=== PATIENT | female | born 1985 | race Caucasian/White ===

== ENCOUNTER 2017-11-29 11:47 | Emergency (ER) | payer OTHER ==
[2017-11-29 12:47] LABS: Absolute Lymphocytes (CBC) 1.7 K/uL (0.7-4.9); Absolute Monocytes 0.5 K/uL (0.1-1.3); Absolute Neutrophil 5.4 K/uL (1.8-8.0); Basophils % 0.4 % (0-1.3); Eosinophils % 3.4 % (0-4.4); Hematocrit 39.1 % (36.0-45.0); Lymphocytes % 21.5 % (15.3-44.8); MCH 29.3 pg (27.0-35.0); MCV 89.7 fL (80-100); MPV 8.4 fL (7.6-11.3); Monocytes % 6.2 % (3.3-12.3); RBC Red Blood Cell Count 4.36 M/uL (3.86-4.86)
[2017-11-29 12:56] LABS: Bicarbonate 27 mEq/L (21-31); Glucose Level 96 mg/dL (65-120); Potassium 3.6 mEq/L (3.6-5.0); Sodium Level 136 mEq/L (135-145)
[2017-11-29 12:57] LABS: BUN Blood Urea Nitrogen 9 mg/dL (6-20)
[2017-11-29 13:10] LABS: HCG, Quantitative < 5.0 mIU/mL (<5)
[2017-11-29] MEDS ORDERED: PROMETHAZINE 25 MG/ML VIAL ONE (13:42)
[2017-11-29] MEDS ORDERED: ACETAMINOPHEN 325 MG TABLET ONE (13:42)
[2017-11-29] MEDS ORDERED: MORPHINE 4 MG/ML SYR ONE ×2 (14:53→17:40)
[2017-11-29 15:00] LABS: Urine Blood 3+ (NEG); Urine Glucose NEGATIVE (NEG); Urine Protein 2+ (NEG); Urine Specific Gravity 1.015 (1.005-1.030); Urine pH 6.5 (5.0-7.0)
--- NOTE | 2017-11-29 16:37 | RAD REPORT ---
EXAM DESCRIPTION: CT - Abdomen Pelvis W Contrast - 11/29/2017 4:12 pm CLINICAL HISTORY: Abdominal pain. Vaginal bleeding COMPARISON: January 2017 TECHNIQUE: Computed axial tomography of the abdomen and pelvis was obtained. 100 cc Isovue-300 is ad ministered intravenously. Oral contrast was given. All CT scans are performed using dose optimization technique as appropriate and may include automated exposure control or mA/KV adjustment according to patient size. FINDINGS: The left lobe of the liver is prominent without change from the prior exam Spleen, pancreas, adrenals and kidneys appear unremarkable. The appendix is normal caliber. There is no evidence of diverticulitis A 25 millimeter left ovarian cyst is present. A 20 millimeter right ovarian cyst is seen. Significant free fluid is not noted A large amount of air is present within the vagina. IMPRESSION: Large amount of air within the vagina could be related to infection or fistula A 25 millimeter left ovarian cyst is present. A 20 millimeter right ovarian cyst is seen. Significant free fluid is not noted
--- NOTE | 2017-11-29 17:28 | EDPHYS ---
Physician Documentation [facility] Name: Jaymie Cleveland Age: 32 yrs Sex: Female : 1985 Arrival Date: 11/29/2017 Time: 11:50 Bed 20 Private MD: Leighton Villalpando ED Physician Lupillo Fatima HPI: 11/29 12:43 This 32 yrs old Female presents to ER via Ambulatory with complaints of pm1 Vaginal Bleeding, + Preg <12wks. 12:43 The patient presents to the emergency department with abdominal pain, of the suprapubic pm1 area, that started today, described as crampy, vaginal bleeding, with clots. Previous pregnancies: in previous pregnancies patient has had 1 and 2 miscarriages. Associated signs and symptoms: Pertinent positives: vaginal bleeding, Pertinent negatives: chest pain, fever, nausea, shortness of breath, vaginal discharge, vomiting. The patient has not recently seen a physician. patient took daily home tests from 11/16 to 11/23 and they were positive. 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 - Social history:: Smoking status: Patient uses tobacco products, smokes one-half pack cigarettes per day. ROS: 13:00 Constitutional: Negative for fever, chills, and weight loss, Eyes: Negative for injury, pm1 pain, redness, and discharge, ENT: Negative for injury, pain, and discharge, Neck: Negative for injury, pain, and swelling, Cardiovascular: Negative for chest pain, palpitations, and edema, Respiratory: Negative for shortness of breath, cough, wheezing, and pleuritic chest pain, Abdomen/GI: Negative for abdominal pain, nausea, vomiting, diarrhea, and constipation, Back: Negative for injury and pain. 13:00 MS/Extremity: Negative for injury and deformity, Skin: Negative for injury, rash, and discoloration, Neuro: Negative for headache, weakness, numbness, tingling, and seizure. 13:00 : Positive for vaginal bleeding, Negative for flank pain, burning with urination, difficulty urinating, vaginal discharge, vaginal itching. Exam: 13:00 Constitutional: This is a well developed, well nourished patient who is awake, alert, pm1 and in no acute distress. Head/Face: Normocephalic, atraumatic. Eyes: Pupils equal round and reactive to light, extra-ocular motions intact. Lids and lashes normal. Conjunctiva and sclera are non-icteric and not injected. Cornea within normal limits. Periorbital areas with no swelling, redness, or edema. ENT: Nares patent. No nasal discharge, no septal abnormalities noted. Tympanic membranes are normal and external auditory canals are clear. Oropharynx with no redness, swelling, or masses, exudates, or evidence of obstruction, uvula midline. Mucous membranes moist. Neck: Trachea midline, no thyromegaly or masses palpated, and no cervical lymphadenopathy. Supple, full range of motion without nuchal rigidity, or vertebral point tenderness. No Meningismus. Chest/axilla: Normal chest wall appearance and motion. Nontender with no deformity. No lesions are appreciated. Cardiovascular: Regular rate and rhythm with a normal S1 and S2. No gallops, murmurs, or rubs. Normal PMI, no JVD. No pulse deficits. Respiratory: Lungs have equal breath sounds bilaterally, clear to auscultation and percussion. No rales, rhonchi or wheezes noted. No increased work of breathing, no retractions or nasal flaring. Abdomen/GI: Soft, non-tender, with normal bowel sounds. No distension or tympany. No guarding or rebound. No evidence of tenderness throughout. Back: No spinal tenderness. No costovertebral tenderness. Full range of motion. Skin: Warm, dry with normal turgor. Normal color with no rashes, no lesions, and no evidence of cellulitis. MS/ Extremity: Pulses equal, no cyanosis. Neurovascular intact. Full, normal range of motion. 13:00 Neuro: Orientation: is normal, Mentation: is normal, Motor: is normal, moves all fours, Sensation: is normal, no obvious gross deficits, Gait: is steady, at a normal pace, without difficulty. 17:25 : Pelvic Exam: External exam: is normal, Speculum exam: scant bleeding, bimanual exam pm1 reveals normal findings, no cervical motion tenderness, no uterine tenderness, no adnexa tenderness or masses bilaterally, Olamide. Sexual behavior: the patient is sexually active, and reports a single partner, method of control is none. Vital Signs: 11:57 BP 112 / 68; Pulse 106; Resp 20; Temp 98.3; Pulse Ox 98% on R/A; Weight 97.52 kg; aj Height 5 ft. 2 in. (157.48 cm); 12:49 BP 108 / 71; Pulse 97; Resp 16; Pulse Ox 98% on R/A; Pain 0/10; em 13:50 BP 131 / 88; Pulse 86; Resp 16; Pulse Ox 99% on R/A; em 15:04 BP 98 / 76; Pulse 87; Resp 16; Pulse Ox 96% on R/A; mh5 16:00 BP 117 / 79; Pulse 82; Resp 18; Pulse Ox 99% on R/A; Pain 5/10; em 17:00 BP 114 / 76; Pulse 86; Resp 18; Pulse Ox 99% on R/A; Pain 4/10; em 11:57 Body Mass Index 39.32 (97.52 kg, 157.48 cm) aj MDM: 12:07 Patient medically screened. pm1 13:00 Data reviewed: vital signs. Data interpreted: Pulse oximetry: on room air is 99 %. pm1 Interpretation: normal. 17:25 Counseling: I had a detailed discussion with the patient and/or guardian regarding: the pm1 historical points, exam findings, and any diagnostic results supporting the discharge/admit diagnosis, lab results, radiology results, the need for outpatient follow up, to return to the emergency department if symptoms worsen or persist or if there are any questions or concerns that arise at home. 17:25 Differential diagnosis: STD, ectopic , Menses, abnormal uterine bleeding. pm1 11/29 12:11 Order name: Quantitative Hcg; Complete Time: 14:04 pm11/29 12:11 Order name: Abo/rh Typing; Complete Time: 14:04 pm11/29 12:11 Order name: Basic Metabolic Panel; Complete Time: 14:04 pm11/29 12:11 Order name: CBC with Diff; Complete Time: 12:49 pm1 11/29 12:26 Order name: Urine Dipstick--Ancillary (enter results); Complete Time: 15:01 bd 11/29 12:26 Order name: Urine --Ancillary (enter results); Complete Time: 15:01 bd 11/29 12:11 Order name: Urine Test (obtain specimen); Complete Time: 12:18 pm1 11/29 12:11 Order name: IV Saline Lock; Complete Time: 12:48 pm1 11/29 14:10 Order name: CT Abd/Pelvis - W/Contrast; Complete Time: 16:43 pm1 11/29 12:11 Order name: Labs collected and sent; Complete Time: 12:48 pm1 11/29 12:11 Order name: NPO; Complete Time: 12:18 pm1 11/29 12:11 Order name: Urine Dipstick-Ancillary (obtain specimen); Complete Time: 12:39 pm1 11/29 16:44 Order name: Pelvic Exam Setup; Complete Time: 17:32 pm1 Administered Medications: 13:02 Drug: morphine 4 mg Route: IVP; Site: left forearm; iw 16:33 Follow up: Response: No adverse reaction; Pain is decreased em 14:02 Drug: Phenergan 12.5 mg Route: IVP; Site: right forearm; iw 14:49 Follow up: Response: No adverse reaction em 14:03 Drug: Tylenol 650 mg Route: PO; em 14:49 Follow up: Response: No adverse reaction em 17:44 Not Given (Physician Discretion): morphine 2 mg IVP once pm1 17:44 Drug: TORadol 30 mg Route: IVP; Site: left antecubital; hj 17:55 Follow up: Response: No adverse reaction em Point of Care Testing: Urine : 12:50 hCG Reading: Negative; em Disposition: 18:39 Co-signature as Attending Physician, Lupillo Fatima MD. rn Disposition: 11/29/17 17:27 Discharged to Home. Impression: Abnormal uterine and vaginal bleeding, unspecified. - Condition is Stable. - Discharge Instructions: Abnormal Uterine Bleeding. - Prescriptions for Tylenol- Codeine #3 300-30 mg Oral Tablet - take 2 tablets by ORAL route every 6 hours As needed; 20 tablet. - Medication Reconciliation Form, Thank You Letter, Prescription Opioid Use form. - Follow up: Emergency Department; When: As needed; Reason: Worsening of condition. Follow up: Private Physician; When: 2 - 3 days; Reason: Recheck today's complaints, Continuance of care, Re-evaluation by your physician. - Problem is new. - Symptoms have improved. Signatures: Dispatcher [employer] EDRizwana Joyce RN MABEL Davalos, Tyler, REPORTS ANALYST REPORTS ANALYST Ariana Solorzano RN RN iw Nieto, Roman, MD MD rn Joaquin, Henry, RN RN hj Marinas, Patrick, PICKLE MAKER PICKLE MAKER pm1 Corrections: (The following items were deleted from the chart) 18:01 17:27 11/29/2017 17:27 Discharged to Home. Impression: Abnormal uterine and vaginal em bleeding, unspecified. Condition is Stable. Forms are Medication Reconciliation Form, Thank You Letter, Antibiotic Education, Prescription Opioid Use. Follow up: Emergency Department; When: As needed; Reason: Worsening of condition. Follow up: Private Physician; When: 2 - 3 days; Reason: Recheck today's complaints, Continuance of care, Re-evaluation by your physician. Problem is new. Symptoms have improved. pm1
--- NOTE | 2017-11-29 17:28 | ER ---
Nurse's Notes [facility] Name: Jaymie Cleveland Age: 32 yrs Sex: Female : 1985 Arrival Date: 11/29/2017 Time: 11:50 Bed 20 Private MD: Leighton Villalpando Diagnosis: Abnormal uterine and vaginal bleeding, unspecified Presentation: 11/29 11:56 Presenting complaint: Patient states: Vaginal bleeding with small clots that started aj yesterday. Patient reports positive home test. Transition of care: patient was not received from another setting of care. Onset of symptoms was November 29, 2017. Care prior to arrival: None. 11:56 Method Of Arrival: Ambulatory aj 11:56 Acuity: HOSEA 3 aj 12:49 Initial Sepsis Screen: Does the patient meet any 2 criteria? No. Patient's initial em sepsis screen is negative. Does the patient have a suspected source of infection? No. Patient's initial sepsis screen is negative. Triage Assessment: 11:57 General: Appears in no apparent distress. comfortable, Behavior is calm, cooperative, aj appropriate for age. Pain: Complains of pain in pelvis. Neuro: Level of Consciousness is awake, alert, obeys commands, Oriented to person, place, time, situation. Respiratory: Airway is patent Respiratory effort is even, unlabored, Respiratory pattern is regular, symmetrical. : Reports vaginal bleeding that is moderate flow. Derm: Skin is intact, Skin is dry, Skin is red, Patient is sunburnt with peeling skin. 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 - Social history:: Smoking status: Patient uses tobacco products, smokes one-half pack cigarettes per day. Screenin:51 Abuse screen: Denies threats or abuse. Nutritional screening: No deficits noted. em Tuberculosis screening: No symptoms or risk factors identified. Fall Risk None identified. Assessment: 12:22 Reassessment:. General: Appears in no apparent distress. uncomfortable, Behavior is em calm. Pain: Complains of pain in suprapubic area. Neuro: Level of Consciousness is awake, alert, Oriented to person, place, time. Cardiovascular: Capillary refill < 3 seconds Patient's skin is warm and dry. Respiratory: Airway is patent Respiratory effort is even, unlabored, Respiratory pattern is regular, symmetrical. GI: Abdomen is round Bowel sounds present X 4 quads. Abd is soft and non tender X 4 quads. Reports nausea, vomiting. : Urine is blood tinged. EENT: No signs and/or symptoms were reported regarding the EENT system. Derm: Skin is intact, Skin is pink, warm \T\ dry. Musculoskeletal: Range of motion: intact in all extremities. 13:00 Reassessment: Patient appears in no apparent distress at this time. I agree with the iw above assessment by Tyler Davalos LVN. 13:45 Reassessment: Patient appears in no apparent distress at this time. Patient and/or em family updated on plan of care and expected duration. Pain level reassessed. c/o pain and nausea, Mich BUDGET OFFICER notified. 14:38 Reassessment: Patient appears in no apparent distress at this time. Patient and/or em family updated on plan of care and expected duration. Pain level reassessed. 15:40 Reassessment: Patient appears in no apparent distress at this time. Patient and/or em family updated on plan of care and expected duration. Pain level reassessed. Patient is alert, oriented x 3, equal unlabored respirations, skin warm/dry/pink. 16:00 Reassessment: Patient appears in no apparent distress at this time. Patient and/or em family updated on plan of care and expected duration. Pain level reassessed. Patient is alert, oriented x 3, equal unlabored respirations, skin warm/dry/pink. Patient states feeling better. 16:45 Reassessment: Patient appears in no apparent distress at this time. Patient and/or em family updated on plan of care and expected duration. Pain level reassessed. Patient is alert, oriented x 3, equal unlabored respirations, skin warm/dry/pink. 17:40 Reassessment: Patient appears in no apparent distress at this time. Patient and/or em family updated on plan of care and expected duration. Pain level reassessed. Patient is alert, oriented x 3, equal unlabored respirations, skin warm/dry/pink. Patient states feeling better. Patient states symptoms have improved. Vital Signs: 11:57 BP 112 / 68; Pulse 106; Resp 20; Temp 98.3; Pulse Ox 98% on R/A; Weight 97.52 kg; aj Height 5 ft. 2 in. (157.48 cm); 12:49 BP 108 / 71; Pulse 97; Resp 16; Pulse Ox 98% on R/A; Pain 0/10; em 13:50 BP 131 / 88; Pulse 86; Resp 16; Pulse Ox 99% on R/A; em 15:04 BP 98 / 76; Pulse 87; Resp 16; Pulse Ox 96% on R/A; mh5 16:00 BP 117 / 79; Pulse 82; Resp 18; Pulse Ox 99% on R/A; Pain 5/10; em 17:00 BP 114 / 76; Pulse 86; Resp 18; Pulse Ox 99% on R/A; Pain 4/10; em 11:57 Body Mass Index 39.32 (97.52 kg, 157.48 cm) ED Course: 11:50 Patient arrived in ED. mr 11:50 None, None is Private Physician. mr 11:50 Leighton Villalpando MD is Private Physician. mr 11:57 Triage completed. aj 11:57 Arm band placed on left wrist. Patient placed in an exam room. aj 12:02 Tyler Davalos LVN is Primary Nurse. em 12:03 Mich Tavares NP is PHCP. pm1 12:03 Lupillo Fatima MD is Attending Physician. pm1 12:39 Urine --Ancillary (enter results) Sent. 5 12:39 Urine Dipstick--Ancillary (enter results) Sent. 5 12:39 Quantitative Hcg Sent. 5 12:39 Abo/rh Typing Sent. 5 12:39 Basic Metabolic Panel Sent. 5 12:39 CBC with Diff Sent. 5 12:39 Initial lab(s) drawn, by wi, sent to lab. Inserted saline lock: 22 gauge in right mh5 antecubital area, using aseptic technique. Blood collected. 12:41 Patient has correct armband on for positive identification. Placed in gown. Bed in low 5 position. Call light in reach. Side rails up X 1. Adult w/ patient. Warm blanket given. Pillow given. Pulse ox on. NIBP on. 12:50 No provider procedures requiring assistance completed. em 14:00 Inserted saline lock: 22 gauge in right forearm, using aseptic technique. em 16:[address] kw1 16:11 CT completed. Patient tolerated procedure well. Patient moved back from CT. kw1 16:13 CT Abd/Pelvis - W/Contrast In Process Unspecified. EDMS 18:00 IV discontinued, intact, bleeding controlled, No redness/swelling at site. Pressure em dressing applied. Administered Medications: 13:02 Drug: morphine 4 mg Route: IVP; Site: left forearm; iw 16:33 Follow up: Response: No adverse reaction; Pain is decreased em 14:02 Drug: Phenergan 12.5 mg Route: IVP; Site: right forearm; iw 14:49 Follow up: Response: No adverse reaction em 14:03 Drug: Tylenol 650 mg Route: PO; em 14:49 Follow up: Response: No adverse reaction em 17:44 Not Given (Physician Discretion): morphine 2 mg IVP once pm1 17:44 Drug: TORadol 30 mg Route: IVP; Site: left antecubital; hj 17:55 Follow up: Response: No adverse reaction em Point of Care Testing: Urine : 12:50 hCG Reading: Negative; em Outcome: 17:27 Discharge ordered by MD. pm1 17:57 Discharged to home ambulatory. em 17:57 Condition: good 17:57 Discharge instructions given to patient, family, Instructed on discharge instructions, follow up and referral plans. Demonstrated understanding of instructions, follow-up care, medications, Prescriptions given X 1. 18:01 Patient left the ED. em Signatures: Dispatcher [employer] Rizwana Leal RN RN aj Rivera, Maria mr Munoz, Edgar, ART HANDLER ART HANDLER em Ariana Anderson RN RN iw Joaquin, Henry, RN RN hj Marinas, Patrick, NP BUDGET OFFICER pm1 Alicia Can [facility] Brenda Rizvi [facility]
[2017-11-29] MEDS ORDERED: KETOROLAC 30 MG/ML INJ ONE (17:47)
[2017-11-29 18:05] VITALS: TEMP 98.3
[2017-11-29 18:10] VITALS: O2SAT 99
[2017-11-29 18:11] VITALS: BP 114/76
== END 2017-11-29 18:01 | disposition home or self-care (01) ==
LOC: ER 11:47
DX: N93.9 Abnormal uterine and vaginal bleeding, unspecified (principal); F41.9 Anxiety disorder, unspecified; F32.9 Major depressive disorder, single episode, unspecified; F17.210 Nicotine dependence, cigarettes, uncomplicated
CPT/HCPCS: 36415; 74177; 80048; 81003; 81025; 84702; 85025; 86900; 86901; 99284; J2550; Q9967

== ENCOUNTER 2018-07-11 05:22 | Emergency (ER) | payer OTHER ==
[2018-07-11 06:42] LABS: Absolute Lymphocytes (CBC) 2.2 K/uL (0.7-4.9); Absolute Monocytes 0.6 K/uL (0.1-1.3); Absolute Neutrophil 4.1 K/uL (1.8-8.0); Basophils % 0.7 % (0-1.3); Eosinophils % 3.6 % (0-4.4); Hematocrit 37.8 % (36.0-45.0); Lymphocytes % 30.7 % (15.3-44.8); Monocytes % 7.9 % (3.3-12.3); RBC Red Blood Cell Count 4.16 M/uL (3.86-4.86)
[2018-07-11 06:48] LABS: Protime INR 0.99
[2018-07-11 06:50] LABS: Urine Blood NEGATIVE (NEG); Urine Glucose NEGATIVE (NEG); Urine Protein NEGATIVE (NEG); Urine Specific Gravity >1.030 (1.005-1.030); Urine pH 5.5 (5.0-7.0)
[2018-07-11 06:51] LABS: Barbiturates NEGATIVE (NEGATIVE); Benzodiazepines POSITIVE (NEGATIVE); Cocaine NEGATIVE (NEGATIVE); METHAMPHETAM POSITIVE (NEGATIVE); Methadone NEGATIVE (NEGATIVE); Opiates NEGATIVE (NEGATIVE); Phencyclidine NEGATIVE (NEGATIVE); THC Cannibis NEGATIVE (NEGATIVE)
[2018-07-11] MEDS ORDERED: NA CHLORIDE 0.9% 1,000 ML ONE (06:56)
[2018-07-11 07:03] LABS: ALT/SGPT 30 U/L (12-78); AST/SGOT 16 U/L (15-37); Albumin 3.3 g/dL (3.4-5.0); Alkaline Phosphatase 51 U/L (45-117); BUN Blood Urea Nitrogen 6 mg/dL (7-18); Bicarbonate 26 mmol/L (21-32); Bilirubin Direct < 0.1 mg/dL (0-0.2); Bilirubin Total 0.1 mg/dL (0.2-1.0); Glucose Level 94 mg/dL (74-106); Lipase 384 U/L (73-393); Magnesium 2.2 mg/dL (1.8-2.4); NT PRO-BNP 95 pg/mL (<125); Potassium 3.6 mmol/L (3.5-5.1); Protein, Total 6.6 g/dL (6.4-8.2); Sodium Level 142 mmol/L (136-145); Troponin (Emerg Dept Use Only) < 0.02 ng/mL (0.0-0.045)
[2018-07-11] MEDS ORDERED: KETOROLAC 30 MG/ML INJ ONE (08:16)
--- NOTE | 2018-07-11 08:49 | ER ---
Nurse's Notes [facility] Name: Jaymie Cleveland Age: 33 yrs Sex: Female : 1985 Arrival Date: 07/11/2018 Time: 05:34 Bed 13 Private MD: Diagnosis: Lower abdominal pain, unspecified;Paresthesia of skin;Volume depletion Presentation: 07/11 05:55 Presenting complaint: Patient states: hand and foot swelling started 2 days ago rr5 associated with numbness and tingling sensation. right sided chest pain and left flank pain, pain score 7/10 started 4 days ago. Transition of care: patient was not received from another setting of care. Onset of symptoms was July 08, 2018. Risk Assessment: Do you want to hurt yourself or someone else? Patient reports no desire to harm self or others. Initial Sepsis Screen: Does the patient meet any 2 criteria? No. Patient's initial sepsis screen is negative. Does the patient have a suspected source of infection? No. Patient's initial sepsis screen is negative. Care prior to arrival: None. 05:55 Method Of Arrival: Ambulatory rr5 05:55 Acuity: HOSEA 3 rr5 TARIFF CLERK: 05:58 LMP 07/01/2018 rr5 Historical: - Allergies: 06:01 NKDA; rr5 - Home Meds: 06:01 alprazolam 2 mg Oral tab 1 tab 2 times a day [Active]; adderal [Active]; rr5 - PMHx: 06:01 Anxiety; Depression; Seizures; ocd; C DIFF; rr5 - PSHx: 06:01 elbow surgery; knee surgery; rr5 - Immunization history:: Adult Immunizations up to date, Flu vaccine is up to date. - Social history:: Smoking status: Patient uses tobacco products, smokes one-half pack cigarettes per day, Patient/guardian denies using alcohol, street drugs. - Ebola Screening: : Patient negative for fever greater than or equal to 101.5 degrees Fahrenheit, and additional compatible Ebola Virus Disease symptoms Patient denies exposure to infectious person Patient denies travel to an Ebola-affected area in the 21 days before illness onset. Screenin:00 Abuse screen: Denies threats or abuse. Denies injuries from another. Nutritional rr5 screening: No deficits noted. Tuberculosis screening: No symptoms or risk factors identified. Fall Risk IV access (20 points). Total Hollins Fall Scale indicates No Risk (0-24 pts). Assessment: 06:00 General: Appears in no apparent distress. uncomfortable, Behavior is calm, cooperative. rr5 06:00 Pain: Complains of pain in right upper chest and left flank area Pain does not radiate. rr5 Pain currently is 7 out of 10 on a pain scale. Quality of pain is described as sharp, Pain began gradually, Is intermittent. Neuro: Level of Consciousness is awake, alert, obeys commands, Oriented to person, place, time, situation. Cardiovascular: Capillary refill < 3 seconds Patient's skin is warm and dry. Respiratory: Airway is patent Respiratory effort is even, unlabored, Respiratory pattern is regular, symmetrical. GI: Bowel sounds present X 4 quads. Abd is soft and non tender X 4 quads. : No signs and/or symptoms were reported regarding the genitourinary system. EENT: No signs and/or symptoms were reported regarding the EENT system. Derm: Skin is intact, Skin temperature is warm. Musculoskeletal: No signs and/or symptoms reported regarding the musculoskeletal system. 06:43 Reassessment: Patient appears in no apparent distress at this time. Patient and/or rr5 family updated on plan of care and expected duration. Pain level reassessed. awaiting for report. Patient states symptoms have improved. 07:42 Reassessment: Patient appears in no apparent distress at this time. Patient and/or ph family updated on plan of care and expected duration. Pain level reassessed. Patient is alert, oriented x 3, equal unlabored respirations, skin warm/dry/pink. Pt resting quietly, states, " Do you think I can get some IV benadryl for swelling?" VSS at this time, ERP notified, see MAR for current orders. Vital Signs: 05:58 BP 120 / 60; Pulse 98; Resp 17; Temp 98.3; Pulse Ox 98% ; Weight 95.25 kg; Height 5 ft. rr5 2 in. (157.48 cm); Pain 7/10; 06:30 BP 105 / 62; Pulse 95; Resp 16; Pulse Ox 99% on R/A; rr5 07:43 BP 111 / 79; Pulse 88; Resp 16; Pulse Ox 100% on R/A; ph 05:58 Body Mass Index 38.41 (95.25 kg, 157.48 cm) rr5 ED Course: 05:34 Patient arrived in ED. ag3 05:55 Marco Munoz, RN is Primary Nurse. rr5 05:58 Triage completed. rr5 05:59 Elizabeth Doty FNP-C [facility]. snw 05:59 Storm Martin MD is Attending Physician. snw 06:02 Arm band placed on. rr5 06:05 Patient has correct armband on for positive identification. Placed in gown. Bed in low rr5 position. Call light in reach. Side rails up X 1. potline monitor on. Pulse ox on. NIBP on. 06:07 X-ray completed. Portable x-ray completed in exam room. Patient tolerated procedure kw well. 06:11 XRAY Chest (1 view) In Process Unspecified. EDMS 06:30 Inserted saline lock: 20 gauge in right forearm, using aseptic technique. Blood rr5 collected. 07:43 No provider procedures requiring assistance completed. ph Administered Medications: 06:30 Drug: NS 0.9% 1000 ml Route: IV; Rate: 125 ml/hr; Site: right hand; rr5 07:20 Drug: NS 0.9% 1000 ml Route: IV; Rate: 1 bolus; Site: right hand; ph 08:22 Follow up: Response: No adverse reaction; IV Status: Completed infusion ph 08:21 Drug: TORadol 30 mg Route: IVP; Site: right hand; ph Outcome: 08:49 Discharge ordered by . snw 09:16 Patient left the ED. em Signatures: Dispatcher [employer] EDRI Elizabeth Doty FNP-C FNP-Csnw Tyler Davalos, CHRONIC DISEASE EPIDEMIOLOGIST CHRONIC DISEASE EPIDEMIOLOGIST em Cher Cintron Patricia RN RN Cindy Bill ag3 Marco Munoz, RN RN rr5
--- NOTE | 2018-07-11 08:50 | EDPHYS ---
Physician Documentation [facility] Name: Jaymie Cleveland Age: 33 yrs Sex: Female : 1985 Arrival Date: 07/11/2018 Time: 05:34 Bed 13 Private MD: ED Physician Storm Martin HPI: 07/11 06:15 This 33 yrs old Female presents to ER via Ambulatory with complaints of snw Abdominal Pain, Feet Swelling. 06:15 The patient presents with abdominal pain that is diffuse. Onset: The symptoms/episode snw began/occurred 4 day(s) ago. The symptoms do not radiate. Associated signs and symptoms: Pertinent positives: numbness to hands and feet. The symptoms are described as achy. Severity of pain: At its worst the pain was moderate a 7 / 10. It is unknown whether or not the patient has had similar symptoms in the past. It is unknown whether or not the patient has recently seen a physician, sees Dr. Villalpando. 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 - Social history:: Smoking status: Patient uses tobacco products, smokes one-half pack cigarettes per day, Patient/guardian denies using alcohol, street drugs. - Ebola Screening: : Patient negative for fever greater than or equal to 101.5 degrees Fahrenheit, and additional compatible Ebola Virus Disease symptoms Patient denies exposure to infectious person Patient denies travel to an Ebola-affected area in the 21 days before illness onset. ROS: 06:14 Eyes: Negative for injury, pain, redness, and discharge, ENT: Negative for injury, snw pain, and discharge, Neck: Negative for injury, pain, and swelling, Respiratory: Negative for shortness of breath, cough, wheezing, and pleuritic chest pain. 06:14 Back: Negative for injury and pain, : Negative for injury, bleeding, discharge, and swelling. 06:14 Skin: Negative for injury, rash, and discoloration, Neuro: Negative for headache, weakness, numbness, tingling, and seizure, Psych: Negative for depression, anxiety, suicide ideation, homicidal ideation, and hallucinations. 06:14 Constitutional: Positive for body aches. 06:14 Cardiovascular: Positive for chest pain, of the anterior aspect of right upper chest. 06:14 Abdomen/GI: Positive for abdominal pain. 06:14 MS/extremity: Positive for paresthesias, of the hands and feet. Exam: 06:12 Head/Face: Normocephalic, atraumatic. Eyes: Pupils equal round and reactive to light, snw extra-ocular motions intact. Lids and lashes normal. Conjunctiva and sclera are non-icteric and not injected. Cornea within normal limits. Periorbital areas with no swelling, redness, or edema. ENT: Nares patent. No nasal discharge, no septal abnormalities noted. Tympanic membranes are normal and external auditory canals are clear. Oropharynx with no redness, swelling, or masses, exudates, or evidence of obstruction, uvula midline. Mucous membranes moist. 06:12 Chest/axilla: Normal chest wall appearance and motion. Nontender with no deformity. No lesions are appreciated. Cardiovascular: Regular rate and rhythm with a normal S1 and S2. No gallops, murmurs, or rubs. Normal PMI, no JVD. No pulse deficits. Respiratory: Lungs have equal breath sounds bilaterally, clear to auscultation and percussion. No rales, rhonchi or wheezes noted. No increased work of breathing, no retractions or nasal flaring. 06:12 Back: No spinal tenderness. No costovertebral tenderness. Full range of motion. Skin: Warm, dry with normal turgor. Normal color with no rashes, no lesions, and no evidence of cellulitis. MS/ Extremity: Pulses equal, no cyanosis. Neurovascular intact. Full, normal range of motion. Neuro: Awake and alert, GCS 15, oriented to person, place, time, and situation. Cranial nerves II-XII grossly intact. Motor strength 5/5 in all extremities. Sensory grossly intact. Cerebellar exam normal. Normal gait. Psych: Awake, alert, with orientation to person, place and time. Behavior, mood, and affect are within normal limits. 06:12 Constitutional: The patient appears awake, anxious, obese. 06:12 Neck: External neck: rash, of the left lateral aspect of neck. 06:12 Abdomen/GI: Inspection: obese Bowel sounds: normal, Palpation: abdomen is soft and non-tender, in all quadrants. Vital Signs: 05:58 BP 120 / 60; Pulse 98; Resp 17; Temp 98.3; Pulse Ox 98% ; Weight 95.25 kg; Height 5 ft. rr5 2 in. (157.48 cm); Pain 7/10; 06:30 BP 105 / 62; Pulse 95; Resp 16; Pulse Ox 99% on R/A; rr5 07:43 BP 111 / 79; Pulse 88; Resp 16; Pulse Ox 100% on R/A; ph 05:58 Body Mass Index 38.41 (95.25 kg, 157.48 cm) rr5 MDM: 05:56 Patient medically screened. korin 08:50 Data reviewed: vital signs, nurses notes. Data interpreted: Pulse oximetry: on room air snw is 100 %. Interpretation: normal. Counseling: I had a detailed discussion with the patient and/or guardian regarding: the historical points, exam findings, and any diagnostic results supporting the discharge/admit diagnosis, lab results, radiology results, the need for outpatient follow up, to return to the emergency department if symptoms worsen or persist or if there are any questions or concerns that arise at home. Response to treatment: the patient's symptoms have mildly improved after treatment. Special discussion: Based on the patient's Hx, exam, and Dx evaluation, there is no indication for emergent surgery or inpatient Tx. It is understood by the patient/guardian that if the Sx's persist or worsen they need to return immediately for re-evaluation. Based on the history and exam findings, there is no indication for further emergent testing or inpatient evaluation. I discussed with the patient/guardian the need to see the neurologist for further evaluation of the symptoms. I discussed with the patient/guardian the need to see the primary care provider for further evaluation of the symptoms. 07/11 05:39 Order name: Basic Metabolic Panel; Complete Time: 07:17 ms 07/11 05:39 Order name: CBC with Diff; Complete Time: 06:57 ms 07/11 05:39 Order name: LFT's; Complete Time: 07:17 ms 07/11 05:39 Order name: Magnesium; Complete Time: 07:17 ms 07/11 05:39 Order name: NT PRO-BNP; Complete Time: 07:17 ms 07/11 05:39 Order name: PT-INR; Complete Time: 06:55 ms 07/11 05:39 Order name: Troponin (emerg Dept Use Only); Complete Time: 07:17 ms 07/11 05:39 Order name: XRAY Chest (1 view); Complete Time: 09:52 ms 07/11 05:40 Order name: Lipase; Complete Time: 07:17 ms 07/11 05:45 Order name: Urine Culture korin 07/11 06:19 Order name: UDS; Complete Time: 06:55 snw 07/11 06:42 Order name: Urine Dipstick--Ancillary (enter results); Complete Time: 06:55 ar5 07/11 07:28 Order name: Urine Microscopic Only; Complete Time: 08:54 snw 07/11 05:40 Order name: EKG; Complete Time: 05:41 ms 07/11 05:40 Order name: Cardiac monitoring; Complete Time: 06:39 ms 07/11 05:40 Order name: EKG - Nurse/Tech; Complete Time: 06:39 ms 07/11 05:40 Order name: IV Saline Lock; Complete Time: 06:39 ms 07/11 05:40 Order name: Labs collected and sent; Complete Time: 06:39 ms 07/11 05:40 Order name: O2 Per Protocol; Complete Time: 06:40 ms 07/11 05:40 Order name: O2 Sat Monitoring; Complete Time: 06:40 ms 07/11 05:45 Order name: Urine Dipstick-Ancillary (obtain specimen); Complete Time: 07:14 korin 07/11 05:45 Order name: Urine Test (obtain specimen); Complete Time: 07:14 korin Administered Medications: 06:30 Drug: NS 0.9% 1000 ml Route: IV; Rate: 125 ml/hr; Site: right hand; rr5 07:20 Drug: NS 0.9% 1000 ml Route: IV; Rate: 1 bolus; Site: right hand; ph 08:22 Follow up: Response: No adverse reaction; IV Status: Completed infusion ph 08:21 Drug: TORadol 30 mg Route: IVP; Site: right hand; ph Disposition: 07/11/18 08:49 Discharged to Home. Impression: Lower abdominal pain, unspecified, Paresthesia of skin, Volume depletion. - Condition is Stable. - Discharge Instructions: Abdominal Pain, Adult, Dehydration, Adult, Paresthesia, Rehydration, Adult. - Prescriptions for Bentyl 20 mg Oral Tablet - take 1 tablet by ORAL route every 6 hours As needed; 20 tablet. Diclofenac Sodium 75 mg Oral Tablet Sustained Release - take 1 tablet by ORAL route 2 times per day; 30 tablet. - Work release form, Medication Reconciliation Form, Thank You Letter, Antibiotic Education, Prescription Opioid Use, Family Work Release form. - Follow up: Private Physician; When: 1 - 2 days; Reason: Recheck today's complaints, Continuance of care, Re-evaluation by your physician. Follow up: Emergency Department; When: As needed; Reason: Worsening of condition. Addendum: 07/16/2018 11:33 Co-signature as Attending Physician, Storm Martin MD I agree with the assessment and c raphael plan of care. Signatures: Dispatcher [employer] Storm Patterson MD MD cha Therrien, Shelly, DIRECTOR OF NURSES REGISTRY-C DIRECTOR OF NURSES REGISTRY-Csnw Tyler Davalos, COLLECTION CLERK COLLECTION CLERK Esqueda, Alicia ms Laxmi Walker, RN RN Marco Munoz RN RN rr5 Corrections: (The following items were deleted from the chart) 07/11 09:16 08:49 07/11/2018 08:49 Discharged to Home. Impression: Lower abdominal pain, em unspecified; Paresthesia of skin; Volume depletion. Condition is Stable. Forms are Medication Reconciliation Form, Thank You Letter, Antibiotic Education, Prescription Opioid Use. Follow up: Private Physician; When: 1 - 2 days; Reason: Recheck today's complaints, Continuance of care, Re-evaluation by your physician. Follow up: Emergency Department; When: As needed; Reason: Worsening of condition. snw
[2018-07-11 08:52] LABS: Urine Amorphous Sediment 1+ /HPF (NONE SEEN); Urine Bacteria <20 /HPF (<20); Urine Culture Reflex Order NOT NEEDED; Urine Mucus 3+ /HPF (NONE SEEN); Urine RBC <5 /HPF (NONE SEEN)
--- NOTE | 2018-07-11 08:59 | EKG ---
Test Date: 2018-07-11 Test Time: 06:09:18 Embroiderer Hand: RR MEASUREMENT RESULTS: Intervals: Rate: 83 ID: [id number] QRSD: 84 QT: 378 QTc: 444 [place]: P: 55 ID: [id number] QRS: 60 T: 18 INTERPRETIVE STATEMENTS: Normal sinus rhythm Normal ECG Compared to ECG 09/15/2017 21:13:42 ST (T wave) deviation no longer present Electronically Signed On 07-11-18 08:57:47 CHAIN PULLER by Ryan Quiroga
--- NOTE | 2018-07-11 09:14 | RAD REPORT ---
EXAM DESCRIPTION: Maximino Single View07/11/2018 6:10 am CLINICAL HISTORY: Chest pain COMPARISON: 2017 FINDINGS: A few areas of scarring are present within the lung bases. The lungs appear clear of acute infiltrate. The heart is normal size IMPRESSION: No acute abnormalities displayed
[2018-07-11 09:36] VITALS: TEMP 98.3
[2018-07-11 09:38] VITALS: BP 111/79; O2SAT 100
== END 2018-07-11 09:16 | disposition home or self-care (01) ==
LOC: ER 05:22
DX: E86.9 Volume depletion, unspecified (principal); R10.30 Lower abdominal pain, unspecified; R20.2 Paresthesia of skin; F41.9 Anxiety disorder, unspecified; F32.9 Major depressive disorder, single episode, unspecified; F17.210 Nicotine dependence, cigarettes, uncomplicated; Z79.899 Other long term (current) drug therapy
CPT/HCPCS: 36415; 71045; 80048; 80076; 80307; 81003; 81015; 83690; 83735; 83880; 84484; 85025; 85610; 87086; 87088; 93005; 96361; 96374; 99284; J7030

== ENCOUNTER 2018-07-31 19:42 | Emergency (ER) | payer OTHER ==
[2018-07-31 20:26] LABS: Absolute Monocytes 0.6 K/uL (0.1-1.3); Absolute Neutrophil 6.7 K/uL (1.8-8.0); Basophils % 0.5 % (0-1.3); Eosinophils % 1.7 % (0-4.4); Hematocrit 41.6 % (36.0-45.0); MPV 9.2 fL (7.6-11.3); Monocytes % 5.9 % (3.3-12.3); RBC Red Blood Cell Count 4.67 M/uL (3.86-4.86)
[2018-07-31 20:36] LABS: Urine Blood TRACE (NEG); Urine Glucose NEGATIVE (NEG); Urine Protein NEGATIVE (NEG); Urine Specific Gravity 1.015 (1.005-1.030)
[2018-07-31 20:43] LABS: Barbiturates NEGATIVE (NEGATIVE); Benzodiazepines POSITIVE (NEGATIVE); Cocaine NEGATIVE (NEGATIVE); METHAMPHETAM NEGATIVE (NEGATIVE); Methadone NEGATIVE (NEGATIVE); Opiates NEGATIVE (NEGATIVE); Phencyclidine NEGATIVE (NEGATIVE); THC Cannibis NEGATIVE (NEGATIVE)
[2018-07-31 20:47] LABS: ALT/SGPT 28 U/L (12-78); AST/SGOT 14 U/L (15-37); Alkaline Phosphatase 62 U/L (45-117); BUN Blood Urea Nitrogen 11 mg/dL (7-18); Bicarbonate 26 mmol/L (21-32); Bilirubin Direct < 0.1 mg/dL (0-0.2); Bilirubin Total 0.3 mg/dL (0.2-1.0); Glucose Level 87 mg/dL (74-106); Potassium 4.1 mmol/L (3.5-5.1); Protein, Total 7.9 g/dL (6.4-8.2); Sodium Level 140 mmol/L (136-145)
--- NOTE | 2018-07-31 21:07 | ER ---
Nurse's Notes [facility] Name: Jaymie Cleveland Age: 33 yrs Sex: Female : 1985 Arrival Date: 07/31/2018 Time: 19:43 Bed 6 Private MD: Maxx Perez E Diagnosis: Intentional self-harm by unspecified sharp object;Acute stress reaction Presentation: 07/31 20:06 Presenting complaint: Patient states: "I think I took it too far this time"; Patient lp1 states "I haven't done anything like this in like 4 years, but it happens when I run out of my medicine"; States diagnosis of depression, told her he did not care about her; Patient states using the other end of knife and cutting off tip of a syringe to cut skin; Abrasions noted to right wrist, and right thigh, Abrasions with words of "Not Enough" on right thigh; States pain to abdomen, "I have an ulcer that hurts sometimes". Transition of care: patient was not received from another setting of care. Onset of symptoms was July 31, 2018. Risk Assessment: Do you want to hurt yourself or someone else? Patient reports desire/thoughts of hurting themselves or someone else. Provider notified. Other: Patient agrees if sent home, she will attempt to harm herself again. Initial Sepsis Screen: Does the patient meet any 2 criteria? No. Patient's initial sepsis screen is negative. Does the patient have a suspected source of infection? No. Patient's initial sepsis screen is negative. Care prior to arrival: None. 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 - Social history:: Smoking status: Patient uses tobacco products, smokes one-half pack cigarettes per day. - Ebola Screening: : No symptoms or risks identified at this time. Screenin:14 Abuse screen: Denies threats or abuse. Denies injuries from another. Nutritional lp1 screening: No deficits noted. Tuberculosis screening: No symptoms or risk factors identified. Fall Risk None identified. Assessment: 20:10 General: Appears in no apparent distress. Behavior is calm, cooperative. Pain: ed1 Complains of pain in abdomen Pain does not radiate. Pain currently is 9 out of 10 on a pain scale. Quality of pain is described as burning, Pain began 2-3 days ago. Is continuous. Neuro: Level of Consciousness is awake, alert, obeys commands, Oriented to person, place, time, situation. Cardiovascular: Denies chest pain, Heart tones S1 S2 present. Respiratory: Airway is patent Respiratory effort is even, unlabored, Respiratory pattern is regular, symmetrical, Breath sounds are clear bilaterally. GI: Abdomen is non-distended, Bowel sounds present X 4 quads. Reports upper abdominal pain. : No signs and/or symptoms were reported regarding the genitourinary system. EENT: No signs and/or symptoms were reported regarding the EENT system. Derm: Skin is healthy with good turgor, Skin is dry, Skin is normal, Skin temperature is warm Wound noted right arm and right leg Wound is self inflicted abrasions Other: no bleeding noted. Musculoskeletal: Circulation, motion, and sensation intact. Range of motion: intact in all extremities. 20:48 Reassessment: Notified by Alicia Esqueda school examiner, that visitor in room with pt attempted ed1 to give the patient two blue pills. Pills were taken from patient and Mich Tavares NP, Kimberly Carmichael Charge nurse both notified. Visitors asked to leave patients room at this time. 20:49 Reassessment: Attempted to contact Bertrand Nassarmiguel per patients request. No answer on ed1 number called. 21:12 Reassessment: Pt notified that per provider and charge nurse that she would need a ed1 responsible adult if she was to be medicated prior to discharge. Pt states "Can I just leave then?" I advised patient that she was able to leave and I needed to remove her IV. Pt then pulled the IV out of her arm and dripped blood on the floor while I was acquiring proper materials to dress IV site. Pt refused to sign discharge papers and stated "Yall didn't do anything for me.". Psych: 20:13 Interventions: Removed personal items and placed in bag. Patient placed in hospital lp1 gown. Searched person for dangerous items. Urine collected and sent for urine drug test. Belonging list filled out. 20:56 Subjective: Patient's mood is sad, angry, Delusions are denied, Hallucinations are ed1 denied Having thoughts of suicide. Plan for suicide is cutting self Pt states "I wouldn't really go through with it because my parents are still alive. If they were not I would kill myself.". Objective: Patient is cooperative, Speech is normal, Affect is appropriate, Patient has mutilated themselves by cutting leg and arm. Suicide Risk Assessment: Sad Person Scale: Sex of patient: Female: Score 0 points. Age of patient: Score 0 point if patient falls outside of specified age parameters. Depression: Score 1 point if signs of depression are present. Previous Attempt: Score 1 point if patient has previously attempted suicide. Substance Abuse: Score 0 point if patient does not abuse alcohol or drugs. Rational Thinking: Score 1 point if patient is lacking rational thinking. Social Support: Score 0 if social support is present/available. Organized Plan: Score 1 point if patient had a plan in place. Relationship: Score 0 point if patient has a spouse or domestic partner. Chronic Sickness: Score 0 point if patient does not have a chronic illness, debilitating, or severe disorder. TOTAL POINTS: If total points are 3-4, proposed clinical action is close follow-up/consider hospitalization. Safety Checks: Personal items have been removed. Door is open. Visitors are present. Pt denies substance abuse. Commitment: N/A. Vital Signs: 20:11 BP 116 / 79; Pulse 117; Resp 18; Temp 98.8(O); Pulse Ox 98% on R/A; Weight 99.79 kg; lp1 Height 5 ft. 3 in. (160.02 cm); Pain 9/10; 21:12 ed1 20:11 Body Mass Index 38.97 (99.79 kg, 160.02 cm) lp1 21:12 Pt refused vital signs at discharge ed1 ED Course: 19:43 Patient arrived in ED. al2 19:44 Maxx Perez MD is Private Physician. al2 19:46 [place] Avitia RN is Primary Nurse. ed1 20:02 Mich Tavares NP is PHCP. pm1 20:02 Storm Martin MD is Attending Physician. pm1 20:09 Triage completed. lp1 20:11 Arm band placed on right wrist. lp1 20:13 Inserted saline lock: 20 gauge in right antecubital area, using aseptic technique. ms Blood collected. 20:15 Safety checks: Items removed: yes. Door open/sign placed on door: yes. Family/friend ms present: yes. Other: Pt family member at bedside if 13 years old. Pt is on the way to pick him up. Sitter present: Yes. 20:15 Patient has correct armband on for positive identification. ed1 20:30 Safety checks: Items removed: yes. Door open/sign placed on door: yes. Family/friend ms present: no. Sitter present: Yes. 20:32 Notified primary nurse of Notified [place] MONROE pt requested for her to Notify she ms is in the E.R. 20:45 Safety checks: Items removed: yes. Door open/sign placed on door: yes. Family/friend ms present: yes. Sitter present: Yes. 21:16 No provider procedures requiring assistance completed. IV discontinued, intact, ed1 bleeding controlled, No redness/swelling at site. Pressure dressing applied, Pt removed IV. Administered Medications: 21:18 Not Given (Patient Refused): Ativan 1 mg IVP once ed1 21:18 Not Given (Patient Refused): Benadryl 12.5 mg IVP once ed1 Outcome: 21:06 Discharge ordered by MD. pm1 21:16 Discharged to home ambulatory, with family. ed1 21:16 Condition: good 21:16 Discharge instructions given to patient, Instructed on discharge instructions, follow up and referral plans. Demonstrated understanding of pt refused discharge paperwork 21:19 Patient left the ED. ed1 Signatures: Alicia Esqueda ms, Erika, RN RN ed1 Rosalind Rasmussen RN RN lp1 Mich Tavares NP SPARMAKER pm1 Alexa Mata Corrections: (The following items were deleted from the chart) 20:13 20:06 Presenting complaint: Patient states: "I think I took it too far this time"; lp1 Patient states "I haven't done anything like this in like 4 years, but it happens when I run out of my medicine"; Patient states using the other end of knife and cutting off tip of a syringe to cut skin; Abrasions noted to right wrist, and right thigh, Abrasions with words of "Not Enough" on right thigh; States pain to abdomen, "I have an ulcer that hurts sometimes" lp1 20:49 20:48 Reassessment: Notified by Alicia Mchugh school examiner, that visitor in room with pt ed1 attempted to give the patient two blue pills. Pills were taken from patient and Mich Tavares NP, Kimberly Carmichael, Charge nurse both notified. Visitors asked to leave patients room at this time. ed1
--- NOTE | 2018-07-31 21:08 | EDPHYS ---
Physician Documentation [facility] Name: Jaymie Cleveland Age: 33 yrs Sex: Female : 1985 Arrival Date: 07/31/2018 Time: 19:43 Bed 6 Private MD: Maxx Perez E ED Physician Storm Martin HPI: 07/31 20:15 This 33 yrs old Female presents to ER via Ambulatory with complaints of pm1 Suicidal Ideation. 20:15 The patient presents to the emergency department with Cutting. Onset: The pm1 symptoms/episode began/occurred today. Past psychiatric history: Prior diagnosis: bipolar disorder, Anxiety, Psychiatric medications include: Xanax, Last episode of cutting 4 years ago. Did not require inpatient therapy at that time. Associated signs and symptoms: Pertinent positives; abdominal pain, suicide ideation, LUQ pain that is chronic due to ulcers. Has had EGD but refused colonoscopy, Pertinent negatives: chest pain, fever, hallucinations, headache, homicidal ideation, nausea, palpitations, shortness of breath, vomiting. The patient has experienced similar episodes in the past, a few times. The patient has not recently seen a physician. Patient with a history of anxiety and bipolar disorder. Patient ran out of her Xanax and has her refill pending on Sunday because it was out of stock at her pharmacy. Patient has not cut herself in 4 years. Since she ran out of her xanax for the past two days she is cutting to relieve herself. She cut the tip off a needle to use as a tool for abrasions and she cut herself on the right forearm and right thigh. She does not want to kill herself . 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 - Social history:: Smoking status: Patient uses tobacco products, smokes one-half pack cigarettes per day. - Ebola Screening: : No symptoms or risks identified at this time. ROS: 20:15 Constitutional: Negative for fever, chills, and weight loss, Eyes: Negative for injury, pm1 pain, redness, and discharge, ENT: Negative for injury, pain, and discharge, Neck: Negative for injury, pain, and swelling, Cardiovascular: Negative for chest pain, palpitations, and edema, Respiratory: Negative for shortness of breath, cough, wheezing, and pleuritic chest pain, Abdomen/GI: Negative for abdominal pain, nausea, vomiting, diarrhea, and constipation, Back: Negative for injury and pain, : Negative for injury, bleeding, discharge, and swelling, MS/Extremity: Negative for injury and deformity. 20:15 Neuro: Negative for headache, weakness, numbness, tingling, and seizure. 20:15 Skin: Positive for abrasion(s), of the dorsal aspect of right forearm and right thigh, Negative for laceration(s). 20:15 Psych: Positive for anxiety, Negative for depression, drug dependence, alcohol dependence, auditory hallucinations, visual hallucinations, homicidal ideation, suicide gesture, suicidal ideation. Exam: 20:15 Constitutional: This is a well developed, well nourished patient who is awake, alert, pm1 and in no acute distress. Head/Face: Normocephalic, atraumatic. Eyes: Pupils equal round and reactive to light, extra-ocular motions intact. Lids and lashes normal. Conjunctiva and sclera are non-icteric and not injected. Cornea within normal limits. Periorbital areas with no swelling, redness, or edema. ENT: Nares patent. No nasal discharge, no septal abnormalities noted. Tympanic membranes are normal and external auditory canals are clear. Oropharynx with no redness, swelling, or masses, exudates, or evidence of obstruction, uvula midline. Mucous membranes moist. Neck: Trachea midline, no thyromegaly or masses palpated, and no cervical lymphadenopathy. Supple, full range of motion without nuchal rigidity, or vertebral point tenderness. No Meningismus. Chest/axilla: Normal chest wall appearance and motion. Nontender with no deformity. No lesions are appreciated. Cardiovascular: Regular rate and rhythm with a normal S1 and S2. No gallops, murmurs, or rubs. Normal PMI, no JVD. No pulse deficits. Respiratory: Lungs have equal breath sounds bilaterally, clear to auscultation and percussion. No rales, rhonchi or wheezes noted. No increased work of breathing, no retractions or nasal flaring. Abdomen/GI: Soft, non-tender, with normal bowel sounds. No distension or tympany. No guarding or rebound. No evidence of tenderness throughout. Back: No spinal tenderness. No costovertebral tenderness. Full range of motion. 20:15 MS/ Extremity: Pulses equal, no cyanosis. Neurovascular intact. Full, normal range of motion. 20:15 Skin: injury, abrasion(s), small abrasion noted, of the right quadriceps and dorsal aspect of right forearm. 20:15 Neuro: Orientation: is normal, Mentation: is normal, Motor: moves all fours, Gait: is steady, at a normal pace, without difficulty. 20:15 Psych: Behavior/mood is anxious, Affect is animated, Oriented to person, place, time, Patient has no thoughts/intents to harm self or others. Judgement / Insight is normal. Delusions/hallucinations are not present. Vital Signs: 20:11 BP 116 / 79; Pulse 117; Resp 18; Temp 98.8(O); Pulse Ox 98% on R/A; Weight 99.79 kg; lp1 Height 5 ft. 3 in. (160.02 cm); Pain 9/10; 21:12 ed1 20:11 Body Mass Index 38.97 (99.79 kg, 160.02 cm) lp1 21:12 Pt refused vital signs at discharge ed1 MDM: 20:04 Patient medically screened. pm1 21:02 Data reviewed: vital signs. Data interpreted: Pulse oximetry: on room air is 98 %. pm1 Interpretation: normal. 21:03 Counseling: I had a detailed discussion with the patient and/or guardian regarding: the pm1 historical points, exam findings, and any diagnostic results supporting the discharge/admit diagnosis, lab results, the need for outpatient follow up, a family practitioner, a psychiatrist, to return to the emergency department if symptoms worsen or persist or if there are any questions or concerns that arise at home. 21:03 ED course: Patient with history of cutting and presents today with superficial pm1 abrasions to right forearm and right thigh. Patient denies suicidal and homicidal ideation or plan. She just wants her Xanax medication refilled and it is expected to be refilled by Sunday at the pharmacy. 07/31 20:05 Order name: Acetaminophen; Complete Time: 20:54 pm1 07/31 20:05 Order name: Basic Metabolic Panel; Complete Time: 20:54 pm1 07/31 20:05 Order name: CBC with Diff; Complete Time: 20:54 pm1 07/31 20:05 Order name: ETOH Level; Complete Time: 20:54 pm1 07/31 20:05 Order name: Hepatic Function; Complete Time: 20:54 pm1 07/31 20:05 Order name: PT-INR; Complete Time: 20:54 pm1 07/31 20:05 Order name: Ptt, Activated; Complete Time: 20:54 pm1 07/31 20:05 Order name: Salicylate; Complete Time: 20:54 pm1 07/31 20:05 Order name: Urine Drug Screen; Complete Time: 20:54 pm1 07/31 20:27 Order name: Urine Dipstick--Ancillary (enter results); Complete Time: 20:54 ag4 07/31 20:27 Order name: Urine --Ancillary (enter results); Complete Time: 20:54 ag4 07/31 20:05 Order name: Urine Test (obtain specimen); Complete Time: 20:22 pm1 07/31 20:05 Order name: IV Saline Lock; Complete Time: 20:23 pm1 07/31 20:05 Order name: Labs collected and sent; Complete Time: 20:23 pm1 07/31 20:05 Order name: Urine Dipstick-Ancillary (obtain specimen); Complete Time: 20:23 pm1 Administered Medications: 21:18 Not Given (Patient Refused): Ativan 1 mg IVP once ed1 21:18 Not Given (Patient Refused): Benadryl 12.5 mg IVP once ed1 Disposition: 08/01 06:30 Co-signature as Attending Physician, Storm Martin MD I agree with the assessment and korin plan of care. Disposition: 07/31/18 21:06 Discharged to Home. Impression: Intentional self-harm by unspecified sharp object, Acute stress reaction. - Condition is Stable. - Discharge Instructions: Stress and Stress Management. - Medication Reconciliation Form, Thank You Letter form. - Follow up: Emergency Department; When: As needed; Reason: Worsening of condition. Follow up: Private Physician; When: 2 - 3 days; Reason: Recheck today's complaints, Continuance of care, Re-evaluation by your physician. Signatures: Dispatcher [employer] EDMS Storm Martin MD MD cha Riggs, Erika RN RN ed1 Rosalind Rasmussen RN RN lp1 Mich Tavares, GRAPHIC DESIGN MANAGER GRAPHIC DESIGN MANAGER pm1 Corrections: (The following items were deleted from the chart) 07/31 21:03 20:05 EKG - Nurse/Tech ordered. pm1 ed1 21:07 21:06 07/31/2018 21:06 Discharged to Home. Impression: Intentional self-harm by pm1 unspecified sharp object; Acute stress reaction. Condition is Stable. Forms are Medication Reconciliation Form, Thank You Letter, Antibiotic Education, Prescription Opioid Use. pm1 21:19 21:07 07/31/2018 21:06 Discharged to Home. Impression: Intentional self-harm by ed1 unspecified sharp object; Acute stress reaction. Condition is Stable. Forms are Medication Reconciliation Form, Thank You Letter, Antibiotic Education, Prescription Opioid Use. Follow up: Emergency Department; When: As needed; Reason: Worsening of condition. Follow up: Private Physician; When: 2 - 3 days; Reason: Recheck today's complaints, Continuance of care, Re-evaluation by your physician. pm1
[2018-07-31 21:25] VITALS: BP 116/79; TEMP 98.8; O2SAT 98
== END 2018-07-31 21:19 | disposition home or self-care (01) ==
LOC: ER 19:42
DX: F43.0 Acute stress reaction (principal); S50.811A Abrasion of right forearm, initial encounter; S70.311A Abrasion, right thigh, initial encounter; X78.9XXA Intentional self-harm by unspecified sharp object, initial encounter; F41.9 Anxiety disorder, unspecified; F31.89 Other bipolar disorder; F17.210 Nicotine dependence, cigarettes, uncomplicated; Z79.899 Other long term (current) drug therapy
CPT/HCPCS: 36415; 80048; 80076; 80307; 80320; 80329; 81003; 81025; 85025; 85610; 85730; 99284

== ENCOUNTER 2018-09-01 06:24 | Emergency (ER) | payer OTHER ==
[2018-09-01] MEDS ORDERED: DICYCLOMINE HCL 10 MG CAP ONE (06:51)
[2018-09-01] MEDS ORDERED: FAMOTIDINE 20 MG/2 ML VIAL IV ONE (06:52)
[2018-09-01] MEDS ORDERED: ONDANSETRON 4 MG/2 ML VIAL ONE (06:52)
[2018-09-01 07:15] LABS: Absolute Lymphocytes (CBC) 2.2 K/uL (0.7-4.9); Absolute Monocytes 0.7 K/uL (0.1-1.3); Absolute Neutrophil 6.8 K/uL (1.8-8.0); Basophils % 0.8 % (0-1.3); Eosinophils % 2.8 % (0-4.4); Hematocrit 39.5 % (36.0-45.0); Lymphocytes % 21.6 % (15.3-44.8); MPV 8.6 fL (7.6-11.3); Monocytes % 7.3 % (3.3-12.3); RBC Red Blood Cell Count 4.44 M/uL (3.86-4.86)
[2018-09-01] MEDS ORDERED: KETOROLAC 30 MG/ML INJ ONE (07:26)
[2018-09-01 07:30] LABS: ALT/SGPT 25 U/L (12-78); AST/SGOT 9 U/L (15-37); Albumin 3.3 g/dL (3.4-5.0); Alkaline Phosphatase 66 U/L (45-117); BUN Blood Urea Nitrogen 9 mg/dL (7-18); Bicarbonate 27 mmol/L (21-32); Bilirubin Direct < 0.1 mg/dL (0-0.2); Bilirubin Total 0.2 mg/dL (0.2-1.0); Glucose Level 119 mg/dL (74-106); Lipase 158 U/L (73-393); Potassium 3.6 mmol/L (3.5-5.1); Protein, Total 6.9 g/dL (6.4-8.2); Sodium Level 142 mmol/L (136-145)
--- NOTE | 2018-09-01 08:00 | ER ---
Nurse's Notes [facility] Name: Jaymie Cleveland Age: 33 yrs Sex: Female : 1985 Arrival Date: 09/01/2018 Time: 06:26 Bed 16 Private MD: Maxx Perez E Diagnosis: Nausea and vomiting;Diarrhea, unspecified Presentation: 09/01 06:35 Presenting complaint: Patient states: N/V/D since yesterday morning. Transition of aa1 care: patient was not received from another setting of care. Onset of symptoms was August 31, 2018. Risk Assessment: Do you want to hurt yourself or someone else? Patient reports no desire to harm self or others. Initial Sepsis Screen: Does the patient meet any 2 criteria? HR > 90 bpm. Does the patient have a suspected source of infection? No. Patient's initial sepsis screen is negative. Care prior to arrival: None. 06:35 Method Of Arrival: Ambulatory aa1 06:35 Acuity: [place] 3 aa1 Triage Assessment: 06:36 General: Appears in no apparent distress. comfortable, Behavior is calm, cooperative, aa1 appropriate for age. 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 - Social history:: Smoking status: Patient uses tobacco products, smokes one-half pack cigarettes per day. - Ebola Screening: : No symptoms or risks identified at this time. Screenin:40 Abuse screen: Denies threats or abuse. Denies injuries from another. Nutritional rr5 screening: No deficits noted. Tuberculosis screening: No symptoms or risk factors identified. Fall Risk IV access (20 points). Total Hollins Fall Scale indicates No Risk (0-24 pts). Assessment: 06:42 General: Appears in no apparent distress. uncomfortable, Behavior is calm, cooperative, rr5 appropriate for age. Pain: Complains of pain in left low back and right low back Pain currently is 6 out of 10 on a pain scale. Quality of pain is described as aching, Pain began gradually, Is intermittent. Neuro: Level of Consciousness is awake, alert, obeys commands, Oriented to person, place, time, situation, Appropriate for age. Cardiovascular: Capillary refill < 3 seconds Patient's skin is warm and dry. Respiratory: Airway is patent Respiratory effort is even, unlabored, Respiratory pattern is regular, symmetrical. GI: Abdomen is obese, Reports diarrhea, nausea, vomiting. : No signs and/or symptoms were reported regarding the genitourinary system. EENT: No signs and/or symptoms were reported regarding the EENT system. Derm: Skin is intact, Skin temperature is warm. Musculoskeletal: Capillary refill < 3 seconds, Range of motion: intact in all extremities, Reports pain in left low back and right low back. 07:15 Reassessment: Pt requesting pain medication for low back pain, ERP notified, see [place] [id number] for orders. 08:00 Reassessment: Pt laying in bed with eyes closed, respirations even and unlabored, no [facility] signs of distress noted at this time. 08:10 Reassessment: Pt reports increased nausea, ERP notified, see [facility] for orders. jl7 08:20 Reassessment: Pt reports continues low back pain, EPR notified, see [facility] for orders. jl7 09:08 Reassessment: Pt reports decreased nausea at this time. jl7 Vital Signs: 06:36 BP 106 / 77; Pulse 116; Resp 18; Temp 98.4; Pulse Ox 97% on R/A; Weight 90.72 kg; aa1 Height 5 ft. 2 in. (157.48 cm); Pain 5/10; 08:00 BP 104 / 75; Pulse 91; Resp 16 S; Pulse Ox 97% on R/A; jl7 09:03 BP 105 / 86; Pulse 89; Resp 16 S; Pulse Ox 100% on R/A; jl7 06:36 Body Mass Index 36.58 (90.72 kg, 157.48 cm) aa1 ED Course: 06:26 Patient arrived in ED. ds1 06:27 Teja Davila MD is Private Physician. ds1 06:27 Maxx Perez MD is Private Physician. ds1 06:29 Storm Mckeon PA is [facility]. cp 06:29 Bora Majano MD is Attending Physician. cp 06:32 Marco Munoz, MABEL is Primary Nurse. rr5 06:35 Triage completed. aa1 06:36 Arm band placed on right wrist. aa1 06:40 Pulse ox on. NIBP on. rr5 06:40 Patient has correct armband on for positive identification. Bed in low position. Call rr5 light in reach. 06:55 Inserted saline lock: 22 gauge in right antecubital area, using aseptic technique. rr5 ,using aseptic technique. [facility] rehab technician inserted Blood collected. 07:33 Influenza Screen (a \T\ B) Sent. rr5 09:22 No provider procedures requiring assistance completed. IV discontinued, intact, jl7 bleeding controlled, No redness/swelling at site. Pressure dressing applied. Administered Medications: 07:05 Drug: Pepcid 20 mg Route: IVP; Site: right antecubital; rr5 08:00 Follow up: Response: No adverse reaction jl7 07:08 Drug: Zofran 4 mg Route: IVP; Site: right antecubital; rr5 08:00 Follow up: Response: No adverse reaction; Nausea unchanged jl7 07:10 Drug: Bentyl 20 mg Route: PO; rr5 08:00 Follow up: Response: No adverse reaction jl7 07:20 Drug: TORadol 30 mg Route: IVP; Site: right antecubital; jl7 08:20 Follow up: Response: No adverse reaction; Pain is unchanged, physician notified jl7 08:16 Drug: NS 0.9% 500 ml Route: IV; Rate: bolus; Site: right antecubital; jl7 09:21 Follow up: Response: No adverse reaction; IV Status: Completed infusion; IV Intake: jl7 500ml 08:16 Drug: Phenergan 25 mg Route: IVP; Site: right antecubital; jl7 09:00 Follow up: Response: No adverse reaction; Nausea is decreased jl7 09:08 Follow up: Response: No adverse reaction; Nausea is decreased jl7 08:59 Drug: Tylenol 1000 mg Route: PO; jl7 09:21 Follow up: Response: No adverse reaction jl7 Intake: 09:21 IV: 500ml; Total: 500ml. jl7 Outcome: 07:59 Discharge ordered by . cp 09:22 Discharged to home ambulatory, with family. jl7 09:22 Condition: stable 09:22 Discharge instructions given to patient, Instructed on discharge instructions, follow up and referral plans. medication usage, Demonstrated understanding of instructions, follow-up care, medications, Prescriptions given X 3. 09:22 Patient left the ED. jl7 Signatures: Leona Gunderson, RN RN aa1 Amanda Rahman ds1 Storm Mckeon PA PA cp Leal, Jahala, RN RN jl7 Marco Munoz RN RN rr5 Corrections: (The following items were deleted from the chart) 07:18 06:42 Pain: Complains of pain in abdomen Pain currently is 6 out of 10 on a pain scale. rr5 Quality of pain is described as aching, Pain began gradually, Is intermittent, rr5 07:18 06:42 GI: Abdomen is obese, Reports lower abdominal pain, upper abdominal pain, rr5 diarrhea, nausea, vomiting, rr5 07:18 06:42 Musculoskeletal: Capillary refill < 3 seconds, Range of motion: intact in all rr5 extremities, rr5
--- NOTE | 2018-09-01 08:00 | EDPHYS ---
Physician Documentation [facility] Name: Jaymie Cleveland Age: 33 yrs Sex: Female : 1985 Arrival Date: 09/01/2018 Time: 06:26 Bed 16 Private MD: Maxx Perez E ED Physician Bora Majano HPI: 09/01 06:40 This 33 yrs old Female presents to ER via Ambulatory with complaints of cp Nausea/Vomiting/Diarrhea. 06:40 The patient presents to the emergency department with nausea, that is moderate, cp vomiting, that is intermittent, diarrhea, that is intermittent. Onset: The symptoms/episode began/occurred yesterday. Possible causes: unknown. Associated signs and symptoms: Pertinent negatives: abdominal pain, constipation, fever, GI bleeding. Severity of symptoms: in the emergency department the symptoms are unchanged despite home interventions. 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 - Social history:: Smoking status: Patient uses tobacco products, smokes one-half pack cigarettes per day. - Ebola Screening: : No symptoms or risks identified at this time. ROS: 06:48 Constitutional: Negative for body aches, chills, fever. cp 06:48 Eyes: Negative for injury, pain, redness, and discharge. cp 06:48 Cardiovascular: Negative for chest pain, palpitations. 06:48 Respiratory: Negative for cough, shortness of breath, wheezing. 06:48 Abdomen/GI: Positive for nausea, vomiting, and diarrhea, Negative for constipation, hematemesis, black/tarry stool, rectal bleeding. 06:48 : Negative for urinary symptoms. 06:48 Skin: Negative for cellulitis, rash. 06:48 Neuro: Negative for altered mental status, headache, weakness. 06:48 All other systems are negative. Exam: 06:55 Constitutional: The patient appears in no acute distress, alert, awake, non-toxic, well cp developed, well nourished. 06:55 Head/Face: Normocephalic, atraumatic. cp 06:55 Eyes: Periorbital structures: appear normal, Conjunctiva: normal, no exudate, no cp injection, Lids and lashes: appear normal, bilaterally. 06:55 ENT: External ear(s): are unremarkable, Ear canal(s): are normal, clear, TM's: are cp normal, no evidence of bulging, no erythema, Nose: is normal, Mouth: is normal, Posterior pharynx: is normal, airway is patent, no erythema, no exudate, Voice: is normal. 06:55 Neck: ROM/movement: is normal, is supple, without pain, no range of motions limitations, no meningismus, no nuchal rigidity. 06:55 Chest/axilla: Inspection: normal, Palpation: is normal, no crepitus, no tenderness. 06:55 Cardiovascular: Rate: tachycardic, Rhythm: regular. 06:55 Respiratory: the patient does not display signs of respiratory distress, Respirations: normal, no use of accessory muscles, no retractions, no splinting, no tachypnea, labored breathing, is not present, Breath sounds: are clear throughout, no decreased breath sounds, no stridor, no wheezing. 06:55 Abdomen/GI: Inspection: abdomen appears normal, Bowel sounds: active, all quadrants, Palpation: abdomen is soft and non-tender, in all quadrants, rebound tenderness, is not appreciated, voluntary guarding, is not appreciated, involuntary guarding, is not appreciated. 06:55 Skin: cellulitis, is not appreciated, no rash present. 06:55 Neuro: Orientation: to person, place \T\ time. Mentation: is normal, Cerebellar function: is grossly normal, Motor: moves all fours, strength is normal, Sensation: is normal. Vital Signs: 06:36 BP 106 / 77; Pulse 116; Resp 18; Temp 98.4; Pulse Ox 97% on R/A; Weight 90.72 kg; aa1 Height 5 ft. 2 in. (157.48 cm); Pain 5/10; 08:00 BP 104 / 75; Pulse 91; Resp 16 S; Pulse Ox 97% on R/A; jl7 09:03 BP 105 / 86; Pulse 89; Resp 16 S; Pulse Ox 100% on R/A; jl7 06:36 Body Mass Index 36.58 (90.72 kg, 157.48 cm) aa1 MDM: 06:30 Patient medically screened. cp 07:00 Differential diagnosis: gastritis, pancreatitis, diverticulitis, viral gastroenteritis, cp gastroenteritis. 07:58 Data reviewed: vital signs, nurses notes, lab test result(s). cp 07:58 Counseling: I had a detailed discussion with the patient and/or guardian regarding: the cp historical points, exam findings, and any diagnostic results supporting the discharge/admit diagnosis, lab results, to return to the emergency department if symptoms worsen or persist or if there are any questions or concerns that arise at home. 07:58 Response to treatment: the patient's symptoms have markedly improved after treatment, cp and as a result, I will discharge patient. 09/01 06:36 Order name: Influenza Screen (a \T\ B); Complete Time: 07:57 cp 09/01 06:36 Order name: Basic Metabolic Panel; Complete Time: 07:37 cp 09/01 07:38 Interpretation: Normal except: CL 108; GLUC 119; GFR 72; CA 8.4. cp 09/01 06:36 Order name: CBC with Diff; Complete Time: 07:37 cp 09/01 06:36 Order name: Creatinine for Radiology; Complete Time: 07:37 cp 09/01 06:36 Order name: Hepatic Function; Complete Time: 07:37 cp 09/01 07:38 Interpretation: Normal except: AST 9; ALB 3.3; GLOB 3.6; A/G 0.9. cp 09/01 06:36 Order name: Lipase; Complete Time: 07:37 cp 09/01 07:09 Order name: Urine Dipstick--Ancillary (enter results) ms 09/01 07:09 Order name: Urine --Ancillary (enter results) ms 09/01 06:36 Order name: IV Saline Lock; Complete Time: 07:17 cp 09/01 06:36 Order name: Labs collected and sent; Complete Time: 07:17 cp 09/01 06:36 Order name: Urine Dipstick-Ancillary (obtain specimen); Complete Time: 07:17 cp 09/01 06:36 Order name: Urine Test (obtain specimen); Complete Time: 07:17 cp 09/01 07:57 Order name: PO challenge; Complete Time: 09:21 cp Administered Medications: 07:05 Drug: Pepcid 20 mg Route: IVP; Site: right antecubital; rr5 08:00 Follow up: Response: No adverse reaction jl7 07:08 Drug: Zofran 4 mg Route: IVP; Site: right antecubital; rr5 08:00 Follow up: Response: No adverse reaction; Nausea unchanged jl7 07:10 Drug: Bentyl 20 mg Route: PO; rr5 08:00 Follow up: Response: No adverse reaction jl7 07:20 Drug: TORadol 30 mg Route: IVP; Site: right antecubital; jl7 08:20 Follow up: Response: No adverse reaction; Pain is unchanged, physician notified jl7 08:16 Drug: NS 0.9% 500 ml Route: IV; Rate: bolus; Site: right antecubital; jl7 09:21 Follow up: Response: No adverse reaction; IV Status: Completed infusion; IV Intake: jl7 500ml 08:16 Drug: Phenergan 25 mg Route: IVP; Site: right antecubital; jl7 09:00 Follow up: Response: No adverse reaction; Nausea is decreased jl7 09:08 Follow up: Response: No adverse reaction; Nausea is decreased jl7 08:59 Drug: Tylenol 1000 mg Route: PO; jl7 09:21 Follow up: Response: No adverse reaction jl7 Disposition: 09/02 05:50 Co-signature as Attending Physician, Bora Majano MD I agree with the assessment and kdr plan of care. Disposition: 09/01/18 07:59 Discharged to Home. Impression: Nausea and vomiting, Diarrhea, unspecified. - Condition is Stable. - Discharge Instructions: Food Choices to Help Relieve Diarrhea, Adult, Diarrhea, Adult, Nausea and Vomiting, Adult. - Prescriptions for Zofran 4 mg Oral Tablet - take 1 tablet by ORAL route every 12 hours As needed; 20 tablet. Lomotil 2.5- 0.025 mg Oral Tablet - take 1 tablet by ORAL route every 6 hours As needed; 20 tablet. Phenergan 25 mg Rectal Suppository - insert 1 suppository by RECTAL route every 6 hours As needed; 12 suppository. - Medication Reconciliation Form, Thank You Letter, Antibiotic Education, Prescription Opioid Use form. - Follow up: Private Physician; When: 1 - 2 days; Reason: Recheck today's complaints. - Problem is new. - Symptoms have improved. Signatures: Dispatcher [employer] EDLeona Tomlinson, RN RN aa1 Bora Majano MD MD kdr Storm Mckeon PA PA cp La Welch RN RN jl7 Marco Munoz RN RN rr5 Corrections: (The following items were deleted from the chart) 09/01 07:38 07:38 Normal except: CL 108; GLUC 119; GFR 72. cp cp 09:22 07:59 09/01/2018 07:59 Discharged to Home. Impression: Nausea and vomiting; Diarrhea, jl7 unspecified. Condition is Stable. Forms are Medication Reconciliation Form, Thank You Letter, Antibiotic Education, Prescription Opioid Use. Follow up: Private Physician; When: 1 - 2 days; Reason: Recheck today's complaints. Problem is new. Symptoms have improved. cp
[2018-09-01] MEDS ORDERED: PROMETHAZINE 25 MG/ML VIAL ONE (08:22)
[2018-09-01] MEDS ORDERED: NA CHLORIDE 0.9% 500 ML ONE (08:22)
[2018-09-01] MEDS ORDERED: ACETAMINOPHEN 500 MG TAB ONE (09:01)
[2018-09-01 09:13] LABS: Urine Blood NEGATIVE (NEG); Urine Glucose NEGATIVE (NEG); Urine Protein NEGATIVE (NEG); Urine Specific Gravity 1.025 (1.005-1.030); Urine pH 5.5 (5.0-7.0)
[2018-09-01 09:48] VITALS: TEMP 98.4
[2018-09-01 09:51] VITALS: BP 105/86; O2SAT 100
== END 2018-09-01 09:22 | disposition home or self-care (01) ==
LOC: ER 06:24
DX: R19.7 Diarrhea, unspecified (principal); F41.9 Anxiety disorder, unspecified; F32.9 Major depressive disorder, single episode, unspecified; F17.210 Nicotine dependence, cigarettes, uncomplicated
CPT/HCPCS: 36415; 80048; 80076; 81003; 81025; 83690; 85025; 87804; 96361; 96374; 96375; 99284; J2405; J2550

== ENCOUNTER 2018-09-04 11:06 | Emergency (ER) | payer OTHER ==
[2018-09-04 12:04] LABS: Absolute Lymphocytes (CBC) 1.5 K/uL (0.7-4.9); Absolute Monocytes 0.5 K/uL (0.1-1.3); Absolute Neutrophil 5.9 K/uL (1.8-8.0); Basophils % 0.4 % (0-1.3); Eosinophils % 4.9 % (0-4.4); Hematocrit 38.8 % (36.0-45.0); Lymphocytes % 18.4 % (15.3-44.8); MPV 8.7 fL (7.6-11.3); Monocytes % 5.7 % (3.3-12.3); RBC Red Blood Cell Count 4.36 M/uL (3.86-4.86)
--- NOTE | 2018-09-04 12:18 | RAD REPORT ---
EXAM DESCRIPTION: CTAbdomen Pelvis W Contrast - 09/04/2018 12:09 pm CLINICAL HISTORY: Abdominal pain. left sided abdominal pain, IV ONLY COMPARISON: Abdomen Pelvis W Contrast dated 11/29/2017; Abdomen Pelvis W Contrast dated 02/04/2017 ; Abdomen Pelvis W Contrast dated 10/10/2016; Abdomen Pelvis W Contrast dated 09/06/2016 TECHNIQUE: Biphasic CT imaging of the abdomen and pelvis was performed with 100 ml non-ionic IV cont rast. All CT scans are performed using dose optimization technique as appropriate and may include automated exposure control or mA/KV adjustment according to patient size. FINDINGS: The lung bases are clear. The liver, spleen, pancreas, adrenal glands and kidneys are within normal limits. No bowel obstruction, free air, free fluid or abscess. The appendix is normal. No evidence of signi ficant lymphadenopathy. No suspicious bony findings. IMPRESSION: No acute intra-abdominal or pelvic finding.
[2018-09-04 12:21] LABS: ALT/SGPT 35 U/L (12-78); AST/SGOT 22 U/L (15-37); Albumin 3.3 g/dL (3.4-5.0); Alkaline Phosphatase 68 U/L (45-117); BUN Blood Urea Nitrogen 9 mg/dL (7-18); Bicarbonate 28 mmol/L (21-32); Bilirubin Direct < 0.1 mg/dL (0-0.2); Bilirubin Total 0.2 mg/dL (0.2-1.0); Glucose Level 94 mg/dL (74-106); Lipase 119 U/L (73-393); Potassium 3.8 mmol/L (3.5-5.1); Protein, Total 6.9 g/dL (6.4-8.2); Sodium Level 139 mmol/L (136-145)
[2018-09-04 12:59] LABS: Urine Blood TRACE (NEG); Urine Glucose NEGATIVE (NEG); Urine Protein NEGATIVE (NEG); Urine Specific Gravity 1.025 (1.005-1.030); Urine pH 6.5 (5.0-7.0)
[2018-09-04] MEDS ORDERED: DIPHENHYDRAMINE 50 MG/ML VIAL ONE (13:23)
[2018-09-04] MEDS ORDERED: NA CHLORIDE 0.9% 1,000 ML ONE (13:23)
[2018-09-04] MEDS ORDERED: METOCLOPRAMIDE 10 MG/2mL INJ ONE (13:23)
--- NOTE | 2018-09-04 14:34 | EDPHYS ---
Physician Documentation [facility] Name: Jaymie Cleveland Age: 33 yrs Sex: Female : 1985 Arrival Date: 09/04/2018 Time: 11:09 Bed 13 Private MD: Maxx Perez E ED Physician Darwin Perez HPI: 09/04 11:24 This 33 yrs old Female presents to ER via Ambulatory with complaints of jmm Vomiting/Diarrhea. 11:24 The patient presents to the emergency department with nausea, vomiting, diarrhea, jmm abdominal pain. Onset: The symptoms/episode began/occurred gradually, 4 day(s) ago. Possible causes: unknown. The symptoms are aggravated by nothing. The symptoms are alleviated by nothing. This is a 33 year old female with a history of anxiety, depression that presents to the ED with complaints of abdominal pain, vomiting, and diarrhea beginning 4 days ago. Patient states she has been unable to tolerate fluids . 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 - Social history:: Smoking status: Patient uses tobacco products, smokes one-half pack cigarettes per day. - Ebola Screening: : Patient denies travel to an Ebola-affected area in the 21 days before illness onset. ROS: 11:24 Constitutional: Negative for fever, chills, and weight loss, Cardiovascular: Negative jmm for chest pain, palpitations, and edema, Respiratory: Negative for shortness of breath, cough, wheezing, and pleuritic chest pain. 11:24 Abdomen/GI: Positive for abdominal pain, nausea and vomiting, diarrhea. 11:24 All other systems are negative. Exam: 11:24 Constitutional: This is a well developed, well nourished patient who is awake, alert, jmm and in no acute distress. Head/Face: atraumatic. Eyes: EOMI, no conjunctival erythema appreciated ENT: Moist Mucus Membranes Neck: Trachea midline, Supple Chest/axilla: Normal chest wall appearance and motion. Cardiovascular: Regular rate and rhythm. No edema appreciated Respiratory: Normal respirations, no respiratory distress appreciated 11:24 Abdomen/GI: Inspection: abdomen appears normal, Bowel sounds: normal, Palpation: soft, mild abdominal tenderness, in the right upper quadrant, left upper quadrant and left lower quadrant. 11:24 Back: ROM is normal. 11:24 Musculoskeletal/extremity: ROM: intact in all extremities. 11:24 Skin: Appearance: Color: normal in color. 11:24 Neuro: Orientation: is normal, Mentation: is normal, Memory: is normal, Cranial nerves: grossly normal. 11:24 Psych: Behavior/mood is pleasant, cooperative. Vital Signs: 11:13 BP 130 / 91; Pulse 98; Resp 17; Temp 97.7(O); Pulse Ox 98% on R/A; Weight 97.07 kg (R); tw2 Height 5 ft. 2 in. (157.48 cm); Pain 9/10; 13:23 BP 98 / 75; Pulse 74; Resp 14; Pulse Ox 100% ; bp 11:13 Body Mass Index 39.14 (97.07 kg, 157.48 cm) tw2 MDM: 11:24 Patient medically screened. [facility] 14:32 Data reviewed: vital signs, nurses notes. Counseling: I had a detailed discussion with aubree the patient and/or guardian regarding: the historical points, exam findings, and any diagnostic results supporting the discharge/admit diagnosis, radiology results, the need for outpatient follow up, to return to the emergency department if symptoms worsen or persist or if there are any questions or concerns that arise at home. ED course: Patient is alert and non toxic in appearance in the ED. Patient advised to follow up with PCP or return to the ED if symptoms worsen. patient understood and agrees with the plan of care. . 09/04 11:17 Order name: Basic Metabolic Panel; Complete Time: 12:25 [facility] 09/04 11:17 Order name: CBC with Diff; Complete Time: 12:25 [facility] 09/04 11:17 Order name: Creatinine for Radiology; Complete Time: 12:37 [facility] 09/04 11:17 Order name: Hepatic Function; Complete Time: 12:25 [facility] 09/04 11:17 Order name: Lipase; Complete Time: 12:25 [facility] 09/04 12:12 Order name: Urine Dipstick--Ancillary (enter results); Complete Time: 13:03 09/04 11:17 Order name: IV Saline Lock; Complete Time: 11:38 [facility] 09/04 11:17 Order name: Labs collected and sent; Complete Time: 11:39 [facility] 09/04 11:36 Order name: CT Abd/Pelvis - W/Contrast; Complete Time: 12:37 [facility] 09/04 12:12 Order name: Urine --Ancillary (enter results); Complete Time: 13:03 09/04 13:33 Order name: PO challenge; Complete Time: 14:17 [facility] Administered Medications: 12:45 Drug: Reglan 10 mg Route: IVP; Site: left antecubital; bp 14:18 Follow up: Response: Nausea is decreased bp 12:45 Drug: diphenhydrAMINE 12.5 mg Route: IVP; Site: left antecubital; bp 14:18 Follow up: Response: Marked relief of symptoms bp 12:45 Drug: NS 0.9% 1000 ml Route: IV; Rate: 1 bolus; Site: left antecubital; bp 14:18 Follow up: IV Status: Completed infusion; IV Intake: 1000ml bp Disposition: 18:50 Co-signature as Attending Physician, Darwin Perez MD Available for consultation at ps1 all times. . Disposition: 09/04/18 14:33 Discharged to Home. Impression: Vomiting, Diarrhea, unspecified. - Condition is Stable. - Discharge Instructions: Diarrhea, Adult, Nausea and Vomiting, Adult. - Prescriptions for Zofran ODT 4 mg Oral tablet,disintegrating - place 2 tablet by TRANSLINGUAL route every 4-6 hours; 20 tablet. - Medication Reconciliation Form, Thank You Letter, Antibiotic Education, Prescription Opioid Use form. - Follow up: Maxx Perez MD; When: 1 - 2 days; Reason: Recheck today's complaints, Continuance of care, Re-evaluation by your physician. Signatures: Dispatcher [employer] EDMS Jose Alfredo Smyth PA PA jmm Wise, Tara, RN RN tw2 Aquiles Mendez RN RN Darwin Azul MD MD ps1 Corrections: (The following items were deleted from the chart) 14:43 14:33 09/04/2018 14:33 Discharged to Home. Impression: Vomiting; Diarrhea, unspecified. bp Condition is Stable. Forms are Medication Reconciliation Form, Thank You Letter, Antibiotic Education, Prescription Opioid Use. Follow up: Maxx Perez; When: 1 - 2 days; Reason: Recheck today's complaints, Continuance of care, Re-evaluation by your physician. aubree
--- NOTE | 2018-09-04 14:34 | ER ---
Nurse's Notes [facility] Name: Jaymie Cleveland Age: 33 yrs Sex: Female : 1985 Arrival Date: 09/04/2018 Time: 11:09 Bed 13 Private MD: Maxx Perez E Diagnosis: Vomiting;Diarrhea, unspecified Presentation: 09/04 11:13 Presenting complaint: Patient states: i was here on Sunday and i am still throwing up, tw2 and i am having a burning pain where my ulcer was a year ago, when i been down it feels like it is burning on the outside of my skin. Transition of care: patient was not received from another setting of care. Onset of symptoms was September 04, 2018. Risk Assessment: Do you want to hurt yourself or someone else? Patient reports no desire to harm self or others. Initial Sepsis Screen: Does the patient meet any 2 criteria? No. Patient's initial sepsis screen is negative. Does the patient have a suspected source of infection? No. Patient's initial sepsis screen is negative. Care prior to arrival: None. 11:13 Method Of Arrival: Ambulatory tw2 11:13 Acuity: [place] 3 tw2 11:14 Presenting complaint: they gave me zofran and something for diarrhea but neither one of tw2 the are working. Triage Assessment: 11:15 General: Appears in no apparent distress. Behavior is calm, cooperative, appropriate tw2 for age. Pain: Complains of pain in abdomen. GI: Reports lower abdominal pain, upper abdominal pain, diarrhea, intolerance of fluids, intolerance of food, nausea, vomiting. 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 - Social history:: Smoking status: Patient uses tobacco products, smokes one-half pack cigarettes per day. - Ebola Screening: : Patient denies travel to an Ebola-affected area in the 21 days before illness onset. Screenin:40 Abuse screen: Denies threats or abuse. Denies injuries from another. Nutritional bp screening: No deficits noted. Tuberculosis screening: No symptoms or risk factors identified. Fall Risk None identified. Assessment: 11:15 General: Appears in no apparent distress. comfortable, Behavior is cooperative, bp appropriate for age, anxious. Pain: Complains of pain in abdomen. Neuro: Level of Consciousness is awake, alert, obeys commands, Oriented to person, place, time, situation, Appropriate for age. Cardiovascular: No deficits noted. Respiratory: Airway is patent Respiratory effort is even, unlabored, Respiratory pattern is regular, symmetrical. GI: Abdomen is non-distended, Bowel sounds present X 4 quads. GI: Reports diarrhea, nausea, vomiting. : No signs and/or symptoms were reported regarding the genitourinary system. EENT: No deficits noted. Derm: No deficits noted. Musculoskeletal: No deficits noted. 13:00 Reassessment: ALL CURRENT ORDERS COMPLETED. PO CHALLENGE IN PROCESS. bp 14:19 Reassessment: PO CHALLENGE SUCCESSFUL, DISPO PENDING. bp 14:41 Reassessment: PO CHALLENGE COMPLETE. PT D/C HOME AMBULATORY, DX WITH NONSPECIFIC bp VOMITING AND DIARRHEA. Vital Signs: 11:13 BP 130 / 91; Pulse 98; Resp 17; Temp 97.7(O); Pulse Ox 98% on R/A; Weight 97.07 kg (R); tw2 Height 5 ft. 2 in. (157.48 cm); Pain 9/10; 13:23 BP 98 / 75; Pulse 74; Resp 14; Pulse Ox 100% ; bp 11:13 Body Mass Index 39.14 (97.07 kg, 157.48 cm) tw2 ED Course: 11:09 Patient arrived in ED. mr 11:09 Maxx Perez MD is Private Physician. mr 11:13 Triage completed. tw2 11:14 Arm band placed on. tw2 11:16 Jose Alfredo Smyth PA is PHCP. [facility] 11:16 Darwin Perez MD is Attending Physician. [facility] 11:28 Aquiles Mendez, MABEL is Primary Nurse. bp 11:40 Patient has correct armband on for positive identification. Bed in low position. Call bp light in reach. Side rails up X2. 11:42 Initial lab(s) drawn, by me, sent to lab. Urine collected: clean catch specimen, clear, jb1 no colored. Inserted saline lock: 22 gauge in left antecubital area, using aseptic technique. Blood collected. 12:14 CT Abd/Pelvis - W/Contrast In Process Unspecified. EDMS 14:33 Maxx Perez MD is Referral Physician. jmm 14:42 No provider procedures requiring assistance completed. IV discontinued, intact, bp bleeding controlled, No redness/swelling at site. Pressure dressing applied. Administered Medications: 12:45 Drug: Reglan 10 mg Route: IVP; Site: left antecubital; bp 14:18 Follow up: Response: Nausea is decreased bp 12:45 Drug: diphenhydrAMINE 12.5 mg Route: IVP; Site: left antecubital; bp 14:18 Follow up: Response: Marked relief of symptoms bp 12:45 Drug: NS 0.9% 1000 ml Route: IV; Rate: 1 bolus; Site: left antecubital; bp 14:18 Follow up: IV Status: Completed infusion; IV Intake: 1000ml bp Intake: 14:18 IV: 1000ml; Total: 1000ml. bp Outcome: 14:33 Discharge ordered by . jmm 14:42 Discharged to home ambulatory. bp 14:42 Condition: stable 14:42 Discharge instructions given to patient, Instructed on discharge instructions, follow up and referral plans. Demonstrated understanding of instructions, follow-up care, Prescriptions given X 1. 14:43 Patient left the ED. bp Signatures: Dispatcher [employer] EDMS Ap Enrique jb1 Jose Alfredo Smyth PA PA jmm Rivera, Mary mr Giselle Dixon, RN RN tw2 Aquiles Mendez, RN RN bp
[2018-09-04 15:07] VITALS: TEMP 97.7
[2018-09-04 15:08] VITALS: BP 98/75; O2SAT 100
== END 2018-09-04 14:43 | disposition home or self-care (01) ==
LOC: ER 11:06
DX: R19.7 Diarrhea, unspecified (principal); F41.9 Anxiety disorder, unspecified; F32.9 Major depressive disorder, single episode, unspecified; F17.210 Nicotine dependence, cigarettes, uncomplicated
CPT/HCPCS: 36415; 74177; 80048; 80076; 81003; 81025; 83690; 85025; 96361; 96374; 96375; 99284; J2765; J7030; Q9967

== ENCOUNTER 2018-09-20 09:40 | Emergency (ER) | payer OTHER, SELFPAY ==
[2018-09-20] MEDS ORDERED: predniSONE 20 MG TAB ONE (10:26)
[2018-09-20] MEDS ORDERED: ALBUTEROL 2.5 MG/3 ML NEB SOL ONE ×2 (10:26→13:11)
--- NOTE | 2018-09-20 12:41 | RAD REPORT ---
EXAM DESCRIPTION: RAD - Chest Pa And Lat (2 Views) - 09/20/2018 12:35 pm CLINICAL HISTORY: Cough;Congestion Chest pain. COMPARISON: Chest Single View dated 07/11/2018; Chest Single View dated 10/10/2016; Chest Single View dated 09/06/2016; CHEST SINGLE VIEW dated 06/27/2015 FINDINGS: The lungs are clear. The heart is normal in size. No displaced fractures. IMPRESSION: No acute or concerning finding suspected.
[2018-09-20] MEDS ORDERED: IPRATROPIUM BROM 0.5MG/2.5ML ONE (13:11)
--- NOTE | 2018-09-20 13:18 | ER ---
Nurse's Notes [facility] Name: Jaymie Cleveland Age: 33 yrs Sex: Female : 1985 Arrival Date: 09/20/2018 Time: 09:42 Bed 14 Private MD: Leighton Villalpando Diagnosis: Bronchitis, not specified as acute or chronic Presentation: 09/20 09:54 Presenting complaint: Wheezing, SOB, productive cough with greenish sputum, pain with hb cough, headache, and fever x 2-3 days. TMAX 100. Transition of care: patient was not received from another setting of care. Onset of symptoms was September 19, 2018. Risk Assessment: Do you want to hurt yourself or someone else? Patient reports no desire to harm self or others. Care prior to arrival: None. 09:54 Method Of Arrival: Ambulatory hb 09:54 Acuity: HOSEA 3 hb 10:35 Initial Sepsis Screen: Does the patient meet any 2 criteria? No. Patient's initial ph sepsis screen is negative. Does the patient have a suspected source of infection? Yes: Productive cough/pneumonia. Historical: - Allergies: 09:56 NKDA; hb - Immunization history:: Adult Immunizations unknown. - Social history:: Smoking status: Patient/guardian denies using tobacco. - Ebola Screening: : No symptoms or risks identified at this time. Screenin:34 Abuse screen: Denies threats or abuse. Denies injuries from another. Nutritional ph screening: No deficits noted. Tuberculosis screening: No symptoms or risk factors identified. Fall Risk None identified. Assessment: 10:30 General: Appears in no apparent distress. uncomfortable, Behavior is calm, cooperative, ph appropriate for age, Reports chills for fever for. Pain: Complains of pain in head and chest. Neuro: Level of Consciousness is awake, alert, obeys commands, Oriented to person, place, time, situation. Cardiovascular: Reports chest pain, shortness of breath, Capillary refill < 3 seconds in bilateral fingers Patient's skin is warm and dry. Rhythm is regular. Respiratory: Reports shortness of breath cough that is productive, pain with cough pain with movement pain with respiration Airway is patent Respiratory effort is even, unlabored, Respiratory pattern is regular, symmetrical, Breath sounds are coarse in mediastinum. GI: Reports nausea, Patient currently denies abdominal pain, diarrhea, vomiting. EENT: Reports nasal congestion nasal discharge pain when swallowing. Derm: Skin is intact, is healthy with good turgor, Skin is pink, warm \T\ dry. Musculoskeletal: Circulation, motion, and sensation intact. Range of motion: intact in all extremities. 11:30 Reassessment: Patient appears in no apparent distress at this time. Patient and/or ph family updated on plan of care and expected duration. Pain level reassessed. Patient is alert, oriented x 3, equal unlabored respirations, skin warm/dry/pink. 12:34 Reassessment: Patient appears in no apparent distress at this time. Patient and/or ph family updated on plan of care and expected duration. Pain level reassessed. Patient is alert, oriented x 3, equal unlabored respirations, skin warm/dry/pink. Pt taken to radiology via wheelchair for CXR. Vital Signs: 09:55 BP 127 / 79; Pulse 107; Resp 20; Temp 98.7; Pulse Ox 94% on R/A; Pain 7/10; hb 11:45 BP 117 / 84; Pulse 99; Resp 20; Pulse Ox 100% on R/A; ph 13:30 BP 118 / 78; Pulse 91; Resp 18; Temp 97.9; Pulse Ox 99% on R/A; ph ED Course: 09:42 Patient arrived in ED. as 09:43 Leighton Villalpando MD is Private Physician. as 09:55 Triage completed. hb 09:56 Mich Tavares NP is PHCP. pm1 09:56 Bora Majano MD is Attending Physician. pm1 09:56 Arm band placed on. hb 10:06 Laxmi Walker, MABEL is Primary Nurse. ph 10:34 Patient has correct armband on for positive identification. Bed in low position. Side ph rails up X2. Pulse ox on. NIBP on. Warm blanket given. 12:32 X-ray completed. Patient tolerated procedure well. Patient moved back from radiology. jb2 12:34 Chest Pa And Lat (2 Views) XRAY In Process Unspecified. EDMS 13:30 No provider procedures requiring assistance completed. Patient did not have IV access ph during this emergency room visit. Administered Medications: 10:30 Drug: Albuterol 2.5 mg Route: Inhalation; ph 13:30 Follow up: Response: No adverse reaction ph 10:30 Drug: predniSONE 60 mg Route: PO; ph 13:30 Follow up: Response: No adverse reaction ph 13:06 Drug: AtroVENT Aerosol 0.5 mg Route: Inhalation; ph 13:30 Follow up: Response: No adverse reaction ph 13:06 Drug: Albuterol 5 mg Route: Inhalation; ph 13:30 Follow up: Response: No adverse reaction ph 13:30 Drug: Phenergan 25 mg Route: PO; ph 19:45 Follow up: Response: No adverse reaction; Medication administered at discharge. ph Outcome: 13:17 Discharge ordered by . pm1 13:30 Patient left the ED. ph 13:30 Discharged to home ambulatory. ph 13:30 Condition: good 13:30 Discharge instructions given to patient, Instructed on discharge instructions, follow up and referral plans. medication usage, Demonstrated understanding of instructions, follow-up care, medications, Prescriptions given X 4. Signatures: Dispatcher [employer] EDMS Maximus Patel jb2 Cristina Can Patricia, RN RN Mich Tavares NP BIRD RAISER pm1 Chrissy Moran RN RN
--- NOTE | 2018-09-20 13:18 | EDPHYS ---
Physician Documentation [facility] Name: Jaymie Cleveland Age: 33 yrs Sex: Female : 1985 Arrival Date: 09/20/2018 Time: 09:42 Bed 14 Private MD: Leighton Villalpando ED Physician Bora Majano HPI: 09/20 10:30 This 33 yrs old Female presents to ER via Ambulatory with complaints of Chest pm1 Congestion, Shortness Of Breath. 10:30 The patient or guardian reports cough, with productive sputum, that is yellow. Onset: pm1 The symptoms/episode began/occurred 3 day(s) ago. Severity of symptoms: in the emergency department the symptoms are actually worse. Modifying factors: The symptoms are alleviated by nothing, the symptoms are aggravated by nothing. Associated signs and symptoms: Pertinent positives: fever, Pertinent negatives: chest pain, diarrhea, vomiting. The patient has not recently seen a physician. Historical: - Allergies: 09:56 NKDA; hb - Immunization history:: Adult Immunizations unknown. - Social history:: Smoking status: Patient/guardian denies using tobacco. - Ebola Screening: : No symptoms or risks identified at this time. ROS: 10:30 Eyes: Negative for injury, pain, redness, and discharge, ENT: Negative for injury, pm1 pain, and discharge, Neck: Negative for injury, pain, and swelling, Cardiovascular: Negative for chest pain, palpitations, and edema. 10:30 Abdomen/GI: Negative for abdominal pain, nausea, vomiting, diarrhea, and constipation, Back: Negative for injury and pain, : Negative for injury, bleeding, discharge, and swelling, MS/Extremity: Negative for injury and deformity, Skin: Negative for injury, rash, and discoloration, Neuro: Negative for headache, weakness, numbness, tingling, and seizure. 10:30 Constitutional: Positive for fever, Negative for body aches, poor PO intake. 10:30 Respiratory: Positive for cough, shortness of breath, wheezing. Exam: 10:30 Constitutional: This is a well developed, well nourished patient who is awake, alert, pm1 and in no acute distress. Head/Face: Normocephalic, atraumatic. Eyes: Pupils equal round and reactive to light, extra-ocular motions intact. Lids and lashes normal. Conjunctiva and sclera are non-icteric and not injected. Cornea within normal limits. Periorbital areas with no swelling, redness, or edema. ENT: Nares patent. No nasal discharge, no septal abnormalities noted. Tympanic membranes are normal and external auditory canals are clear. Oropharynx with no redness, swelling, or masses, exudates, or evidence of obstruction, uvula midline. Mucous membranes moist. Neck: Trachea midline, no thyromegaly or masses palpated, and no cervical lymphadenopathy. Supple, full range of motion without nuchal rigidity, or vertebral point tenderness. No Meningismus. Chest/axilla: Normal chest wall appearance and motion. Nontender with no deformity. No lesions are appreciated. Cardiovascular: Regular rate and rhythm with a normal S1 and S2. No gallops, murmurs, or rubs. Normal PMI, no JVD. No pulse deficits. 10:30 Abdomen/GI: Soft, non-tender, with normal bowel sounds. No distension or tympany. No guarding or rebound. No evidence of tenderness throughout. Back: No spinal tenderness. No costovertebral tenderness. Full range of motion. Skin: Warm, dry with normal turgor. Normal color with no rashes, no lesions, and no evidence of cellulitis. MS/ Extremity: Pulses equal, no cyanosis. Neurovascular intact. Full, normal range of motion. 10:30 Respiratory: the patient does not display signs of respiratory distress, Respirations: normal, Breath sounds: wheezing: expiratory is heard diffusely. 10:30 Neuro: Orientation: is normal, Motor: is normal, moves all fours, Gait: is steady, at a normal pace, without difficulty. Vital Signs: 09:55 BP 127 / 79; Pulse 107; Resp 20; Temp 98.7; Pulse Ox 94% on R/A; Pain 7/10; hb 11:45 BP 117 / 84; Pulse 99; Resp 20; Pulse Ox 100% on R/A; ph 13:30 BP 118 / 78; Pulse 91; Resp 18; Temp 97.9; Pulse Ox 99% on R/A; ph MDM: 09:57 Patient medically screened. pm1 13:16 Data reviewed: vital signs. Counseling: I had a detailed discussion with the patient pm1 and/or guardian regarding: the historical points, exam findings, and any diagnostic results supporting the discharge/admit diagnosis, lab results, radiology results, the need for outpatient follow up, to return to the emergency department if symptoms worsen or persist or if there are any questions or concerns that arise at home. 13:16 Counseling: I had a detailed discussion with the patient and/or guardian regarding: pm1 smoking cessation. 09/20 10:13 Order name: Flu; Complete Time: 12:03 pm1 09/20 10:13 Order name: Strep; Complete Time: 12:03 pm1 09/20 10:13 Order name: Chest Pa And Lat (2 Views) XRAY; Complete Time: 12:46 pm1 09/20 11:03 Order name: Throat Culture EDMS 09/20 10:13 Order name: Urine Dipstick-Ancillary (obtain specimen); Complete Time: 10:30 pm1 09/20 10:13 Order name: Urine Test (obtain specimen); Complete Time: 10:30 pm1 Administered Medications: 10:30 Drug: Albuterol 2.5 mg Route: Inhalation; ph 13:30 Follow up: Response: No adverse reaction ph 10:30 Drug: predniSONE 60 mg Route: PO; ph 13:30 Follow up: Response: No adverse reaction ph 13:06 Drug: AtroVENT Aerosol 0.5 mg Route: Inhalation; ph 13:30 Follow up: Response: No adverse reaction ph 13:06 Drug: Albuterol 5 mg Route: Inhalation; ph 13:30 Follow up: Response: No adverse reaction ph 13:30 Drug: Phenergan 25 mg Route: PO; ph 19:45 Follow up: Response: No adverse reaction; Medication administered at discharge. ph Disposition: 09/20/18 13:17 Discharged to Home. Impression: Bronchitis, not specified as acute or chronic. - Condition is Stable. - Discharge Instructions: Acute Bronchitis, Adult, How to Use an Inhaler, Steps to Quit Smoking, Steps to Quit Smoking, [id number], Cough, Adult. - Prescriptions for Zithromax Z- Mayo 250 mg Oral Tablet - take 1 tablet by ORAL route as directed for 5 days Day 1 - take two (2) tablets one time. Day 2, 3, 4 , 5 take one (1) tablet once daily.; 6 tablet. Medrol (Mayo) 4 mg Oral Tablets, Dose Pack - take 1 tablet by ORAL route as directed - follow package instructions; 1 packet. Albuterol Sulfate 90 mcg/actuation - inhale 1-2 puff by INHALATION route every 4-6 hours; 1 Inhaler. Guaifenesin AC 10- 100 mg/5 mL Oral Liquid - take 10 milliliter by ORAL route every 4 hours As needed; 240 milliliter. - Medication Reconciliation Form, Thank You Letter, Antibiotic Education, Prescription Opioid Use form. - Follow up: Emergency Department; When: As needed; Reason: Worsening of condition. Follow up: Private Physician; When: 2 - 3 days; Reason: Recheck today's complaints, Continuance of care, Re-evaluation by your physician. - Problem is new. - Symptoms have improved. Addendum: 09/23/2018 07:25 Co-signature as Attending Physician, Bora Majano MD I agree with the assessment and k dr plan of care. Signatures: Dispatcher [employer] EDMS Bora Majano MD MD [facility] Laxmi Walker RN RN Mich Tavares NP MAINTENANCE PIPEFITTER pm1 Chrissy Moran RN RN Corrections: (The following items were deleted from the chart) 09/20 13:17 13:17 09/20/2018 13:17 Discharged to Home. Impression: Bronchitis, not specified as pm1 acute or chronic. Condition is Stable. Forms are Medication Reconciliation Form, Thank You Letter, Antibiotic Education, Prescription Opioid Use. Follow up: Emergency Department; When: As needed; Reason: Worsening of condition. Follow up: Private Physician; When: 2 - 3 days; Reason: Recheck today's complaints, Continuance of care, Re-evaluation by your physician. pm1 13:30 13:17 09/20/2018 13:17 Discharged to Home. Impression: Bronchitis, not specified as ph acute or chronic. Condition is Stable. Forms are Medication Reconciliation Form, Thank You Letter, Antibiotic Education, Prescription Opioid Use. Follow up: Emergency Department; When: As needed; Reason: Worsening of condition. Follow up: Private Physician; When: 2 - 3 days; Reason: Recheck today's complaints, Continuance of care, Re-evaluation by your physician. Problem is new. Symptoms have improved. pm1
[2018-09-20] MEDS ORDERED: PROMETHAZINE 25 MG TABLET ONE (13:31)
[2018-09-20 13:35] VITALS: BP 127/79; TEMP 98.7; O2SAT 94
== END 2018-09-20 13:30 | disposition home or self-care (01) ==
LOC: ER 09:40
DX: J40 Bronchitis, not specified as acute or chronic (principal)
CPT/HCPCS: 71046; 87070; 87081; 87804; 99284; J7512

== ENCOUNTER → 2018-09-23 | Emergency (ER) | payer SELFPAY ==
[~2018-09-23] MED LIST: ALBUTEROL 2.5 MG/3 ML NEB SOL ONE; IPRATROPIUM BROM 0.5MG/2.5ML NEB SCH; IPRATROPIUM BROM 0.5MG/2.5ML ONE; LEVALBUTEROL 0.63 MG/3 ML NEB NEB SCH; LIDOCAINE VISCOUS 2% SOLN 15 ML UDC PO PRN; LORazepam 2 MG/ML VIAL ONE; Levofloxacin 750mg IV 750 MG/150 ML BAG IV ONE; METHYLPREDNISOLONE 125 MG INJ ONE; NA CHLORIDE 0.9% 1,000 ML ONE; PANTOPRAZOLE 40MG TABLET PO SCH; predniSONE 10 MG TAB PO SCH
--- NOTE | 2018-09-23 13:42 | RAD REPORT ---
EXAM DESCRIPTION: RAD - Chest Single View - 09/23/2018 1:37 pm CLINICAL HISTORY: Cough;Congestion Chest pain. COMPARISON: Chest Pa And Lat (2 Views) dated 09/20/2018; Chest Single View dated 07/11/2018; Chest Sin gle View dated 10/10/2016; Chest Single View dated 09/06/2016 FINDINGS: Portable technique limits examination quality. The lungs are grossly clear. The heart is normal in size. No displaced fractures. IMPRESSION: No acute intrathoracic process suspected.
[2018-09-23 14:06] LABS: Absolute Monocytes 1.2 K/uL (0.1-1.3); Absolute Neutrophil 9.6 K/uL (1.8-8.0); Basophils % 0.3 % (0-1.3); Eosinophils % 0.2 % (0-4.4); Hematocrit 37.7 % (36.0-45.0); Lymphocytes % 21.5 % (15.3-44.8); MPV 8.4 fL (7.6-11.3); Monocytes % 8.4 % (3.3-12.3); RBC Red Blood Cell Count 4.21 M/uL (3.86-4.86)
[2018-09-23 14:07] LABS: Protime INR 0.9
--- NOTE | 2018-09-23 14:17 | EDPHYS ---
Physician Documentation [facility] Name: Jaymie Cleveland Age: 33 yrs Sex: Female : 1985 Arrival Date: 09/23/2018 Time: 12:19 Bed 30 Private MD: Leighton Villalpando ED Physician Storm Martin HPI: 09/23 13:21 This 33 yrs old Female presents to ER via Ambulatory with complaints of korin Cough, Wheezing. 13:21 The patient or guardian reports cough, difficulty breathing. Onset: The korin symptoms/episode began/occurred 5 day(s) ago. Severity of symptoms: At their worst the symptoms were moderate, in the emergency department the symptoms are unchanged. Modifying factors: The symptoms are alleviated by. Associated signs and symptoms: The patient has no apparent associated signs or symptoms. The patient has not experienced similar symptoms in the past. Historical: - Allergies: 12:46 NKDA; ss - PMHx: 12:46 Anxiety; Borderline Bipolar disorder; C DIFF; Depression; ocd; Seizures; ss - PSHx: 12:46 None; ss - Immunization history:: Adult Immunizations up to date. - Social history:: Smoking status: Patient uses tobacco products, smokes one-half pack cigarettes per day. - Ebola Screening: : Patient denies exposure to infectious person Patient denies travel to an Ebola-affected area in the 21 days before illness onset. ROS: 13:22 Constitutional: Negative for fever, chills, and weight loss, Eyes: Negative for injury, korin pain, redness, and discharge, ENT: Negative for injury, pain, and discharge, Neck: Negative for injury, pain, and swelling, Cardiovascular: Negative for chest pain, palpitations, and edema, Abdomen/GI: Negative for abdominal pain, nausea, vomiting, diarrhea, and constipation, Back: Negative for injury and pain, : Negative for injury, bleeding, discharge, and swelling, MS/Extremity: Negative for injury and deformity, Skin: Negative for injury, rash, and discoloration, Neuro: Negative for headache, weakness, numbness, tingling, and seizure, Psych: Negative for depression, anxiety, suicide ideation, homicidal ideation, and hallucinations, Allergy/Immunology: Negative for hives, rash, and allergies, Endocrine: Negative for neck swelling, polydipsia, polyuria, polyphagia, and marked weight changes, Hematologic/Lymphatic: Negative for swollen nodes, abnormal bleeding, and unusual bruising. 13:22 Respiratory: Positive for cough, shortness of breath, wheezing, inspiratory, expiratory. Exam: 13:22 Constitutional: This is a well developed, well nourished patient who is awake, alert, korin and in no acute distress. Head/Face: Normocephalic, atraumatic. Eyes: Pupils equal round and reactive to light, extra-ocular motions intact. Lids and lashes normal. Conjunctiva and sclera are non-icteric and not injected. Cornea within normal limits. Periorbital areas with no swelling, redness, or edema. ENT: Nares patent. No nasal discharge, no septal abnormalities noted. Tympanic membranes are normal and external auditory canals are clear. Oropharynx with no redness, swelling, or masses, exudates, or evidence of obstruction, uvula midline. Mucous membranes moist. Neck: Trachea midline, no thyromegaly or masses palpated, and no cervical lymphadenopathy. Supple, full range of motion without nuchal rigidity, or vertebral point tenderness. No Meningismus. Chest/axilla: Normal chest wall appearance and motion. Nontender with no deformity. No lesions are appreciated. Cardiovascular: Regular rate and rhythm with a normal S1 and S2. No gallops, murmurs, or rubs. Normal PMI, no JVD. No pulse deficits. Abdomen/GI: Soft, non-tender, with normal bowel sounds. No distension or tympany. No guarding or rebound. No evidence of tenderness throughout. Back: No spinal tenderness. No costovertebral tenderness. Full range of motion. Skin: Warm, dry with normal turgor. Normal color with no rashes, no lesions, and no evidence of cellulitis. MS/ Extremity: Pulses equal, no cyanosis. Neurovascular intact. Full, normal range of motion. Neuro: Awake and alert, GCS 15, oriented to person, place, time, and situation. Cranial nerves II-XII grossly intact. Motor strength 5/5 in all extremities. Sensory grossly intact. Cerebellar exam normal. Normal gait. Psych: Awake, alert, with orientation to person, place and time. Behavior, mood, and affect are within normal limits. 13:22 Respiratory: mild respiratory distress is noted, Respirations: normal, no acute changes, Breath sounds: decreased breath sounds, rhonchi, wheezing: inspiratory expiratory Vital Signs: 12:46 BP 119 / 77; Pulse 98; Resp 16; Temp 97.6(TE); Pulse Ox 97% on R/A; Weight 97.52 kg; ss Height 5 ft. 2 in. (157.48 cm); Pain 10/10; 13:00 BP 115 / 84 LA Sitting (auto/lg); Pulse 84; Resp 18 S; Temp 98.8(O); Pulse Ox 94% on jp3 R/A; Pain 10/10; 13:10 Pulse Ox 98% on 2 lpm NC; jp3 14:00 BP 111 / 78; Pulse 99; Resp 20; Pulse Ox 100% on 2 lpm NC; hb 15:00 BP 101 / 72; Pulse 114; Resp 20; Pulse Ox 98% on R/A; hb 16:30 BP 118 / 76; Pulse 97; Resp 16; Pulse Ox 100% on R/A; hb 12:46 Body Mass Index 39.32 (97.52 kg, 157.48 cm) ss MDM: 12:52 Patient medically screened. [facility] 13:25 Data reviewed: vital signs, nurses notes, lab test result(s), EKG, radiologic studies, [facility] CT scan, plain films. 09/23 13:21 Order name: Basic Metabolic Panel [facility] 09/23 13:21 Order name: CBC with Diff; Complete Time: 14:12 [facility] 09/23 13:21 Order name: LFT's [facility] 09/23 13:21 Order name: Magnesium [facility] 09/23 13:21 Order name: NT PRO-BNP [facility] 09/23 13:21 Order name: PT-INR; Complete Time: 14:12 [facility] 09/23 13:21 Order name: Troponin (emerg Dept Use Only) [facility] 09/23 13:21 Order name: XRAY Chest (1 view); Complete Time: 14:12 [facility] 09/23 13:21 Order name: Urine Culture [facility] 09/23 13:25 Order name: Blood Culture Adult (2) [facility] 09/23 13:25 Order name: Influenza Screen (a \T\ B) [facility] 09/23 13:25 Order name: Procalcitonin [facility] 09/23 15:18 Order name: Urine Dipstick--Ancillary (enter results) [facility] 09/23 15:18 Order name: Urine --Ancillary (enter results) [facility] 09/23 13:21 Order name: EKG; Complete Time: 13:22 [facility] 09/23 13:21 Order name: Cardiac monitoring; Complete Time: 13:53 [facility] 09/23 13:21 Order name: EKG - Nurse/Tech; Complete Time: 13:53 [facility] 09/23 13:21 Order name: IV Saline Lock; Complete Time: 13:53 [facility] 09/23 13:21 Order name: Labs collected and sent; Complete Time: 13:53 [facility] 09/23 13:21 Order name: O2 Per Protocol; Complete Time: 13:53 [facility] 09/23 13:21 Order name: O2 Sat Monitoring; Complete Time: 13:53 [facility] 09/23 13:21 Order name: Urine Dipstick-Ancillary (obtain specimen); Complete Time: 14:46 [facility] 09/23 13:21 Order name: Urine Test (obtain specimen); Complete Time: 14:46 [facility] 09/23 15:35 Order name: NPO EDMS 09/23 15:36 Order name: Barium Swallow Modified EDNH Administered Medications: 13:52 Drug: SOLU-Medrol 125 mg Route: IVP; Site: left antecubital; hb 14:15 Follow up: Response: No adverse reaction hb 13:52 Drug: Albuterol - atroVENT (3:1) (2.5 mg - 0.5 mg) 3 ml Route: Nebulizer; hb 14:45 Follow up: Response: No adverse reaction; Wheezing diminished hb 13:53 Drug: NS 0.9% 1000 ml Route: IV; Rate: 1 bolus; Site: left antecubital; hb 14:30 Drug: levofloxacin 750 mg Volume: 150 ml; Route: IVPB; Infused Over: 90 mins; Site: hb left antecubital; 14:49 Drug: Ativan 1 mg Route: IVP; Site: left antecubital; hb 15:30 Follow up: Response: No adverse reaction hb Disposition: 09/23/18 14:16 Hospitalization ordered by Diana Verma for Observation. Preliminary diagnosis are Dyspnea, Asthma, Fever, unspecified. - Bed requested for Telemetry/MedSurg (Inpatient). - Status is Observation. hb - Condition is Fair. - Problem is new. - Symptoms have improved. UTI on Admission? No Signatures: Dispatcher [employer] EDStorm Bell MD MD cha Smirch, Shelby, MABEL MONROE Chrissy Moran RN RN Maida Veronica RN RN df Corrections: (The following items were deleted from the chart) 16:47 14:16 Hospitalization Ordered by Diana Verma MD for Observation. Preliminary df diagnosis is Dyspnea; Asthma; Fever, unspecified. Bed requested for Telemetry/MedSurg (Inpatient). Status is Observation. Condition is Fair. Problem is new. Symptoms have improved. UTI on Admission? No. [facility] 18:32 16:47 09/23/2018 14:16 Hospitalization Ordered by Diana Verma MD for Observation. hb Preliminary diagnosis is Dyspnea; Asthma; Fever, unspecified. Bed requested for Telemetry/MedSurg (Inpatient). Status is Observation. Condition is Fair. Problem is new. Symptoms have improved. UTI on Admission? No. df
--- NOTE | 2018-09-23 14:17 | ER ---
Nurse's Notes [facility] Name: Jaymie Cleveland Age: 33 yrs Sex: Female : 1985 Arrival Date: 09/23/2018 Time: 12:19 Bed 30 Private MD: Leighton Villalpando Diagnosis: Dyspnea;Asthma;Fever, unspecified Presentation: 09/23 12:44 Presenting complaint: Patient states: Sore throat, cough, fever and chest congestion ss that began September 16. Pt was seen in ER and given medications, but despite taking those, she is still feeling worse. Transition of care: patient was not received from another setting of care. Onset of symptoms was September 16, 2018. Risk Assessment: Do you want to hurt yourself or someone else? Patient reports no desire to harm self or others. Initial Sepsis Screen: Does the patient meet any 2 criteria? No. Patient's initial sepsis screen is negative. Does the patient have a suspected source of infection? No. Patient's initial sepsis screen is negative. Care prior to arrival: None. 12:44 Method Of Arrival: Ambulatory ss 12:44 Acuity: HOSEA 3 ss Historical: - Allergies: 12:46 NKDA; ss - PMHx: 12:46 Anxiety; Borderline Bipolar disorder; C DIFF; Depression; ocd; Seizures; ss - PSHx: 12:46 None; ss - Immunization history:: Adult Immunizations up to date. - Social history:: Smoking status: Patient uses tobacco products, smokes one-half pack cigarettes per day. - Ebola Screening: : Patient denies exposure to infectious person Patient denies travel to an Ebola-affected area in the 21 days before illness onset. Screenin:30 Abuse screen: Denies threats or abuse. Denies injuries from another. Nutritional hb screening: No deficits noted. Tuberculosis screening: No symptoms or risk factors identified. Fall Risk None identified. Assessment: 13:10 General: Appears in no apparent distress. Behavior is calm, cooperative. Pain: Pain hb currently is 10 out of 10 on a pain scale. Neuro: Level of Consciousness is awake, alert, obeys commands, Oriented to person, place, time, situation. Cardiovascular: Heart tones S1 S2 present Capillary refill < 3 seconds Patient's skin is warm and dry. Respiratory: Airway is patent Respiratory effort is even, unlabored, Respiratory pattern is regular, symmetrical, Breath sounds are diminished bilaterally. Breath sounds with rhonchi bilaterally. Breath sounds with wheezes. GI: No signs and/or symptoms were reported involving the gastrointestinal system. : No signs and/or symptoms were reported regarding the genitourinary system. EENT: No signs and/or symptoms were reported regarding the EENT system. Derm: Skin is intact, is healthy with good turgor, Skin is dry, Skin is pale, Skin temperature is warm. Musculoskeletal: No signs and/or symptoms reported regarding the musculoskeletal system. 14:00 Reassessment: Patient appears in no apparent distress at this time. Patient and/or hb family updated on plan of care and expected duration. Pain level reassessed. Patient is alert, oriented x 3, equal unlabored respirations, skin warm/dry/pink. 14:49 Reassessment: Pt c/o anxiety, requesting medication, Dr. Martin notified, Ativan hb administered as ordered. 15:30 Reassessment: Patient appears in no apparent distress at this time. Patient and/or hb family updated on plan of care and expected duration. Pain level reassessed. Patient is alert, oriented x 3, equal unlabored respirations, skin warm/dry/pink. 16:30 Reassessment: Patient appears in no apparent distress at this time. Patient and/or hb family updated on plan of care and expected duration. Pain level reassessed. Patient is alert, oriented x 3, equal unlabored respirations, skin warm/dry/pink. 17:30 Reassessment: Patient appears in no apparent distress at this time. Patient and/or hb family updated on plan of care and expected duration. Pain level reassessed. Patient is alert, oriented x 3, equal unlabored respirations, skin warm/dry/pink. 18:30 Reassessment: Attempted to call report to floor, per Dr. Verma, pt is to be discharged hb home with f/u tomorrow at 0700 Dr. Berumen for endo. NPO after midnight, scrips x 2. See [employer] for dc planning and instructions. Vital Signs: 12:46 BP 119 / 77; Pulse 98; Resp 16; Temp 97.6(TE); Pulse Ox 97% on R/A; Weight 97.52 kg; ss Height 5 ft. 2 in. (157.48 cm); Pain 10/10; 13:00 BP 115 / 84 LA Sitting (auto/lg); Pulse 84; Resp 18 S; Temp 98.8(O); Pulse Ox 94% on jp3 R/A; Pain 10/10; 13:10 Pulse Ox 98% on 2 lpm NC; jp3 14:00 BP 111 / 78; Pulse 99; Resp 20; Pulse Ox 100% on 2 lpm NC; hb 15:00 BP 101 / 72; Pulse 114; Resp 20; Pulse Ox 98% on R/A; hb 16:30 BP 118 / 76; Pulse 97; Resp 16; Pulse Ox 100% on R/A; hb 12:46 Body Mass Index 39.32 (97.52 kg, 157.48 cm) ED Course: 12:19 Patient arrived in ED. mr 12:20 Leighton Villalpando MD is Private Physician. mr 12:46 Triage completed. ss 12:46 Arm band placed on right wrist. ss 12:52 Storm Martin MD is Attending Physician. korin 13:05 Chrissy Morna, RN is Primary Nurse. hb 13:11 Bed in low position. Call light in reach. Side rails up X 1. Warm blanket given. Pillow jp3 given. Pulse ox on. NIBP on. Notified primary nurse of vital signs. 13:11 Oxygen administration via nasal cannula \T\ 2L/min Response to oxygen therapy: symptoms jp3 improved. 13:35 X-ray completed. Portable x-ray completed in exam room. Patient tolerated procedure sw well. 13:35 XRAY Chest (1 view) In Process Unspecified. EDMS 13:50 Inserted saline lock: 20 gauge in left antecubital area, using aseptic technique. Blood jp3 collected. 13:50 Initial lab(s) drawn, by dc, sent to lab. First set of blood cultures drawn by dc, Flu jp3 and/or RSV swab sent to lab. 14:08 Second set of blood cultures drawn by dc. jp3 14:13 Procalcitonin Sent. jp3 14:13 Influenza Screen (a \T\ B) Sent. jp3 14:13 Blood Culture Adult (2) Sent. jp3 14:13 Basic Metabolic Panel Sent. jp3 14:14 LFT's Sent. jp3 14:14 Magnesium Sent. jp3 14:14 Troponin (emerg Dept Use Only) Sent. jp3 14:14 NT PRO-BNP Sent. jp3 14:14 EKG done, by screening technician. reviewed by Storm Martin MD. jp3 14:15 Diana Verma MD is Hospitalizing Provider. korin 18:29 No provider procedures requiring assistance completed. IV discontinued, intact, hb bleeding controlled, No redness/swelling at site. Pressure dressing applied. Administered Medications: 13:52 Drug: SOLU-Medrol 125 mg Route: IVP; Site: left antecubital; hb 14:15 Follow up: Response: No adverse reaction hb 13:52 Drug: Albuterol - atroVENT (3:1) (2.5 mg - 0.5 mg) 3 ml Route: Nebulizer; hb 14:45 Follow up: Response: No adverse reaction; Wheezing diminished hb 13:53 Drug: NS 0.9% 1000 ml Route: IV; Rate: 1 bolus; Site: left antecubital; hb 14:30 Drug: levofloxacin 750 mg Volume: 150 ml; Route: IVPB; Infused Over: 90 mins; Site: hb left antecubital; 14:49 Drug: Ativan 1 mg Route: IVP; Site: left antecubital; hb 15:30 Follow up: Response: No adverse reaction hb Outcome: 14:16 Decision to Hospitalize by Provider. korin 18:29 Discharged to home ambulatory. hb 18:29 Condition: stable 18:29 Discharge instructions given to patient, Instructed on discharge instructions, follow up and referral plans. medication usage, Demonstrated understanding of instructions, follow-up care, medications. 18:32 Patient left the ED. hb Signatures: Dispatcher [employer] EDAL Storm Martin MD MD cha Rivera, Gisela mr Padmini Villatoro, RN RN Sumaya Chapman Heather, RN RN Emir Jacobo jp3 Corrections: (The following items were deleted from the chart) 14:13 13:50 Initial lab(s) drawn, by dc, sent to lab. First set of blood cultures drawn Flu jp3 and/or RSV swab sent to lab. jp3
[2018-09-23 14:25] LABS: ALT/SGPT 27 U/L (12-78); AST/SGOT 7 U/L (15-37); Albumin 3.5 g/dL (3.4-5.0); Alkaline Phosphatase 58 U/L (45-117); BUN Blood Urea Nitrogen 18 mg/dL (7-18); Bicarbonate 31 mmol/L (21-32); Bilirubin Direct < 0.1 mg/dL (0-0.2); Bilirubin Total 0.1 mg/dL (0.2-1.0); Glucose Level 102 mg/dL (74-106); Magnesium 2.1 mg/dL (1.8-2.4); NT PRO-BNP 19 pg/mL (<125); Potassium 4.1 mmol/L (3.5-5.1); Sodium Level 141 mmol/L (136-145); Troponin (Emerg Dept Use Only) < 0.02 ng/mL (0.0-0.045)
--- NOTE | 2018-09-23 15:15 | EKG ---
Test Date: 2018-09-23 Test Time: 14:25:09 [employer] Installer: DAWN MEASUREMENT RESULTS: Intervals: Rate: 95 CT: 120 QRSD: 84 QT: 362 QTc: 454 [place]: P: 54 CT: 120 QRS: 70 T: 22 INTERPRETIVE STATEMENTS: Normal sinus rhythm Nonspecific ST and T wave abnormality Abnormal ECG Compared to ECG 07/11/2018 06:09:18 ST (T wave) deviation now present Electronically Signed On 09-23-18 15:14:16 CDT by Reilly West
--- NOTE | 2018-09-23 16:04 | P.HP ---
Certification for Inpatient Patient admitted to: Observation With expected LOS: <2 Midnights Patient will require the following post-hospital care: None Practitioner: I am a practitioner with admitting privileges, knowledge of patient current condition, hospital course, and medical plan of care. Services: Services provided to patient in accordance with Admission requirements found in Title 42 Section 412.3 of the Code of Federal Regulations Patient History Date of Service: 09/23/18 Primary Care Provider: Dr Villalpando Reason for admission: Dysphagia and Asthma Exacerbation History of Present Illness: 33 y/o F with Pmhx of Asthma, [employer] Abuse and Stomach Ulcer who presented to the ED with c/o Sore throat, Cough, and dysphagia for past couple of days that is getting progressively worse. Pt was recently seen in the ER for asthma exacerbation and was prescribed Albuterol inhaler and steroids and was discharged home from ER. She was doing well however started having Painful swallowing and dysphagia. She also c/o of fever, chills and Chest Discomfort. Pt was also seen 3 week ago by GI for her Ulcer per pt. She is asked to f.u with colonoscopy. + sick contact at home 4 weeks ago. In the ER pt had stable vitals but PE was concerning for Chest Tightness with Wheezing All four lung field and Erythema of the posterior throat without exudates. Allergies grapefruit Allergy (Verified 09/29/16 11:40) Unknown No Known Drug Allergies Allergy (Verified 09/29/16 11:40) Unknown yogurt Allergy (Uncoded 09/29/16 11:40) Unknown Home Medications: Alprazolam 2 mg PO BIDP PRN 09/06/16 Promethazine HCl 25 mg PO Q6HP PRN 09/29/16 Dicyclomine HCl 1 tab PO Q6HP PRN 10/10/16 - Past Medical/Surgical History Diabetic: No -: Depression -: OCD -: ADD -: Clostridium difficile -: left elbow sx -: left knee sx - Family History Family History: Reviewed- Non-Contributory - Social History Smoking Status: Current every day smoker Counseled patient to stop smoking for: more than 10 minutes Smoking therapy provided: Yes Patient receptive to therapy: No Alcohol use: No CD- Drugs: No Caffeine use: Yes Place of Residence: Home Review of Systems 10-point ROS is otherwise unremarkable Physical Examination - Physical Exam General: Alert, In no apparent distress HEENT: Atraumatic, PERRLA, Mucous membr. moist/pink, Other (Erythema noted on the back of the throat without any exudates. Painful Swallowing. ), EOMI, Sclerae nonicteric Neck: Supple, 2+ carotid pulse no bruit, No LAD, Without JVD or thyroid abnormality Respiratory: Normal air movement, Diminished (On the Right upper and lower lung field. Decrease Air movement on the Right. ), Expiratory wheezes, Inspiratory wheezes Cardiovascular: Regular rate/rhythm, Normal S1 S2 Gastrointestinal: Normal bowel sounds, No tenderness Musculoskeletal: No tenderness Integumentary: No rashes Neurological: Normal gait, Normal speech, Normal strength at 5/5 x4 extr, Normal tone, Normal affect Lymphatics: No axilla or inguinal lymphadenopathy - Studies Laboratory Data (last 24 hrs) 09/23/18 13:50: PT 10.7, INR 0.90 09/23/18 13:50: WBC 13.8 H, Hgb 12.7, Hct 37.7, Plt Count 305 09/23/18 13:50: Sodium 141, Potassium 4.1, BUN 18, Creatinine 0.84, Glucose 102 , Magnesium 2.1, Total Bilirubin 0.1 L, AST 7 L, ALT 27, Alkaline Phosphatase 58 Microbiology Data (last 24 hrs): 09/23/18 13:48 Nasopharnyx Influenza Type A Antigen Screen - Final 09/23/18 13:48 Nasopharnyx Influenza Type B Antigen Screen - Final Assessment and Plan - Problems (Diagnosis) (1) Dysphagia Current Visit: Yes Status: Acute Plan: Dysphagia most likely related to viral illness. -Will get MBS to r/o GI etiology due to her h/o of ulcer -Lidocaine swish and swallow for pain Qualifiers: Dysphagia type: unspecified Qualified Code(s): R13.10 - Dysphagia, unspecified (2) Asthma exacerbation Current Visit: Yes Status: Acute Plan: Asthma Exacerbation 2.2 to Viral illness -Duonebs, Steroids and oxygen at this time. -Will wean off oxygen as tolerated. Qualifiers: Asthma severity: moderate Asthma persistence: persistent Qualified Code(s ): J45.41 - Moderate persistent asthma with (acute) exacerbation (3) Tobacco abuse Current Visit: Yes Status: Chronic - Plan Admit to Med surg for Dysphagia Evaluation and Treatment for asthma exacerbation Discharge Plan: Home Plan to discharge in: 48 Hours - Advance Directives Does patient have a Living Will: No Does patient have a Durable POA for Healthcare: No - Code Status/Comfort Care Code Status Assessed: Yes Critical Care: No
--- NOTE | 2018-09-23 16:55 | RAD REPORT ---
EXAM DESCRIPTION: RAD - Barium Swallow Modified - 09/23/2018 4:36 pm CLINICAL HISTORY: Dysphagia COMPARISON: None. TECHNIQUE: The patient was given liquid, semi-solid and solid forms of barium. Lateral view fluorosc opic imaging was performed in conjunction with speech pathology service. FINDINGS: Cineloop acquisitions: 15 Fluoro time: 2 minutes 59 seconds oropharyngeal swallow within fuctional limits with all consistencies. narrowing observed in mid-esophagus, mild to moderate esophageal stasis, severe with pill, required p udding to move just above LES. IMPRESSION: Modified barium swallow as detailed above and fully detailed on speech pathology report.
[2018-09-23 17:38] LABS: Urine Blood NEGATIVE (NEG); Urine Glucose NEGATIVE (NEG); Urine Protein TRACE (NEG); Urine Specific Gravity 1.025 (1.005-1.030)
[2018-09-23 18:55] VITALS: TEMP 98.8
[2018-09-23 19:01] VITALS: BP 118/76; O2SAT 100
== END | disposition home or self-care (01) ==
LOC: ER 12:16 → ERHOLD 15:34 → UNDOADMOB 15:34
DX: J45.909 Unspecified asthma, uncomplicated (principal); R50.9 Fever, unspecified; F17.210 Nicotine dependence, cigarettes, uncomplicated
CPT/HCPCS: 36415; 71045; 74230; 80048; 80076; 81003; 81025; 83735; 83880; 84145; 84484; 85025; 85610; 87040; 87086; 87088; 87804; 92611; 93005; 94640; 96374; 96375; 99285; J2930; J7030

== ENCOUNTER 2018-11-04 18:54 | Emergency (ER) | payer OTHER ==
[2018-11-04] MEDS ORDERED: ACETAMINOPHEN 500 MG TAB ONE (19:59)
[2018-11-04] MEDS ORDERED: ONDANSETRON 4 MG/2 ML VIAL ONE (20:00)
[2018-11-04 20:22] LABS: Absolute Lymphocytes (CBC) 1.5 K/uL (0.7-4.9); Absolute Monocytes 0.5 K/uL (0.1-1.3); Basophils % 0.7 % (0-1.3); Eosinophils % 3.7 % (0-4.4); Hematocrit 38.6 % (36.0-45.0); Lymphocytes % 24.2 % (15.3-44.8); MPV 9.1 fL (7.6-11.3); Monocytes % 7.5 % (3.3-12.3); RBC Red Blood Cell Count 4.28 M/uL (3.86-4.86)
[2018-11-04 20:37] LABS: Albumin 3.8 g/dL (3.4-5.0); Bilirubin Total 0.3 mg/dL (0.2-1.0); Potassium 3.5 mmol/L (3.5-5.1); Protein, Total 7.2 g/dL (6.4-8.2)
[2018-11-04 20:39] LABS: Urine Blood NEGATIVE (NEG); Urine Glucose NEGATIVE (NEG); Urine Protein 1+ (NEG); Urine Specific Gravity >1.030 (1.005-1.030); Urine pH 5.5 (5.0-7.0)
[2018-11-04 21:06] LABS: Urine Bacteria >50 /HPF (<20); Urine RBC <5 /HPF (NONE SEEN)
[2018-11-04 21:07] LABS: Urine Culture Reflex Order REFLEXED
--- NOTE | 2018-11-04 21:16 | ER ---
Nurse's Notes [facility] Name: Jaymie Cleveland Age: 33 yrs Sex: Female : 1985 Arrival Date: 11/04/2018 Time: 18:55 Bed 19 Private MD: Diagnosis: PROTEINURIA;UTI Presentation: 11/04 19:15 Presenting complaint: Patient states: Pain to mid back x 2 days, states "My urine has lp1 been a real dark color, not like the usual yellow color"; Swelling to feet x 2 days, states "this has been on and off for about a year but my doctor doesn't know why this happens"; Patient states being diagnosed with stage 2 chronic kidney disease. Transition of care: patient was not received from another setting of care. Onset of symptoms was November 04, 2018. Risk Assessment: Do you want to hurt yourself or someone else? Patient reports no desire to harm self or others. Initial Sepsis Screen: Does the patient meet any 2 criteria? No. Patient's initial sepsis screen is negative. Does the patient have a suspected source of infection? No. Patient's initial sepsis screen is negative. Care prior to arrival: None. 19:15 Method Of Arrival: Ambulatory lp1 19:15 Acuity: HOSEA 3 lp1 CERTIFIED REGISTERED LOCKSMITH: 19:17 LMP 10/26/2018 lp1 Historical: - Allergies: 19:20 NKDA; lp1 - Home Meds: 19:20 alprazolam 2 mg Oral tab 1 tab 2 times a day [Active]; phentermine oral oral [Active]; lp1 pantoprazole oral oral [Active]; - PMHx: 19:20 Anxiety; Borderline Bipolar disorder; C DIFF; Depression; ocd; Seizures; Stage 2 CKD; lp1 colitis; Irritable bowel syndrome; - PSHx: 19:20 None; lp1 - Immunization history:: Adult Immunizations up to date. - Social history:: Smoking status: Patient uses tobacco products, smokes one pack cigarettes per day. - Ebola Screening: : No symptoms or risks identified at this time. - Family history:: not pertinent. - Hospitalizations: : No recent hospitalization is reported. Screenin:20 Abuse screen: Denies threats or abuse. Denies injuries from another. Nutritional lp1 screening: No deficits noted. Tuberculosis screening: No symptoms or risk factors identified. 20:00 Fall Risk IV access (20 points). Total Hollins Fall Scale indicates No Risk (0-24 pts). rr5 Assessment: 19:35 General: Appears in no apparent distress. uncomfortable, Behavior is calm, cooperative, rr5 appropriate for age. Pain: Complains of pain in back Pain does not radiate. Pain currently is 10 out of 10 on a pain scale. Quality of pain is described as aching, Pain began gradually, Is intermittent. 19:35 Neuro: Level of Consciousness is awake, alert, obeys commands, Oriented to person, rr5 place, time, situation, Appropriate for age. Cardiovascular: Capillary refill < 3 seconds Patient's skin is warm and dry. Respiratory: Airway is patent Respiratory effort is even, unlabored, Respiratory pattern is regular, symmetrical. GI: Abdomen is round. : Reports dark urine. EENT: No signs and/or symptoms were reported regarding the EENT system. Derm: Skin is intact, Skin temperature is warm. Musculoskeletal: Swelling present in right hand, right leg and left leg. 20:35 Reassessment: Patient appears in no apparent distress at this time. Patient is alert, rr5 oriented x 3, equal unlabored respirations, skin warm/dry/pink. awaiting for laboratory results. 21:15 Reassessment: Patient appears in no apparent distress at this time. Patient is alert, rr5 oriented x 3, equal unlabored respirations, skin warm/dry/pink. Patient states symptoms have not improved. 22:25 Reassessment: Patient appears in no apparent distress at this time. Patient is alert, rr5 oriented x 3, equal unlabored respirations, skin warm/dry/pink. discharge instruction given and explained without complaints made Patient states feeling better. Patient states symptoms have improved. Vital Signs: 19:17 BP 110 / 84; Pulse 107; Resp 18; Temp 98.7; Pulse Ox 98% on R/A; Weight 95.25 kg; lp1 Height 5 ft. 2 in. (157.48 cm); Pain 10/10; 20:30 BP 97 / 63; Pulse 101; Resp 17; Pulse Ox 99% ; rr5 21:10 BP 105 / 60; Pulse 95; Resp 16; Pulse Ox 99% ; Pain 10/10; rr5 22:20 BP 103 / 61; Pulse 88; Resp 17; Pulse Ox 100% ; Pain 7/10; rr5 19:17 Body Mass Index 38.41 (95.25 kg, 157.48 cm) lp1 ED Course: 18:55 Patient arrived in ED. mr 19:17 Triage completed. lp1 19:17 Arm band placed on right wrist. lp1 19:22 Maxx Nunez MD is Attending Physician. wa 19:30 Patient has correct armband on for positive identification. Bed in low position. Call rr5 light in reach. Pulse ox on. NIBP on. 19:34 Marco Munoz, MABEL is Primary Nurse. rr5 20:00 Inserted saline lock: 20 gauge in right antecubital area, using aseptic technique. rr5 Blood collected. 21:15 Donna Liang MD is Referral Physician. wa 22:29 No provider procedures requiring assistance completed. IV discontinued, intact, rr5 bleeding controlled, No redness/swelling at site. Pressure dressing applied. Administered Medications: 19:55 Drug: Tylenol 1000 mg Route: PO; rr5 22:26 Follow up: Response: No adverse reaction rr5 20:19 Not Given (Patient Refused): Zofran 2 mg IVP once; over 2 minutes rr5 21:20 Drug: Rocephin - (cefTRIAXone) 1 grams Route: IVPB; Infused Over: 30 mins; Site: right rr5 antecubital; 22:26 Follow up: Response: No adverse reaction; IV Status: Completed infusion rr5 21:30 Drug: traMADol 50 mg Route: PO; rr5 22:26 Follow up: Response: No adverse reaction rr5 Outcome: 21:16 Discharge ordered by . wa 22:29 Discharged to home ambulatory, with family. rr5 22:29 Condition: stable 22:29 Discharge instructions given to patient, Instructed on discharge instructions, follow up and referral plans. medication usage, Demonstrated understanding of instructions, follow-up care, medications, Prescriptions given X 3. 22:30 Patient left the ED. rr5 Signatures: Gisela Cantrell GradyRosalind, RN RN lp1 Maxx Nunez MD MD co Marco Munoz, MABEL RN rr5
--- NOTE | 2018-11-04 21:16 | EDPHYS ---
Physician Documentation [facility] Name: Jaymie Cleveland Age: 33 yrs Sex: Female : 1985 Arrival Date: 11/04/2018 Time: 18:55 Bed 19 Private MD: ED Physician Maxx Nunez HPI: 11/04 21:04 This 33 yrs old Female presents to ER via Ambulatory with complaints of Hand wa Swelling, Ankle Swelling, Back Pain, Urinary Problem. 21:04 The patient presents with urinary symptoms, frequency, discoloration to urine. low back wa pain. loss of appetite. states noted feet swelling. Onset: The symptoms/episode began/occurred 1 week(s) ago. Modifying factors: The symptoms are alleviated by nothing, the symptoms are aggravated by nothing. Associated signs and symptoms: Pertinent negatives: dyspareunia, fever, hematuria, vomiting, SOB. Severity of symptoms: At their worst the symptoms were moderate, in the emergency department the symptoms are unchanged. The patient has not experienced similar symptoms in the past. The patient has not recently seen a physician. 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 - Social history:: Smoking status: Patient uses tobacco products, smokes one pack cigarettes per day. - Ebola Screening: : No symptoms or risks identified at this time. - Family history:: not pertinent. - Hospitalizations: : No recent hospitalization is reported. ROS: 21:07 Constitutional: Negative for fever, chills, and weight loss, Eyes: Negative for injury, wa pain, redness, and discharge, ENT: Negative for injury, pain, and discharge, Neck: Negative for injury, pain, and swelling, Cardiovascular: Negative for chest pain, palpitations, and edema, Respiratory: Negative for shortness of breath, cough, wheezing, and pleuritic chest pain, Abdomen/GI: Negative for abdominal pain, nausea, vomiting, diarrhea, and constipation, Skin: Negative for injury, rash, and discoloration, Neuro: Negative for headache, weakness, numbness, tingling, and seizure, Psych: Negative for depression, anxiety, suicide ideation, homicidal ideation, and hallucinations. 21:07 Back: Positive for pain at rest, Negative for injury or acute deformity. 21:07 : Positive for decreased urination. discolored urine, Negative for flank pain. Exam: 21:08 Constitutional: This is a well developed, well nourished patient who is awake, alert, wa and in no acute distress. Head/Face: Normocephalic, atraumatic. Eyes: Pupils equal round and reactive to light, extra-ocular motions intact. Lids and lashes normal. Conjunctiva and sclera are non-icteric and not injected. Cornea within normal limits. Periorbital areas with no swelling, redness, or edema. ENT: Nares patent. No nasal discharge, no septal abnormalities noted. Tympanic membranes are normal and external auditory canals are clear. Oropharynx with no redness, swelling, or masses, exudates, or evidence of obstruction, uvula midline. Mucous membranes moist. Neck: Trachea midline, no thyromegaly or masses palpated, and no cervical lymphadenopathy. Supple, full range of motion without nuchal rigidity, or vertebral point tenderness. No Meningismus. Chest/axilla: Normal chest wall appearance and motion. Nontender with no deformity. No lesions are appreciated. Cardiovascular: Regular rate and rhythm with a normal S1 and S2. No gallops, murmurs, or rubs. Normal PMI, no JVD. No pulse deficits. Respiratory: Lungs have equal breath sounds bilaterally, clear to auscultation and percussion. No rales, rhonchi or wheezes noted. No increased work of breathing, no retractions or nasal flaring. Skin: Warm, dry with normal turgor. Normal color with no rashes, no lesions, and no evidence of cellulitis. MS/ Extremity: Pulses equal, no cyanosis. Neurovascular intact. Full, normal range of motion. Neuro: Awake and alert, GCS 15, oriented to person, place, time, and situation. Cranial nerves II-XII grossly intact. Motor strength 5/5 in all extremities. Sensory grossly intact. Cerebellar exam normal. Normal gait. Psych: Awake, alert, with orientation to person, place and time. Behavior, mood, and affect are within normal limits. 21:08 Abdomen/GI: Inspection: abdomen appears normal, Bowel sounds: normal, Palpation: abdomen is soft and non-tender. 21:08 Back: pain, that is mild, of the lumbar area, left low back and right low back. 21:08 : CVA tenderness, is absent. Vital Signs: 19:17 BP 110 / 84; Pulse 107; Resp 18; Temp 98.7; Pulse Ox 98% on R/A; Weight 95.25 kg; lp1 Height 5 ft. 2 in. (157.48 cm); Pain 10/10; 20:30 BP 97 / 63; Pulse 101; Resp 17; Pulse Ox 99% ; rr5 21:10 BP 105 / 60; Pulse 95; Resp 16; Pulse Ox 99% ; Pain 10/10; rr5 22:20 BP 103 / 61; Pulse 88; Resp 17; Pulse Ox 100% ; Pain 7/10; rr5 19:17 Body Mass Index 38.41 (95.25 kg, 157.48 cm) lp1 MDM: 19:22 Patient medically screened. md 21:08 Differential diagnosis: r/o UTI. consider intrinsic renal disease. will check labs. wa will reassess. Data reviewed: vital signs, nurses notes. 21:13 Test interpretation: by ED physician or midlevel provider: UA noted for 1+ protein. >50 wa bacteria. CMP nml. nml cbc. Response to treatment: the patient's symptoms have mildly improved after treatment. ED course: in the setting of urinary symptoms with bacteriuria, will cover empirically with abx. will have f/u with renal for further eval. 11/04 19:36 Order name: Urine Dipstick--Ancillary (enter results); Complete Time: 21: sd11/04 19:36 Order name: Urine --Ancillary (enter results); Complete Time: 21: sd11/04 19:37 Order name: Urine Microscopic Only; Complete Time: 21:10 11/04 19:37 Order name: CMP; Complete Time: 21:11/04 19:37 Order name: CBC with Diff; Complete Time: 21:09 22 21:09 Order name: Urine Culture [facility] 11/04 19:37 Order name: IV Start; Complete Time: 20:19 md Administered Medications: 19:55 Drug: Tylenol 1000 mg Route: PO; rr5 22:26 Follow up: Response: No adverse reaction rr5 20:19 Not Given (Patient Refused): Zofran 2 mg IVP once; over 2 minutes rr5 21:20 Drug: Rocephin - (cefTRIAXone) 1 grams Route: IVPB; Infused Over: 30 mins; Site: right rr5 antecubital; 22:26 Follow up: Response: No adverse reaction; IV Status: Completed infusion rr5 21:30 Drug: traMADol 50 mg Route: PO; rr5 22:26 Follow up: Response: No adverse reaction rr5 Disposition: 11/04/18 21:16 Discharged to Home. Impression: PROTEINURIA, UTI. - Condition is Stable. - Discharge Instructions: Urinary Tract Infection, Adult, [id number]. - Prescriptions for Keflex 500 mg Oral Capsule - take 1 capsule by ORAL route every 8 hours for 5 days; 15 capsule. promethazine 25 mg Oral Tablet - take 1 tablet by ORAL route every 8 hours As needed; 10 tablet. - Medication Reconciliation Form, Thank You Letter, Antibiotic Education, Prescription Opioid Use form. - Follow up: Donna Liang MD; When: 1 - 2 days; Reason: Recheck today's complaints. - Problem is new. - Symptoms have improved. - Notes: take the medication as prescribed. see the kidney doctor referred you for further evaluation of protein in your urine Signatures: Dispatcher [employer] [facility] Rosalind Rasmussen, RN RN lp1 Maxx Nunez MD MD wa Roque, Raymond RN RN rr5 Corrections: (The following items were deleted from the chart) 22:30 21:16 11/04/2018 21:16 Discharged to Home. Impression: PROTEINURIA; UTI. Condition is rr5 Stable. Forms are Medication Reconciliation Form, Thank You Letter, Antibiotic Education, Prescription Opioid Use. Follow up: Donna Liang; When: 1 - 2 days; Reason: Recheck today's complaints. Problem is new. Symptoms have improved. md
[2018-11-04] MEDS ORDERED: CEFTRIAXONE/SWI 1gm 1 GM/10 ML SYR ONE (21:30)
[2018-11-04] MEDS ORDERED: TRAMADOL HCL 50 MG TAB ONE (21:42)
[2018-11-04 22:37] VITALS: TEMP 98.7
[2018-11-04 22:41] VITALS: BP 103/61; O2SAT 100
== END 2018-11-04 22:30 | disposition home or self-care (01) ==
LOC: ER 18:54
DX: N39.0 Urinary tract infection, site not specified (principal); R80.9 Proteinuria, unspecified; F41.9 Anxiety disorder, unspecified; F31.9 Bipolar disorder, unspecified; F32.9 Major depressive disorder, single episode, unspecified; N18.2 Chronic kidney disease, stage 2 (mild); F17.210 Nicotine dependence, cigarettes, uncomplicated
CPT/HCPCS: 36415; 80053; 81003; 81015; 81025; 85025; 87086; 87088; 96365; 99284; J0696; J2405

== ENCOUNTER 2018-11-07 08:29 | Emergency (ER) | payer OTHER ==
[2018-11-07] MEDS ORDERED: NA CHLORIDE 0.9% 1,000 ML ONE (10:13)
[2018-11-07] MEDS ORDERED: KETOROLAC 30 MG/ML INJ ONE (10:13)
[2018-11-07 10:29] LABS: Absolute Lymphocytes (CBC) 1.6 K/uL (0.7-4.9); Absolute Monocytes 0.5 K/uL (0.1-1.3); Absolute Neutrophil 4.4 K/uL (1.8-8.0); Basophils % 0.8 % (0-1.3); Eosinophils % 3.8 % (0-4.4); Hematocrit 37.2 % (36.0-45.0); Lymphocytes % 23.1 % (15.3-44.8); MPV 9.1 fL (7.6-11.3); Monocytes % 7.1 % (3.3-12.3); RBC Red Blood Cell Count 4.09 M/uL (3.86-4.86)
[2018-11-07 10:46] LABS: ALT/SGPT 30 U/L (12-78); AST/SGOT 20 U/L (15-37); Albumin 3.2 g/dL (3.4-5.0); Alkaline Phosphatase 46 U/L (45-117); BUN Blood Urea Nitrogen 9 mg/dL (7-18); Bicarbonate 30 mmol/L (21-32); Bilirubin Direct < 0.1 mg/dL (0-0.2); Bilirubin Total 0.2 mg/dL (0.2-1.0); Glucose Level 104 mg/dL (74-106); Potassium 3.6 mmol/L (3.5-5.1); Protein, Total 6.4 g/dL (6.4-8.2); Sodium Level 144 mmol/L (136-145)
[2018-11-07 10:50] LABS: Urine Blood NEGATIVE (NEG); Urine Glucose NEGATIVE (NEG); Urine Protein 1+ (NEG)
[2018-11-07] MEDS ORDERED: METOCLOPRAMIDE 10 MG/2mL INJ ONE (11:10)
[2018-11-07] MEDS ORDERED: IBUPROFEN 400 MG TAB ONE (11:10)
--- NOTE | 2018-11-07 11:28 | RAD REPORT ---
EXAM DESCRIPTION: CTAbdomen Pelvis W Contrast - 11/07/2018 11:16 am CLINICAL HISTORY: Abdominal pain. ABD PAIN COMPARISON: Abdomen Pelvis W Contrast dated 09/04/2018; Abdomen Pelvis W Contrast dated 11/29/2017 ; Abdomen Pelvis W Contrast dated 02/04/2017; Abdomen Pelvis W Contrast dated 10/10/2016; Small [place] el Series dated 10/23/2018 TECHNIQUE: Biphasic CT imaging of the abdomen and pelvis was performed with 100 ml non-ionic IV cont rast. All CT scans are performed using dose optimization technique as appropriate and may include automated exposure control or mA/KV adjustment according to patient size. FINDINGS: Mild linear opacities are present in the left lung base most compatible with subsegmental atelectasis. The liver, spleen, pancreas, adrenal glands and kidneys are within normal limits. No bowel obstruction, free air, free fluid or abscess. The appendix is normal. No evidence of signi ficant lymphadenopathy. No suspicious bony findings. 4.5 cm right ovarian cyst. IMPRESSION: No acute intra-abdominal or pelvic finding. 4.5 cm right ovarian cyst.
--- NOTE | 2018-11-07 11:41 | ER ---
Nurse's Notes [facility] Name: Jaymie Cleveland Age: 33 yrs Sex: Female : 1985 Arrival Date: 11/07/2018 Time: 08:31 Bed 13 Private MD: Leighton Villalpando Diagnosis: Myalgia;Generalized pain, Presentation: 11/07 08:34 Presenting complaint: Patient states: chills and body aches x 3 days. Pt states she was ss seen in ER 3 days ago for same symptoms and was told to see a kidney specialist, but has been unable to do so. Transition of care: patient was not received from another setting of care. Onset of symptoms was November 04, 2018. Risk Assessment: Do you want to hurt yourself or someone else? Patient reports no desire to harm self or others. Care prior to arrival: None. 08:34 Method Of Arrival: Ambulatory ss 08:34 Acuity: [place] 3 ss 09:00 Initial Sepsis Screen: Does the patient meet any 2 criteria? No. Patient's initial rb1 sepsis screen is negative. Does the patient have a suspected source of infection? No. Patient's initial sepsis screen is negative. 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 - Social history:: Smoking status: Patient uses tobacco products, smokes one-half pack cigarettes per day. - Ebola Screening: : Patient denies exposure to infectious person Patient denies travel to an Ebola-affected area in the 21 days before illness onset. Screenin:00 Abuse screen: Denies threats or abuse. Nutritional screening: No deficits noted. rb1 Tuberculosis screening: No symptoms or risk factors identified. Fall Risk None identified. Assessment: 09:00 General: Appears in no apparent distress. comfortable, unkempt, Behavior is calm, rb1 cooperative. General: Reports chills for fever for. Pain: Complains of pain in generalized Pain currently is 10 out of 10 on a pain scale. Pain began 2-3 days ago. Neuro: Level of Consciousness is awake, alert, obeys commands, Oriented to person, place, time, situation. Cardiovascular: Capillary refill < 3 seconds is brisk in bilateral fingers. Respiratory: Airway is patent Respiratory effort is even, unlabored, Respiratory pattern is regular, symmetrical. GI: Reports nausea. : No signs and/or symptoms were reported regarding the genitourinary system. 09:00 Derm: Skin is pink, warm \T\ dry. rb1 10:00 Reassessment: Patient appears in no apparent distress at this time. No changes from rb1 previously documented assessment. 11:00 Reassessment: Patient appears in no apparent distress at this time. Patient and/or rb1 family updated on plan of care and expected duration. Pain level reassessed. Patient is alert, oriented x 3, equal unlabored respirations, skin warm/dry/pink. 11:46 Reassessment: Patient appears in no apparent distress at this time. No changes from rb1 previously documented assessment. Discharge pending due to the pt. needing to speak with the provider. Vital Signs: 08:37 BP 123 / 88; Pulse 94; Resp 17; Temp 98.1(TE); Pulse Ox 95% ; Weight 95.25 kg; Height 5 ss ft. 2 in. (157.48 cm); Pain 10/10; 09:30 BP 114 / 85; Pulse 85; Resp 16; Pulse Ox 99% on R/A; rb1 10:30 BP 121 / 84; Pulse 81; Resp 17; Pulse Ox 99% on R/A; rb1 11:30 BP 122 / 85; Pulse 83; Resp 18; Pulse Ox 99% on R/A; rb1 12:15 BP 119 / 79; Pulse 77; Resp 17; Pulse Ox 100% on R/A; Pain 8/10; rb1 08:37 Body Mass Index 38.41 (95.25 kg, 157.48 cm) ED Course: 08:31 Patient arrived in ED. as 08:32 Leighton Villalpando MD is Private Physician. as 08:36 Triage completed. ss 08:37 Arm band placed on right wrist. ss 08:50 Bora Majano MD is Attending Physician. kdr 08:59 Eloisa Dumont, RN is Primary Nurse. rb1 09:00 Patient has correct armband on for positive identification. Bed in low position. Call rb1 light in reach. Side rails up X 1. Pulse ox on. NIBP on. 10:32 Initial lab(s) drawn, by me, sent to lab. Inserted saline lock: 22 gauge in right in kj1 left antecubital area, using aseptic technique. 11:17 CT Abd/Pelvis - W/Contrast In Process Unspecified. EDMS 11:39 Leighton Villalpando MD is Referral Physician. kdr 12:19 No provider procedures requiring assistance completed. IV discontinued, intact, rb1 bleeding controlled, No redness/swelling at site. Pressure dressing applied. Administered Medications: 10:19 Drug: TORadol - Ketorolac 15 mg Route: IVP; Site: left antecubital; rb1 10:40 Follow up: Response: No adverse reaction; Pain is unchanged, physician notified rb1 10:20 Drug: NS 0.9% 1000 ml Route: IV; Rate: 1 bolus; Site: left antecubital; rb1 11:03 Drug: Reglan 10 mg Route: IVP; Site: left antecubital; rb1 11:04 Drug: Motrin 800 mg Route: PO; rb1 11:46 Drug: Neurontin 300 mg Route: PO; rb1 Outcome: 11:40 Discharge ordered by . kdr 12:19 Patient left the ED. rb1 12:19 Discharged to home ambulatory, with family. rb1 12:19 Condition: stable 12:19 Discharge instructions given to patient, Instructed on discharge instructions, follow up and referral plans. medication usage, Demonstrated understanding of instructions, follow-up care, medications, Prescriptions given X 1. Signatures: Dispatcher [employer] EDID Bora Majano MD MD kdr Cristina Can Shelby, RN RN Eloisa Dumont, MABEL RN rb1 Sofiya Atkins kj1
--- NOTE | 2018-11-07 11:41 | EDPHYS ---
Physician Documentation [facility] Name: Jaymie Cleveland Age: 33 yrs Sex: Female : 1985 Arrival Date: 11/07/2018 Time: 08:31 Bed 13 Private MD: Leighton Villalpando ED Physician Bora Majano HPI: 11/07 10:19 This 33 yrs old Female presents to ER via Ambulatory with complaints of Pain kdr All Over. 10:19 The patient states that she continues to hurt all over. States that she was here kdr several days ago with the same complaint. She understood that she may have kidney problems and was instructed to follow-up with a kidney specialist but she could not get in for another 10 days. Since she continued to hurt, she decided to return to the ED. She has no new c/o and her s/s have more persisted as opposed to worsened. . Onset: The symptoms/episode began/occurred gradually, 10 day(s) ago. Severity of symptoms: At their worst the symptoms were mild moderate just prior to arrival, in the emergency department the symptoms are unchanged. The patient has not experienced similar symptoms in the past. The patient has been recently seen at the [facility] Emergency Department, this week. 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 - Social history:: Smoking status: Patient uses tobacco products, smokes one-half pack cigarettes per day. - Ebola Screening: : Patient denies exposure to infectious person Patient denies travel to an Ebola-affected area in the 21 days before illness onset. ROS: 10:19 Constitutional: Negative for weight loss, - subjective fever Eyes: Negative for injury, kdr pain, redness, and discharge, Neck: Negative for injury, pain, and swelling, Cardiovascular: Negative for chest pain, palpitations, and edema, Respiratory: Negative for shortness of breath, cough, wheezing, and pleuritic chest pain, Abdomen/GI: Negative for abdominal pain, nausea, vomiting, diarrhea, and constipation, Back: Negative for injury and pain, : Negative for injury, bleeding, discharge, and swelling, MS/Extremity: Negative for injury and deformity - generalized aches Skin: Negative for injury, rash, and discoloration, Neuro: Negative for headache, weakness, numbness, tingling, and seizure activity. Psych: Negative for depression, anxiety, suicide ideation, homicidal ideation, and hallucinations, Allergy/Immunology: Negative for hives, rash, and allergies, Endocrine: Negative for neck swelling, polydipsia, polyuria, polyphagia, and marked weight changes, Hematologic/Lymphatic: Negative for swollen nodes, abnormal bleeding, and unusual bruising. Exam: 10:19 Constitutional: This is a well developed, well nourished patient who is awake, alert, kdr and in no acute distress. Head/Face: Normocephalic, atraumatic. Eyes: Pupils equal round and reactive to light, extra-ocular motions intact. Lids and lashes normal. Conjunctiva and sclera are non-icteric and not injected. Cornea within normal limits. Periorbital areas with no swelling, redness, or edema. Neck: Trachea midline, no thyromegaly or masses palpated, and no cervical lymphadenopathy. Supple, full range of motion without nuchal rigidity, or vertebral point tenderness. No Meningismus. Chest/axilla: Normal chest wall appearance and motion. Nontender with no deformity. No lesions are appreciated. Cardiovascular: Regular rate and rhythm with a normal S1 and S2. No gallops, murmurs, or rubs. Normal PMI, no JVD. No pulse deficits. Respiratory: Lungs have equal breath sounds bilaterally, clear to auscultation and percussion. No rales, rhonchi or wheezes noted. No increased work of breathing, no retractions or nasal flaring. Abdomen/GI: Soft, non-tender, with normal bowel sounds. No distension or tympany. No guarding or rebound. No evidence of tenderness throughout. Back: No spinal tenderness. No costovertebral tenderness. Full range of motion. Skin: Warm, dry with normal turgor. Normal color with no rashes, no lesions, and no evidence of cellulitis. MS/ Extremity: Pulses equal, no cyanosis. Neurovascular intact. Full, normal range of motion. Neuro: Awake and alert, GCS 15, oriented to person, place, time, and situation. Cranial nerves II-XII grossly intact. Motor strength 5/5 in all extremities. Sensory grossly intact. Cerebellar exam normal. Normal gait. Psych: Awake, alert, with orientation to person, place and time. Behavior, mood, and affect are within normal limits. 10:19 Abdomen/GI: Inspection: abdomen appears normal, Bowel sounds: normal, Palpation: soft, kdr mild abdominal tenderness, in the right lower quadrant. Vital Signs: 08:37 BP 123 / 88; Pulse 94; Resp 17; Temp 98.1(TE); Pulse Ox 95% ; Weight 95.25 kg; Height 5 ss ft. 2 in. (157.48 cm); Pain 10/10; 09:30 BP 114 / 85; Pulse 85; Resp 16; Pulse Ox 99% on R/A; rb1 10:30 BP 121 / 84; Pulse 81; Resp 17; Pulse Ox 99% on R/A; rb1 11:30 BP 122 / 85; Pulse 83; Resp 18; Pulse Ox 99% on R/A; rb1 12:15 BP 119 / 79; Pulse 77; Resp 17; Pulse Ox 100% on R/A; Pain 8/10; rb1 08:37 Body Mass Index 38.41 (95.25 kg, 157.48 cm) ss MDM: 10:19 Data reviewed: vital signs, nurses notes. kdr 11:40 Patient medically screened. [facility] 11/07 09:52 Order name: ESR; Complete Time: 11:38 [facility] 11/07 09:52 Order name: Lactate; Complete Time: 10:49 [facility] 11/07 09:52 Order name: Procalcitonin; Complete Time: 11:38 [facility] 11/07 09:52 Order name: CBC with Diff; Complete Time: 11:38 [facility] 11/07 09:52 Order name: Chem 7; Complete Time: 10:49 [facility] 11/07 09:52 Order name: LFT's; Complete Time: 10:49 [facility] 11/07 10:27 Order name: CT Abd/Pelvis - W/Contrast; Complete Time: 11:38 [facility] 11/07 10:43 Order name: Urine Dipstick--Ancillary (enter results); Complete Time: 11:38 eb 11/07 10:43 Order name: Urine --Ancillary (enter results); Complete Time: 11:38 eb 11/07 09:52 Order name: Urine Dipstick-Ancillary (obtain specimen); Complete Time: 11:03 kdr 11/07 09:52 Order name: Urine Test (obtain specimen); Complete Time: 11:03 kdr Administered Medications: 10:19 Drug: TORadol - Ketorolac 15 mg Route: IVP; Site: left antecubital; rb1 10:40 Follow up: Response: No adverse reaction; Pain is unchanged, physician notified rb1 10:20 Drug: NS 0.9% 1000 ml Route: IV; Rate: 1 bolus; Site: left antecubital; rb1 11:03 Drug: Reglan 10 mg Route: IVP; Site: left antecubital; rb1 11:04 Drug: Motrin 800 mg Route: PO; rb1 11:46 Drug: Neurontin 300 mg Route: PO; rb1 Disposition: 11/07/18 11:40 Discharged to Home. Impression: Myalgia, Generalized pain,. - Condition is Stable. - Discharge Instructions: Myofascial Pain Syndrome and Fibromyalgia, Muscle Pain, Adult. - Prescriptions for Neurontin 300 mg Oral Capsule - take 1 capsule by ORAL route every 8 hours; 30 capsule. - Medication Reconciliation Form, Thank You Letter form. - Follow up: Leighton Villalpando MD; When: 2 - 3 days; Reason: If symptoms return, Further diagnostic work-up, Recheck today's complaints, Continuance of care, Re-evaluation by your physician. - Problem is an ongoing problem. - Symptoms have improved. Signatures: Dispatcher [employer] EDNJ Bora Majano MD MD kdr Smirch, Shelby, RN RN ss Milton Perez RN RN la1 Eloisa Dumont, RN RN rb1 Corrections: (The following items were deleted from the chart) 12:19 11:40 11/07/2018 11:40 Discharged to Home. Impression: Myalgia; Generalized pain,. rb1 Condition is Stable. Forms are Medication Reconciliation Form, Thank You Letter, Antibiotic Education, Prescription Opioid Use. Follow up: Leighton Villalpando; When: 2 - 3 days; Reason: If symptoms return, Further diagnostic work-up, Recheck today's complaints, Continuance of care, Re-evaluation by your physician. Problem is an ongoing problem. Symptoms have improved. kdr
[2018-11-07] MEDS ORDERED: GABAPENTIN 300 MG CAP ONE (11:57)
[2018-11-07 12:31] VITALS: TEMP 98.1
[2018-11-07 12:36] VITALS: BP 114/85; O2SAT 99
== END 2018-11-07 12:19 | disposition home or self-care (01) ==
LOC: ER 08:29
DX: R52 Pain, unspecified (principal); M79.10 Myalgia, unspecified site; F41.9 Anxiety disorder, unspecified; F31.9 Bipolar disorder, unspecified; F32.9 Major depressive disorder, single episode, unspecified; N18.2 Chronic kidney disease, stage 2 (mild); F17.210 Nicotine dependence, cigarettes, uncomplicated
CPT/HCPCS: 36415; 74177; 80048; 80076; 81003; 81025; 83605; 84145; 85025; 85652; 96374; 96375; 99284; J2765; J7030; Q9967

== ENCOUNTER 2018-12-25 05:43 | Emergency (ER) | payer OTHER ==
[2018-12-25] MEDS ORDERED: TETANUS & DIPHTHERIA TOX,ADULT 0.5 ML VIAL ONE (06:35)
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
--- NOTE | 2018-12-25 08:05 | RAD REPORT ---
EXAM DESCRIPTION: RAD - Elbow Left 3 View - 12/25/2018 6:48 am CLINICAL HISTORY: Left elbow pain status post trauma FINDINGS: No fracture or dislocation is seen.
[2018-12-25 09:19] VITALS: BP 108/82; TEMP 98.4; O2SAT 100
== END 2018-12-25 06:59 | disposition home or self-care (01) ==
LOC: ER 05:43
DX: S53.402A Unspecified sprain of left elbow, initial encounter (principal); W19.XXXA Unspecified fall, initial encounter; Y93.01 Activity, walking, marching and hiking; Y92.89 Other specified places as the place of occurrence of the external cause; F41.9 Anxiety disorder, unspecified; F32.9 Major depressive disorder, single episode, unspecified; F31.9 Bipolar disorder, unspecified; G40.909 Epilepsy, unspecified, not intractable, without status epilepticus; N18.2 Chronic kidney disease, stage 2 (mild); F17.210 Nicotine dependence, cigarettes, uncomplicated
CPT/HCPCS: 90471; 90714; 99283

== ENCOUNTER 2018-12-26 22:28 | Emergency (ER) | payer OTHER ==
--- NOTE | 2018-12-26 23:53 | ER ---
Nurse's Notes [facility] Name: Jaymie Cleveland Age: 33 yrs Sex: Female : 1985 Arrival Date: 12/26/2018 Time: 22:29 Bed 20 Private MD: Maxx Perez E Diagnosis: Poisoning by benzodiazepines, accidental (unintentional) Presentation: 12/26 22:46 Presenting complaint: sister in law - pt seen last night in ER for "fall" pt took close ak1 to 35 pills of 2mg xanax. pt lethargic. Transition of care: patient was not received from another setting of care. Onset of symptoms was December 26, 2018. Risk Assessment: Do you want to hurt yourself or someone else? Patient reports no desire to harm self or others. Initial Sepsis Screen: Does the patient meet any 2 criteria? No. Patient's initial sepsis screen is negative. Does the patient have a suspected source of infection? No. Patient's initial sepsis screen is negative. Care prior to arrival: None. 22:46 Method Of Arrival: Wheelchair ak1 22:46 Acuity: HOSEA 1 ak1 22:50 Note pt stated she took the pills "because I was mad". ak1 22:52 Note sister in law stated pt took medications around 1999. ak1 23:15 Note spoke to Poison Control who recommends standard tox screening then observation bb until pt is back to baseline, monitor for CLINICAL MARKETING MANAGER depression especially if pt took other medications with the Xanax. . Triage Assessment: 23:00 General: Appears in no apparent distress. comfortable, Behavior is calm, cooperative, rr5 appropriate for age. 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 - Social history:: Smoking status: Patient uses tobacco products, smokes one pack cigarettes per day. - Ebola Screening: : No symptoms or risks identified at this time. Screenin:53 Abuse screen: Denies threats or abuse. Denies injuries from another. Nutritional ak1 screening: No deficits noted. Tuberculosis screening: No symptoms or risk factors identified. Fall Risk Gait- Impaired (20 pts.). Assessment: 23:00 General: Appears in no apparent distress. comfortable, Behavior is calm, cooperative, rr5 appropriate for age. 23:00 Pain: Complains of pain in left elbow Pain does not radiate. Pain Quality of pain is rr5 described as aching, Pain began 1 day ago. Is intermittent. Neuro: Level of Consciousness is awake, alert, obeys commands, Oriented to person, place, time, situation, Appropriate for age. Cardiovascular: Capillary refill < 3 seconds Patient's skin is warm and dry. Respiratory: Airway is patent Respiratory effort is even, unlabored, Respiratory pattern is regular, symmetrical. GI: Abdomen is round obese. : No signs and/or symptoms were reported regarding the genitourinary system. EENT: No signs and/or symptoms were reported regarding the EENT system. Derm: Skin is intact, Skin temperature is warm Wound noted face Wound is abrasion and wound peeling noted.brown to dark in color. Musculoskeletal: Capillary refill < 3 seconds, Range of motion: intact in all extremities. 23:30 Reassessment: Patient appears in no apparent distress at this time. Patient is alert, rr5 oriented x 3, equal unlabored respirations, skin warm/dry/pink. seen and examined by ED provider. for discharge. 12/27 00:00 Reassessment: Patient appears in no apparent distress at this time. Patient is alert, rr5 oriented x 3, equal unlabored respirations, skin warm/dry/pink. assisted by peoplesoft programmer.discharge instruction given and explained without complaints made. Vital Signs: 12/26 22:49 BP 119 / 69; Pulse 111; Resp 20; Temp 98.8; Pulse Ox 98% on R/A; Weight 82.55 kg (R); ak1 Height 5 ft. 2 in. (157.48 cm) (R); Pain 0/10; 23:00 BP 133 / 65; Pulse 110; Resp 16; Pulse Ox 98% on R/A; rr5 12/27 00:00 BP 125 / 70; Pulse 105; Resp 19; Temp 98.9; Pulse Ox 99% on R/A; rr5 12/26 22:49 Body Mass Index 33.29 (82.55 kg, 157.48 cm) [facility] ED Course: 12/26 22:29 Patient arrived in ED. am2 22:29 Maxx Perez MD is Private Physician. am2 22:49 Triage completed. ak1 22:49 Arm band placed on Patient placed in an exam room, on a stretcher, Patient notified of ak1 wait time. 23:00 Patient has correct armband on for positive identification. Placed in gown. Bed in low rr5 position. Call light in reach. Side rails up X2. Adult w/ patient. athletic monitor on. Pulse ox on. NIBP on. 23:09 Rex Vasquez MD is Attending Physician. 23:11 Marco Munoz, MABEL is Primary Nurse. rr5 23:30 No provider procedures requiring assistance completed. Patient did not have IV access rr5 during this emergency room visit. Administered Medications: No medications were administered Outcome: 23:52 Discharge ordered by . 12/27 00:00 Discharged to home ambulatory, with family, with friend. rr5 Condition: stable Discharge instructions given to patient, Instructed on discharge instructions, follow up and referral plans. Demonstrated understanding of instructions, follow-up care. 00:07 Patient left the ED. rr5 Signatures: Elisabet Guzman RN RN bb Krenek, Amber, RN RN [facility] Rizwana Newsome [facility] Rex Vasquez MD MD Marco Munoz, RN RN rr5 Corrections: (The following items were deleted from the chart) 12/26 23:42 23:15 Note spoke to Poison Control who recommends standard tox screening then bb observation until pt is back to baseline, monitor for CLINICAL MARKETING MANAGER depression especially if pt took other medications with the Xanax bb
--- NOTE | 2018-12-26 23:53 | EDPHYS ---
Physician Documentation [facility] [place] [place] Name: Jaymie Cleveland Age: 33 yrs Sex: Female : 1985 Arrival Date: 12/26/2018 Time: 22:29 Bed 20 Private MD: Maxx Perez E ED Physician Rex Vasquez HPI: 12/26 23:45 This 33 yrs old Female presents to ER via Wheelchair with complaints of gs Overdose. 23:45 The patient presents to the emergency department after a known overdose, that was gs accidental. Context: Method: the patient has a confirmed or suspected ingestion, Previous OD/poisoning history: yes. Severity of symptoms: At their worst the symptoms were moderate in the emergency department the symptoms are unchanged. The patient has experienced similar episodes in the past, a few times. 23:45 The patient has been recently seen at the [facility] Emergency gs Department, fall. 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 - Social history:: Smoking status: Patient uses tobacco products, smokes one pack cigarettes per day. - Ebola Screening: : No symptoms or risks identified at this time. ROS: 23:45 Psych: Negative for suicide gesture, suicidal ideation. gs 23:45 All other systems are negative. Exam: 23:45 Eyes: Pupils equal round and reactive to light, extra-ocular motions intact. Lids and gs lashes normal. Conjunctiva and sclera are non-icteric and not injected. Cornea within normal limits. Periorbital areas with no swelling, redness, or edema. ENT: Nares patent. No nasal discharge, no septal abnormalities noted. Tympanic membranes are normal and external auditory canals are clear. Oropharynx with no redness, swelling, or masses, exudates, or evidence of obstruction, uvula midline. Mucous membranes moist. Neck: Trachea midline, no thyromegaly or masses palpated, and no cervical lymphadenopathy. Supple, full range of motion without nuchal rigidity, or vertebral point tenderness. No Meningismus. Chest/axilla: Normal chest wall appearance and motion. Nontender with no deformity. No lesions are appreciated. Cardiovascular: Regular rate and rhythm with a normal S1 and S2. No gallops, murmurs, or rubs. Normal PMI, no JVD. No pulse deficits. Respiratory: Lungs have equal breath sounds bilaterally, clear to auscultation and percussion. No rales, rhonchi or wheezes noted. No increased work of breathing, no retractions or nasal flaring. Abdomen/GI: Soft, non-tender, with normal bowel sounds. No distension or tympany. No guarding or rebound. No evidence of tenderness throughout. Back: No spinal tenderness. No costovertebral tenderness. Full range of motion. Skin: Warm, dry with normal turgor. Normal color with no rashes, no lesions, and no evidence of cellulitis. MS/ Extremity: Pulses equal, no cyanosis. Neurovascular intact. Full, normal range of motion. 23:45 Constitutional: The patient appears alert, awake. 23:45 Head/face: Noted is abrasion(s), that are moderate. 23:45 Neuro: Orientation: is normal, Mentation: is normal, Cranial nerves: grossly normal, Motor: is normal, Sensation: is normal. 23:45 Psych: Patient has no thoughts/intents to harm self or others. Vital Signs: 22:49 BP 119 / 69; Pulse 111; Resp 20; Temp 98.8; Pulse Ox 98% on R/A; Weight 82.55 kg (R); ak1 Height 5 ft. 2 in. (157.48 cm) (R); Pain 0/10; 23:00 BP 133 / 65; Pulse 110; Resp 16; Pulse Ox 98% on R/A; rr5 12/27 00:00 BP 125 / 70; Pulse 105; Resp 19; Temp 98.9; Pulse Ox 99% on R/A; rr5 12/26 22:49 Body Mass Index 33.29 (82.55 kg, 157.48 cm) ak1 MDM: 12/26 23:30 Patient medically screened. 23:45 Differential diagnosis: Ingestion/exposure to xanax. Data reviewed: vital signs, nurses notes. Response to treatment: the patient's symptoms have markedly improved after treatment, the patient's condition has returned to base line. ED course: pt has steady gait and speech is normal doesn't want to stay any longer understands risks and benefits of staying and leaving, chooses to go home has support . Administered Medications: No medications were administered Disposition: 12/26/18 23:52 Discharged to Home. Impression: Poisoning by benzodiazepines, accidental (unintentional). - Condition is Stable. - Discharge Instructions: Benzodiazepine Overdose. - Medication Reconciliation Form, Thank You Letter, Antibiotic Education, Prescription Opioid Use form. - Follow up: Private Physician; When: 1 - 2 days; Reason: Re-evaluation by your physician. Signatures: Rema Valadez RN RN ak1 Rex Vasquez MD MD Marco Munoz RN RN rr5 Corrections: (The following items were deleted from the chart) 23:48 23:45 The patient has not recently seen a physician, [facility] 12/27 00:07 12/26 23:52 12/26/2018 23:52 Discharged to Home. Impression: Poisoning by rr5 benzodiazepines, accidental (unintentional). Condition is Stable. Forms are Medication Reconciliation Form, Thank You Letter, Antibiotic Education, Prescription Opioid Use. Follow up: Private Physician; When: 1 - 2 days; Reason: Re-evaluation by your physician.
[2018-12-27 02:21] VITALS: BP 119/69; TEMP 98.8; O2SAT 98
== END 2018-12-27 00:07 | disposition home or self-care (01) ==
LOC: ER 22:28
DX: T42.4X1A Poisoning by benzodiazepines, accidental (unintentional), initial encounter (principal); R56.9 Unspecified convulsions; N18.2 Chronic kidney disease, stage 2 (mild); F41.9 Anxiety disorder, unspecified; F32.9 Major depressive disorder, single episode, unspecified; F31.9 Bipolar disorder, unspecified; F17.210 Nicotine dependence, cigarettes, uncomplicated
CPT/HCPCS: 99291

== ENCOUNTER 2019-03-01 18:51 | Emergency (ER) | payer OTHER ==
--- OUTSIDE RECORDS SUMMARY | 2019-03-01 18:54 | XMS REPORT | Clinical Summary ---
:1985 Author Organization [facility] Address [address] [place] [id number] Care Team Providers Name Role Phone Asked, No Pcp Primary Care Provider Unavailable Allergies No Known Allergies Medications Not on file Active Problems Not on file Encounters Date Type Specialty Care Team Description 09/09/2018 Emergency Emergency Medicine Yunior Garcia Abdominal pain of unknown Jean Carlos, DO cause (Primary Dx) after 02/28/2018 Social History Tobacco Use Types Packs/Day Years Used Date Current Every Day Smoker Smokeless Tobacco: Never Used Alcohol Use Drinks/Week oz/Week Comments No Alcohol Habits Answer Date Recorded How often do you have a drink containing alcohol? Never 09/09/2018 How many drinks containing alcohol do you have on a typical Not asked day when you are drinking? How often do you have six or more drinks on one occasion? Not asked Sex Assigned at Date Recorded Not on file Job Start Date Occupation Industry Not on file Not on file Not on file Travel History Travel Start Travel End No recent travel history available. Last Filed Vital Signs Vital Sign Reading Time Taken Blood Pressure 113/73 09/09/2018 9:24 PM AUTHORIZATION NURSE Pulse 84 09/09/2018 9:24 PM AUTHORIZATION NURSE Temperature 36.8 C (98.3 F) 09/09/2018 6:25 PM AUTHORIZATION NURSE Respiratory Rate 18 09/09/2018 9:24 PM AUTHORIZATION NURSE Oxygen Saturation 97% 09/09/2018 9:24 PM AUTHORIZATION NURSE Inhaled Oxygen Concentration - - Weight - - Height 157.5 cm (5' 2") 09/09/2018 6:04 PM AUTHORIZATION NURSE Body Mass Index - - Plan of Treatment Health Maintenance Due Date Last Done Comments INFLUENZA VACCINE 02/13/2019 Procedures Procedure Name Priority Date/Time Associated Comments Diagnosis ESTIMATED GFR STAT 09/09/2018 9:27 Results for this PM AUTHORIZATION NURSE procedure are in the results section. LIPASE LEVEL STAT 09/09/2018 9:27 Results for this PM AUTHORIZATION NURSE procedure are in the results section. COMPREHENSIVE STAT 09/09/2018 9:27 Results for this METABOLIC PANEL PM AUTHORIZATION NURSE procedure are in the results section. HC COMPLETE BLD COUNT STAT 09/09/2018 9:27 Results for this W/AUTO DIFF PM AUTHORIZATION NURSE procedure are in the results section. HCG QUALITATIVE, URINE STAT 09/09/2018 6:11 Results for this SCREEN PM AUTHORIZATION NURSE procedure are in the results section. URINALYSIS SCREEN AND STAT 09/09/2018 6:11 Results for this MICROSCOPY, WITH PM AUTHORIZATION NURSE procedure are in REFLEX TO CULTURE the results section. URINE CULTURE STAT 09/09/2018 6:11 Results for this PM AUTHORIZATION NURSE procedure are in the results section. after 02/28/2018 Results Estimated GFR (09/09/2018 9:27 PM AUTHORIZATION NURSE) Pathologist [facility] [place] Estimated GFR 88 mL/min/1.73 [facility] Comment: m2 [place] CatergoryUnitsInterpretation [facility] G1 >=90 Normal or high G2 60-89Mildly decreased [id number] to moderately decreased [id number] to severely decreased G4 15-29Severely decreased G5 <15Kidney failure The eGFR was calculated using the Chronic Kidney Disease Epidemiology Collaboration (CKD-EPI) equation. Interpretation is based on recommendations of the National Kidney Foundation-Kidney Disease Outcomes Quality Initiative (NKF-KDOQI) published in 2014. Specimen Plasma specimen Performing Organization Address City/State/Zipcode Phone Number [facility] DEPARTMENT OF PATHOLOGY [address] [place] [address] AND GENOMIC MEDICINE [facility] [address] CBC with platelet and differential (09/09/2018 9:27 PM AUTHORIZATION NURSE) [facility] WBC 9.3 4.5 - 11.0 k/uL [facility] RBC 4.13 (L) 4.20 - 5.50 [facility] m/uL [facility] HGB 12.4 12.0 - 16.0 [facility] g/dL [facility] HCT 39.8 37.0 - 47.0 % [facility] MCV 96.4 82.0 - 100.0 fL [facility] MCH 30.0 27.0 - 34.0 pg [facility] MCHC 31.2 31.0 - 37.0 [facility] g/dL [facility] RDW - SD 47.9 37.0 - 55.0 fL [facility] MPV 10.9 6.9 - 11.0 fL [facility] Platelet count 299 150 - 400 K/uL [facility] Nucleated RBC 0.00 /100 WBC [facility] Neutrophils 62.4 39.0 - 69.0 % [facility] Lymphocytes 27.2 25.0 - 45.0 % [facility] Monocytes 5.8 0.0 - 10.0 % [facility] Eosinophils 3.8 0.0 - 5.0 % [facility] Basophils 0.3 0.0 - 1.0 % [facility] Immature granulocytes 0.5 0.0 - 1.0 % [facility] Specimen Blood Performing Organization Address City/[facility] Phone Number [facility] DEPARTMENT OF PATHOLOGY [address] [place] [address] Lipase level (09/09/2018 9:27 PM AUTHORIZATION NURSE) Lipase 88 (H) 13 - 60 U/L [facility] Specimen Plasma specimen Performing Organization Address City/[facility]/Zipcode Phone Number [facility] DEPARTMENT OF PATHOLOGY [address] [place] [address] Comprehensive metabolic panel (09/09/2018 9:27 PM AUTHORIZATION NURSE) Sodium 143 135 - 148 mEq/L [facility] Potassium 3.7 3.5 - 5.0 mEq/L [facility] Chloride 104 98 - 112 mEq/L [facility] CO2 29 24 - 31 mEq/L [facility] Anion gap 10@ANIO 7 - 15 mEq/L [facility] BUN 9 6 - 20 mg/dL [facility] Creatinine 0.85 0.50 - 0.90 [facility] mg/dL [facility] Glucose 97 65 - 99 mg/dL [facility] Calcium 8.9 8.3 - 10.2 mg/dL [facility] Protein 7.4 6.3 - 8.3 g/dL [facility] Albumin 4.2 3.5 - 5.0 g/dL [facility] A/G ratio 1.3 0.7 - 3.8 [facility] Alkaline phosphatase 62 35 - 104 U/L [facility] AST 23 10 - 35 U/L [facility] ALT 25 5 - 50 U/L [facility] Total bilirubin <0.2 0.2 - 1.2 mg/dL [facility] Specimen Plasma specimen Performing Organization Address City/State/[facility] Phone Number [facility] DEPARTMENT OF PATHOLOGY [address] [place] [address] AND GENOMIC MEDICINE [facility] [address] Urinalysis screen and microscopy, with reflex to culture (09/09/2018 6:11 PM AUTHORIZATION NURSE) Specimen site Clean catch [facility] Color, UA Yellow [facility] Appearance, UA Clear [facility] Specific gravity, UA 1.017 1.001 - 1.030 [facility] pH, UA 6.0 5.0 - 9.0 [facility] Protein, UA Negative Negative [facility] Glucose, UA Negative Negative [facility] Ketones, UA Negative Negative [facility] Bilirubin, UA Negative Negative [facility] Blood, UA Negative Negative [facility] Nitrite, UA Negative Negative [facility] Urobilinogen, UA <2.0 <2.0 E.U./dL [facility] Leukocyte esterase, Negative Negative [facility] Epithelial cells, UA 1 /HPF [facility] WBC, UA 1 0 - 4 /HPF [facility] RBC, UA 1 0 - 5 /HPF [facility] Bacteria, UA None seen None seen [facility] Yeast, UA None seen [facility] Yeast with None seen [facility] pseudohyphae, UA [facility] Specimen Urine Performing Organization Address City/State/Zipcode Phone Number [facility] DEPARTMENT OF PATHOLOGY [id number] [place] [address] AND GENOMIC MEDICINE [address] hCG qualitative, urine screen (09/09/2018 6:11 PM AUTHORIZATION NURSE) hCG qualitative, NegativeComment: CULLEN MEYER urine Sensitivity of HCG [place] test: 25 mIU/ml HOSPITAL Specimen Urine Performing Organization Address City/[facility]/Zipcode Phone Number [facility] DEPARTMENT OF PATHOLOGY [address] [place] [address] AND GENOMIC MEDICINE [address] Urine culture (09/09/2018 6:11 PM AUTHORIZATION NURSE) Urine culture SEE COMMENTComment: [facility] [employer] Bacteriuria screen [facility] negative. Specimen Performing Organization Address City/[facility]/Zipcode Phone Number [facility] DEPARTMENT OF PATHOLOGY [address] [place] [address] [place] [address] HOSPITAL after 02/28/2018 Insurance Payer Benefit Plan / Subscriber ID Effective Dates Phone Address Type [facility] [employer] [facility] xxxxxxxxxxxx 2018-Prese Exchange CHOICE EXCHANGE EXCHANGE nt [employer] Advance Directives Patient has advance care planning documents on file. For more information, please contact:Cullen Meyer[address] [address]
--- NOTE | 2019-03-01 19:59 | ER ---
Nurse's Notes [facility] Name: Jaymie Cleveland Age: 34 yrs Sex: Female : 1985 Arrival Date: 03/01/2019 Time: 18:56 Bed 18 Private MD: Diagnosis: Unspecified injury of head Presentation: 03/01 19:00 Presenting complaint: EMS states: was carrying a metal laundry basket and tripped, face em hit metal basket, abrasion noted to top right or head, not bleeding at this time, also reports right hip pain. Transition of care: patient was not received from another setting of care. Onset of symptoms was March 01, 2019. Risk Assessment: Do you want to hurt yourself or someone else? Patient reports no desire to harm self or others. Initial Sepsis Screen: Does the patient meet any 2 criteria? No. Patient's initial sepsis screen is negative. Does the patient have a suspected source of infection? No. Patient's initial sepsis screen is negative. Care prior to arrival: None. 19:00 Method Of Arrival: EMS: [facility] em 19:05 Acuity: [place] 4 ss Historical: - Allergies: 19:04 NKDA; em - Home Meds: 19:04 alprazolam 2 mg Oral tab 1 tab 2 times a day [Active]; gabapentin 600 mg Oral tab em [Active]; pantoprazole 40 mg Oral TbEC 1 tab once daily [Active]; Xanax 2 mg Oral tab [Active]; - PMHx: 19:04 Anxiety; Borderline Bipolar disorder; C DIFF; Colitis; Depression; Irritable bowel em syndrome; ocd; Seizures; Stage 2 CKD; - PSHx: 19:04 None; em - Immunization history:: Adult Immunizations up to date. - Social history:: Smoking status: Patient uses tobacco products, denies chronic smoking, but will smoke occasionally. - Ebola Screening: : Patient negative for fever greater than or equal to 101.5 degrees Fahrenheit, and additional compatible Ebola Virus Disease symptoms Patient denies exposure to infectious person Patient denies travel to an Ebola-affected area in the 21 days before illness onset No symptoms or risks identified at this time. Screenin:10 Abuse screen: Denies threats or abuse. Denies injuries from another. Nutritional rr5 screening: No deficits noted. Tuberculosis screening: No symptoms or risk factors identified. Fall Risk Fall in past 12 months (25 points). Total Hollins Fall Scale indicates Low Risk Score (25-44 pts). Fall prevention measures have been instituted. Side Rails Up X 2 Placed close to Nursing Station Frequent Obs/Assesments occuring As available Patient and Family Educated on Fall Prevention Program and strategies. Assessment: 19:00 General: Appears in no apparent distress. comfortable, Behavior is calm, cooperative, rr5 appropriate for age. Pain: Complains of pain in head Pain does not radiate. Pain currently is 5 out of 10 on a pain scale. Quality of pain is described as aching, Pain began suddenly, Is intermittent. 19:00 Reassessment: C collar applied ordered by ED provider. Neuro: Level of Consciousness is rr5 awake, alert, obeys commands, Oriented to person, place, time, situation, Appropriate for age Cardiopulmonary Technician And Eeg Tech are equal bilaterally Moves all extremities. Full function Speech is normal, Facial symmetry appears normal, Pupils are PERRLA. Cardiovascular: Capillary refill < 3 seconds Patient's skin is warm and dry. Respiratory: Airway is patent Respiratory effort is even, unlabored, Respiratory pattern is regular, symmetrical. GI: Abdomen is obese, Patient currently denies nausea, vomiting. : No signs and/or symptoms were reported regarding the genitourinary system. EENT: No signs and/or symptoms were reported regarding the EENT system. Derm: Skin temperature is warm Wound noted right top forehead Wound is abrasion. Musculoskeletal: Circulation, motion, and sensation intact. Capillary refill < 3 seconds, Reports pain in back. 19:35 Reassessment: Patient appears in no apparent distress at this time. Patient is alert, rr5 oriented x 3, equal unlabored respirations, skin warm/dry/pink. patient removed the C collar does not want to stay here. she refused for any further treatment, refused for wound cleaning. encouraged to stay and explained the procedure of AMA but still opted to go. ED provider informed AMA form signed. Vital Signs: 19:04 BP 104 / 71; Pulse 107; Resp 24; Pulse Ox 100% on R/A; Weight 81.65 kg; Height 5 ft. 2 em in. (157.48 cm); Pain 9/10; 19:30 BP 110 / 75; Pulse 99; Resp 17; Temp 97.2; Pulse Ox 99% ; rr5 19:04 Body Mass Index 32.92 (81.65 kg, 157.48 cm) em Som Coma Score: 19:20 Eye Response: spontaneous(4). Verbal Response: oriented(5). Motor Response: obeys cp commands(6). Total: 15. ED Course: 18:56 Patient arrived in ED. rr5 18:57 Storm [facility]keon PA [facility]. cp 18:57 Rex Vasquez MD is Attending Physician. cp 19:00 Patient has correct armband on for positive identification. Bed in low position. Call rr5 light in reach. Side rails up X2. 19:00 Pulse ox on. NIBP on. rr5 19:04 Arm band placed on. em 19:05 Triage completed. 19:29 Marco Munoz, RN is Primary Nurse. rr5 19:35 No provider procedures requiring assistance completed. Patient did not have IV access rr5 during this emergency room visit. Administered Medications: No medications were administered Outcome: 19:35 AMA AMA form signed rr5 19:35 Condition: stable 19:35 Instructed on instructed verbally to come back if any discomfort will arise. 20:03 Patient left the ED. rr5 Signatures: Tyler Davalos, TANIA SANDERSONN Padmini Villatoro RN RN Storm Mckeon PA PA cp Roque, Raymond, RN RN rr5
--- NOTE | 2019-03-01 20:00 | EDPHYS ---
Physician Documentation [facility] Name: Jaymie Cleveland Age: 34 yrs Sex: Female : 1985 Arrival Date: 03/01/2019 Time: 18:56 Bed 18 Private MD: ED Physician Rex Vasquez HPI: 03/01 19:20 This 34 yrs old Female presents to ER via EMS with complaints of fall. cp 19:20 The patient or guardian reports injury. The complaints affect the top of head. Context cp of injury: resulted from a fall, while walking. Onset: The symptoms/episode began/occurred just prior to arrival. Associated signs and symptoms: Pertinent positives: nausea. Historical: - Allergies: 19:04 NKDA; em - Home Meds: 19:04 alprazolam 2 mg Oral tab 1 tab 2 times a day [Active]; gabapentin 600 mg Oral tab em [Active]; pantoprazole 40 mg Oral TbEC 1 tab once daily [Active]; Xanax 2 mg Oral tab [Active]; - PMHx: 19:04 Anxiety; Borderline Bipolar disorder; C DIFF; Colitis; Depression; Irritable bowel em syndrome; ocd; Seizures; Stage 2 CKD; - PSHx: 19:04 None; em - Immunization history:: Adult Immunizations up to date. - Social history:: Smoking status: Patient uses tobacco products, denies chronic smoking, but will smoke occasionally. - Ebola Screening: : Patient negative for fever greater than or equal to 101.5 degrees Fahrenheit, and additional compatible Ebola Virus Disease symptoms Patient denies exposure to infectious person Patient denies travel to an Ebola-affected area in the 21 days before illness onset No symptoms or risks identified at this time. ROS: 19:25 Constitutional: Negative for body aches, chills, fever, poor PO intake. cp 19:25 Eyes: Negative for injury, pain, redness, and discharge. cp 19:25 ENT: Negative for drainage from ear(s), ear pain, sore throat, difficulty swallowing, difficulty handling secretions. 19:25 Cardiovascular: Negative for chest pain. 19:25 Respiratory: Negative for cough, wheezing. 19:25 Abdomen/GI: Positive for nausea, Negative for abdominal pain, vomiting, diarrhea, constipation. 19:25 Neuro: Positive for of the top of head, injury, Negative for altered mental status, dizziness, weakness. 19:25 All other systems are negative. Exam: 19:30 Constitutional: The patient appears in no acute distress, alert, awake, non-toxic, well cp developed, well nourished. 19:30 Head/face: Noted is a laceration(s), that is superficial, of the top of head, Sinus cp tenderness, is not appreciated. 19:30 Eyes: Periorbital structures: appear normal, Pupils: equal, round, and reactive to light and accomodation, Extraocular movements: intact throughout, Conjunctiva: normal, no exudate, no injection, Sclera: no appreciated abnormality, Lids and lashes: appear normal, bilaterally. 19:30 ENT: External ear(s): are unremarkable, Nose: is normal, Mouth: Lips: moist, Oral mucosa: pink and intact, moist, Posterior pharynx: is normal, airway is patent. 19:30 Neck: C-spine: C-collar placed in ED, vertebral tenderness, that is mild, appreciated at C6 and C7, crepitus, is not appreciated. 19:30 Chest/axilla: Inspection: normal, Palpation: is normal, no crepitus, no tenderness. 19:30 Cardiovascular: Rate: tachycardic, Rhythm: regular. 19:30 Respiratory: the patient does not display signs of respiratory distress, Respirations: normal, no use of accessory muscles, no retractions, no splinting, no tachypnea, labored breathing, is not present. 19:30 Abdomen/GI: Inspection: abdomen appears normal, Palpation: abdomen is soft and non-tender, in all quadrants. 19:30 Back: pain, that is moderate, of the right low back, ROM is normal. 19:30 Neuro: Orientation: to person, place \T\ time. Mentation: is normal, Cerebellar function: is grossly normal, Motor: is normal, Sensation: is normal. Vital Signs: 19:04 BP 104 / 71; Pulse 107; Resp 24; Pulse Ox 100% on R/A; Weight 81.65 kg; Height 5 ft. 2 em in. (157.48 cm); Pain 9/10; 19:30 BP 110 / 75; Pulse 99; Resp 17; Temp 97.2; Pulse Ox 99% ; rr5 19:04 Body Mass Index 32.92 (81.65 kg, 157.48 cm) em [place] Coma Score: 19:20 Eye Response: spontaneous(4). Verbal Response: oriented(5). Motor Response: obeys cp commands(6). Total: 15. MDM: 19:15 Patient medically screened. cp 19:57 Data reviewed: vital signs, nurses notes. cp 19:57 Refusal of service: The patient/guardian displays adequate decision making capability cp and despite a detailed discussion of alternatives, benefits, risks, and consequences refuses: CT Scan. Administered Medications: No medications were administered Disposition: 20:05 Chart complete. cp Disposition: 03/01/19 19:58 Patient has left against medical advice. Impression: Unspecified injury of head. - Patients states they are going to Home. - Condition is Stable. - Discharge Instructions: Head Injury, Adult. Follow up: Emergency Department; When: As needed; Reason: Worsening of condition. - Problem is new. - Symptoms are unchanged. Signatures: Dispatcher [employer] [facility] Tyler Davalos, PHYSICAL METALLURGIST PHYSICAL METALLURGIST em Storm Mckeon PA PA cp Roque, Raymond, RN RN rr5 Corrections: (The following items were deleted from the chart) 19:43 19:19 Head C Spine MPR Wo Con+CT.RAD.BRZ ordered. [facility] 20:03 19:58 03/01/2019 19:58 Patients has left against medical advice. Impression: rr5 Unspecified injury of head. Patient states they are going to Home. Condition is Stable. Follow up: Emergency Department; When: As needed; Reason: Worsening of condition. Problem is new. Symptoms are unchanged. cp
[2019-03-01 21:45] VITALS: BP 104/71; O2SAT 100
== END 2019-03-01 20:03 | disposition left against medical advice (07) ==
LOC: ER 18:51
DX: S09.90XA Unspecified injury of head, initial encounter (principal); F41.8 Other specified anxiety disorders; W01.0XXA Fall on same level from slipping, tripping and stumbling without subsequent striking against object, initial encounter; Y93.E9 Activity, other interior property and clothing maintenance; Y92.019 Unspecified place in single-family (private) house as the place of occurrence of the external cause
CPT/HCPCS: 99283

== ENCOUNTER 2019-03-03 15:01 | Emergency (ER) | payer OTHER ==
--- OUTSIDE RECORDS SUMMARY | 2019-03-03 15:09 | XMS REPORT | Clinical Summary ---
:1985 Author Organization [facility] Address [address] [place] [id number] Care Team Providers Name Role Phone Asked, No Pcp Primary Care Provider Unavailable Allergies No Known Allergies Medications Not on file Active Problems Not on file Encounters Date Type Specialty Care Team Description 09/09/2018 Emergency Emergency Medicine Jose Mojica Abdominal pain of unknown Jean Carlos, DO cause (Primary Dx) after 03/02/2018 Social History Tobacco Use Types Packs/Day Years [...] Vital Signs Vital Sign Reading Time Taken Comments Blood Pressure 113/73 09/09/2018 9:24 PM GARAGE SUPERVISOR Pulse 84 09/09/2018 9:24 PM GARAGE SUPERVISOR Temperature 36.8 C (98.3 F) 09/09/2018 6:25 PM GARAGE SUPERVISOR Respiratory Rate 18 09/09/2018 9:24 PM GARAGE SUPERVISOR Oxygen Saturation 97% 09/09/2018 9:24 PM GARAGE SUPERVISOR Inhaled Oxygen Concentration - - Weight - - Height 157.5 cm (5' 2") 09/09/2018 6:04 PM GARAGE SUPERVISOR Body Mass Index - - Plan of Treatment Health Maintenance Due Date Last Done Comments INFLUENZA VACCINE 02/13/2019 Procedures Procedure Name Priority Date/Time Associated Comments Diagnosis ESTIMATED GFR STAT 09/09/2018 9:27 Results for this PM GARAGE SUPERVISOR procedure are in the results section. LIPASE LEVEL STAT 09/09/2018 9:27 Results for this PM GARAGE SUPERVISOR procedure are in the results section. COMPREHENSIVE STAT 09/09/2018 9:27 Results for this METABOLIC PANEL PM [employer]ARAGE SUPERVISOR procedure are in the results section. HC COMPLETE BLD COUNT STAT 09/09/2018 9:27 Results for this W/AUTO DIFF PM GARAGE SUPERVISOR procedure are in the results section. HCG QUALITATIVE, URINE STAT 09/09/2018 6:11 Results for this SCREEN PM GARAGE SUPERVISOR procedure are in the results section. URINALYSIS SCREEN AND STAT 09/09/2018 6:11 Results for this MICROSCOPY, WITH PM [employer]ARAGE SUPERVISOR procedure are in REFLEX TO CULTURE the results section. URINE CULTURE STAT 09/09/2018 6:11 Results for this PM GARAGE SUPERVISOR procedure are in the results section. after 03/02/2018 Results Estimated GFR (09/09/2018 9:27 PM GARAGE SUPERVISOR) Pathologist [facility] Estimated GFR 88 mL/min/1.73 [facility] Comment: m2 [place] CatergoryUnitsInterpretation [facility] G1 >=90 Normal or high G2 60-89Mildly decreased [id number] to moderately decreased [id number] to severely decreased G4 15-29Severely decreased G5 <15Kidney failure The eGFR was calculated using the Chronic Kidney Disease Epidemiology Collaboration (CKD-EPI) equation. Interpretation is based on recommendations of the National Kidney Foundation-Kidney Disease Outcomes Quality Initiative (NKF-KDOQI) published in 2014. Specimen Plasma specimen Performing Organization Address City/State/Zipcode Phone Number [facility] DEPARTMENT OF PATHOLOGY [address] [place] [address] AND GENOMIC MEDICINE [facility] [address] CBC with platelet and differential (09/09/2018 9:27 PM GARAGE SUPERVISOR) [facility] WBC 9.3 4.5 - 11.0 k/uL [facility] RBC 4.13 (L) 4.20 - 5.50 [facility] m/uL [facility] HGB 12.4 12.0 - 16.0 [facility] g/dL [facility] HCT 39.8 37.0 - 47.0 % [facility] MCV 96.4 82.0 - 100.0 fL [facility] MCH 30.0 27.0 - 34.0 pg [facility] MCHC 31.2 31.0 - 37.0 [facility] g/dL [facility] RDW - SD 47.9 37.0 - 55.0 fL [facility] MPV 10.9 6.9 - 11.0 fL [facility] Platelet count 299 150 - 400 K/uL [facility] Nucleated RBC 0.00 /100 WBC [facility] Neutrophils 62.4 39.0 - 69.0 % [facility] Lymphocytes 27.2 25.0 - 45.0 % [facility] Monocytes 5.8 0.0 - 10.0 % [facility] Eosinophils 3.8 0.0 - 5.0 % [facility] Basophils 0.3 0.0 - 1.0 % [facility] Immature granulocytes 0.5 0.0 - 1.0 % [facility] Specimen Blood Performing Organization Address City/[facility] Phone Number [facility] DEPARTMENT OF PATHOLOGY [address] [place] [address] Lipase level (09/09/2018 9:27 PM GARAGE SUPERVISOR) Lipase 88 (H) 13 - 60 U/L [facility] Specimen Plasma specimen Performing Organization Address City/[facility]/Zipcode Phone Number [facility] DEPARTMENT OF PATHOLOGY [address] [place] [address] Comprehensive metabolic panel (09/09/2018 9:27 PM GARAGE SUPERVISOR) Sodium 143 135 - 148 mEq/L [facility] Potassium 3.7 3.5 - 5.0 mEq/L [facility] Chloride 104 98 - 112 mEq/L [facility] CO2 29 24 - 31 mEq/L [facility] Anion gap 10@ANIO 7 - 15 mEq/L [facility] BUN 9 6 - 20 mg/dL [facility] Creatinine 0.85 0.50 - 0.90 [facility] mg/dL [facility] Glucose 97 65 - 99 mg/dL [facility] Calcium 8.9 8.3 - 10.2 mg/dL [facility] Protein 7.4 6.3 - 8.3 g/dL [facility] Albumin 4.2 3.5 - 5.0 g/dL [facility] A/G ratio 1.3 0.7 - 3.8 [facility] Alkaline phosphatase 62 35 - 104 U/L [facility] AST 23 10 - 35 U/L [facility] ALT 25 5 - 50 U/L [facility] Total bilirubin <0.2 0.2 - 1.2 mg/dL [facility] Specimen Plasma specimen Performing Organization Address City/State/[facility] Phone Number [facility] DEPARTMENT OF PATHOLOGY [address] [place] [address] AND GENOMIC MEDICINE [facility] [address] Urinalysis screen and microscopy, with reflex to culture (09/09/2018 6:11 PM GARAGE SUPERVISOR) Specimen site Clean catch [facility] Color, UA Yellow [facility] Appearance, UA Clear [facility] Specific gravity, UA 1.017 1.001 - 1.030 [facility] pH, UA 6.0 5.0 - 9.0 [facility] Protein, UA Negative Negative [facility] Glucose, UA Negative Negative [facility] Ketones, UA Negative Negative [facility] Bilirubin, UA Negative Negative [facility] Blood, UA Negative Negative [facility] Nitrite, UA Negative Negative [facility] Urobilinogen, UA <2.0 <2.0 E.U./dL [facility] Leukocyte esterase, Negative Negative [facility] Epithelial cells, UA 1 /HPF [facility] WBC, UA 1 0 - 4 /HPF [facility] RBC, UA 1 0 - 5 /HPF [facility] Bacteria, UA None seen None seen [facility] Yeast, UA None seen [facility] Yeast with None seen [facility] pseudohyphae, UA [facility] Specimen Urine Performing Organization Address City/State/Zipcode Phone Number [facility] DEPARTMENT OF PATHOLOGY [id number] [place] [address] AND GENOMIC MEDICINE [address] hCG qualitative, urine screen (09/09/2018 6:11 PM GARAGE SUPERVISOR) hCG qualitative, NegativeComment: [facility] urine Sensitivity of HCG [place] test: 25 mIU/ml HOSPITAL Specimen Urine Performing Organization Address City/[facility]/Zipcode Phone Number [facility] DEPARTMENT OF PATHOLOGY [address] [place] [address] AND GENOMIC MEDICINE [address] Urine culture (09/09/2018 6:11 PM GARAGE SUPERVISOR) Urine culture SEE COMMENTComment: [facility] Bacteriuria screen [facility] negative. Specimen Performing Organization Address City/[facility]/Zipcode Phone Number [facility] DEPARTMENT OF PATHOLOGY [address] [place] [address] [place] [address] HOSPITAL after 03/02/2018 Insurance Payer Benefit Plan / Subscriber ID Effective Dates Phone Address Type [facility] Zipdial [facility] xxxxxxxxxxxx 2018-Prese Exchange CHOICE EXCHANGE EXCHANGE nt [employer] Advance Directives For more information, please contact: [phone] Type Date Recorded Patient Almond Blancher Explanation Advance Directives, Living Will and Medical Power of Tractor Operator
[2019-03-03] MEDS ORDERED: ONDANSETRON 4 MG/2 ML VIAL ONE (15:51)
[2019-03-03] MEDS ORDERED: PROMETHAZINE 25 MG/ML VIAL ONE (16:32)
[2019-03-03] MEDS ORDERED: NA CHLORIDE 0.9% 2,000 ML ONE (16:32)
[2019-03-03 16:39] LABS: Absolute Lymphocytes (CBC) 1.6 K/uL (0.7-4.9); Basophils % 0.5 % (0-1.3); Hematocrit 38.5 % (36.0-45.0); Lymphocytes % 16.9 % (15.3-44.8); MPV 8.9 fL (7.6-11.3); RBC Red Blood Cell Count 4.35 M/uL (3.86-4.86)
[2019-03-03 16:45] LABS: Protime INR 1.03
[2019-03-03 16:52] LABS: Potassium 3.8 mmol/L (3.5-5.1)
[2019-03-03 17:02] LABS: Urine Appearance TURBID; Urine Blood 3+ (NEG); Urine Color RED; Urine Glucose NEGATIVE (NEG); Urine Protein 2+ (NEG); Urine Specific Gravity >=1.030 (1.005-1.030)
[2019-03-03 17:11] LABS: Urine Bilirubin NEGATIVE (NEG)
[2019-03-03] MEDS ORDERED: KETOROLAC 30 MG/ML INJ ONE (17:11)
[2019-03-03 17:19] LABS: Urine Amorphous Sediment 1+ /HPF (NONE SEEN); Urine Bacteria 20-50 /HPF (<20); Urine Culture Reflex Order REFLEXED; Urine Mucus 2+ /HPF (NONE SEEN); Urine RBC LOADED /HPF (NONE SEEN)
[2019-03-03] MEDS ORDERED: MORPHINE 4 MG/ML SYR ONE (17:59)
--- NOTE | 2019-03-03 18:38 | RAD REPORT ---
EXAM DESCRIPTION: CTAbdomen Pelvis W Contrast - 03/03/2019 6:15 pm CLINICAL HISTORY: Abdominal pain. ABD PAIN COMPARISON: Abdomen Pelvis W Contrast dated 11/07/2018; Abdomen Pelvis W Contrast dated 09/04/2018 ; Abdomen Pelvis W Contrast dated 11/29/2017; Abdomen Pelvis W Contrast dated 02/04/2017 TECHNIQUE: Biphasic CT imaging of the abdomen and pelvis was performed with 100 ml non-ionic IV cont rast. All CT scans are performed using dose optimization technique as appropriate and may include automated exposure control or mA/KV adjustment according to patient size. FINDINGS: The lung bases are clear. The liver, spleen, pancreas, adrenal glands and kidneys are within normal limits. No bowel obstruction, free air, free fluid or abscess. The appendix is normal. No evidence of signi ficant lymphadenopathy. No suspicious bony findings. Mild fluid is seen in the endometrial canal. IMPRESSION: No acute intra-abdominal or pelvic finding.
--- NOTE | 2019-03-03 19:09 | ER ---
Nurse's Notes [facility] Name: Jaymie Cleveland Age: 34 yrs Sex: Female : 1985 Arrival Date: 03/03/2019 Time: 15:04 Bed 4 Private MD: Maxx Perez E Diagnosis: Abnormal uterine and vaginal bleeding, unspecified Presentation: 03/03 15:17 Presenting complaint: Patient states: "my last period was January 15 but about 2 week ago aa5 I started with some pinkish brownish spotting and today everytime I stood up blood would just run down my leg so I called my family living educator and said to come here and then follow-up in about 3 days". 15:17 Transition of care: patient was not received from another setting of care. Onset of aa5 symptoms was March 03, 2019. 15:17 Acuity: HOSEA 2 aa5 15:17 Method Of Arrival: Ambulatory aa5 15:17 Risk Assessment: Do you want to hurt yourself or someone else? Patient reports no aa5 desire to harm self or others. Initial Sepsis Screen: Does the patient meet any 2 criteria? Systolic BP < 90 mmHg. HR > 90 bpm. Yes Does the patient have a suspected source of infection? No. Patient's initial sepsis screen is negative. Care prior to arrival: None. CABLE WIRER: 15:17 LMP 01/15/2019 aa5 Historical: - Allergies: 15:20 NKDA; aa5 - Home Meds: 15:20 None [Active]; aa5 - PMHx: 15:20 Anxiety; Borderline Bipolar disorder; C DIFF; Colitis; Depression; Irritable bowel aa5 syndrome; ocd; Seizures; Stage 2 CKD; ADD/ADHD; - PSHx: 15:20 Uterine Ablation; aa5 - Immunization history:: Adult Immunizations unknown. - Social history:: Smoking status: Patient uses tobacco products, smokes one-half pack cigarettes per day. - Ebola Screening: : No symptoms or risks identified at this time. Screenin:49 Abuse screen: Denies threats or abuse. Denies injuries from another. Nutritional jl7 screening: No deficits noted. Tuberculosis screening: No symptoms or risk factors identified. Fall Risk IV access (20 points). Total Hollisn Fall Scale indicates No Risk (0-24 pts). Assessment: 15:30 General: Appears in no apparent distress. uncomfortable, Behavior is cooperative, jl7 appropriate for age, anxious. Pain: Complains of pain in right lower quadrant and left lower quadrant Pain currently is 5 out of 10 on a pain scale. Quality of pain is described as crampy, Pain began 1 day ago. Is intermittent. Neuro: Level of Consciousness is awake, alert, obeys commands, Oriented to person, place, time, situation. Cardiovascular: Patient's skin is warm and dry. Respiratory: Airway is patent Respiratory effort is even, unlabored, Respiratory pattern is regular, symmetrical. GI: No signs and/or symptoms were reported involving the gastrointestinal system. : rachelle blood, Genitalia appear normal Reports vaginal bleeding that is bright red, heavy flow. EENT: No signs and/or symptoms were reported regarding the EENT system. Derm: Skin is pink, warm \\T\\ dry. Musculoskeletal: No signs and/or symptoms reported regarding the musculoskeletal system. 16:30 Reassessment: Patient appears in no apparent distress at this time. No changes from jl7 previously documented assessment. Patient and/or family updated on plan of care and expected duration. Pain level reassessed. Patient is alert, oriented x 3, equal unlabored respirations, skin warm/dry/pink. 17:13 Reassessment: Pt c/o cramping pain, requesting pain medication, VERENICE notified, see MAR jl7 for orders. 17:56 Reassessment: pt states burning pain to lower abdomen, states pain medicine worked for iw a while but pain has returned, Dr. Vasquez notified. 20:18 Reassessment: Patient and/or family updated on plan of care and expected duration. Pain ea level reassessed. Patient is alert, oriented x 3, equal unlabored respirations, skin warm/dry/pink. Discharge instruction given to patient, verbalized the understanding of instruction. Pt left ED ambulatory, tolerating well. Vital Signs: 15:17 BP 73 / 57; Pulse 113; Resp 18 S; Temp 98.6(O); Pulse Ox 96% on R/A; Weight 83.91 kg aa5 (R); Height 5 ft. 2 in. (157.48 cm) (R); Pain 5/10; 15:30 BP 116 / 82; Pulse 108; Resp 16 S; Pulse Ox 98% on R/A; jl7 16:30 BP 106 / 65; Pulse 95; Resp 16 S; Pulse Ox 98% on R/A; jl7 16:49 BP 102 / 81; Pulse 86; Resp 16 S; Pulse Ox 96% on R/A; jl7 16:56 BP 105 / 78; Pulse 87; Resp 16 S; Pulse Ox 96% on R/A; jl7 18:00 BP 99 / 71; Pulse 88; Resp 16 S; Pulse Ox 98% on R/A; jl7 18:53 BP 102 / 70; Pulse 85; Resp 16 S; Pulse Ox 98% on R/A; jl7 15:17 Body Mass Index 33.84 (83.91 kg, 157.48 cm) aa5 ED Course: 15:04 Patient arrived in ED. mr 15:04 Maxx Perez MD is Private Physician. mr 15:17 Arm band placed on. aa5 15:18 Patient placed in an exam room, in the treatment room. aa5 15:20 Rex Vasquez MD is Attending Physician. gs 15:23 La Welch RN is Primary Nurse. jl7 15:30 Triage completed. aa5 16:00 Assist provider with pelvic exam: Set up pelvic tray. Performed by Rex Vasquez MD jl7 Patient tolerated well. 16:20 Inserted saline lock: 20 gauge in left antecubital area, using aseptic technique. Blood jl7 collected. 16:35 Initial lab(s) drawn, by ED staff, sent to lab. Urine collected: clean catch specimen, jl7 blood tinged. 16:49 Patient has correct armband on for positive identification. Placed in gown. Bed in low jl7 position. Call light in reach. Side rails up X2. Pulse ox on. NIBP on. Warm blanket given. 17:00 Test, Serum Sent. jl7 17:00 CBC with Diff Sent. jl7 18:[address] via stretcher. nj 18:16 CT Abd/Pelvis - IV Contrast Only In Process Unspecified. EDMS 18:16 CT completed. Patient tolerated procedure well. Patient moved back from CT. nj 19:08 Malcolm Garrett MD is Referral Physician. gs 19:58 IV discontinued, intact, bleeding controlled, No redness/swelling at site. Pressure ea dressing applied. Administered Medications: 16:30 Not Given (Patient Refused): Zofran 4 mg IVP once; over 2 minutes jl7 16:45 Drug: NS 0.9% 1000 ml Route: IV; Rate: 1 bolus; Site: left antecubital; jl7 16:45 Drug: Phenergan 25 mg Route: IVP; Site: left antecubital; jl7 17:07 Follow up: Response: No adverse reaction; Nausea is decreased jl7 16:58 Drug: NS 0.9% 1000 ml Route: IV; Rate: 1 bolus; Site: left antecubital; jl7 17:13 Drug: TORadol - Ketorolac 15 mg Route: IVP; Site: left antecubital; jl7 17:42 Follow up: Response: No adverse reaction; Pain is unchanged, physician notified jl7 18:05 Drug: morphine 4 mg Route: IVP; Site: left antecubital; 7 19:50 Follow up: Response: No adverse reaction; Pain is decreased; RASS: Alert and Calm (0) ea 19:19 Not Given (Physician Discretion): Provera 10 mg PO once ea Outcome: 19:08 Discharge ordered by . gs 20:19 Discharged to home ambulatory. ea 20:19 Condition: stable 20:19 Instructed on discharge instructions, follow up and referral plans. medication usage, Demonstrated understanding of instructions, follow-up care, medications, Prescriptions given X 1. 20:20 Patient left the ED. ea Signatures: Dispatcher [employer] [facility] ÓscarGisela Ariana Anderson, Estefanía Akins RN, RN RN aa5 Jordan, Nathan nj Leal, Jahala, RN RN jl7 Antunez, Elena, RN RN ea Starr, Gregory, MD MD gs
--- NOTE | 2019-03-03 19:10 | EDPHYS ---
Physician Documentation [facility] Name: Jaymie Cleveland Age: 34 yrs Sex: Female : 1985 Arrival Date: 03/03/2019 Time: 15:04 Bed 4 Private MD: Maxx Perez E ED Physician Rex Vasquez HPI: 03/03 18:42 This 34 yrs old Female presents to ER via Ambulatory with complaints of gs Vaginal Bleeding. 18:42 The patient presents with vaginal bleeding that is heavy. Onset: The symptoms/episode gs began/occurred 2 week(s) ago. Associated signs and symptoms: Pertinent negatives: dyspareunia, urinary frequency. Severity of symptoms: At their worst the symptoms were severe, in the emergency department the symptoms are unchanged. The patient has experienced similar episodes in the past, a few times. 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 - Social history:: Smoking status: Patient uses tobacco products, smokes one-half pack cigarettes per day. - Ebola Screening: : No symptoms or risks identified at this time. ROS: 18:42 All other systems are negative. gs Exam: 18:42 Head/Face: Normocephalic, atraumatic. Eyes: Pupils equal round and reactive to light, gs extra-ocular motions intact. Lids and lashes normal. Conjunctiva and sclera are non-icteric and not injected. Cornea within normal limits. Periorbital areas with no swelling, redness, or edema. ENT: Nares patent. No nasal discharge, no septal abnormalities noted. Tympanic membranes are normal and external auditory canals are clear. Oropharynx with no redness, swelling, or masses, exudates, or evidence of obstruction, uvula midline. Mucous membranes moist. Neck: Trachea midline, no thyromegaly or masses palpated, and no cervical lymphadenopathy. Supple, full range of motion without nuchal rigidity, or vertebral point tenderness. No Meningismus. Chest/axilla: Normal chest wall appearance and motion. Nontender with no deformity. No lesions are appreciated. 18:42 Respiratory: Lungs have equal breath sounds bilaterally, clear to auscultation and percussion. No rales, rhonchi or wheezes noted. No increased work of breathing, no retractions or nasal flaring. Abdomen/GI: Soft, non-tender, with normal bowel sounds. No distension or tympany. No guarding or rebound. No evidence of tenderness throughout. Back: No spinal tenderness. No costovertebral tenderness. Full range of motion. Skin: Warm, dry with normal turgor. Normal color with no rashes, no lesions, and no evidence of cellulitis. MS/ Extremity: Pulses equal, no cyanosis. Neurovascular intact. Full, normal range of motion. Neuro: Awake and alert, GCS 15, oriented to person, place, time, and situation. Cranial nerves II-XII grossly intact. Motor strength 5/5 in all extremities. Sensory grossly intact. Cerebellar exam normal. Normal gait. 18:42 Constitutional: The patient appears alert, awake. 18:42 Cardiovascular: Rate: tachycardic, Rhythm: regular, Pulses: no pulse deficits are appreciated. 18:42 : Pelvic Exam: Speculum exam: mild bleeding, os that is closed, bimanual exam reveals normal findings, the nurse was present for the exam. Vital Signs: 15:17 BP 73 / 57; Pulse 113; Resp 18 S; Temp 98.6(O); Pulse Ox 96% on R/A; Weight 83.91 kg aa5 (R); Height 5 ft. 2 in. (157.48 cm) (R); Pain 5/10; 15:30 BP 116 / 82; Pulse 108; Resp 16 S; Pulse Ox 98% on R/A; jl7 16:30 BP 106 / 65; Pulse 95; Resp 16 S; Pulse Ox 98% on R/A; jl7 16:49 BP 102 / 81; Pulse 86; Resp 16 S; Pulse Ox 96% on R/A; jl7 16:56 BP 105 / 78; Pulse 87; Resp 16 S; Pulse Ox 96% on R/A; jl7 18:00 BP 99 / 71; Pulse 88; Resp 16 S; Pulse Ox 98% on R/A; jl7 18:53 BP 102 / 70; Pulse 85; Resp 16 S; Pulse Ox 98% on R/A; jl7 15:17 Body Mass Index 33.84 (83.91 kg, 157.48 cm) aa5 MDM: 15:57 Patient medically screened. gs 18:42 Differential diagnosis: ectopic , menometrorrhagia, nonspecific abdominal gs pain. Data reviewed: vital signs, nurses notes. Response to treatment: the patient's symptoms have markedly improved after treatment, and as a result, I will discharge patient. ED course: . 19:06 Counseling: I had a detailed discussion with the patient and/or guardian regarding: the gs historical points, exam findings, and any diagnostic results supporting the discharge/admit diagnosis, lab results, radiology results, the need for outpatient follow up. ED course: hr down vss will start provera refer pt to obgyn. 03/03 15:36 Order name: CBC with Diff 03/03 15:36 Order name: Basic Metabolic Panel; Complete Time: 16:53 03/03 15:36 Order name: Type And Screen; Complete Time: 17:53 03/03 15:36 Order name: PT-INR; Complete Time: 16:53 03/03 15:37 Order name: CBC with Automated Diff; Complete Time: 16:53 [facility] 03/03 16:06 Order name: Test, Serum; Complete Time: 17:10 03/03 16:55 Order name: Urinalysis W/Microscopic; Complete Time: 17:53 [facility] 03/03 17:24 Order name: Urine Culture [facility] 03/03 17:56 Order name: CT Abd/Pelvis - IV Contrast Only; Complete Time: 18:42 Administered Medications: 16:30 Not Given (Patient Refused): Zofran 4 mg IVP once; over 2 minutes jl7 16:45 Drug: NS 0.9% 1000 ml Route: IV; Rate: 1 bolus; Site: left antecubital; jl7 16:45 Drug: Phenergan 25 mg Route: IVP; Site: left antecubital; jl7 17:07 Follow up: Response: No adverse reaction; Nausea is decreased jl7 16:58 Drug: NS 0.9% 1000 ml Route: IV; Rate: 1 bolus; Site: left antecubital; jl7 17:13 Drug: TORadol - Ketorolac 15 mg Route: IVP; Site: left antecubital; jl7 17:42 Follow up: Response: No adverse reaction; Pain is unchanged, physician notified jl 18:05 Drug: morphine 4 mg Route: IVP; Site: left antecubital; jl7 19:50 Follow up: Response: No adverse reaction; Pain is decreased; RASS: Alert and Calm (0) ea 19:19 Not Given (Physician Discretion): Provera 10 mg PO once ea Disposition: 03/03/19 19:08 Discharged to Home. Impression: Abnormal uterine and vaginal bleeding, unspecified. - Condition is Stable. - Discharge Instructions: Abnormal Uterine Bleeding. - Prescriptions for Provera 10 mg Oral tablet - take 1 tablet by ORAL route once daily for 5 days; 5 tablet. Tylenol- Codeine #4 300-60 mg Oral Tablet - take 1 tablet by ORAL route every 6 hours As needed; 10 tablet. - Medication Reconciliation Form, Thank You Letter, Antibiotic Education, Prescription Opioid Use form. - Follow up: Malcolm Garrett MD; When: 2 - 3 days; Reason: Re-evaluation by your physician. Signatures: Dispatcher [employer] [facility] Estefanía Gutierrez RN RN aa5 La Welch RN RN jl7 Sarah Park RN RN Rex Oakley MD MD Corrections: (The following items were deleted from the chart) 16:55 15:20 UA MICROSCOPIC+U.LAB.BRZ ordered. [facility] 16:59 15:19 Urine Test ordered. [facility] 16:59 15:19 Urine Dipstick-Ancillary ordered. [facility] 20:20 19:08 03/03/2019 19:08 Discharged to Home. Impression: Abnormal uterine and vaginal ea bleeding, unspecified. Condition is Stable. Forms are Medication Reconciliation Form, Thank You Letter, Antibiotic Education, Prescription Opioid Use. Follow up: Malcolm Garrett; When: 2 - 3 days; Reason: Re-evaluation by your physician.
[2019-03-03 20:34] VITALS: TEMP 98.6
[2019-03-03 20:49] VITALS: O2SAT 98
[2019-03-03 20:51] VITALS: BP 102/70
== END 2019-03-03 20:20 | disposition home or self-care (01) ==
LOC: ER 15:01
DX: N93.9 Abnormal uterine and vaginal bleeding, unspecified (principal); F17.210 Nicotine dependence, cigarettes, uncomplicated
CPT/HCPCS: 87088; 85025; 81001; 87086; 80048; 36415; 86900; 86850; 84703; 85610; 86901; 74177; 96375; 96374; 99285; Q9967; J2550; J7030; J2405

== ENCOUNTER 2019-03-12 06:24 | Emergency (ER) | payer OTHER ==
--- OUTSIDE RECORDS SUMMARY | 2019-03-12 06:27 | XMS REPORT | Clinical Summary ---
:1985 Author Organization [facility] Address [address] [place] [id number] Care Team Providers Name Role Phone Asked, No Pcp Primary Care Provider Unavailable Allergies No Known Allergies Medications Not on file Active Problems Not on file Encounters Date Type Specialty Care Team Description 09/09/2018 Emergency Emergency Medicine Jose Mojica Abdominal pain of unknown Jean Carlos, DO cause (Primary Dx) after 03/11/2018 Social History Tobacco Use Types Packs/Day Years [...] Comments Blood Pressure 113/73 09/09/2018 9:24 PM FARM AGENT Pulse 84 09/09/2018 9:24 PM FARM AGENT Temperature 36.8 C (98.3 F) 09/09/2018 6:25 PM FARM AGENT Respiratory Rate 18 09/09/2018 9:24 PM FARM AGENT Oxygen Saturation 97% 09/09/2018 9:24 PM FARM AGENT Inhaled Oxygen Concentration - - Weight - - Height 157.5 cm (5' 2") 09/09/2018 6:04 PM FARM AGENT Body Mass Index - - Plan of Treatment Health Maintenance Due Date Last Done Comments CERVICAL CANCER SCREENING 01/29/2004 INFLUENZA VACCINE 02/13/2019 Procedures Procedure Name Priority Date/Time Associated Comments Diagnosis ESTIMATED GFR STAT 09/09/2018 9:27 Results for this PM FARM AGENT procedure are in the results section. LIPASE LEVEL STAT 09/09/2018 9:27 Results for this PM FARM AGENT procedure are in the results section. COMPREHENSIVE STAT 09/09/2018 9:27 Results for this METABOLIC PANEL PM FARM AGENT procedure are in the results section. HC COMPLETE BLD COUNT STAT 09/09/2018 9:27 Results for this W/AUTO DIFF PM FARM AGENT procedure are in the results section. HCG QUALITATIVE, URINE STAT 09/09/2018 6:11 Results for this SCREEN PM FARM AGENT procedure are in the results section. URINALYSIS SCREEN AND STAT 09/09/2018 6:11 Results for this MICROSCOPY, WITH PM FARM AGENT procedure are in REFLEX TO CULTURE the results section. URINE CULTURE STAT 09/09/2018 6:11 Results for this PM FARM AGENT procedure are in the results section. after 03/11/2018 Results Estimated GFR (09/09/2018 9:27 PM FARM AGENT) [facility] Estimated GFR 88 mL/min/1.73 [facility] Comment: m2 [place] CatergoryUnitsInterpretation HOSPITAL G1 >=90 Normal or high G2 60-89Mildly decreased [id number] to moderately decreased [id number] to severely decreased G4 15-29Severely decreased G5 <15Kidney failure The eGFR was calculated using the Chronic Kidney Disease Epidemiology Collaboration (CKD-EPI) equation. Interpretation is based on recommendations of the National Kidney Foundation-Kidney Disease Outcomes Quality Initiative (NKF-KDOQI) published in 2014. Specimen Plasma specimen Performing Organization Address City/State/Zipcode Phone Number [facility] DEPARTMENT OF PATHOLOGY [address] [place] [address] AND GENOMIC MEDICINE [facility] [id number] CBC with platelet and differential (09/09/2018 9:27 PM FARM AGENT) [facility] WBC 9.3 4.5 - 11.0 k/uL [facility] RBC 4.13 (L) 4.20 - 5.50 [facility] m/uL [facility] HGB 12.4 12.0 - 16.0 [facility] g/dL [facility] HCT 39.8 37.0 - 47.0 % [facility] MCV 96.4 82.0 - 100.0 fL [facility] MCH 30.0 27.0 - 34.0 pg [facility] MCHC 31.2 31.0 - 37.0 [facility] g/dL [facility] RDW - SD 47.9 37.0 - 55.0 fL [facility] MPV 10.9 6.9 - 11.0 fL [facility] Platelet count 299 150 - 400 K/uL [facility] Nucleated RBC 0.00 /100 WBC [facility] Neutrophils 62.4 39.0 - 69.0 % [facility] Lymphocytes 27.2 25.0 - 45.0 % [facility] Monocytes 5.8 0.0 - 10.0 % [facility] Eosinophils 3.8 0.0 - 5.0 % [facility] Basophils 0.3 0.0 - 1.0 % [facility] Immature granulocytes 0.5 0.0 - 1.0 % [facility] Specimen Blood Performing Organization Address City/[facility]/Zipcode Phone Number [facility] DEPARTMENT OF PATHOLOGY [address] [place] [address] [place] [address] HOSPITAL Lipase level (09/09/2018 9:27 PM FARM AGENT) Lipase 88 (H) 13 - 60 U/L [facility] Specimen Plasma specimen Performing Organization Address City/[facility]/Zipcode Phone Number [facility] DEPARTMENT OF PATHOLOGY [address] [place] [address] Comprehensive metabolic panel (09/09/2018 9:27 PM FARM AGENT) Sodium 143 135 - 148 mEq/L [facility] Potassium 3.7 3.5 - 5.0 mEq/L [facility] Chloride 104 98 - 112 mEq/L [facility] CO2 29 24 - 31 mEq/L [facility] Anion gap 10@ANIO 7 - 15 mEq/L [facility] BUN 9 6 - 20 mg/dL [facility] Creatinine 0.85 0.50 - 0.90 [facility] mg/dL [facility] Glucose 97 65 - 99 mg/dL [facility] Calcium 8.9 8.3 - 10.2 mg/dL [facility] Protein 7.4 6.3 - 8.3 g/dL [facility] Albumin 4.2 3.5 - 5.0 g/dL [facility] A/G ratio 1.3 0.7 - 3.8 [facility] Alkaline phosphatase 62 35 - 104 U/L [facility] AST 23 10 - 35 U/L [facility] ALT 25 5 - 50 U/L [facility] Total bilirubin <0.2 0.2 - 1.2 mg/dL [facility] Specimen Plasma specimen Performing Organization Address City/[facility] Phone Number [facility] DEPARTMENT OF PATHOLOGY [address] [place] [address] AND GENOMIC MEDICINE [facility] [address] [place] [address] HOSPITAL Urinalysis screen and microscopy, with reflex to culture (09/09/2018 6:11 PM FARM AGENT) Specimen site Clean catch [facility] Color, UA Yellow [facility] Appearance, UA Clear [facility] Specific gravity, UA 1.017 1.001 - 1.030 [facility] pH, UA 6.0 5.0 - 9.0 [facility] Protein, UA Negative Negative [facility] Glucose, UA Negative Negative [facility] Ketones, UA Negative Negative [facility] Bilirubin, UA Negative Negative [facility] Blood, UA Negative Negative [facility] Nitrite, UA Negative Negative [facility] Urobilinogen, UA <2.0 <2.0 E.U./dL [facility] Leukocyte esterase, Negative Negative [facility] Epithelial cells, UA 1 /HPF [facility] WBC, UA 1 0 - 4 /HPF [facility] RBC, UA 1 0 - 5 /HPF [facility] Bacteria, UA None seen None seen [facility] Yeast, UA None seen [facility] Yeast with None seen [facility] pseudohyphae, UA [facility] Specimen Urine Performing Organization Address City/[facility]/Zipcode Phone Number [facility] DEPARTMENT OF PATHOLOGY [address] [place] [address] AND GENOMIC MEDICINE [address] hCG qualitative, urine screen (09/09/2018 6:11 PM FARM AGENT) hCG qualitative, NegativeComment: [facility] urine Sensitivity of HCG [place] test: 25 mIU/ml HOSPITAL Specimen Urine Performing Organization Address City/[facility]/Zipcode Phone Number [facility] DEPARTMENT OF PATHOLOGY [address] [place] [address] Urine culture (09/09/2018 6:11 PM FARM AGENT) Urine culture SEE COMMENTComment: [facility] Bacteriuria screen [facility] negative. Specimen Performing Organization Address [facility] Phone Number [facility] DEPARTMENT OF PATHOLOGY [address] [place] [address] [place] [address] HOSPITAL after 03/11/2018 Insurance Payer Benefit Plan / Subscriber ID Effective Dates Phone Address Type [facility] [employer] [facility] xxxxxxxxxxxx 2018-Prese Exchange CHOICE EXCHANGE EXCHANGE nt AcquaintablePLACE Advance Directives For more information, please contact: [phone] Type Date Recorded 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
[2019-03-12] MEDS ORDERED: PROMETHAZINE 25 MG TABLET ONE (07:19)
[2019-03-12] MEDS ORDERED: KETOROLAC 30 MG/ML INJ ONE (07:20)
[2019-03-12 07:31] LABS: Urine Bacteria <20 /HPF (<20); Urine Culture Reflex Order NOT NEEDED
--- NOTE | 2019-03-12 07:42 | ER ---
Nurse's Notes [facility] Name: Jaymie Cleveland Age: 34 yrs Sex: Female : 1985 Arrival Date: 03/12/2019 Time: 06:27 Bed 16 Private MD: Diagnosis: Abnormal uterine and vaginal bleeding, unspecified;Lower abdominal pain, unspecified Presentation: 03/12 06:41 Presenting complaint: Patient states: she was seen here approx 10 days ago for same bb symptoms of abdominal pain with abnormal vaginal bleeding she was started on 5 day course of control then saw her ob-sales and marketing professional Dr Nahed Anderson who also put her on control but she is still bleeding with abdominal pain, she also had ultrasound which showed hemorrhagic cyst on ovary. Transition of care: patient was not received from another setting of care. Onset of symptoms is unknown. Risk Assessment: Do you want to hurt yourself or someone else? Patient reports no desire to harm self or others. Initial Sepsis Screen: Does the patient meet any 2 criteria? No. Patient's initial sepsis screen is negative. Does the patient have a suspected source of infection? No. Patient's initial sepsis screen is negative. Care prior to arrival: None. 06:41 Method Of Arrival: Ambulatory bb 06:41 Acuity: [place] 3 bb Triage Assessment: 06:46 General: Appears in no apparent distress. uncomfortable, Behavior is calm, cooperative. bb Pain: Complains of pain in left lower quadrant Pain currently is 9 out of 10 on a pain scale. Neuro: Level of Consciousness is awake, alert, obeys commands, Oriented to person, place, time, situation. Cardiovascular: Heart tones S1 S2 present Capillary refill < 3 seconds Patient's skin is warm and dry. Pulses are all present. Edema is absent. Respiratory: Respiratory effort is even, unlabored, Respiratory pattern is regular, Breath sounds are clear bilaterally. GI: Abdomen is obese, Bowel sounds present X 4 quads. Abd is soft X 4 quads Reports lower abdominal pain. : Reports vaginal bleeding that is persistant. Musculoskeletal: Circulation, motion, and sensation intact. 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 - Social history:: Smoking status: Patient uses tobacco products, smokes one-half pack cigarettes per day, Patient/guardian denies using alcohol, street drugs. - Ebola Screening: : No symptoms or risks identified at this time. Screenin:49 Abuse screen: Denies threats or abuse. Nutritional screening: No deficits noted. bb Tuberculosis screening: No symptoms or risk factors identified. Fall Risk None identified. Assessment: 07:15 General: Appears in no apparent distress. Behavior is calm, cooperative. Pain: Pain hb currently is 8 out of 10 on a pain scale. Neuro: Level of Consciousness is awake, alert, obeys commands, Oriented to person, place, time, situation. Cardiovascular: Capillary refill < 3 seconds Patient's skin is warm and dry. Respiratory: Airway is patent Respiratory effort is even, unlabored, Respiratory pattern is regular, symmetrical. GI: Reports lower abdominal pain, cramping. : Reports vaginal bleeding that is bright red, heavy flow. EENT: No signs and/or symptoms were reported regarding the EENT system. Derm: Skin is intact, is healthy with good turgor. Musculoskeletal: No signs and/or symptoms reported regarding the musculoskeletal system. 08:00 Reassessment: Patient appears in no apparent distress at this time. Patient and/or hb family updated on plan of care and expected duration. Pain level reassessed. Patient is alert, oriented x 3, equal unlabored respirations, skin warm/dry/pink. Vital Signs: 06:46 BP 116 / 81; Pulse 82; Resp 16 S; Temp 97.9(O); Pulse Ox 98% on R/A; Weight 95.25 kg bb (R); Height 5 ft. 2 in. (157.48 cm) (R); Pain 9/10; 07:30 BP 122 / 82; Pulse 80; Resp 15; Pulse Ox 99% on R/A; Pain 8/10; hb 06:46 Body Mass Index 38.41 (95.25 kg, 157.48 cm) ED Course: 06:27 Patient arrived in ED. ds1 06:41 Elizabeth Doty [facility]-C [facility] snw 06:41 Rex Vasquez MD is Attending Physician. snw 06:44 Triage completed. bb 06:46 Arm band placed on Patient placed in an exam room, on a stretcher, on pulse oximetry. bb 06:50 Patient has correct armband on for positive identification. Bed in low position. Call bb light in reach. Side rails up X 1. Pulse ox on. NIBP on. 07:01 Chrissy Moran, RN is Primary Nurse. hb 08:00 No provider procedures requiring assistance completed. Patient did not have IV access hb during this emergency room visit. Administered Medications: 07:22 Drug: Phenergan 25 mg Route: PO; hb 08:05 Follow up: Response: No adverse reaction hb 07:22 Drug: TORadol 30 mg Route: IM; Site: right deltoid; hb 08:00 Follow up: Response: No adverse reaction; Pain is decreased hb Outcome: 07:36 Discharge ordered by MD. snw 08:00 Discharged to home ambulatory. hb 08:00 Condition: stable 08:00 Discharge instructions given to patient, Instructed on discharge instructions, follow up and referral plans. medication usage, Demonstrated understanding of instructions, follow-up care, medications, Prescriptions given X 2. 08:02 Patient left the ED. hb Signatures: Elizabeth Doty FNP-C FNP-Amanda Rodriguez ds1 Elisabet Guzman, RN RN Chrissy Ritchie, RN RN hb
--- NOTE | 2019-03-12 07:43 | EDPHYS ---
Physician Documentation [facility] Name: Jaymie Cleveland Age: 34 yrs Sex: Female : 1985 Arrival Date: 03/12/2019 Time: 06:27 Bed 16 Private MD: ED Physician Rex Vasquez HPI: 03/12 07:10 This 34 yrs old Female presents to ER via Ambulatory with complaints of snw Vaginal Bleeding. 07:10 The patient presents with vaginal bleeding that is. Onset: The symptoms/episode snw began/occurred 2.5 week(s) ago, and became persistent. Associated signs and symptoms: Pertinent positives: abdominal pain. Severity of symptoms: At their worst the symptoms were moderate. The patient's method of control includes x2 in past ten days. The patient has experienced a previous episode. The patient has been recently seen by a physician: pt encouraged to f/u Dr. Anderson in regard to vaginal bleeding and completion of control plan for vaginal bleeding and ovarian cyst problems already addressed . 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 - Social history:: Smoking status: Patient uses tobacco products, smokes one-half pack cigarettes per day, Patient/guardian denies using alcohol, street drugs. - Ebola Screening: : No symptoms or risks identified at this time. ROS: 07:09 Constitutional: Negative for fever, chills, and weight loss, Eyes: Negative for injury, snw pain, redness, and discharge, ENT: Negative for injury, pain, and discharge, Neck: Negative for injury, pain, and swelling, Cardiovascular: Negative for chest pain, palpitations, and edema, Respiratory: Negative for shortness of breath, cough, wheezing, and pleuritic chest pain, Back: Negative for injury and pain, : Negative for injury, bleeding, discharge, and swelling, MS/Extremity: Negative for injury and deformity, Skin: Negative for injury, rash, and discoloration, Neuro: Negative for headache, weakness, numbness, tingling, and seizure. 07:09 Abdomen/GI: Positive for abdominal pain, nausea, of the left lower quadrant, pt states she is still having vaginal bleeding post ten days of control. Exam: 07:09 Constitutional: This is a well developed, well nourished patient who is awake, alert, snw and in no acute distress. Head/Face: Normocephalic, atraumatic. Eyes: Pupils equal round and reactive to light, extra-ocular motions intact. Lids and lashes normal. Conjunctiva and sclera are non-icteric and not injected. Cornea within normal limits. Periorbital areas with no swelling, redness, or edema. ENT: Nares patent. No nasal discharge, no septal abnormalities noted. Tympanic membranes are normal and external auditory canals are clear. Oropharynx with no redness, swelling, or masses, exudates, or evidence of obstruction, uvula midline. Mucous membranes moist. Neck: Trachea midline, no thyromegaly or masses palpated, and no cervical lymphadenopathy. Supple, full range of motion without nuchal rigidity, or vertebral point tenderness. No Meningismus. Chest/axilla: Normal chest wall appearance and motion. Nontender with no deformity. No lesions are appreciated. Cardiovascular: Regular rate and rhythm with a normal S1 and S2. No gallops, murmurs, or rubs. Normal PMI, no JVD. No pulse deficits. Respiratory: Lungs have equal breath sounds bilaterally, clear to auscultation and percussion. No rales, rhonchi or wheezes noted. No increased work of breathing, no retractions or nasal flaring. Abdomen/GI: Soft, with normal bowel sounds, tender to left lower quad. No distension or tympany. No guarding or rebound. Back: No spinal tenderness. No costovertebral tenderness. Full range of motion. Skin: Warm, dry with normal turgor. Normal color with no rashes, no lesions, and no evidence of cellulitis. MS/ Extremity: Pulses equal, no cyanosis. Neurovascular intact. Full, normal range of motion. Neuro: Awake and alert, GCS 15, oriented to person, place, time, and situation. Cranial nerves II-XII grossly intact. Motor strength 5/5 in all extremities. Sensory grossly intact. Cerebellar exam normal. Normal gait. Psych: Awake, alert, with orientation to person, place and time. Behavior, mood, and affect are within normal limits. Vital Signs: 06:46 BP 116 / 81; Pulse 82; Resp 16 S; Temp 97.9(O); Pulse Ox 98% on R/A; Weight 95.25 kg bb (R); Height 5 ft. 2 in. (157.48 cm) (R); Pain 9/10; 07:30 BP 122 / 82; Pulse 80; Resp 15; Pulse Ox 99% on R/A; Pain 8/10; hb 06:46 Body Mass Index 38.41 (95.25 kg, 157.48 cm) bb MDM: 06:48 Patient medically screened. snw 07:37 Data reviewed: vital signs, nurses notes. Data interpreted: Pulse oximetry: on room air snw is 99 %. Interpretation: normal. Counseling: I had a detailed discussion with the patient and/or guardian regarding: the historical points, exam findings, and any diagnostic results supporting the discharge/admit diagnosis, the presence of at least one elevated blood pressure reading (>120/80) during this emergency department visit, lab results, the need for outpatient follow up, to return to the emergency department if symptoms worsen or persist or if there are any questions or concerns that arise at home. Special discussion: Based on the patient's Hx, exam, and Dx evaluation, there is no indication for emergent surgery or inpatient Tx. It is understood by the patient/guardian that if the Sx's persist or worsen they need to return immediately for re-evaluation. Based on the history and exam findings, there is no indication for further emergent testing or inpatient evaluation. I discussed with the patient/guardian the need to see the OB Gyne specialist for further evaluation of the symptoms. 03/12 07:02 Order name: Urine Culture snw 03/12 07:02 Order name: Urine Microscopic Only; Complete Time: 07:35 snw 03/12 07:02 Order name: Urine Dipstick-Ancillary (obtain specimen); Complete Time: 07:30 snw 03/12 07:21 Order name: Urine Dipstick--Ancillary (enter results) ms Administered Medications: 07:22 Drug: Phenergan 25 mg Route: PO; hb 08:05 Follow up: Response: No adverse reaction hb 07:22 Drug: TORadol 30 mg Route: IM; Site: right deltoid; hb 08:00 Follow up: Response: No adverse reaction; Pain is decreased hb Disposition: 03/12/19 07:36 Discharged to Home. Impression: Abnormal uterine and vaginal bleeding, unspecified, Lower abdominal pain, unspecified. - Condition is Stable. - Discharge Instructions: Abdominal Pain, Adult, Abnormal Uterine Bleeding, Hypertension, Dysfunctional Uterine Bleeding. - Prescriptions for Bentyl 20 mg Oral Tablet - take 1 tablet by ORAL route every 6 hours As needed; 20 tablet. Diclofenac Sodium 75 mg Oral Tablet Sustained Release - take 1 tablet by ORAL route 2 times per day; 30 tablet. - Work release form, Medication Reconciliation Form, Thank You Letter, Antibiotic Education, Prescription Opioid Use form. - Follow up: Private Physician; When: Today; Reason: Recheck today's complaints, Continuance of care, Re-evaluation by your physician. Follow up: Emergency Department; When: As needed; Reason: Worsening of condition. - Notes: Please follow up with Dr. Anderson Signatures: Dispatcher [employer] EDMS Elizabeth Doty, DEFLECTOR OPERATOR-C DEFLECTOR OPERATOR-Csnw Elisabet Guzman, RN RN Chrissy Moran RN RN Corrections: (The following items were deleted from the chart) 08:02 07:36 03/12/2019 07:36 Discharged to Home. Impression: Abnormal uterine and vaginal hb bleeding, unspecified; Lower abdominal pain, unspecified. Condition is Stable. Forms are Medication Reconciliation Form, Thank You Letter, Antibiotic Education, Prescription Opioid Use. Follow up: Private Physician; When: Today; Reason: Recheck today's complaints, Continuance of care, Re-evaluation by your physician. Follow up: Emergency Department; When: As needed; Reason: Worsening of condition. snw
[2019-03-12 08:54] VITALS: TEMP 97.9
[2019-03-12 08:57] VITALS: BP 122/82; O2SAT 99
[2019-03-12 11:44] LABS: Urine Blood 1+ (NEG); Urine Glucose NEGATIVE (NEG); Urine Protein NEGATIVE (NEG); Urine Specific Gravity >1.030 (1.005-1.030); Urine pH 5.5 (5.0-7.0)
== END 2019-03-12 08:02 | disposition home or self-care (01) ==
LOC: ER 06:24
DX: R10.30 Lower abdominal pain, unspecified (principal); F31.9 Bipolar disorder, unspecified; F17.210 Nicotine dependence, cigarettes, uncomplicated
CPT/HCPCS: 81003; 81015; 87086; 87088; 96372; 99283

== ENCOUNTER 2019-05-02 19:41 | Emergency (ER) | payer OTHER ==
[2019-05-02 20:40] LABS: Urine Blood TRACE (NEG); Urine Glucose NEGATIVE (NEG); Urine Protein NEGATIVE (NEG)
[2019-05-02 20:41] LABS: Absolute Lymphocytes (CBC) 2.3 K/uL (0.7-4.9); Basophils % 0.5 % (0-1.3); Hematocrit 37.2 % (36.0-45.0); Lymphocytes % 25.2 % (15.3-44.8); MPV 8.5 fL (7.6-11.3); RBC Red Blood Cell Count 4.09 M/uL (3.86-4.86)
[2019-05-02 21:00] LABS: Potassium 4.1 mmol/L (3.5-5.1)
[2019-05-02] MEDS ORDERED: FENTANYL CITR 100 MCG/2 ML ONE (21:42)
[2019-05-02] MEDS ORDERED: NA CHLORIDE 0.9% 1,000 ML ONE (21:42)
[2019-05-02] MEDS ORDERED: ONDANSETRON 4 MG (ODT) TAB ONE (21:42)
--- NOTE | 2019-05-03 00:03 | ER ---
Nurse's Notes [facility] Name: Jaymie Cleveland Age: 34 yrs Sex: Female : 1985 Arrival Date: 05/02/2019 Time: 19:44 Bed 26 Private MD: Diagnosis: Presentation: 05/02 20:20 Presenting complaint: Patient states: i have abdominal cramping, menstruation for 8 mg2 days now which is store standards associate than the usual, diarrhea and vomiting for 3 days, i just started taking control 3 months ago for i am preparing for ivf later on. Transition of care: patient was not received from another setting of care. Onset of symptoms was April 2019. Risk Assessment: Do you want to hurt yourself or someone else? Patient reports no desire to harm self or others. Initial Sepsis Screen: Does the patient meet any 2 criteria? No. Patient's initial sepsis screen is negative. Does the patient have a suspected source of infection? No. Patient's initial sepsis screen is negative. Care prior to arrival: None. 20:20 Method Of Arrival: Ambulatory mg2 20:20 Acuity: [place] 3 mg2 SEED TESTER: 20:23 LMP-8 days ago mg2 Historical: - Allergies: 20:25 NKDA; mg2 - Home Meds: 20:25 alprazolam 2 mg Oral tab 1 tab 2 times a day [Active]; control pills [Active]; mg2 - PMHx: 20:25 ADD/ADHD; Anxiety; Borderline Bipolar disorder; C DIFF; Colitis; Depression; Irritable mg2 bowel syndrome; ocd; Ovarian cyst; Seizures; Stage 2 CKD; - PSHx: 20:25 None; mg2 - Immunization history:: Flu vaccine is up to date. - Social history:: Smoking status: Patient uses tobacco products, 2 sticks a day. - Ebola Screening: : No symptoms or risks identified at this time. Screenin:56 Abuse screen: Denies threats or abuse. Denies injuries from another. Nutritional mg2 screening: No deficits noted. Tuberculosis screening: No symptoms or risk factors identified. Fall Risk IV access (20 points). Assessment: 20:54 General: Appears in no apparent distress. uncomfortable, Behavior is calm, cooperative. mg2 Pain: Complains of pain in abdomen Pain does not radiate. Pain currently is 8 out of 10 on a pain scale. Quality of pain is described as crampy, Pain began gradually, 2-3 days ago. Is intermittent. Neuro: Level of Consciousness is awake, alert, obeys commands, Oriented to person, place, time, situation. Cardiovascular: Capillary refill < 3 seconds Patient's skin is warm and dry. Respiratory: Airway is patent Respiratory effort is even, unlabored, Respiratory pattern is regular, symmetrical. GI: Bowel sounds present X 4 quads. Abd is soft and non tender Reports lower abdominal pain, upper abdominal pain, diarrhea, nausea, vomiting. :. : Reports menstruation is longer than usual and blood is store standards associate than before. EENT: No signs and/or symptoms were reported regarding the EENT system. Derm: Skin is intact, is healthy with good turgor, Skin is pink, warm \T\ dry. black. Musculoskeletal: Circulation, motion, and sensation intact. Capillary refill < 3 seconds. 21:53 Reassessment: patient sent to ultrasound via wheelchair. mg2 22:18 Reassessment: patient finished drinking the oral contrast \T\ 8 house detective informed.. mg2 23:35 Reassessment: patient sent to ct scan via wheelchair. mg2 23:59 Reassessment: patient is still asking for pain medicine,. she refused to wait fot ct mg2 report. AMA form signed, provider informed,. Vital Signs: 20:23 BP 121 / 83; Pulse 101; Resp 18; Temp 98.9; Pulse Ox 97% on R/A; Weight 90.72 kg; mg2 Height 5 ft. 2 in. (157.48 cm); Pain 9/10; 22:17 BP 113 / 89; Pulse 84; Resp 17; Pulse Ox 100% on R/A; mg2 05/03 00:00 BP 120 / 78; Pulse 88; Resp 18; Temp 98; Pulse Ox 100% on R/A; Pain 6/10; mg2 05/02 20:23 Body Mass Index 36.58 (90.72 kg, 157.48 cm) mg2 ED Course: 05/02 19:44 Patient arrived in ED. ds1 20:04 Terence Su, MABEL is Primary Nurse. mg2 20:05 Elizabeth Doty FNP-C is PHCP. snw 20:05 Storm Martin MD is Attending Physician. snw 20:23 Triage completed. mg2 20:25 Arm band placed on. mg2 20:33 Inserted saline lock: 20 gauge in right antecubital area, using aseptic technique. mg2 Blood collected. 20:56 Patient has correct armband on for positive identification. Pulse ox on. NIBP on. Door mg2 closed. Warm blanket given. 20:56 No provider procedures requiring assistance completed. mg2 21:50 Oral contrast given. vm2 22:07 US Abdomen Limited In Process Unspecified. EDMS 23:50 CT Abd/Pelvis - PO and IV Contrast In Process Unspecified. EDMS 05/03 00:00 IV discontinued, intact, bleeding controlled, No redness/swelling at site. Pressure mg2 dressing applied. Administered Medications: 05/02 21:52 Drug: Zofran 4 mg Route: PO; mg2 22:16 Follow up: Response: No adverse reaction; Marked relief of symptoms mg2 21:52 Drug: fentaNYL (PF) 25 mcg Route: IVP; Site: right antecubital; mg2 23:20 Follow up: Response: No adverse reaction; Pain is unchanged, physician notified mg2 21:52 Drug: NS 0.9% 1000 ml Route: IV; Rate: 125 ml/hr; Site: right antecubital; mg2 23:59 Follow up: Response: No adverse reaction; IV Status: Order to discontinue infusion; IV mg2 Intake: 200ml 23:20 Drug: fentaNYL (PF) 25 mcg Route: IVP; Site: right antecubital; mg2 23:59 Follow up: Response: No adverse reaction; Pain is unchanged, physician notified mg2 Intake: 23:59 IV: 200ml; Total: 200ml. mg2 Outcome: 05/03 00:00 AMA AMA form signed mg2 Condition: stable Discharge instructions given to patient, Instructed on discharge instructions, Demonstrated understanding of instructions, instructed to come back if she feels worse. 00:02 Patient left the ED. mg2 Signatures: Dispatcher [employer] EDMS Elizabeth Doty, CARMELO MUSIC WRITER-Amanda Rodriguez ds1 Delores Dangelo vm2 Terence Su, MABEL RN mg2
--- NOTE | 2019-05-03 00:03 | EDPHYS ---
Physician Documentation [facility] Name: Jaymie Cleveland Age: 34 yrs Sex: Female : 1985 Arrival Date: 05/02/2019 Time: 19:44 Bed 26 Private MD: KEVIN Physician Storm Martin HPI: 05/02 21:34 This 34 yrs old Female presents to ER via Ambulatory with complaints of snw Abdominal Cramping. 21:34 The patient presents with abdominal pain in the right upper quadrant, right lower snw quadrant. Onset: The symptoms/episode began/occurred. 21:35 The symptoms do not radiate. Associated signs and symptoms: Pertinent positives: snw nausea, vomiting, and diarrhea. The symptoms are described as constant. Modifying factors: The symptoms are alleviated by nothing, the symptoms are aggravated by food, touching the area. Severity of pain: At its worst the pain was severe. The patient has experienced similar episodes in the past. The patient has not recently seen a physician. started control 3 months ago. APPLIED MATHEMATICIAN: 20:23 LMP-8 days ago mg2 Historical: - Allergies: 20:25 NKDA; mg2 - Home Meds: 20:25 alprazolam 2 mg Oral tab 1 tab 2 times a day [Active]; control pills [Active]; mg2 - PMHx: 20:25 ADD/ADHD; Anxiety; Borderline Bipolar disorder; C DIFF; Colitis; Depression; Irritable mg2 bowel syndrome; ocd; Ovarian cyst; Seizures; Stage 2 CKD; - PSHx: 20:25 None; mg2 - Immunization history:: Flu vaccine is up to date. - Social history:: Smoking status: Patient uses tobacco products, 2 sticks a day. - Ebola Screening: : No symptoms or risks identified at this time. ROS: 21:33 Constitutional: Negative for fever, chills, and weight loss, Eyes: Negative for injury, snw pain, redness, and discharge, ENT: Negative for injury, pain, and discharge, Neck: Negative for injury, pain, and swelling, Cardiovascular: Negative for chest pain, palpitations, and edema, Respiratory: Negative for shortness of breath, cough, wheezing, and pleuritic chest pain, Back: Negative for injury and pain, : Negative for injury, bleeding, discharge, and swelling, MS/Extremity: Negative for injury and deformity, Skin: Negative for injury, rash, and discoloration, Neuro: Negative for headache, weakness, numbness, tingling, and seizure, Psych: Negative for depression, anxiety, suicide ideation, homicidal ideation, and hallucinations. 21:33 Abdomen/GI: Positive for abdominal pain, nausea, vomiting, and diarrhea. Exam: 21:32 Constitutional: This is a well developed, well nourished patient who is awake, alert, snw and in no acute distress. Head/Face: Normocephalic, atraumatic. Eyes: Pupils equal round and reactive to light, extra-ocular motions intact. Lids and lashes normal. Conjunctiva and sclera are non-icteric and not injected. Cornea within normal limits. Periorbital areas with no swelling, redness, or edema. ENT: Nares patent. No nasal discharge, no septal abnormalities noted. Tympanic membranes are normal and external auditory canals are clear. Oropharynx with no redness, swelling, or masses, exudates, or evidence of obstruction, uvula midline. Mucous membranes moist. Neck: Trachea midline, no thyromegaly or masses palpated, and no cervical lymphadenopathy. Supple, full range of motion without nuchal rigidity, or vertebral point tenderness. No Meningismus. Chest/axilla: Normal chest wall appearance and motion. Nontender with no deformity. No lesions are appreciated. Cardiovascular: Regular rate and rhythm with a normal S1 and S2. No gallops, murmurs, or rubs. Normal PMI, no JVD. No pulse deficits. Respiratory: Lungs have equal breath sounds bilaterally, clear to auscultation and percussion. No rales, rhonchi or wheezes noted. No increased work of breathing, no retractions or nasal flaring. Back: No spinal tenderness. No costovertebral tenderness. Full range of motion. Skin: Warm, dry with normal turgor. Normal color with no rashes, no lesions, and no evidence of cellulitis. MS/ Extremity: Pulses equal, no cyanosis. Neurovascular intact. Full, normal range of motion. Neuro: Awake and alert, GCS 15, oriented to person, place, time, and situation. Cranial nerves II-XII grossly intact. Motor strength 5/5 in all extremities. Sensory grossly intact. Cerebellar exam normal. Normal gait. Psych: Awake, alert, with orientation to person, place and time. Behavior, mood, and affect are within normal limits. 21:32 Abdomen/GI: Inspection: obese Bowel sounds: normal, Palpation: moderate abdominal tenderness, in the right upper quadrant and right lower quadrant. Vital Signs: 20:23 BP 121 / 83; Pulse 101; Resp 18; Temp 98.9; Pulse Ox 97% on R/A; Weight 90.72 kg; mg2 Height 5 ft. 2 in. (157.48 cm); Pain 9/10; 22:17 BP 113 / 89; Pulse 84; Resp 17; Pulse Ox 100% on R/A; mg2 05/03 00:00 BP 120 / 78; Pulse 88; Resp 18; Temp 98; Pulse Ox 100% on R/A; Pain 6/10; mg2 05/02 20:23 Body Mass Index 36.58 (90.72 kg, 157.48 cm) mg2 MDM: 05/02 20:06 Patient medically screened. [facility] 05/03 00:16 Data reviewed: vital signs, nurses notes. Data interpreted: Pulse oximetry: on room air snw is 100 %. Interpretation: normal. Counseling: I had a detailed discussion with the patient and/or guardian regarding: the historical points, exam findings, and any diagnostic results supporting the discharge/admit diagnosis, lab results. ED course: Pt waited for CT but refused to await results. States she does not have a ride and left dept AMA. 00:47 ED course: CT returned with no acute findings. snw 05/02 20:20 Order name: Abo/rh Typing [facility] 05/02 20:20 Order name: Basic Metabolic Panel [facility] 05/02 20:20 Order name: CBC with Diff mg2 05/02 20:21 Order name: ABO/RH typing; Complete Time: 21:31 EDMS 05/02 20:21 Order name: Basic Metabolic Panel; Complete Time: 21:26 EDMS 05/02 20:21 Order name: CBC with Automated Diff; Complete Time: 20:55 EDMS 05/02 20:38 Order name: Urine Dipstick--Ancillary (enter results); Complete Time: 20:55 ar5 05/02 20:38 Order name: Urine --Ancillary (enter results) ar5 05/02 21:32 Order name: US Abdomen Limited snw 05/02 21:32 Order name: CT Abd/Pelvis - PO and IV Contrast snw 05/02 20:20 Order name: IV Saline Lock; Complete Time: 20:33 mg2 05/02 20:20 Order name: Labs collected and sent; Complete Time: 20:33 mg2 05/02 20:20 Order name: NPO; Complete Time: 20:33 mg2 05/02 20:20 Order name: Urine Dipstick-Ancillary (obtain specimen); Complete Time: 20:33 mg2 Administered Medications: 05/02 21:52 Drug: Zofran 4 mg Route: PO; mg2 22:16 Follow up: Response: No adverse reaction; Marked relief of symptoms mg2 21:52 Drug: fentaNYL (PF) 25 mcg Route: IVP; Site: right antecubital; mg2 23:20 Follow up: Response: No adverse reaction; Pain is unchanged, physician notified mg2 21:52 Drug: NS 0.9% 1000 ml Route: IV; Rate: 125 ml/hr; Site: right antecubital; mg2 23:59 Follow up: Response: No adverse reaction; IV Status: Order to discontinue infusion; IV mg2 Intake: 200ml 23:20 Drug: fentaNYL (PF) 25 mcg Route: IVP; Site: right antecubital; mg2 23:59 Follow up: Response: No adverse reaction; Pain is unchanged, physician notified mg2 Disposition: 05/03/19 00:02 Patient has left against medical advice. - Patients states they are going to Home. - Condition is Stable. Addendum: 05/05/2019 08:25 Co-signature as Attending Physician, Storm Martin MD I agree with the assessment and c raphael plan of care. Signatures: Dispatcher [employer] Storm Patterson MD MD cha Therrien, Shelly, CHANNEL LIP STIFFENER INSOLES-C CHANNEL LIP STIFFENER INSOLES-Csnw Terence uS, RN RN mg2
[2019-05-03 01:03] VITALS: O2SAT 100
[2019-05-03 01:05] VITALS: BP 120/78; TEMP 98
--- NOTE | 2019-05-03 08:28 | RAD REPORT ---
EXAM DESCRIPTION: US - Abdomen Exam Limited - 05/02/2019 10:04 pm CLINICAL HISTORY: ABD PAIN Preliminary findings were provided at the time of the study. COMPARISON: Abdomen Pelvis W Contrast dated 03/03/2019 FINDINGS: No gallstones, sludge or other abnormalities within the gallbladder lumen. There is no wal l thickening or pericholecystic fluid. No common duct stone or biliary tree dilatation identified. IMPRESSION: Normal gallbladder and biliary tree ultrasound.
--- NOTE | 2019-05-05 12:15 | RAD REPORT ---
EXAM DESCRIPTION: CT - Abdomen Pelvis W Contrast - 05/03/2019 2:50 am CLINICAL HISTORY: ABD PAIN COMPARISON: None. TECHNIQUE: CT ABDOMEN PELVIS WITH IV CONTRAST on 05/02/2019 9:32 PM CDT This exam was performed according to our departmental dose-optimization program, which includes autom ated exposure control, adjustment of the mA and/or kV according to patient size and/or use of iterati ve reconstruction technique. FINDINGS: Lower lungs are clear. Abdomen: The liver is normal in appearance. There is no biliary dilatation. Gallbladder is normal in appearance. The pancreas and spleen are normal in appearance. The adrenal glands and kidneys are unre markable. Abdominal aorta is normal in course and caliber without aneurysm. There is no free air. There is no r etroperitoneal adenopathy. Pelvis: There is no bowel obstruction. Urinary bladder is unremarkable. There is no free fluid. Uteru s is normal in size. Appendix is normal. Skeleton: There are no acute osseous findings. No suspicious bony lesions. IMPRESSION: No acute inflammatory process. No renal or ureteral calculi. Electronically signed by: Jaime Bashir MD 05/03/2019 12:16 AM CDT Due to temporary technical issues with the PACS/Fluency reporting system, reports are being signed by the in house radiologist as a courtesy to ensure prompt reporting. The interpreting radiologist is f miguel aly responsible for the content of the report.
== END 2019-05-03 00:02 | disposition left against medical advice (07) ==
LOC: ER 19:41
DX: R10.9 Unspecified abdominal pain (principal); R11.2 Nausea with vomiting, unspecified; R19.7 Diarrhea, unspecified; F41.9 Anxiety disorder, unspecified; Z72.0 Tobacco use
CPT/HCPCS: 96361; 85025; 80048; 36415; 86900; 81025; 86901; 81003; 74177; 76705; 96374; 99284; Q9967; J3010; J7030

== ENCOUNTER 2019-05-15 23:51 | Emergency (ER) | payer OTHER ==
[2019-05-16] MEDS ORDERED: PROMETHAZINE HCL 50 MG/ML AMP IM ONE (00:16)
[2019-05-16] MEDS ORDERED: DIPHENHYDRAMINE 25 MG TAB/CAP ONE (00:58)
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
[2019-05-16 01:40] VITALS: TEMP 98.2; O2SAT 97
[2019-05-16 01:41] VITALS: BP 118/87
--- NOTE | 2019-05-16 10:52 | RAD REPORT ---
EXAM DESCRIPTION: CT - Facial Bones W/ Mpr - 05/16/2019 5:22 am CLINICAL HISTORY: 34 years Female FACIAL PAIN TECHNIQUE: Contiguous axial images obtained through the face and paranasal sinuses without IV contra st. Coronal and sagittal reformatted images provided. This CT exam was performed according to our departmental dose-optimization program, which includes on e or more of the following dose reduction techniques: automated exposure control, adjustment of the m A and/or kV according to patient size, and/or use of iterative reconstruction technique. COMPARISON: No prior exams provided for comparison. FINDINGS: There is no acute facial or mandibular fracture. No temporomandibular joint dislocation. Intraorbital soft tissue structures are intact bilaterally. The paranasal sinuses and mastoid air chan ls are clear. IMPRESSION: No acute facial fracture or orbital injury. Electronically signed by: Melissa Avendaño MD 05/16/2019 1:25 AM CDT Due to temporary technical issues with the PACS/Fluency reporting system, reports are being signed by the in house radiologist as a courtesy to ensure prompt reporting. The interpreting radiologist is f ully responsible for the content of the report.
--- NOTE | 2019-05-16 11:02 | RAD REPORT ---
EXAM DESCRIPTION: CT - Head C Spine Mpr Wo Con - 05/16/2019 5:23 am CLINICAL HISTORY: 34 years Female ALTERCATION TECHNIQUE: Contiguous axial CT images obtained through the brain and cervical spine without IV contr ast. Coronal and sagittal reformatted images also provided. This CT exam was performed according to our departmental dose-optimization program, which includes on e or more of the following dose reduction techniques: automated exposure control, adjustment of the m A and/or kV according to patient size, and/or use of iterative reconstruction technique. COMPARISON: No prior exams provided for comparison. FINDINGS: There is no acute skull fracture, intracranial hemorrhage, extraaxial collection, or acute transcortical infarction. The ventricles are normal in size and contour without mass effect or midli ne shift. The visualized paranasal sinuses, tympanomastoid cavities, and orbits are normal. There is no acute cervical fracture or spondylolisthesis. There is straightening of the normal cervic al lordosis. No aggressive osseous lesion. No central canal or neural foraminal stenosis at any cervi elida level. No prevertebral or paraspinal soft tissue swelling. Minimal air trapping in the lung apices. IMPRESSION: No acute intracranial or cervical spine injury. Electronically signed by: Melissa Avendaño MD 05/16/2019 1:41 AM CDT Due to temporary technical issues with the PACS/Fluency reporting system, reports are being signed by the in house radiologist as a courtesy to ensure prompt reporting. The interpreting radiologist is f ully responsible for the content of the report.
== END 2019-05-16 01:33 | disposition home or self-care (01) ==
LOC: ER 23:51
DX: S09.90XA Unspecified injury of head, initial encounter (principal); W22.8XXA Striking against or struck by other objects, initial encounter; Y93.9 Activity, unspecified; Y92.9 Unspecified place or not applicable
CPT/HCPCS: 70450; 72125; 70486; 76377; 96372; 99283; J2550

== ENCOUNTER 2019-05-21 14:07 | Emergency (ER) | payer OTHER ==
[2019-05-21] MEDS ORDERED: PROMETHAZINE 25 MG/ML VIAL ONE (15:31)
[2019-05-21] MEDS ORDERED: FAMOTIDINE 20 MG/2 ML VIAL IV ONE (15:32)
[2019-05-21] MEDS ORDERED: NA CHLORIDE 0.9% 1,000 ML ONE (15:32)
[2019-05-21] MEDS ORDERED: HYDROCODONE/APAP 7.5/325 MG TAB ONE (15:55)
[2019-05-21] MEDS ORDERED: NA CHLORIDE 0.9% 100 ML IV ONE (16:27)
[2019-05-21] MEDS ORDERED: MORPHINE 4 MG/ML SYR ONE (16:27)
[2019-05-21 16:35] LABS: Basophils % 0.9 % (0-1.3); Hematocrit 41.6 % (36.0-45.0); Lymphocytes % 23.5 % (15.3-44.8); MPV 9.3 fL (7.6-11.3); RBC Red Blood Cell Count 4.55 M/uL (3.86-4.86)
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
[2019-05-21 18:42] VITALS: BP 128/88; TEMP 98.4; O2SAT 97
== END 2019-05-21 18:08 | disposition home or self-care (01) ==
LOC: ER 14:07
DX: G50.1 Atypical facial pain (principal); F90.9 Attention-deficit hyperactivity disorder, unspecified type; F31.9 Bipolar disorder, unspecified; Z72.0 Tobacco use
CPT/HCPCS: 85025; 80048; 36415; 96375; 96374; 99283; J2550; J7030

== ENCOUNTER 2019-07-06 14:13 | Emergency (ER) | payer OTHER ==
[2019-07-06] MEDS ORDERED: KETOROLAC 30 MG/ML INJ ONE (14:44)
--- NOTE | 2019-07-06 15:08 | RAD REPORT ---
EXAM DESCRIPTION: RAD - Knee Left 3 View - 07/06/2019 3:03 pm CLINICAL HISTORY: PAIN COMPARISON: No comparisons FINDINGS: No fracture, dislocation or joint effusion detected.
--- NOTE | 2019-07-06 15:13 | EDPHYS ---
Physician Documentation [facility] Name: Jaymie Cleveland Age: 34 yrs Sex: Female : 1985 Arrival Date: 07/06/2019 Time: 14:16 Bed 20 Private MD: ED Physician Bora Majano HPI: 07/06 15:05 This 34 yrs old Female presents to ER via Wheelchair with complaints of Knee kb Injury. 15:05 The patient presents with decreased range of motion, an injury, pain, that is acute, kb swelling, tenderness. The complaints affect the left knee. Context: The problem was sustained at home, resulted from twisting of the extremity, the patient can partially bear weight, the patient is able to ambulate, Problem is a result from a previous injury: No. Onset: The symptoms/episode began/occurred just prior to arrival. Modifying factors: The symptoms are alleviated by nothing. the symptoms are aggravated by movement, weight bearing. Associated signs and symptoms: Pertinent positives: swelling. Treatment prior to arrival includes: no previous treatment. Severity of symptoms: At their worst the symptoms were moderate, in the emergency department the symptoms are unchanged. The patient has experienced similar episodes in the past, multiple times. The patient has not recently seen a physician. Pt reports she twisted her left knee causing her to fall. Reports her patella dislocated and popped back into place. States this has happened several times in the past and she needs to follow up with her orthopedist, but doesn't have time. 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 - Social history:: Smoking status: Patient uses tobacco products, smokes one-half pack cigarettes per day. - Ebola Screening: : Patient negative for fever greater than or equal to 101.5 degrees Fahrenheit, and additional compatible Ebola Virus Disease symptoms Patient denies exposure to infectious person Patient denies travel to an Ebola-affected area in the 21 days before illness onset No symptoms or risks identified at this time. ROS: 15:04 Constitutional: Negative for fever, chills, and weight loss, ENT: Negative for injury, kb pain, and discharge, Neck: Negative for injury, pain, and swelling, Cardiovascular: Negative for chest pain, palpitations, and edema, Respiratory: Negative for shortness of breath, cough, wheezing, and pleuritic chest pain, Abdomen/GI: Negative for abdominal pain, nausea, vomiting, diarrhea, and constipation, Back: Negative for injury and pain, Skin: Negative for injury, rash, and discoloration, Neuro: Negative for headache, weakness, numbness, tingling, and seizure. 15:04 MS/extremity: Positive for injury or acute deformity, decreased range of motion, pain, swelling, tenderness, of the left knee. Exam: 15:04 Constitutional: This is a well developed, well nourished patient who is awake, alert, kb and in no acute distress. Head/Face: Normocephalic, atraumatic. ENT: Nares patent. No nasal discharge, no septal abnormalities noted. Tympanic membranes are normal and external auditory canals are clear. Oropharynx with no redness, swelling, or masses, exudates, or evidence of obstruction, uvula midline. Mucous membranes moist. Neck: Trachea midline, no thyromegaly or masses palpated, and no cervical lymphadenopathy. Supple, full range of motion without nuchal rigidity, or vertebral point tenderness. No Meningismus. Chest/axilla: Normal chest wall appearance and motion. Nontender with no deformity. No lesions are appreciated. Cardiovascular: Regular rate and rhythm with a normal S1 and S2. No gallops, murmurs, or rubs. Normal PMI, no JVD. No pulse deficits. Respiratory: Lungs have equal breath sounds bilaterally, clear to auscultation and percussion. No rales, rhonchi or wheezes noted. No increased work of breathing, no retractions or nasal flaring. Abdomen/GI: Soft, non-tender, with normal bowel sounds. No distension or tympany. No guarding or rebound. No evidence of tenderness throughout. Skin: Warm, dry with normal turgor. Normal color with no rashes, no lesions, and no evidence of cellulitis. Neuro: Awake and alert, GCS 15, oriented to person, place, time, and situation. Cranial nerves II-XII grossly intact. Motor strength 5/5 in all extremities. Sensory grossly intact. Cerebellar exam normal. Normal gait. 15:04 Musculoskeletal/extremity: Extremities: grossly normal except: noted in the left knee: decreased ROM, pain, swelling, tenderness, ROM: limited active range of motion, limited active range of motion due to pain, Circulation is intact in all extremities. Sensation intact. Weight bearing: can bear weight with assistance only. Vital Signs: 14:22 BP 98 / 81; Pulse 98; Resp 17 S; Temp 98.9(TE); Pulse Ox 98% on R/A; Weight 93.44 kg ca1 (R); Height 5 ft. 2 in. (157.48 cm) (R); Pain 10/10; 14:22 Body Mass Index 37.68 (93.44 kg, 157.48 cm) ca1 MDM: 14:28 Patient medically screened. kb 15:03 Data reviewed: vital signs, nurses notes. Data interpreted: Pulse oximetry: on room air kb is 98 %. Interpretation: normal. Counseling: I had a detailed discussion with the patient and/or guardian regarding: the historical points, exam findings, and any diagnostic results supporting the discharge/admit diagnosis, radiology results, the need for outpatient follow up, a orthopedic surgeon, to return to the emergency department if symptoms worsen or persist or if there are any questions or concerns that arise at home. 07/06 14:27 Order name: Knee Left 3 View XRAY; Complete Time: 15:12 kb 07/06 14:42 Order name: Knee Immobilizer; Complete Time: 15:25 kb 07/06 14:48 Order name: Crutches; Complete Time: 15:25 tw2 Administered Medications: 14:48 Drug: TORadol 30 mg Route: IM; Site: right deltoid; tw2 15:25 Follow up: Response: No adverse reaction; Pain is decreased tw2 Disposition: 16:04 Co-signature as Attending Physician, Bora Majano MD I agree with the assessment and kdr plan of care. Disposition: 07/06/19 15:12 Discharged to Home. Impression: Pain in left knee. - Condition is Stable. - Discharge Instructions: Knee Pain, Zgus-en-Sjhl. - Prescriptions for Diclofenac Sodium 75 mg Oral Tablet, Delayed Release (E.C.) - take 1 tablet by ORAL route 2 times per day As needed; 30 tablet. - Medication Reconciliation Form, Thank You Letter, Antibiotic Education, Prescription Opioid Use, Work release form form. - Follow up: Emergency Department; When: As needed; Reason: Worsening of condition. Follow up: Private Physician; When: 2 - 3 days; Reason: Recheck today's complaints, Continuance of care, Re-evaluation by your physician. Signatures: Dispatcher [employer] EDMS Tonia Atkins, DOULA-C DOULA-Bora Leach MD MD [facility] Giselle Dixon RN RN tw2 AcNelly haley RN RN ca1 Corrections: (The following items were deleted from the chart) 15:32 15:12 07/06/2019 15:12 Discharged to Home. Impression: Pain in left knee. Condition is tw2 Stable. Forms are Medication Reconciliation Form, Thank You Letter, Antibiotic Education, Prescription Opioid Use. Follow up: Emergency Department; When: As needed; Reason: Worsening of condition. Follow up: Private Physician; When: 2 - 3 days; Reason: Recheck today's complaints, Continuance of care, Re-evaluation by your physician. kb
--- NOTE | 2019-07-06 15:13 | ER ---
Nurse's Notes [facility] Name: Jaymie Cleveland Age: 34 yrs Sex: Female : 1985 Arrival Date: 07/06/2019 Time: 14:16 Bed 20 Private MD: Diagnosis: Pain in left knee Presentation: 07/06 14:16 Presenting complaint: Patient states: Mechanical fall, landed on back but twisted knee. ca1 Pt states, "my L knee cap went sideways outward. I pushed it back again but right now it's just throbbing. I've had several surgeries on that knee." Pt also c/o low back pain from fall. Denies LOC. Pt drove herself to the ER. Transition of care: patient was not received from another setting of care. Onset of symptoms was July 06, 2019 at 13:50. Risk Assessment: Do you want to hurt yourself or someone else? Patient reports no desire to harm self or others. Initial Sepsis Screen: Does the patient meet any 2 criteria? No. Patient's initial sepsis screen is negative. Does the patient have a suspected source of infection? No. Patient's initial sepsis screen is negative. Care prior to arrival: None. 14:16 Method Of Arrival: Wheelchair ca1 14:16 Acuity: [place] 4 ca1 Triage Assessment: 14:26 General: Appears Behavior is calm, cooperative, appropriate for age. Pain: Complains of tw2 pain in left knee. 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 - Social history:: Smoking status: Patient uses tobacco products, smokes one-half pack cigarettes per day. - Ebola Screening: : Patient negative for fever greater than or equal to 101.5 degrees Fahrenheit, and additional compatible Ebola Virus Disease symptoms Patient denies exposure to infectious person Patient denies travel to an Ebola-affected area in the 21 days before illness onset No symptoms or risks identified at this time. Screenin:37 Abuse screen: Denies threats or abuse. Nutritional screening: No deficits noted. tw2 Tuberculosis screening: No symptoms or risk factors identified. Fall Risk None identified. Assessment: 14:49 General: Appears uncomfortable, Behavior is crying. Pain: Complains of pain in left tw2 knee. Neuro: Level of Consciousness is awake, alert, obeys commands, Oriented to person, place, time, situation. Cardiovascular: Patient's skin is warm and dry. Respiratory: Airway is patent Respiratory effort is even, unlabored, Respiratory pattern is regular, symmetrical. Musculoskeletal: Range of motion: limited in left knee. 15:31 Reassessment: Patient appears in no apparent distress at this time. No changes from tw2 previously documented assessment. Patient and/or family updated on plan of care and expected duration. Pain level reassessed. Patient is alert, oriented x 3, equal unlabored respirations, skin warm/dry/pink. pt refused crutches at this time states "I have plans i have to get over this quick". Vital Signs: 14:22 BP 98 / 81; Pulse 98; Resp 17 S; Temp 98.9(TE); Pulse Ox 98% on R/A; Weight 93.44 kg ca1 (R); Height 5 ft. 2 in. (157.48 cm) (R); Pain 10/10; 14:22 Body Mass Index 37.68 (93.44 kg, 157.48 cm) ca1 ED Course: 14:16 Patient arrived in ED. mr 14:16 T[facility] Atkins [facility]-C [facility]. kb 14:16 Bora Majano MD is Attending Physician. kb 14:21 Triage completed. ca1 14:22 Arm band placed on right wrist. ca1 14:26 Bed in low position. Call light in reach. tw2 14:33 Giselle Dixon, MABEL is Primary Nurse. tw2 15:04 Knee Left 3 View XRAY In Process Unspecified. EDMS 15:31 No provider procedures requiring assistance completed. Patient did not have IV access tw2 during this emergency room visit. Administered Medications: 14:48 Drug: TORadol 30 mg Route: IM; Site: right deltoid; tw2 15:25 Follow up: Response: No adverse reaction; Pain is decreased tw2 Outcome: 15:12 Discharge ordered by MD. owens 15:30 Discharged to home ambulatory, with family. tw2 15:30 Condition: stable 15:30 Discharge instructions given to patient, family, Instructed on discharge instructions, follow up and referral plans. medication usage, safety practices, pt refused crutches at this time. Demonstrated understanding of instructions, follow-up care, medications, Prescriptions given X 1. 15:32 Patient left the ED. tw2 Signatures: Dispatcher [employer] EDMS Tonia Atkins, CARGO VESSEL STEWARDESS-C CARGO VESSEL STEWARDESS-Gisela Krishna Tara, RN RN tw2 Nelly Campo RN RN ca1
[2019-07-06 15:41] VITALS: BP 98/81; TEMP 98.9; O2SAT 98
== END 2019-07-06 15:32 | disposition home or self-care (01) ==
LOC: ER 14:13
DX: M25.562 Pain in left knee (principal); F31.9 Bipolar disorder, unspecified; G40.909 Epilepsy, unspecified, not intractable, without status epilepticus; F17.210 Nicotine dependence, cigarettes, uncomplicated; N18.2 Chronic kidney disease, stage 2 (mild)
CPT/HCPCS: 96372; 99283

== ENCOUNTER 2019-11-10 13:06 | Emergency (ER) | payer OTHER ==
--- NOTE | 2019-11-10 13:40 | EDPHYS ---
Physician Documentation [facility] Name: Jaymie Cleveland Age: 34 yrs Sex: Female : 1985 Arrival Date: 11/10/2019 Time: 13:08 Bed 16 Private MD: ED Physician Lupillo Fatima HPI: 11/09 13:43 This 34 yrs old Female presents to ER via Ambulatory with complaints of snw Medication Refill, Anxiety. 13:43 The patient presents to the emergency department requesting refill(s) for: Xanax. The snw patient chronically suffers from bipolar. It is unknown whether or not the patient has had similar symptoms in the past. pt sees Psychiatrist in [place], app for tomorrow. 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 - Social history:: Smoking status: Patient reports the use of cigarette tobacco products, smokes one-half pack cigarettes per day. ROS: 13:41 Constitutional: Negative for fever, chills, and weight loss, Eyes: Negative for injury, snw pain, redness, and discharge, ENT: Negative for injury, pain, and discharge, Neck: Negative for injury, pain, and swelling, Cardiovascular: Negative for chest pain, palpitations, and edema, Respiratory: Negative for cough, wheezing, and pleuritic chest pain, + for shortness of breath Abdomen/GI: Negative for abdominal pain, nausea, vomiting, diarrhea, and constipation, Back: Negative for injury and pain, : Negative for injury, bleeding, discharge, and swelling, MS/Extremity: Negative for injury and deformity, Skin: Negative for injury, rash, and discoloration, Neuro: Negative for headache, weakness, numbness, tingling, and seizure. 13:41 Psych: Positive for anxiety, overwhelming sense of panic. Exam: 13:41 Head/Face: Normocephalic, atraumatic. Eyes: Pupils equal round and reactive to light, snw extra-ocular motions intact. Lids and lashes normal. Conjunctiva and sclera are non-icteric and not injected. Cornea within normal limits. Periorbital areas with no swelling, redness, or edema. ENT: Nares patent. No nasal discharge, no septal abnormalities noted. Tympanic membranes are normal and external auditory canals are clear. Oropharynx with no redness, swelling, or masses, exudates, or evidence of obstruction, uvula midline. Mucous membranes moist. Neck: Trachea midline, no thyromegaly or masses palpated, and no cervical lymphadenopathy. Supple, full range of motion without nuchal rigidity, or vertebral point tenderness. No Meningismus. Chest/axilla: Normal chest wall appearance and motion. Nontender with no deformity. No lesions are appreciated. Cardiovascular: Regular rate and rhythm with a normal S1 and S2. No gallops, murmurs, or rubs. Normal PMI, no JVD. No pulse deficits. Respiratory: Lungs have equal breath sounds bilaterally, clear to auscultation and percussion. No rales, rhonchi or wheezes noted. No increased work of breathing, no retractions or nasal flaring. Abdomen/GI: Soft, non-tender, with normal bowel sounds. No distension or tympany. No guarding or rebound. No evidence of tenderness throughout. Back: No spinal tenderness. No costovertebral tenderness. Full range of motion. Skin: Warm, dry with normal turgor. Normal color with no rashes, no lesions, and no evidence of cellulitis. MS/ Extremity: Pulses equal, no cyanosis. Neurovascular intact. Full, normal range of motion. Neuro: Awake and alert, GCS 15, oriented to person, place, time, and situation. Cranial nerves II-XII grossly intact. Motor strength 5/5 in all extremities. Sensory grossly intact. Cerebellar exam normal. Normal gait. Psych: Awake, alert, with orientation to person, place and time. Behavior, mood, and affect are within normal limits. 13:41 Constitutional: The patient appears alert, awake, anxious. Vital Signs: 13:27 BP 120 / 87; Pulse 101; Resp 17 S; Temp 98.8(O); Pulse Ox 97% on R/A; Weight 98.88 kg ca1 (R); Height 5 ft. 2 in. (157.48 cm) (R); Pain 0/10; 13:27 Body Mass Index 39.87 (98.88 kg, 157.48 cm) ca1 MDM: 13:34 Patient medically screened. snw 13:40 Data reviewed: vital signs, nurses notes. Data interpreted: Pulse oximetry: on room air snw is 97 %. Interpretation: normal. Counseling: I had a detailed discussion with the patient and/or guardian regarding: the historical points, exam findings, and any diagnostic results supporting the discharge/admit diagnosis, the presence of at least one elevated blood pressure reading (>120/80) during this emergency department visit, the need for outpatient follow up, to return to the emergency department if symptoms worsen or persist or if there are any questions or concerns that arise at home. Special discussion: Based on the history and exam findings, there is no indication for further emergent testing or inpatient evaluation. I discussed with the patient/guardian the need to see the primary care provider for further evaluation of the symptoms. I discussed with the patient/guardian the need to see the psychiatrist for further evaluation of the symptoms. Administered Medications: 13:44 Drug: XANax Tablet 2 mg Route: PO; ca1 13:45 Follow up: Response: Medication administered at discharge. ca1 Disposition: 18:24 Co-signature as Attending Physician, Lupillo Fatima MD. rn Disposition: 11/10/19 13:39 Discharged to Home. Impression: Patient's unintentional underdosing of medication regimen. - Condition is Stable. - Discharge Instructions: Medicine Refill at the Emergency Department, Generalized Anxiety Disorder. - Prescriptions for promethazine 25 mg Oral Tablet - take 1 tablet by ORAL route every 6 hours As needed; 15 tablet. - Medication Reconciliation Form, Thank You Letter, Antibiotic Education, Prescription Opioid Use form. - Follow up: Private Physician; When: Tomorrow; Reason: Recheck today's complaints, Continuance of care, Re-evaluation by your physician. Signatures: Elizabeth Doty, WOODEN BOAT BUILDER-C WOODEN BOAT BUILDER-Csnw Lupillo Fatima MD MD rn Acob, MABEL Villegas RN ca1 Corrections: (The following items were deleted from the chart) 13:53 13:39 11/10/2019 13:39 Discharged to Home. Impression: Patient's unintentional ca1 underdosing of medication regimen. Condition is Stable. Forms are Medication Reconciliation Form, Thank You Letter, Antibiotic Education, Prescription Opioid Use. Follow up: Private Physician; When: Tomorrow; Reason: Recheck today's complaints, Continuance of care, Re-evaluation by your physician. willam
--- NOTE | 2019-11-10 13:40 | ER ---
Nurse's Notes [facility] Name: Jaymie Cleveland Age: 34 yrs Sex: Female : 1985 Arrival Date: 11/10/2019 Time: 13:08 Bed 16 Private MD: Diagnosis: Patient's unintentional underdosing of medication regimen Presentation: 11/09 13:27 Chief complaint: Patient states: "I need a refill for my Alprazolam, I have been out ca1 for 4 days now. I have been having severe anxiety and panic attacks". Coronavirus screen: Proceed with normal triage. Patient denies a cough. Patient denies shortness of breath or difficulty breathing. Patient denies measured and/or subjective temperature greater than 100.4F prior to today's visit. Patient denies travel on a cruise ship or to a country the [facility] currently lists as an affected area. Patient denies contact with known and/or suspected case of COVID-19. Ebola Screen: Patient negative for fever greater than or equal to 101.5 degrees Fahrenheit, and additional compatible Ebola Virus Disease symptoms Patient denies exposure to infectious person. Patient denies travel to an Ebola-affected area in the 21 days before illness onset. No symptoms or risks identified at this time. Initial Sepsis Screen: Does the patient meet any 2 criteria? No. Patient's initial sepsis screen is negative. Does the patient have a suspected source of infection? No. Patient's initial sepsis screen is negative. Risk Assessment: Do you want to hurt yourself or someone else? Patient reports no desire to harm self or others. Onset of symptoms was November 10, 2019. 13:27 Method Of Arrival: Ambulatory ca1 13:27 Acuity: HOSEA 5 ca1 Triage Assessment: 13:32 General: Appears in no apparent distress. comfortable, Behavior is crying. Pain: Denies ca1 pain. EENT: No signs and/or symptoms were reported regarding the EENT system. Neuro: Level of Consciousness is awake, alert, obeys commands, Oriented to person, place, time, situation. Cardiovascular: Heart tones S1 S2 present Capillary refill < 3 seconds Patient's skin is warm and dry. Respiratory: Airway is patent Respiratory effort is even, unlabored, Respiratory pattern is regular, symmetrical, Breath sounds are clear bilaterally. GI: Abdomen is round non-distended, Bowel sounds present X 4 quads. Abd is soft and non tender. : No signs and/or symptoms were reported regarding the genitourinary system. Derm: Skin is intact, is healthy with good turgor, Skin is pink, warm \\T\\ dry. Musculoskeletal: Circulation, motion, and sensation intact. Capillary refill < 3 seconds, Range of motion: intact in all extremities. 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 - Social history:: Smoking status: Patient reports the use of cigarette tobacco products, smokes one-half pack cigarettes per day. Screenin:34 Abuse screen: Denies threats or abuse. Denies injuries from another. Nutritional ca1 screening: No deficits noted. Tuberculosis screening: No symptoms or risk factors identified. Fall Risk None identified. Assessment: 13:34 Reassessment: SEE TRIAGE NOTES. ca1 13:49 Reassessment: States, "my sister is driving me home". ca1 Vital Signs: 13:27 BP 120 / 87; Pulse 101; Resp 17 S; Temp 98.8(O); Pulse Ox 97% on R/A; Weight 98.88 kg ca1 (R); Height 5 ft. 2 in. (157.48 cm) (R); Pain 0/10; 13:27 Body Mass Index 39.87 (98.88 kg, 157.48 cm) ca1 ED Course: 13:08 Patient arrived in ED. as 13:23 Nelly Campo, MABEL is Primary Nurse. ca1 13:30 Triage completed. ca1 13:32 Arm band placed on right wrist. ca1 13:33 Elizabeth Doty FNP-C is PHCP. snw 13:33 Lupillo Fatima MD is Attending Physician. snw 13:34 Patient has correct armband on for positive identification. Bed in low position. Call ca1 light in reach. Side rails up X 1. Pulse ox on. NIBP on. 13:35 No provider procedures requiring assistance completed. Patient did not have IV access ca1 during this emergency room visit. Administered Medications: 13:44 Drug: XANax Tablet 2 mg Route: PO; ca1 13:45 Follow up: Response: Medication administered at discharge. ca1 Outcome: 13:39 Discharge ordered by MD. quarles 13:52 Discharged to home ambulatory. ca1 13:52 Condition: stable 13:52 Discharge instructions given to patient, Instructed on discharge instructions, follow up and referral plans. medication usage, Demonstrated understanding of instructions, follow-up care, medications, Prescriptions given X 1. 13:53 Patient left the ED. ca1 Signatures: Elizabeth Doty, PROFESSOR OF EARLY CHILDHOOD EDUCATION-C PROFESSOR OF EARLY CHILDHOOD EDUCATION-Cristina Fuchs Cheryl, RN RN ca1
[2019-11-10] MEDS ORDERED: ALPRAZOLAM 1 MG TABLET ONE (13:48)
[2019-11-10 14:04] VITALS: BP 120/87; TEMP 98.8; O2SAT 97
== END 2019-11-10 13:53 | disposition home or self-care (01) ==
LOC: ER 13:06
DX: T42.4X6A Underdosing of benzodiazepines, initial encounter (principal); Z91.128 Patient's intentional underdosing of medication regimen for other reason; F31.9 Bipolar disorder, unspecified; F17.210 Nicotine dependence, cigarettes, uncomplicated
CPT/HCPCS: 99283

== ENCOUNTER 2019-11-30 13:20 | Emergency (ER) | payer OTHER ==
--- OUTSIDE RECORDS SUMMARY | 2019-11-30 13:21 | XMS REPORT | Clinical Summary ---
:1985 Author Organization [facility] Address [address] [place] [id number] Care Team Providers Name Role Phone Asked, No Pcp Primary Care Provider Unavailable Allergies No Known Allergies Medications Not on file Active Problems Not on file Social History Tobacco Use Types Packs/Day Years [...] six or more drinks on one occasion? No t asked Sex Assigned at Date Recorded Not on file Job Start Date Occupation Industry Not on file Not on file Not on file Travel History Travel Start Travel End No recent travel history available. 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
--- NOTE | 2019-11-30 13:45 | ER ---
Nurse's Notes [facility] Name: Jaymie Cleveland Age: 34 yrs Sex: Female : 1985 Arrival Date: 11/30/2019 Time: 13:22 Bed 6 Private MD: Diagnosis: Nausea and vomiting;Diarrhea, unspecified;Generalized abdominal pain Presentation: 11/29 13:27 Chief complaint: Patient states: vomiting, diarrhea, and abd pain that began yesterday. aa5 13:27 Coronavirus screen: Proceed with normal triage. Patient denies a cough. Patient denies aa5 shortness of breath or difficulty breathing. Patient denies measured and/or subjective temperature greater than 100.4F prior to today's visit. Patient denies travel on a cruise ship or to a country the [facility] currently lists as an affected area. Patient denies contact with known and/or suspected case of COVID-19. Ebola Screen: Patient negative for fever greater than or equal to 101.5 degrees Fahrenheit, and additional compatible Ebola Virus Disease symptoms. Initial Sepsis Screen: Does the patient meet any 2 criteria? No. Patient's initial sepsis screen is negative. Does the patient have a suspected source of infection? No. Patient's initial sepsis screen is negative. Risk Assessment: Do you want to hurt yourself or someone else? Patient reports no desire to harm self or others. Onset of symptoms was November 2019. 13:27 Acuity: HOSEA 3 aa5 13:27 Method Of Arrival: Ambulatory aa5 Triage Assessment: 13:38 General: Appears in no apparent distress. comfortable, Behavior is cooperative, bp appropriate for age, anxious. Pain: Denies pain. EENT: No deficits noted. Neuro: No deficits noted. Cardiovascular: No deficits noted. Respiratory: No deficits noted. GI: Reports nausea, vomiting. : No signs and/or symptoms were reported regarding the genitourinary system. Derm: No deficits noted. Musculoskeletal: No deficits noted. 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 - Social history:: Smoking status: Patient reports the use of cigarette tobacco products. Screenin:39 Abuse screen: Denies threats or abuse. Denies injuries from another. Nutritional bp screening: No deficits noted. Tuberculosis screening: No symptoms or risk factors identified. Fall Risk None identified. Assessment: 13:39 General: SEE TRIAGE NOTE. GI: Abdomen is non-distended. bp 13:58 Reassessment: PT D/C HOME AMBULATORY, DX WITH NAUSEA AND VOMITING. bp Vital Signs: 13:27 BP 111 / 79; Pulse 97; Resp 18 S; Pulse Ox 96% on R/A; Weight 99.79 kg (R); Height 5 aa5 ft. 2 in. (157.48 cm) (R); Pain 8/10; 13:59 BP 121 / 65; Pulse 95; Resp 16; Temp 98; Pulse Ox 97% ; bp 13:27 Body Mass Index 40.24 (99.79 kg, 157.48 cm) aa5 ED Course: 13:22 Patient arrived in ED. as 13:27 Elizabteh Doty FNP-C is PHCP. snw 13:27 Arm band placed on. aa5 13:28 Lupillo Fatima MD is Attending Physician. rn 13:32 Elizabeth Doty FNP-C is PHCP. snw 13:37 Triage completed. aa5 13:37 Aquiles Mendez, RN is Primary Nurse. bp 13:39 Patient has correct armband on for positive identification. Bed in low position. Call bp light in reach. Side rails up X2. 13:57 No provider procedures requiring assistance completed. Patient did not have IV access bp during this emergency room visit. Administered Medications: 13:40 Drug: Phenergan 25 mg Route: IM; Site: right gluteus; bp 14:00 Follow up: Response: Marked relief of symptoms bp 13:40 Drug: TORadol 30 mg Route: IM; Site: right gluteus; bp 14:00 Follow up: Response: Marked relief of symptoms bp 13:46 Not Given (MED UNAVAILABLE): Zofran (Ondansetron) 4 mg PO once bp Outcome: 13:44 Discharge ordered by . w 13:58 Discharged to home ambulatory. bp 13:58 Condition: stable 13:58 Discharge instructions given to patient, Instructed on discharge instructions, follow up and referral plans. medication usage, Demonstrated understanding of instructions, follow-up care, medications, Prescriptions given X 1. 14:01 Patient left the ED. bp Signatures: Elizabeth Doty, SENIOR DATASTAGE DEVELOPER-C SENIOR DATASTAGE DEVELOPER-Csnw Cristina Can Roman, MD MD rn Calderon, Audri, RN RN aa5 Aquiles Mendez RN RN bp
--- NOTE | 2019-11-30 13:45 | EDPHYS ---
Physician Documentation [facility] Name: Jaymie Cleveland Age: 34 yrs Sex: Female : 1985 Arrival Date: 11/30/2019 Time: 13:22 Bed 6 Private MD: ED Physician Lupillo Fatima HPI: 11/29 13:37 This 34 yrs old Female presents to ER via Ambulatory with complaints of snw Vomiting. 13:37 The patient presents to the emergency department with nausea, vomiting, diarrhea, snw abdominal pain. Onset: The symptoms/episode began/occurred suddenly, 1 day(s) ago, and became persistent. Possible causes: unknown. The symptoms are aggravated by nothing. Associated signs and symptoms: The patient has no apparent associated signs or symptoms. Severity of symptoms: At their worst the symptoms were moderate. The patient has experienced similar episodes in the past. The patient has been recently seen at the [facility] Emergency [facility], last month. 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 - Social history:: Smoking status: Patient reports the use of cigarette tobacco products. ROS: 13:36 Eyes: Negative for injury, pain, redness, and discharge, ENT: Negative for injury, snw pain, and discharge, Neck: Negative for injury, pain, and swelling, Cardiovascular: Negative for chest pain, palpitations, and edema, Respiratory: Negative for shortness of breath, cough, wheezing, and pleuritic chest pain, Back: Negative for injury and pain, : Negative for injury, bleeding, discharge, and swelling, MS/Extremity: Negative for injury and deformity, Skin: Negative for injury, rash, and discoloration, Neuro: Negative for headache, weakness, numbness, tingling, and seizure, Psych: Negative for depression, anxiety, suicide ideation, homicidal ideation, and hallucinations. 13:36 Constitutional: Positive for poor PO intake. 13:36 Abdomen/GI: Positive for nausea, vomiting, and diarrhea. Exam: 13:36 Constitutional: This is a well developed, well nourished patient who is awake, alert, snw and in no acute distress. Head/Face: Normocephalic, atraumatic. Eyes: Pupils equal round and reactive to light, extra-ocular motions intact. Lids and lashes normal. Conjunctiva and sclera are non-icteric and not injected. Cornea within normal limits. Periorbital areas with no swelling, redness, or edema. ENT: Nares patent. No nasal discharge, no septal abnormalities noted. Tympanic membranes are normal and external auditory canals are clear. Oropharynx with no redness, swelling, or masses, exudates, or evidence of obstruction, uvula midline. Mucous membranes moist. Neck: Trachea midline, no thyromegaly or masses palpated, and no cervical lymphadenopathy. Supple, full range of motion without nuchal rigidity, or vertebral point tenderness. No Meningismus. Chest/axilla: Normal chest wall appearance and motion. Nontender with no deformity. No lesions are appreciated. Cardiovascular: Regular rate and rhythm with a normal S1 and S2. No gallops, murmurs, or rubs. Normal PMI, no JVD. No pulse deficits. Respiratory: Lungs have equal breath sounds bilaterally, clear to auscultation and percussion. No rales, rhonchi or wheezes noted. No increased work of breathing, no retractions or nasal flaring. Back: No spinal tenderness. No costovertebral tenderness. Full range of motion. Skin: Warm, dry with normal turgor. Normal color with no rashes, no lesions, and no evidence of cellulitis. MS/ Extremity: Pulses equal, no cyanosis. Neurovascular intact. Full, normal range of motion. Neuro: Awake and alert, GCS 15, oriented to person, place, time, and situation. Cranial nerves II-XII grossly intact. Motor strength 5/5 in all extremities. Sensory grossly intact. Cerebellar exam normal. Normal gait. 13:36 Abdomen/GI: Inspection: obese Bowel sounds: normal, Palpation: soft, mild abdominal tenderness, in all quadrants. Vital Signs: 13:27 BP 111 / 79; Pulse 97; Resp 18 S; Pulse Ox 96% on R/A; Weight 99.79 kg (R); Height 5 aa5 ft. 2 in. (157.48 cm) (R); Pain 8/10; 13:59 BP 121 / 65; Pulse 95; Resp 16; Temp 98; Pulse Ox 97% ; bp 13:27 Body Mass Index 40.24 (99.79 kg, 157.48 cm) aa5 MDM: 13:28 Patient medically screened. snw 13:45 Data reviewed: vital signs, nurses notes. Data interpreted: Pulse oximetry: on room air snw is 96 %. Interpretation: acceptable. Counseling: I had a detailed discussion with the patient and/or guardian regarding: the historical points, exam findings, and any diagnostic results supporting the discharge/admit diagnosis, the need for outpatient follow up, to return to the emergency department if symptoms worsen or persist or if there are any questions or concerns that arise at home. Special discussion: Based on the patient's Hx, exam, and Dx evaluation, there is no indication for emergent surgery or inpatient Tx. It is understood by the patient/guardian that if the Sx's persist or worsen they need to return immediately for re-evaluation. Based on the history and exam findings, there is no indication for further emergent testing or inpatient evaluation. I discussed with the patient/guardian the need to see the primary care provider for further evaluation of the symptoms. Administered Medications: 13:40 Drug: Phenergan 25 mg Route: IM; Site: right gluteus; bp 14:00 Follow up: Response: Marked relief of symptoms bp 13:40 Drug: TORadol 30 mg Route: IM; Site: right gluteus; bp 14:00 Follow up: Response: Marked relief of symptoms bp 13:46 Not Given (MED UNAVAILABLE): Zofran (Ondansetron) 4 mg PO once bp Disposition: 15:05 Co-signature as Attending Physician, Lupillo Fatima MD. rn Disposition: 11/30/19 13:44 Discharged to Home. Impression: Nausea and vomiting, Diarrhea, unspecified, Generalized abdominal pain. - Condition is Stable. - Discharge Instructions: Food Choices to Help Relieve Diarrhea, Adult, Diarrhea, Adult, Clear Liquid Diet, Adult, Nausea and Vomiting, Adult, Rehydration, Adult. - Prescriptions for promethazine 25 mg Oral Tablet - take 1 tablet by ORAL route every 6 hours As needed; 20 tablet. - Work release form, Medication Reconciliation Form, Thank You Letter, Antibiotic Education, Prescription Opioid Use form. - Follow up: Emergency Department; When: As needed; Reason: Worsening of condition. Follow up: Private Physician; When: 1 - 2 days; Reason: Recheck today's complaints, Continuance of care, Re-evaluation by your physician. Signatures: Elizabeth Doty, CUSTOMER ACCOUNT EXECUTIVE-C CUSTOMER ACCOUNT EXECUTIVE-Csnw Lupillo Fatima MD MD rn Calderon, Audri RN RN aa5 Aquiles Mendez RN RN bp Corrections: (The following items were deleted from the chart) 14:01 13:44 11/30/2019 13:44 Discharged to Home. Impression: Nausea and vomiting; Diarrhea, bp unspecified; Generalized abdominal pain. Condition is Stable. Discharge Instructions: Food Choices to Help Relieve Diarrhea, Adult, Diarrhea, Adult, Nausea and Vomiting, Adult, Rehydration, Adult. Prescriptions for promethazine 25 mg Oral Tablet - take 1 tablet by ORAL route every 6 hours As needed; 20 tablet. and Forms are Work release form, Medication Reconciliation Form, Thank You Letter, Antibiotic Education, Prescription Opioid Use. Follow up: Emergency Department; When: As needed; Reason: Worsening of condition. Follow up: Private Physician; When: 1 - 2 days; Reason: Recheck today's complaints, Continuance of care, Re-evaluation by your physician. snw
[2019-11-30] MEDS ORDERED: KETOROLAC 30 MG/ML INJ ONE (13:48)
[2019-11-30] MEDS ORDERED: PROMETHAZINE INJ 25 MG/ML AMP ONE (13:48)
[2019-11-30] MEDS ORDERED: ONDANSETRON 4 MG (ODT) TAB ONE (13:49)
[2019-11-30 14:13] VITALS: BP 121/65; TEMP 98; O2SAT 97
== END 2019-11-30 14:01 | disposition home or self-care (01) ==
LOC: ER 13:20
DX: R19.7 Diarrhea, unspecified (principal); R10.84 Generalized abdominal pain; F31.9 Bipolar disorder, unspecified; G40.909 Epilepsy, unspecified, not intractable, without status epilepticus; F41.9 Anxiety disorder, unspecified; Z72.0 Tobacco use
CPT/HCPCS: 96372; 99283; J2550

== ENCOUNTER 2019-12-03 09:32 | Emergency (ER) | payer OTHER ==
[2019-12-03] MEDS ORDERED: ONDANSETRON 4 MG/2 ML VIAL ONE (10:06)
[2019-12-03] MEDS ORDERED: KETOROLAC 30 MG/ML INJ ONE (10:06)
[2019-12-03] MEDS ORDERED: NA CHLORIDE 0.9% 1,000 ML ONE (10:06)
[2019-12-03] MEDS ORDERED: FAMOTIDINE 20 MG/2 ML VIAL IV ONE (10:07)
--- OUTSIDE RECORDS SUMMARY | 2019-12-03 10:21 | XMS REPORT | Clinical Summary ---
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
[2019-12-03 10:39] LABS: Absolute Lymphocytes (CBC) 1.6 K/uL (0.7-4.9); Basophils % 0.3 % (0-1.3); Hematocrit 37.1 % (36.0-45.0); Lymphocytes % 21.7 % (15.3-44.8); MPV 8.8 fL (7.6-11.3)
[2019-12-03 11:06] LABS: ALT/SGPT 21 U/L (12-78); AST/SGOT 16 U/L (15-37); Albumin 3.3 g/dL (3.4-5.0); Alkaline Phosphatase 51 U/L (45-117); BUN Blood Urea Nitrogen 11 mg/dL (7-18); Bicarbonate 26 mmol/L (21-32); Bilirubin Direct < 0.1 mg/dL (0-0.2); Bilirubin Total 0.1 mg/dL (0.2-1.0); Glucose Level 103 mg/dL (74-106); Lipase 97 U/L (73-393); Potassium 3.9 mmol/L (3.5-5.1); Protein, Total 7.1 g/dL (6.4-8.2); Sodium Level 139 mmol/L (136-145); Troponin (Emerg Dept Use Only) < 0.02 ng/mL (0.0-0.045)
--- NOTE | 2019-12-03 11:14 | RAD REPORT ---
EXAM DESCRIPTION: RAD - Abdomen 1 View (KUB) - 12/03/2019 11:02 am CLINICAL HISTORY: Constipation;Abd pain Pain COMPARISON: Chest For Pe Angio dated 08/18/2019 FINDINGS: The bowel gas pattern is non-obstructive. No evidence of free air or pneumatosis. No suspi cious calcifications. No significant bony findings. Prominent stool is retained in the colon. IMPRESSION: Prominent fecal retention.
--- NOTE | 2019-12-03 11:46 | EDPHYS ---
Physician Documentation [facility] Name: Jaymie Cleveland Age: 34 yrs Sex: Female : 1985 Arrival Date: 12/03/2019 Time: 09:33 Bed 6 Private MD: Leighton Villalpando ED Physician Bora Majano HPI: 12/02 10:20 This 34 yrs old Female presents to ER via Ambulatory with complaints of Chest kb Pain, Abdominal Cramping. 10:20 The patient presents with abdominal pain that is diffuse. Onset: The symptoms/episode kb began/occurred "this is an ongoing problem, but it got worse last night". The symptoms do not radiate. Associated signs and symptoms: Pertinent positives: nausea, vomiting, and diarrhea, nausea and vomiting, constipation, Pertinent negatives: diarrhea, fever. The symptoms are described as constant. Modifying factors: The symptoms are alleviated by nothing, the symptoms are aggravated by nothing. Severity of pain: At its worst the pain was moderate in the emergency department the pain is unchanged. The patient has experienced similar episodes in the past, chronically. The patient has been recently seen at the [facility] Emergency Department, last week, for similar complaints. Pt reports abd pain, burning in chest, n/v, constipation (last BM this morning, but before that it was 5 days). . 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 - Social history:: Smoking status: Patient reports the use of cigarette tobacco products, smokes one-half pack cigarettes per day. ROS: 10:18 Constitutional: Negative for fever, chills, and weight loss, ENT: Negative for injury, kb pain, and discharge, Neck: Negative for injury, pain, and swelling, Respiratory: Negative for shortness of breath, cough, wheezing, and pleuritic chest pain, Back: Negative for injury and pain, : Negative for injury, bleeding, discharge, and swelling, MS/Extremity: Negative for injury and deformity, Skin: Negative for injury, rash, and discoloration, Neuro: Negative for headache, weakness, numbness, tingling, and seizure. 10:18 Cardiovascular: Positive for burning in chest. 10:18 Abdomen/GI: Positive for abdominal pain, nausea and vomiting, constipation, abdominal cramps. Exam: 10:18 Constitutional: This is a well developed, well nourished patient who is awake, alert, kb and in no acute distress. Head/Face: Normocephalic, atraumatic. Chest/axilla: Normal chest wall appearance and motion. Nontender with no deformity. No lesions are appreciated. Cardiovascular: Regular rate and rhythm with a normal S1 and S2. No gallops, murmurs, or rubs. Normal PMI, no JVD. No pulse deficits. Respiratory: Lungs have equal breath sounds bilaterally, clear to auscultation and percussion. No rales, rhonchi or wheezes noted. No increased work of breathing, no retractions or nasal flaring. Back: No spinal tenderness. No costovertebral tenderness. Full range of motion. Skin: Warm, dry with normal turgor. Normal color with no rashes, no lesions, and no evidence of cellulitis. MS/ Extremity: Pulses equal, no cyanosis. Neurovascular intact. Full, normal range of motion. Neuro: Awake and alert, GCS 15, oriented to person, place, time, and situation. Cranial nerves II-XII grossly intact. Motor strength 5/5 in all extremities. Sensory grossly intact. Cerebellar exam normal. Normal gait. 10:18 Abdomen/GI: Inspection: abdomen appears normal, Bowel sounds: normal, in all quadrants, Palpation: soft, in all quadrants, mild abdominal tenderness, in the right upper quadrant and right lower quadrant, moderate abdominal tenderness, in the left upper quadrant and left lower quadrant. 10:25 ECG was reviewed by the Attending Physician. Vital Signs: 09:48 BP 123 / 88; Pulse 84; Resp 16; Temp 98.4; Pulse Ox 98% on R/A; Weight 99.79 kg; Height iw 5 ft. 2 in. (157.48 cm); Pain 10/10; 11:00 BP 121 / 86; Pulse 82; Resp 18; Pulse Ox 99% on R/A; ph 12:11 BP 118 / 82; Pulse 78; Resp 18; Temp 97.8; Pulse Ox 99% on R/A; ph 09:48 Body Mass Index 40.24 (99.79 kg, 157.48 cm) iw MDM: 09:45 Patient medically screened. kb 10:19 Data reviewed: vital signs, nurses notes. Data interpreted: Pulse oximetry: on room air kb is 98 %. Interpretation: normal. 11:45 Counseling: I had a detailed discussion with the patient and/or guardian regarding: the kb historical points, exam findings, and any diagnostic results supporting the discharge/admit diagnosis, lab results, radiology results, the need for outpatient follow up, a family practitioner, to return to the emergency department if symptoms worsen or persist or if there are any questions or concerns that arise at home. 12/02 10:00 Order name: Basic Metabolic Panel; Complete Time: 11:12 kb 12/02 10:00 Order name: CBC with Diff; Complete Time: 10:45 kb 12/02 10:00 Order name: Hepatic Function; Complete Time: 11:12 kb 12/02 10:00 Order name: Lipase; Complete Time: 11:12 kb 12/02 10:00 Order name: Troponin (emerg Dept Use Only); Complete Time: 11:12 kb 12/02 10:00 Order name: Abdomen 1 View (KUB) XRAY; Complete Time: 11:16 kb 12/02 10:00 Order name: IV Saline Lock; Complete Time: 10:25 kb 12/02 10:00 Order name: EKG; Complete Time: 10:01 kb 12/02 10:00 Order name: Labs collected and sent; Complete Time: 10:25 kb 12/02 10:00 Order name: EKG - Nurse/Tech; Complete Time: 10:18 kb EC:25 Rate is 75 beats/min. Rhythm is regular. QRS Ridge is Normal. CA interval is normal at kb 134 msec. QRS interval is normal at 82 msec. QT interval is normal at 416 msec. Administered Medications: 10:20 Drug: NS 0.9% 1000 ml Route: IV; Rate: 1000 ml; Site: right antecubital; ph 12:10 Follow up: Response: No adverse reaction; IV Status: Completed infusion; IV Intake: ph 500ml 10:21 Drug: Pepcid 20 mg Route: IVP; Site: right antecubital; ph 12:10 Follow up: Response: No adverse reaction ph 10:23 Drug: Zofran (Ondansetron) 4 mg Route: IVP; Site: right antecubital; ph 12:10 Follow up: Response: No adverse reaction ph 10:25 Drug: TORadol - Ketorolac 15 mg Route: IVP; Site: right antecubital; ph 12:10 Follow up: Response: No adverse reaction ph 11:43 Drug: Dulcolax Suppository 10 mg Route: CA; jl7 12:10 Follow up: Response: No adverse reaction ph 12:09 Drug: Bentyl 20 mg Route: PO; ph 12:10 Follow up: Response: No adverse reaction ph Disposition: 12/03 09:07 Co-signature as Attending Physician, Bora Majano MD I agree with the assessment and kdr plan of care. Disposition: 12/03/19 11:46 Discharged to Home. Impression: Constipation, Generalized abdominal pain. - Condition is Stable. - Discharge Instructions: Constipation, Adult, Vgas-[id number], Abdominal Pain, Adult, [id number]-yn-Cveq. - Prescriptions for Bentyl 20 mg Oral Tablet - take 1 tablet by ORAL route every 6 hours As needed; 20 tablet. - Medication Reconciliation Form, Thank You Letter, Antibiotic Education, Prescription Opioid Use form. - Follow up: Emergency Department; When: As needed; Reason: Worsening of condition. Follow up: Private Physician; When: 2 - 3 days; Reason: Recheck today's complaints, Continuance of care, Re-evaluation by your physician. Signatures: Dispatcher [employer] EDIL Tonia Atkins, SHEET METAL ERECTOR-C SHEET METAL ERECTOR-Ckb Bora Majano MD MD [facility] Ariana Anderson RN RN Laxmi Walker RN RN ph Leal, Jahala, RN RN jl7 Corrections: (The following items were deleted from the chart) 12/02 11:48 11:46 12/03/2019 11:46 Discharged to Home. Impression: Upper abdominal pain, kb unspecified; Constipation. Condition is Stable. Forms are Medication Reconciliation Form, Thank You Letter, Antibiotic Education, Prescription Opioid Use. Follow up: Emergency Department; When: As needed; Reason: Worsening of condition. Follow up: Private Physician; When: 2 - 3 days; Reason: Recheck today's complaints, Continuance of care, Re-evaluation by your physician. kb 12:12 11:48 12/03/2019 11:46 Discharged to Home. Impression: Constipation; Generalized ph abdominal pain. Condition is Stable. Discharge Instructions: Constipation, Adult, [id number], Abdominal Pain, Adult, Hzlf-cj-[id number]. Prescriptions for Bentyl 20 mg Oral Tablet - take 1 tablet by ORAL route every 6 hours As needed; 20 tablet. and Forms are Medication Reconciliation Form, Thank You Letter, Antibiotic Education, Prescription Opioid Use. Follow up: Emergency Department; When: As needed; Reason: Worsening of condition. Follow up: Private Physician; When: 2 - 3 days; Reason: Recheck today's complaints, Continuance of care, Re-evaluation by your physician. kb
--- NOTE | 2019-12-03 11:46 | ER ---
Nurse's Notes [facility] Name: Jaymie Cleveland Age: 34 yrs Sex: Female : 1985 Arrival Date: 12/03/2019 Time: 09:33 Bed 6 Private MD: Leighton Villalpando Diagnosis: Constipation;Generalized abdominal pain Presentation: 12/02 09:48 Chief complaint: Patient states: burning in chest, n/v, abd cramping since last night, iw last BM was 5 days ago. Coronavirus screen: Proceed with normal triage. Patient denies a cough. Patient denies shortness of breath or difficulty breathing. Patient denies measured and/or subjective temperature greater than 100.4F prior to today's visit. Patient denies travel on a cruise ship or to a country the [facility] currently lists as an affected area. Patient denies contact with known and/or suspected case of COVID-19. Ebola Screen: Patient negative for fever greater than or equal to 101.5 degrees Fahrenheit, and additional compatible Ebola Virus Disease symptoms Patient denies exposure to infectious person. Patient denies travel to an Ebola-affected area in the 21 days before illness onset. No symptoms or risks identified at this time. Initial Sepsis Screen: Does the patient meet any 2 criteria? No. Patient's initial sepsis screen is negative. Does the patient have a suspected source of infection? No. Patient's initial sepsis screen is negative. Risk Assessment: Do you want to hurt yourself or someone else? Patient reports no desire to harm self or others. Onset of symptoms was December 02, 2019. 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 - Social history:: Smoking status: Patient reports the use of cigarette tobacco products, smokes one-half pack cigarettes per day. Screenin:01 Abuse screen: Denies threats or abuse. Denies injuries from another. Nutritional ph screening: No deficits noted. Tuberculosis screening: No symptoms or risk factors identified. Fall Risk None identified. Assessment: 10:20 General: Appears in no apparent distress. comfortable, obese, well groomed, Behavior is ph calm, cooperative, appropriate for age, Denies fever. Pain: Complains of pain in abdomen Pain radiates to chest Quality of pain is described as burning, crampy. Neuro: Level of Consciousness is awake, alert, obeys commands, Oriented to person, place, time, situation. Cardiovascular: Reports chest pain, nausea, vomiting, Denies lightheadedness, palpitations, shortness of breath, syncope, Chest pain quality is burning. Respiratory: Airway is patent Respiratory effort is even, unlabored, Respiratory pattern is regular, symmetrical. GI: Reports lower abdominal pain, upper abdominal pain, constipation, nausea, vomiting. Derm: Skin is intact, is healthy with good turgor, Skin is pink, warm \T\ dry. 12:10 Reassessment: Patient appears in no apparent distress at this time. Patient and/or ph family updated on plan of care and expected duration. Pain level reassessed. Patient is alert, oriented x 3, equal unlabored respirations, skin warm/dry/pink. Vital Signs: 09:48 BP 123 / 88; Pulse 84; Resp 16; Temp 98.4; Pulse Ox 98% on R/A; Weight 99.79 kg; Height iw 5 ft. 2 in. (157.48 cm); Pain 10/10; 11:00 BP 121 / 86; Pulse 82; Resp 18; Pulse Ox 99% on R/A; ph 12:11 BP 118 / 82; Pulse 78; Resp 18; Temp 97.8; Pulse Ox 99% on R/A; ph 09:48 Body Mass Index 40.24 (99.79 kg, 157.48 cm) iw ED Course: 09:33 Patient arrived in ED. ag5 09:34 Leighton Villalpando MD is Private Physician. ag5 09:45 Tonia Atkins FNP-C is [facility]. kb 09:45 Bora Majano MD is Attending Physician. kb 09:49 Triage completed. iw 09:50 Arm band placed on. iw 10:01 Laxmi Walker, RN is Primary Nurse. ph 10:01 Patient has correct armband on for positive identification. Bed in low position. Call ph light in reach. Side rails up X 1. Pulse ox on. NIBP on. Door closed. Noise minimized. Warm blanket given. 10:15 Inserted saline lock: 22 gauge in right antecubital area, using aseptic technique. ph Blood collected. Patient maintains SpO2 saturation greater than 95% on room air. 10:30 EKG done, by oil field technician. reviewed by Tonia RHODES. at1 11:01 Abdomen 1 View (KUB) XRAY In Process Unspecified. EDMS 12:11 No provider procedures requiring assistance completed. ph 12:11 IV discontinued, intact, bleeding controlled, No redness/swelling at site. Pressure ph dressing applied. Administered Medications: 10:20 Drug: NS 0.9% 1000 ml Route: IV; Rate: 1000 ml; Site: right antecubital; ph 12:10 Follow up: Response: No adverse reaction; IV Status: Completed infusion; IV Intake: ph 500ml 10:21 Drug: Pepcid 20 mg Route: IVP; Site: right antecubital; ph 12:10 Follow up: Response: No adverse reaction ph 10:23 Drug: Zofran (Ondansetron) 4 mg Route: IVP; Site: right antecubital; ph 12:10 Follow up: Response: No adverse reaction ph 10:25 Drug: TORadol - Ketorolac 15 mg Route: IVP; Site: right antecubital; ph 12:10 Follow up: Response: No adverse reaction ph 11:43 Drug: Dulcolax Suppository 10 mg Route: MD; jl7 12:10 Follow up: Response: No adverse reaction ph 12:09 Drug: Bentyl 20 mg Route: PO; ph 12:10 Follow up: Response: No adverse reaction ph Intake: 12:10 IV: 500ml; Total: 500ml. ph Outcome: 11:46 Discharge ordered by . kb 12:11 Discharged to home ambulatory. ph 12:11 Condition: good 12:11 Discharge instructions given to patient, Instructed on discharge instructions, follow up and referral plans. medication usage, Demonstrated understanding of instructions, follow-up care, medications, Prescriptions given X 1. 12:12 Patient left the ED. ph Signatures: Dispatcher [employer] EDTonia Buckner, GOLDBEATER-C GOLDBEATER-Ariana Lipscomb, RN RN Rizwana Puente, paper inspector EK Tat1 Laxmi Walker RN RN ph Leal, Jahala, RN RN jl7 Alicia Barrett ag5
[2019-12-03] MEDS ORDERED: BISACODYL 10 MG RECTAL SUPP ONE (11:48)
[2019-12-03] MEDS ORDERED: DICYCLOMINE HCL 10 MG CAP ONE (12:05)
--- NOTE | 2019-12-04 06:31 | EKG ---
Test Date: 2019-12-03 Test Time: 10:25:16 Structural Steel Erection Supervisor: LAUREN MEASUREMENT RESULTS: Intervals: Rate: 75 WV: 134 QRSD: 82 QT: 416 QTc: 464 [place]: P: 53 WV: 134 QRS: 59 T: 40 INTERPRETIVE STATEMENTS: Normal sinus rhythm Normal ECG Compared to ECG 08/18/2019 03:51:11 Sinus arrhythmia no longer present ST (T wave) deviation no longer present Electronically Signed On 12-04-19 06:30:15 CDT by Ryan Quiroga
== END 2019-12-03 12:12 | disposition home or self-care (01) ==
LOC: ER 09:32
DX: K59.00 Constipation, unspecified (principal); N18.2 Chronic kidney disease, stage 2 (mild)
CPT/HCPCS: 96361; 93005; 85025; 80048; 36415; 80076; 84484; 83690; 74018; 96375; 96374; 99284; J7030; J2405

== ENCOUNTER 2019-12-03 19:04 | Emergency (ER) | payer OTHER ==
--- OUTSIDE RECORDS SUMMARY | 2019-12-03 19:06 | XMS REPORT | Clinical Summary ---
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
--- NOTE | 2019-12-03 20:28 | ER ---
Nurse's Notes [facility] Name: Jaymie Cleveland Age: 34 yrs Sex: Female : 1985 Arrival Date: 12/03/2019 Time: 19:05 Bed 20 Private MD: Diagnosis: Constipation, unspecified Presentation: 12/02 19:15 Acuity: HOSEA 3 sg 19:25 Chief complaint: Patient states: has had increased abd cramping since being d/c today iw from ER, has not had BM, took her bentyl and phenergan. Coronavirus screen: Proceed with normal triage. Patient denies a cough. Patient denies shortness of breath or difficulty breathing. Patient denies measured and/or subjective temperature greater than 100.4F prior to today's visit. Patient denies travel on a cruise ship or to a country the [facility] currently lists as an affected area. Patient denies contact with known and/or suspected case of COVID-19. Ebola Screen: Patient negative for fever greater than or equal to 101.5 degrees Fahrenheit, and additional compatible Ebola Virus Disease symptoms Patient denies exposure to infectious person. Patient denies travel to an Ebola-affected area in the 21 days before illness onset. No symptoms or risks identified at this time. Initial Sepsis Screen: Does the patient meet any 2 criteria? No. Patient's initial sepsis screen is negative. Does the patient have a suspected source of infection? No. Patient's initial sepsis screen is negative. Risk Assessment: Do you want to hurt yourself or someone else? Patient reports no desire to harm self or others. Onset of symptoms was December 03, 2019. 19:25 Method Of Arrival: Ambulatory iw Triage Assessment: 20:27 General: Appears in no apparent distress. comfortable, Behavior is calm, cooperative. ls4 Pain: Complains of pain in abdomen Pain currently is 10 out of 10 on a pain scale. Quality of pain is described as pt states pain is a 10/10. pt ambulates with no distress, carrying bag and phone. pt not grimacing, guarding and is no tense or holding any painful areas as expected from a pt with pain. GI: No deficits noted. Bowel sounds present X 4 quads. Abd is soft and non tender X 4 quads. : No deficits noted. No signs and/or symptoms were reported regarding the genitourinary system. 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 - Social history:: Smoking status: unknown. Screenin:26 Abuse screen: Denies threats or abuse. Denies injuries from another. Nutritional ls4 screening: No deficits noted. Tuberculosis screening: No symptoms or risk factors identified. Fall Risk None identified. Assessment: 20:42 General: Appears in no apparent distress. comfortable. Neuro: No deficits noted. ls4 Cardiovascular: No deficits noted. Respiratory: No deficits noted. Vital Signs: 19:25 BP 123 / 89; Pulse 94; Resp 16; Temp 98.0; Pulse Ox 100% on R/A; Weight 99.79 kg; iw Height 5 ft. 2 in. (157.48 cm); Pain 10/10; 19:25 Body Mass Index 40.24 (99.79 kg, 157.48 cm) iw ED Course: 19:05 Patient arrived in ED. ag5 19:15 Triage completed. sg 19:25 Arm band placed on. iw 20:10 Rosales Vo MD is Attending Physician. tw4 20:19 Yuridia Pitts, RN is Primary Nurse. ls4 20:26 Patient has correct armband on for positive identification. Bed in low position. Call ls4 light in reach. Side rails up X 1. Pulse ox on. NIBP on. 20:26 No provider procedures requiring assistance completed. Patient did not have IV access ls4 during this emergency room visit. Administered Medications: 20:35 Drug: Lactulose 30 grams Volume: 45 ml; Route: PO; ls4 20:45 Follow up: Response: No adverse reaction; Marked relief of symptoms ls4 20:35 Drug: Motrin 600 mg Route: PO; ls4 20:45 Follow up: Response: No adverse reaction ls4 Outcome: 20:27 Discharge ordered by . tw4 20:46 Discharged to home ambulatory. ls4 20:46 Condition: stable 20:46 Discharge instructions given to patient, Instructed on discharge instructions, follow up and referral plans. medication usage, Demonstrated understanding of instructions, follow-up care, medications. 20:46 Patient left the ED. ls4 Signatures: Eulalio Weinstein RN RN sg Williams, Irene, RN RN iw Wadley, Terrence, MD MD 4 Yuridia Pitts RN RN ls4 Alicia Barrett [facility]
--- NOTE | 2019-12-03 20:29 | EDPHYS ---
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 - Social history:: Smoking status: unknown. Vital Signs: 19:25 BP 123 / 89; Pulse 94; Resp 16; Temp 98.0; Pulse Ox 100% on R/A; Weight 99.79 kg; iw Height 5 ft. 2 in. (157.48 cm); Pain 10/10; 19:25 Body Mass Index 40.24 (99.79 kg, 157.48 cm) iw MDM: 20:21 Patient medically screened. tw4 Administered Medications: 20:35 Drug: Lactulose 30 grams Volume: 45 ml; Route: PO; ls4 20:45 Follow up: Response: No adverse reaction; Marked relief of symptoms ls4 20:35 Drug: Motrin 600 mg Route: PO; ls4 20:45 Follow up: Response: No adverse reaction ls4 Disposition: 12/03/19 20:27 Discharged to Home. Impression: Constipation, unspecified. - Condition is Stable. - Discharge Instructions: Constipation, Adult, High-Fiber Diet. - Prescriptions for Lactulose 10 gram/15 mL Oral Solution - take 30 milliliter by ORAL route once daily; 300 milliliter. Miralax 17 gram/dose Oral - take 1 packet by ORAL route once daily dilute powder in 8 ounces of water or juice; 1 packet. - Medication Reconciliation Form, Thank You Letter, Antibiotic Education, Prescription Opioid Use form. - Follow up: Private Physician; When: Upon discharge from the Emergency Department; Reason: Recheck today's complaints, Continuance of care, Re-evaluation by your physician. - Problem is an ongoing problem. - Symptoms are unchanged. Signatures: Dispatcher [employer] EDMS Eulalio Weinstein RN RN sg Rosales Vo MD MD tw4 Yuridia Pitts RN RN ls4 Corrections: (The following items were deleted from the chart) 20:44 20:11 IV Saline Lock ordered. 4 ls4 20:44 20:11 Labs collected and [facility] 20:45 20:11 Urine Dipstick-Ancillary [facility] : 20:[address] [facility] 20:46 20:27 12/03/2019 20:27 Discharged to Home. Impression: Constipation, unspecified. ls4 Condition is Stable. Forms are Medication Reconciliation Form, Thank You Letter, Antibiotic Education, Prescription Opioid Use. Follow up: Private Physician; When: Upon discharge from the Emergency Department; Reason: Recheck today's complaints, Continuance of care, Re-evaluation by your physician. Problem is an ongoing problem. Symptoms are unchanged. 4
[2019-12-03] MEDS ORDERED: LACTULOSE 20 GM/30 ML UCUP ONE (20:44)
[2019-12-03] MEDS ORDERED: IBUPROFEN 200 MG TAB PO ONE (20:44)
[2019-12-03 20:56] VITALS: BP 123/89; TEMP 98; O2SAT 100
== END 2019-12-03 20:46 | disposition home or self-care (01) ==
LOC: ER 19:04
DX: K59.00 Constipation, unspecified (principal); N18.2 Chronic kidney disease, stage 2 (mild)
CPT/HCPCS: 99283

== ENCOUNTER 2020-03-09 19:55 | Emergency (ER) | payer OTHER ==
--- OUTSIDE RECORDS SUMMARY | 2020-03-09 19:57 | XMS REPORT | Clinical Summary ---
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
[2020-03-09] MEDS ORDERED: NA CHLORIDE 0.9% 1,000 ML ONE (21:00)
[2020-03-09] MEDS ORDERED: DIPHENHYDRAMINE 50 MG/ML VIAL ONE (21:00)
[2020-03-09] MEDS ORDERED: METOCLOPRAMIDE 10 MG/2mL INJ ONE (21:00)
[2020-03-09 21:11] LABS: Absolute Lymphocytes (CBC) 2.4 K/uL (0.7-4.9); Basophils % 0.8 % (0-1.3); Lymphocytes % 26.1 % (15.3-44.8); MPV 8.8 fL (7.6-11.3); RBC Red Blood Cell Count 4.47 M/uL (3.86-4.86)
[2020-03-09 21:12] LABS: Protime INR 0.95
[2020-03-09 21:52] LABS: Barbiturates NEGATIVE (NEGATIVE); Benzodiazepines POSITIVE (NEGATIVE); Cocaine NEGATIVE (NEGATIVE); METHAMPHETAM NEGATIVE (NEGATIVE); Methadone NEGATIVE (NEGATIVE); Opiates NEGATIVE (NEGATIVE); Phencyclidine NEGATIVE (NEGATIVE); THC Cannibis NEGATIVE (NEGATIVE)
[2020-03-09 21:53] LABS: ALT/SGPT 32 U/L (12-78); Albumin 3.8 g/dL (3.4-5.0); Alkaline Phosphatase 55 U/L (45-117); BUN Blood Urea Nitrogen 12 mg/dL (7-18); Bicarbonate 27 mmol/L (21-32); Bilirubin Direct < 0.1 mg/dL (0-0.2); Bilirubin Total 0.3 mg/dL (0.2-1.0); Glucose Level 76 mg/dL (74-106); NT PRO-BNP 6 pg/mL (<125); Protein, Total 7.6 g/dL (6.4-8.2); Sodium Level 142 mmol/L (136-145); Troponin (Emerg Dept Use Only) < 0.02 ng/mL (0.0-0.045)
[2020-03-09 21:58] LABS: AST/SGOT 19 U/L (15-37); Magnesium 2.2 mg/dL (1.8-2.4); Potassium 3.9 mmol/L (3.5-5.1)
[2020-03-09 22:01] LABS: Urine Blood NEGATIVE (NEG); Urine Glucose NEGATIVE (NEG); Urine Protein NEGATIVE (NEG); Urine Specific Gravity >1.030 (1.005-1.030)
[2020-03-09] MEDS ORDERED: KETOROLAC 30 MG/ML INJ ONE (23:12)
--- NOTE | 2020-03-09 23:38 | ER ---
Nurse's Notes [facility] Name: Jaymie Cleveland Age: 35 yrs Sex: Female : 1985 Arrival Date: 03/09/2020 Time: 19:59 Bed 4 Private MD: Leighton Villalpando Diagnosis: Headache;Chest Pain Presentation: 03/09 20:03 Chief complaint: Patient states: HERNANDEZ with N/V for 4 days. Sharp chest pains int for 2 ll1 days. Pain to right mid back with deep breathing. No cough or known fever. Coronavirus screen: Client denies travel out of the [place] in the last 14 days. At this time, the client does not indicate any symptoms associated with coronavirus-19. Coronavirus screen: fatigue, headache, nausea, vomiting. Client presents with at least one sign or symptom that may indicate coronavirus-19. Standard/surgical mask placed on the client. Ebola Screen: Patient denies travel to an Ebola-affected area in the 21 days before illness onset. Initial Sepsis Screen: Does the patient meet any 2 criteria? HR > 90 bpm. Risk Assessment: Do you want to hurt yourself or someone else? Patient reports no desire to harm self or others. Onset of symptoms was March 05, 2020. 20:03 Method Of Arrival: Ambulatory ll1 20:03 Acuity: [place] 3 ll1 21:00 Initial Sepsis Screen: Does the patient have a suspected source of infection? No. mt2 Patient's initial sepsis screen is negative. 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 - Social history:: Smoking status: Patient reports the use of cigarette tobacco products, smokes one-half pack cigarettes per day, Patient/guardian denies using alcohol, street drugs. Screenin:00 Abuse screen: Denies threats or abuse. Nutritional screening: No deficits noted. mt2 Tuberculosis screening: No symptoms or risk factors identified. Fall Risk None identified. Assessment: 21:00 Reassessment: Patient and/or family updated on plan of care and expected duration. Pain mt2 level reassessed. Patient is alert, oriented x 3, equal unlabored respirations, skin warm/dry/pink. General: Appears uncomfortable, Behavior is cooperative. Pain: Complains of pain in back Pain radiates to chest Pain currently is 10 out of 10 on a pain scale. Pain began gradually. Neuro: Reports headache occipital area. Cardiovascular: Reports chest pain. Respiratory: No deficits noted. GI: Reports nausea. : No deficits noted. EENT: No deficits noted. Derm: No deficits noted. Musculoskeletal: Reports pain in back. 22:06 Reassessment: Patient and/or family updated on plan of care and expected duration. Pain mt2 level reassessed. Patient is alert, oriented x 3, equal unlabored respirations, skin warm/dry/pink. Patient states symptoms have improved. General: Appears comfortable, Behavior is cooperative. Pain: Denies pain. 23:04 Reassessment: Patient and/or family updated on plan of care and expected duration. Pain mt2 level reassessed. Patient is alert, oriented x 3, equal unlabored respirations, skin warm/dry/pink. General: Appears uncomfortable, Behavior is cooperative. Pain: Complains of pain in back Pain currently is 7 out of 10 on a pain scale. Vital Signs: 20:03 BP 116 / 87; Pulse 113; Resp 18; Temp 98.5; Pulse Ox 96% ; Weight 95.25 kg; Height 5 ll1 ft. 2 in. (157.48 cm); Pain 10/10; 21:00 BP 127 / 83; Pulse 109; Resp 16; Pulse Ox 97% on R/A; Pain 10/10; mt2 22:07 BP 110 / 71; Pulse 81; Resp 16; Pulse Ox 100% ; Pain 0/10; mt2 23:05 BP 109 / 73; Pulse 92; Resp 16; Pulse Ox 100% on R/A; Pain 8/10; mt2 23:44 BP 107 / 71; Pulse 86; Resp 16; Pulse Ox 100% on R/A; rv 20:03 Body Mass Index 38.41 (95.25 kg, 157.48 cm) ll1 ED Course: 19:59 Patient arrived in ED. es 20:00 Leighton Villalpando MD is Private Physician. es 20:05 Triage completed. ll1 20:06 Arm band placed on Patient placed in an exam room, on a stretcher. ll1 20:09 Yasmani Finley MD is Attending Physician. mh7 20:09 Hanny Pierre, MABEL is Primary Nurse. mt2 20:57 by ri, sent to lab. Urine collected: clean catch specimen, clear, UDS SENT. rv 21:00 Patient has correct armband on for positive identification. Bed in low position. Call mt2 light in reach. Side rails up X 1. learning support assistant on. Pulse ox on. NIBP on. 21:18 XRAY Chest (1 view) In Process Unspecified. EDMS 21:18 Inserted saline lock: 20 gauge in right antecubital area, using aseptic technique. oe 22:05 No provider procedures requiring assistance completed. Patient maintains SpO2 mt2 saturation greater than 95% on room air. 23:03 CT Head Brain wo Cont In Process Unspecified. EDMS 23:11 CT Chest For PE Angio In Process Unspecified. EDMS 23:40 IV discontinued, intact, bleeding controlled, No redness/swelling at site. Pressure mt2 dressing applied. Administered Medications: 21:18 Drug: Benadryl 50 mg Route: IVP; Site: right antecubital; mt2 21:50 Follow up: Response: No adverse reaction; Pain is decreased mt2 21:50 Follow up: Response: No adverse reaction; Pain is decreased mt2 21:19 Drug: NS 0.9% 1000 ml Route: IV; Rate: 1000 ml; Site: right antecubital; mt2 23:41 Follow up: Response: No adverse reaction; IV Status: Completed infusion mt2 21:19 Drug: Reglan 10 mg Route: IVP; Site: right antecubital; mt2 21:50 Follow up: Response: No adverse reaction; Nausea is decreased mt2 23:03 Drug: TORadol 30 mg Route: IVP; Site: right antecubital; mt2 23:31 Follow up: Response: No adverse reaction; Pain is decreased mt2 Outcome: 23:38 Discharge ordered by . mh7 23:40 Discharged to home ambulatory. mt2 23:40 Condition: good 23:40 Discharge instructions given to patient, Instructed on discharge instructions, follow up and referral plans. medication usage, Demonstrated understanding of instructions, follow-up care, medications, Prescriptions given X 1. 23:46 Patient left the ED. mt2 Signatures: Dispatcher [employer] EDMalinda Villavicencio Orlando oe Vicente, Ronaldo, RN RN rv Lewis, Lynsay, RN RN 1 Yasmani Finley MD MD 7 Hanny Pierre RN RN mt2
--- NOTE | 2020-03-09 23:38 | EDPHYS ---
Physician Documentation [facility] Name: Jaymie Cleveland Age: 35 yrs Sex: Female : 1985 Arrival Date: 03/09/2020 Time: 19:59 Bed 4 Private MD: Leighton Villalpando ED Physician Yasmani Finley HPI: 03/09 20:39 This 35 yrs old Female presents to ER via Ambulatory with complaints of Chest mh7 Pain, Headache, Back Pain. 20:39 This 35 yrs old Female presents to ER via Ambulatory with complaints of Chest mh7 Pain, Headache, Back Pain. 20:39 The patient or guardian reports chest pain that is located primarily in the anterior mh7 chest wall, left. The pain radiates to right back. Associated signs and symptoms: Pertinent positives: headache, nausea, for 4 days, Pertinent negatives: abdominal pain, cough, diaphoresis, dizziness, lower extremity pain, lower extremity swelling, lightheadedness, near syncope, palpitations, recent travel, shortness of breath, syncope, vomiting. The chest pain is described as sharp. Duration: The patient or guardian reports multiple episodes, that are intermittent, that wax and wane, with no pattern. Modifying factors: The symptoms are alleviated by nothing. the symptoms are aggravated by deep breath, movement. Severity of pain: At its worst the pain was moderate yesterday, in the emergency department the pain has improved moderately. FINISHER MAP AND CHART: 21:00 LMP 01/2020 mt2 Historical: - Allergies: 20:05 NKDA; ll1 - PMHx: 20:05 ADD/ADHD; Anxiety; Borderline Bipolar disorder; C DIFF; Colitis; Depression; Irritable ll1 bowel syndrome; ocd; Ovarian cyst; Seizures; Stage 2 CKD; - Immunization history:: Flu vaccine status is unknown. - Social history:: Smoking status: Patient reports the use of cigarette tobacco products, smokes one-half pack cigarettes per day, Patient/guardian denies using alcohol, street drugs. ROS: 20:39 Constitutional: Negative for fever, chills, and weight loss, Eyes: Negative for injury, mh7 pain, redness, and discharge, ENT: Negative for injury, pain, and discharge, Neck: Negative for injury, pain, and swelling, : Negative for injury, bleeding, discharge, and swelling, MS/Extremity: Negative for injury and deformity, Skin: Negative for injury, rash, and discoloration, Neuro: Negative for headache, weakness, numbness, tingling, and seizure, Psych: Negative for depression, anxiety, suicide ideation, homicidal ideation, and hallucinations, Allergy/Immunology: Negative for hives, rash, and allergies, Endocrine: Negative for neck swelling, polydipsia, polyuria, polyphagia, and marked weight changes, Hematologic/Lymphatic: Negative for swollen nodes, abnormal bleeding, and unusual bruising. Exam: 20:39 Constitutional: This is a well developed, well nourished patient who is awake, alert, mh7 and in no acute distress. Head/Face: Normocephalic, atraumatic. Eyes: Pupils equal round and reactive to light, extra-ocular motions intact. Lids and lashes normal. Conjunctiva and sclera are non-icteric and not injected. Cornea within normal limits. Periorbital areas with no swelling, redness, or edema. Neck: Trachea midline, no thyromegaly or masses palpated, and no cervical lymphadenopathy. Supple, full range of motion without nuchal rigidity, or vertebral point tenderness. No Meningismus. 20:39 Cardiovascular: Regular rate and rhythm with a normal S1 and S2. No gallops, murmurs, or rubs. Normal PMI, no JVD. No pulse deficits. Respiratory: Lungs have equal breath sounds bilaterally, clear to auscultation and percussion. No rales, rhonchi or wheezes noted. No increased work of breathing, no retractions or nasal flaring. Abdomen/GI: Soft, non-tender, with normal bowel sounds. No distension or tympany. No guarding or rebound. No evidence of tenderness throughout. Back: No spinal tenderness. No costovertebral tenderness. Full range of motion. Skin: Warm, dry with normal turgor. Normal color with no rashes, no lesions, and no evidence of cellulitis. MS/ Extremity: Pulses equal, no cyanosis. Neurovascular intact. Full, normal range of motion. Neuro: Awake and alert, GCS 15, oriented to person, place, time, and situation. Cranial nerves II-XII grossly intact. Motor strength 5/5 in all extremities. Sensory grossly intact. Cerebellar exam normal. Normal gait. Psych: Awake, alert, with orientation to person, place and time. Behavior, mood, and affect are within normal limits. 20:39 Chest/axilla: Inspection: normal, Palpation: tenderness, that is moderate, of the right lateral posterior chest, that totally reproduces the patient's complaints, Axilla: are normal, Lymph nodes: lymphadenopathy is not appreciated. 23:33 ECG was reviewed by the Attending Physician. [facility] Vital Signs: 20:03 BP 116 / 87; Pulse 113; Resp 18; Temp 98.5; Pulse Ox 96% ; Weight 95.25 kg; Height 5 ll1 ft. 2 in. (157.48 cm); Pain 10/10; 21:00 BP 127 / 83; Pulse 109; Resp 16; Pulse Ox 97% on R/A; Pain 10/10; mt2 22:07 BP 110 / 71; Pulse 81; Resp 16; Pulse Ox 100% ; Pain 0/10; mt2 23:05 BP 109 / 73; Pulse 92; Resp 16; Pulse Ox 100% on R/A; Pain 8/10; mt2 23:44 BP 107 / 71; Pulse 86; Resp 16; Pulse Ox 100% on R/A; rv 20:03 Body Mass Index 38.41 (95.25 kg, 157.48 cm) ll1 MDM: 20:33 Patient medically screened. [facility] 23:33 Differential diagnosis: abnormal EKG, acute myocardial infarction, acute pericarditis, [facility] anxiety, chest wall pain, costochondritis, pleurisy, pneumonia, pneumothorax, pulmonary embolus. HEART Score: History: Slightly Suspicious (0), ECG: Non specific repolarization disturbance / LBTB / PM (1), Age: < or = 45 years (0), Risk Factors: No Risk Factors Known (0), Troponin: < or = 1 x Normal Limit (0), Total Score = 1. Data reviewed: vital signs, nurses notes, old medical records, lab test result(s), cardiac enzymes, CBC, electrolytes, urinalysis, urine drug screen, EKG, radiologic studies, CT scan, plain films. Data interpreted: special procedures nurse: rate is 81 beats/min, rhythm is normal sinus rhythm, regular, Interpretation: normal rate, normal rhythm, Pulse oximetry: on room air is 100 %. Interpretation: normal. Counseling: I had a detailed discussion with the patient and/or guardian regarding: the historical points, exam findings, and any diagnostic results supporting the discharge/admit diagnosis, lab results, radiology results, the need for outpatient follow up, to return to the emergency department if symptoms worsen or persist or if there are any questions or concerns that arise at home. Response to treatment: the patient's symptoms have resolved after treatment, the patient's blood pressure is in an acceptable range, mental status has returned to baseline, the patient no longer shows bradycardia, the patient is not short of breath, the patient is not tachycardic, the patient's pain is gone, the patient's temperature has normalized. 03/10 01:51 Response to treatment: the patient is now symptom free, patient is well hydrated. 03/09 20:35 Order name: Basic Metabolic Panel; Complete Time: 22:12 [facility] 03/09 20:35 Order name: CBC with Diff; Complete Time: 21:36 [facility] 03/09 20:35 Order name: LFT's; Complete Time: 22:12 [facility] 03/09 20:35 Order name: Magnesium; Complete Time: 22:12 [facility] 03/09 20:35 Order name: NT PRO-BNP; Complete Time: 22:12 [facility] 03/09 20:35 Order name: PT-INR; Complete Time: 21:36 [facility] 03/09 20:35 Order name: Troponin (emerg Dept Use Only); Complete Time: 22:12 [facility] 03/09 20:35 Order name: XRAY Chest (1 view) 03/09 20:35 Order name: UDS; Complete Time: 22:12 [facility] 03/09 21:53 Order name: Urine Dipstick--Ancillary (enter results); Complete Time: 22:12 [facility] 03/09 21:53 Order name: Urine --Ancillary (enter results); Complete Time: 22:12 [facility] 03/09 22:15 Order name: CT Head Brain wo Cont 03/09 22:15 Order name: CT Chest For PE Angio 03/09 20:35 Order name: EKG; Complete Time: 20:36 [facility] 03/09 20:35 Order name: Cardiac monitoring; Complete Time: 20:56 [facility] 03/09 20:35 Order name: EKG - Nurse/Tech; Complete Time: 20:56 [facility] 03/09 20:35 Order name: IV Saline Lock; Complete Time: 20:56 [facility] 03/09 20:35 Order name: Labs collected and sent; Complete Time: 20:56 [facility] 03/09 20:35 Order name: O2 Per Protocol; Complete Time: 20:56 [facility] 03/09 20:35 Order name: O2 Sat Monitoring; Complete Time: 20:56 7 03/09 20:35 Order name: Urine Dipstick-Ancillary (obtain specimen); Complete Time: 21:51 [facility] 03/09 20:35 Order name: Urine Test (obtain specimen); Complete Time: 21:51 mh7 EC/25 23:33 Rate is 107 beats/min. Rhythm is regular, Sinus tachycardia. QRS [place] is Normal. ID mh7 interval is normal. QRS interval is normal. QT interval is normal. Q waves are Present in leads III, aVF. T waves are Normal. No ST changes noted. Clinical impression: Sinus tachycardia. Administered Medications: 21:18 Drug: Benadryl 50 mg Route: IVP; Site: right antecubital; mt2 21:50 Follow up: Response: No adverse reaction; Pain is decreased mt2 21:50 Follow up: Response: No adverse reaction; Pain is decreased mt2 21:19 Drug: NS 0.9% 1000 ml Route: IV; Rate: 1000 ml; Site: right antecubital; mt2 23:41 Follow up: Response: No adverse reaction; IV Status: Completed infusion mt2 21:19 Drug: Reglan 10 mg Route: IVP; Site: right antecubital; mt2 21:50 Follow up: Response: No adverse reaction; Nausea is decreased mt2 23:03 Drug: TORadol 30 mg Route: IVP; Site: right antecubital; mt2 23:31 Follow up: Response: No adverse reaction; Pain is decreased mt2 Disposition: 03/10 01:51 Co-signature as Attending Physician, Yasmani Finley MD. [facility] Disposition: 03/09/20 23:38 Discharged to Home. Impression: Headache, Chest Pain. - Condition is Stable. - Discharge Instructions: Nonspecific Chest Pain, [id number]-ox-[id number], General Headache Without Cause, [id number]. - Prescriptions for Ibuprofen 800 mg Oral Tablet - take 1 tablet by ORAL route every 8 hours As needed take with food; 15 tablet. - Medication Reconciliation Form, Thank You Letter, Antibiotic Education, Prescription Opioid Use form. - Follow up: Private Physician; When: 1 - 2 days; Reason: Worsening of condition, Recheck today's complaints, Continuance of care, Re-evaluation by your physician. - Problem is an acute exacerbation. - Symptoms have improved. Signatures: Dispatcher [employer] EDSiena Dewitt RN RN ll1 Yasmani Finley MD MD 7 Hanny Pierre RN RN mt2 Corrections: (The following items were deleted from the chart) 03/09 23:46 23:38 03/09/2020 23:38 Discharged to Home. Impression: Headache; Chest Pain. Condition mt2 is Stable. Forms are Medication Reconciliation Form, Thank You Letter, Antibiotic Education, Prescription Opioid Use. Follow up: Private Physician; When: 1 - 2 days; Reason: Worsening of condition, Recheck today's complaints, Continuance of care, Re-evaluation by your physician. Problem is an acute exacerbation. Symptoms have improved. mh7
--- NOTE | 2020-03-10 06:42 | RAD REPORT ---
EXAM DESCRIPTION: RAD - Chest Single View - 03/09/2020 9:18 pm CLINICAL HISTORY: CHEST PAIN COMPARISON: Portable September 2018 TECHNIQUE: AP portable chest image was obtained 03/09/2020 9:18 pm . FINDINGS: Lungs are clear. Low lung volumes accentuate lung base markings. No clear change from comp arison. Heart and vasculature are normal. No measurable pleural effusion and no pneumothorax. No acut e bony abnormality seen. No acute aortic findings suspected. IMPRESSION: No acute cardiopulmonary process.
--- NOTE | 2020-03-10 07:33 | EKG ---
Test Date: 2020-03-09 Test Time: 20:46:33 Patch Press Operator: CHENTE MEASUREMENT RESULTS: Intervals: Rate: 107 [place]: 112 QRSD: 94 QT: 338 QTc: 451 [place]: P: 59 [place]: 112 QRS: 73 T: -4 INTERPRETIVE STATEMENTS: Sinus tachycardia with fusion complexes Cannot rule out Inferior infarct, age undetermined Abnormal ECG Compared to ECG 12/03/2019 10:25:16 Fusion complex(es) now present Myocardial infarct finding now present Sinus rhythm no longer present Electronically Signed On 03-10-20 07:32:27 CDT by Ryan Quiroga
--- NOTE | 2020-03-10 10:19 | RAD REPORT ---
EXAM DESCRIPTION: CT - Head Brain Wo Cont - 03/10/2020 6:48 am CLINICAL HISTORY: HEADACHE COMPARISON: CT head May 16, 2019 TECHNIQUE: Multiple helical axial tomographic images were obtained of the head without intravenous c ontrast. This exam was performed according to our departmental dose-optimization program, which inclu joann automated exposure control, adjustment of the mA and/or kV according to patient size and/or use o f iterative reconstruction technique. FINDINGS: There is no acute intracranial hemorrhage. No mass. No midline shift. No ventriculomegaly. Villagomez-white matter differentiation is maintained. Paranasal sinuses are clear. Mastoid air cells and middle ear spaces are clear. Orbits and orbital co ntents are unremarkable. Osseous structures are unremarkable. Surrounding soft tissues are unremarkable. IMPRESSION: No acute intracranial process. Electronically signed by: Tyler Hopkins MD 03/09/2020 11:17 PM CDT Due to temporary technical issues with the PACS/Fluency reporting system, reports are being signed by the in house radiologist without review as a courtesy to ensure prompt reporting. The interpreting r adiologist is fully responsible for the content of the report.
--- NOTE | 2020-03-10 10:49 | RAD REPORT ---
EXAM DESCRIPTION: CT - Chest For Pe Angio - 03/10/2020 6:48 am CLINICAL HISTORY: 35 years Female CHEST PAIN COMPARISON: None TECHNIQUE: Images were obtained in axial, sagittal, and coronal planes. Intravenous contrast was adm inistered. 3-D MIP imaging was performed. Image degradation related to patient body size. This exam was performed according to our departmental dose-optimization program which includes use of Automated Exposure Control, adjustment of the mA and/or kV according to patient size and/or use o f iterative reconstruction technique. FINDINGS: No filling defects pulmonary arteries bilaterally. No aortic dissection or dilatation. No pericardial or pleural effusions bilaterally. No lung parenchymal infiltrates or nodules seen. No acute osseous abnormality. IMPRESSION: No evidence for pulmonary embolus. No aortic dissection or dilatation. No infiltrates seen. Electronically signed by: Justine Burris MD 03/09/2020 11:22 PM CDT Due to temporary technical issues with the PACS/Fluency reporting system, reports are being signed by the in house radiologist without review as a courtesy to ensure prompt reporting. The interpreting r adiologist is fully responsible for the content of the report.
--- NOTE | 2020-03-10 13:48 | EKG ---
Test Date: 2020-03-09 Test Time: 20:46:59 Specialty Therapist: CHENTE MEASUREMENT RESULTS: Intervals: Rate: 106 [place]: 116 QRSD: 80 QT: 356 QTc: 472 [place]: P: 57 MN: 116 QRS: 71 T: -4 INTERPRETIVE STATEMENTS: Sinus tachycardia with fusion complexes Nonspecific ST and T wave abnormality Abnormal ECG Compared to ECG 03/09/2020 20:46:33 ST (T wave) deviation now present Myocardial infarct finding no longer present Electronically Signed On 03-10-20 13:47:44 CDT by Ryan Quiroga
[2020-03-13 20:36] VITALS: O2SAT 100
[2020-03-13 20:39] VITALS: BP 107/71
== END 2020-03-09 23:46 | disposition home or self-care (01) ==
LOC: ER 19:55
DX: R07.9 Chest pain, unspecified (principal); R51 Headache; F17.210 Nicotine dependence, cigarettes, uncomplicated; N18.2 Chronic kidney disease, stage 2 (mild)
CPT/HCPCS: 96361; 93005 ×2; 85025; 80048; 36415; 83735; 81025; 85610; 80076; 80307 ×8; 81003; 84484; 83880; 70450; 71275; 71045; 96375; 96374; 99285; Q9967; J2765; J1200; J7030

== ENCOUNTER 2020-03-19 11:55 | Emergency (ER) | payer OTHER ==
--- OUTSIDE RECORDS SUMMARY | 2020-03-19 11:57 | XMS REPORT | Clinical Summary ---
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
--- NOTE | 2020-03-19 13:47 | RAD REPORT ---
EXAM DESCRIPTION: Maximino Single View03/19/2020 1:40 pm CLINICAL HISTORY: Chest pain COMPARISON: March 09, 2020 FINDINGS: The lungs appear clear of acute infiltrate. The heart is normal size IMPRESSION: No acute abnormalities displayed
[2020-03-19 13:49] LABS: Absolute Lymphocytes (CBC) 1.5 K/uL (0.7-4.9); Basophils % 0.9 % (0-1.3); Hematocrit 41.3 % (36.0-45.0); Lymphocytes % 16.9 % (15.3-44.8); MPV 9.1 fL (7.6-11.3); RBC Red Blood Cell Count 4.67 M/uL (3.86-4.86)
[2020-03-19 13:51] LABS: Protime INR 0.95
--- NOTE | 2020-03-19 13:54 | RAD REPORT ---
EXAM DESCRIPTION: CT - Angio Aorta For Dissection - 03/19/2020 1:36 pm CLINICAL HISTORY: . Chest and abdominal pain COMPARISON: March 09, 2020 TECHNIQUE: Computed tomography angiography of the chest, abdomen pelvis were obtained. 100 cc Isovue 370 was administered intravenously. Coronal and sagittal reconstruction were performed. MIP 3D reconstruction was performed All CT scans are performed using dose optimization technique as appropriate and may include automated exposure control or mA/KV adjustment according to patient size. FINDINGS: An aortic dissection is not seen. An aortic aneurysm is not displayed. The celiac, SMA and ZULLY are patent . A lung consolidation is not present. A pericardial effusion is not seen. A pleural effusion is not n oted. The liver,spleen, pancreas adrenals kidneys demonstrate no significant abnormality. Small umbilical h ernia. 2.4 centimeter right ovarian cyst. A tampon is present within the vagina The appendix is normal. There no evidence diverticulitis. Trace amount of free fluid. IMPRESSION: Negative for an aortic dissection. 2.4 centimeter right ovarian cyst
[2020-03-19 14:03] LABS: ALT/SGPT 25 U/L (12-78); AST/SGOT 11 U/L (15-37); Albumin 3.8 g/dL (3.4-5.0); Alkaline Phosphatase 60 U/L (45-117); BUN Blood Urea Nitrogen 13 mg/dL (7-18); Bicarbonate 27 mmol/L (21-32); Bilirubin Direct < 0.1 mg/dL (0-0.2); Bilirubin Total 0.3 mg/dL (0.2-1.0); Glucose Level 90 mg/dL (74-106); Lipase 136 U/L (73-393); Magnesium 2.2 mg/dL (1.8-2.4); NT PRO-BNP 97 pg/mL (<125); Protein, Total 7.4 g/dL (6.4-8.2); Sodium Level 143 mmol/L (136-145); Troponin (Emerg Dept Use Only) < 0.02 ng/mL (0.0-0.045)
[2020-03-19] MEDS ORDERED: NA CHLORIDE 0.9% 1,000 ML ONE (14:13)
[2020-03-19] MEDS ORDERED: ASPIRIN 81 MG CHEWABLE TABLET ONE (14:13)
[2020-03-19] MEDS ORDERED: LORazepam 2 MG/ML VIAL ONE (15:02)
[2020-03-19] MEDS ORDERED: POTASSIUM 25 MEQ EFFERV TAB ONE (15:21)
[2020-03-19 15:38] LABS: Urine Blood TRACE (NEG); Urine Glucose NEGATIVE (NEG); Urine Protein NEGATIVE (NEG); Urine Specific Gravity 1.015 (1.005-1.030); Urine pH 5.5 (5.0-7.0)
--- NOTE | 2020-03-19 16:00 | ER ---
Nurse's Notes [facility] Name: Jaymie Cleveland Age: 35 yrs Sex: Female : 1985 Arrival Date: 03/19/2020 Time: 11:56 Bed 18 Private MD: Diagnosis: Chest pain, unspecified;Anxiety disorder, unspecified Presentation: 03/19 12:00 Chief complaint: Patient states: midsternal and left sided chest pain that started a sv few days ago, was seen here for it and discharge. Reports she is also having left back pain. Coronavirus screen: Client denies travel out of the [place] in the last 14 days. Client presents with at least one sign or symptom that may indicate coronavirus-19. Standard/surgical mask placed on the client. At this time, the client does not indicate any symptoms associated with coronavirus-19. Ebola Screen: No symptoms or risks identified at this time. Risk Assessment: Do you want to hurt yourself or someone else? Patient reports no desire to harm self or others. Onset of symptoms was March 17, 2020. 12:00 Method Of Arrival: Wheelchair sv 12:00 Acuity: HOSEA 2 sv 12:02 Initial Sepsis Screen: Does the patient meet any 2 criteria? No. Patient's initial sv sepsis screen is negative. Does the patient have a suspected source of infection? No. Patient's initial sepsis screen is negative. 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 - Social history:: Smoking status: Patient reports the use of cigarette tobacco products, smokes one-half pack cigarettes per day. - Family history:: not pertinent. Screenin:38 Abuse screen: Denies threats or abuse. Denies injuries from another. Nutritional ca1 screening: No deficits noted. Tuberculosis screening: No symptoms or risk factors identified. Fall Risk IV access (20 points). Assessment: 12:38 General: Appears in no apparent distress. comfortable, Behavior is cooperative, ca1 appropriate for age, anxious. Pain: Complains of pain in left breast Pain radiates to posterior aspect of right lateral abdomen Pain currently is 7 out of 10 on a pain scale. Quality of pain is described as sharp, Pain began 4 days Is intermittent, Aggravated by deep breathing. Neuro: Level of Consciousness is awake, alert, obeys commands, Oriented to person, place, time, situation. Cardiovascular: Heart tones S1 S2 present Capillary refill < 3 seconds Patient's skin is warm and dry. Rhythm is sinus rhythm. Respiratory: Airway is patent Respiratory effort is even, unlabored, Respiratory pattern is regular, symmetrical, Breath sounds are clear bilaterally. GI: Abdomen is round non-distended, Bowel sounds present X 4 quads. Abd is soft and non tender X 4 quads. : No signs and/or symptoms were reported regarding the genitourinary system. EENT: No signs and/or symptoms were reported regarding the EENT system. Derm: Skin is intact, is healthy with good turgor, Skin is pink, warm \T\ dry. Musculoskeletal: Circulation, motion, and sensation intact. Capillary refill < 3 seconds. 13:35 Reassessment: Patient appears in no apparent distress at this time. No changes from ca1 previously documented assessment. Patient and/or family updated on plan of care and expected duration. Pain level reassessed. Patient is alert, oriented x 3, equal unlabored respirations, skin warm/dry/pink. 14:52 Reassessment: Patient appears in no apparent distress at this time. Patient and/or ca1 family updated on plan of care and expected duration. Pain level reassessed. Patient is alert, oriented x 3, equal unlabored respirations, skin warm/dry/pink. 15:50 Reassessment: Patient appears in no apparent distress at this time. Patient and/or ca1 family updated on plan of care and expected duration. Pain level reassessed. Patient is alert, oriented x 3, equal unlabored respirations, skin warm/dry/pink. 16:15 Reassessment: Patient appears in no apparent distress at this time. Patient is alert, ca1 oriented x 3, equal unlabored respirations, skin warm/dry/pink. Patient states feeling better. Patient states symptoms have improved. Vital Signs: 12:02 BP 135 / 114; Pulse 88; Resp 20; Temp 99.6(TE); Pulse Ox 97% ; Weight 97.52 kg; Height sv 5 ft. 2 in. (157.48 cm); 12:40 BP 133 / 81; Pulse 84; Resp 20; Pulse Ox 97% on R/A; ca1 13:30 BP 114 / 96; Pulse 69; Resp 15 S; Pulse Ox 100% on R/A; ca1 14:30 BP 114 / 58; Pulse 68; Resp 15; Pulse Ox 98% on R/A; ca1 15:50 BP 130 / 96; Pulse 82; Resp 20 S; Pulse Ox 98% on R/A; ca1 12:02 Body Mass Index 39.32 (97.52 kg, 157.48 cm) sv ED Course: 11:56 Patient arrived in ED. as 12:00 Arm band placed on. sv 12:01 Triage completed. sv 12:09 EKG completed in triage. Results shown to MD. sv 12:33 Nelly Campo, RN is Primary Nurse. ca1 12:38 Patient has correct armband on for positive identification. Placed in gown. Bed in low ca1 position. Call light in reach. Side rails up X 1. nurse monitoring on. Pulse ox on. NIBP on. Warm blanket given. 12:38 No provider procedures requiring assistance completed. Patient maintains SpO2 ca1 saturation greater than 95% on room air. 12:55 Storm Martin MD is Attending Physician. korin 13:27 Inserted saline lock: 20 gauge in left antecubital area, using aseptic technique. Blood dh4 collected. 13:36 CT Aorta for Dissection In Process Unspecified. EDMS 13:40 XRAY Chest (1 view) In Process Unspecified. EDMS 15:35 Basic Metabolic Panel Sent. sv 15:35 LFT's Sent. sv 15:59 Dagoberto Solo MD is Referral Physician. korin 15:59 Ryan Quiroga MD is Referral Physician. korin 16:20 IV discontinued, intact, bleeding controlled, No redness/swelling at site. Pressure ca1 dressing applied. Administered Medications: 14:06 Drug: Aspirin Chewable Tablet 162 mg Route: PO; ca1 14:52 Follow up: Response: No adverse reaction ca1 14:06 Drug: NS 0.9% 500 ml Route: IV; Rate: bolus; Site: left antecubital; ca1 14:52 Follow up: Response: No adverse reaction; IV Status: Completed infusion; IV Intake: ca1 500ml 14:52 Drug: NS 0.9% 1000 ml Route: IV; Rate: 125 ml/hr; Site: left antecubital; ca1 16:20 Follow up: Response: No adverse reaction; Pt DC; IV Status: Order to discontinue ca1 infusion 14:52 Drug: Ativan 1 mg Route: IVP; Site: left antecubital; ca1 16:00 Follow up: Response: No adverse reaction; Anxiety decreased; RASS: Alert and Calm (0) ca1 Intake: 14:52 IV: 500ml; Total: 500ml. ca1 Outcome: 15:59 Discharge ordered by MD. langley 16:20 Discharged to home ambulatory. ca1 16:20 Condition: stable 16:20 Discharge instructions given to patient, Instructed on discharge instructions, the need for admit, no drinking with medication, no driving heavy equipment, medication usage, Demonstrated understanding of instructions, follow-up care, medications, Prescriptions given X 1. 16:23 Patient left the ED. ca1 Signatures: Dispatcher [employer] Teresa Vasquez RN RN sv Anderson, Corey, MD MD cha Martinez, Amelia as Acob, Cheryl, RN RN [facility] Ian Hickey [facility] Corrections: (The following items were deleted from the chart) 12:03 12:00 Acuity: HOSEA 3 camelia denise
--- NOTE | 2020-03-19 16:00 | EDPHYS ---
Physician Documentation [facility] Name: Jaymie Cleveland Age: 35 yrs Sex: Female : 1985 Arrival Date: 03/19/2020 Time: 11:56 Bed 18 Private MD: KEVIN Physician Storm Martin HPI: 03/19 15:51 This 35 yrs old Female presents to ER via Wheelchair with complaints of Chest korin Pain, Back Pain. 15:51 The patient or guardian reports chest pain that is located primarily in the anterior korin chest wall, left. The pain does not radiate. Associated signs and symptoms: Pertinent positives: dizziness, anxious. The chest pain is described as a pressure. Duration: The patient or guardian reports multiple episodes, that are intermittent. Modifying factors: The symptoms are alleviated by remaining still, the symptoms are aggravated by deep breath, walking. Severity of pain: At its worst the pain was mild in the emergency department the pain is unchanged. The patient has experienced similar episodes in the past, several times. 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 - Social history:: Smoking status: Patient reports the use of cigarette tobacco products, smokes one-half pack cigarettes per day. - Family history:: not pertinent. ROS: 15:51 Constitutional: Negative for fever, chills, and weight loss, Eyes: Negative for injury, korin pain, redness, and discharge, ENT: Negative for injury, pain, and discharge, Neck: Negative for injury, pain, and swelling, Respiratory: Negative for shortness of breath, cough, wheezing, and pleuritic chest pain, Abdomen/GI: Negative for abdominal pain, nausea, vomiting, diarrhea, and constipation, Back: Negative for injury and pain, : Negative for injury, bleeding, discharge, and swelling, MS/Extremity: Negative for injury and deformity, Skin: Negative for injury, rash, and discoloration, Neuro: Negative for headache, weakness, numbness, tingling, and seizure, Psych: Negative for depression, anxiety, suicide ideation, homicidal ideation, and hallucinations, Allergy/Immunology: Negative for hives, rash, and allergies, Endocrine: Negative for neck swelling, polydipsia, polyuria, polyphagia, and marked weight changes, Hematologic/Lymphatic: Negative for swollen nodes, abnormal bleeding, and unusual bruising. 15:51 Cardiovascular: Positive for chest pain, with movement, of the back and chest. Exam: 15:51 Constitutional: This is a well developed, well nourished patient who is awake, alert, korin and in no acute distress. Head/Face: Normocephalic, atraumatic. Eyes: Pupils equal round and reactive to light, extra-ocular motions intact. Lids and lashes normal. Conjunctiva and sclera are non-icteric and not injected. Cornea within normal limits. Periorbital areas with no swelling, redness, or edema. ENT: Nares patent. No nasal discharge, no septal abnormalities noted. Tympanic membranes are normal and external auditory canals are clear. Oropharynx with no redness, swelling, or masses, exudates, or evidence of obstruction, uvula midline. Mucous membranes moist. Neck: Trachea midline, no thyromegaly or masses palpated, and no cervical lymphadenopathy. Supple, full range of motion without nuchal rigidity, or vertebral point tenderness. No Meningismus. Chest/axilla: Normal chest wall appearance and motion. Nontender with no deformity. No lesions are appreciated. Cardiovascular: Regular rate and rhythm with a normal S1 and S2. No gallops, murmurs, or rubs. Normal PMI, no JVD. No pulse deficits. Respiratory: Lungs have equal breath sounds bilaterally, clear to auscultation and percussion. No rales, rhonchi or wheezes noted. No increased work of breathing, no retractions or nasal flaring. Abdomen/GI: Soft, non-tender, with normal bowel sounds. No distension or tympany. No guarding or rebound. No evidence of tenderness throughout. Back: No spinal tenderness. No costovertebral tenderness. Full range of motion. Skin: Warm, dry with normal turgor. Normal color with no rashes, no lesions, and no evidence of cellulitis. MS/ Extremity: Pulses equal, no cyanosis. Neurovascular intact. Full, normal range of motion. Neuro: Awake and alert, GCS 15, oriented to person, place, time, and situation. Cranial nerves II-XII grossly intact. Motor strength 5/5 in all extremities. Sensory grossly intact. Cerebellar exam normal. Normal gait. Psych: Awake, alert, with orientation to person, place and time. Behavior, mood, and affect are within normal limits. 15:51 Musculoskeletal/extremity: DVT Exam: No signs of deep vein thrombosis. no pain, no swelling, no tenderness, negative Homans' sign noted on exam, no appreciated bluish discoloration, no erythema, no increased warmth. 16:01 ECG was reviewed by the Attending Physician. korin Vital Signs: 12:02 BP 135 / 114; Pulse 88; Resp 20; Temp 99.6(TE); Pulse Ox 97% ; Weight 97.52 kg; Height sv 5 ft. 2 in. (157.48 cm); 12:40 BP 133 / 81; Pulse 84; Resp 20; Pulse Ox 97% on R/A; ca1 13:30 BP 114 / 96; Pulse 69; Resp 15 S; Pulse Ox 100% on R/A; ca1 14:30 BP 114 / 58; Pulse 68; Resp 15; Pulse Ox 98% on R/A; ca1 15:50 BP 130 / 96; Pulse 82; Resp 20 S; Pulse Ox 98% on R/A; ca1 12:02 Body Mass Index 39.32 (97.52 kg, 157.48 cm) sv MDM: 12:55 Patient medically screened. korin 15:55 Differential diagnosis: abnormal EKG, acute pericarditis, anxiety, chest wall pain, korin cholecystitis, Cholelithiasis costochondritis, esophagitis, gastritis, pleurisy, pneumonia, pulmonary embolus, stable angina, thoracic aortic disection, unstable angina. HEART Score: History: Slightly Suspicious (0), ECG: Normal (0), Age: < or = 45 years (0), Risk Factors: No Risk Factors Known (0), Troponin: < or = 1 x Normal Limit (0). The patient's deep vein thrombosis risk score was calculated as follows: Total Score: 0. This patient was found to be at low risk for a deep vein thrombosis by using the Well's assessment criteria. The patient's pulmonary embolism risk score was calculated as follows: No Risks (0 Pts) Total Score: 0-2 points. This patient was found to be at low risk for a pulmonary embolism by using the Well's assessment criteria. MARISABEL Risk Score: TOTAL SCORE = 0. Data reviewed: vital signs, nurses notes, lab test result(s), EKG, radiologic studies, CT scan, plain films. 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 Test interpretation: by ED physician or midlevel provider: ECG, plain radiologic studies. Counseling: I had a detailed discussion with the patient and/or guardian regarding: the historical points, exam findings, and any diagnostic results supporting the discharge/admit diagnosis, lab results, radiology results, the need for outpatient follow up, for definitive care, a supervisor bonding, an synthetic chemist, a psychiatrist. ED course: follow up , return if worse, dc home , will give meds for anxiety. 03/19 13:00 Order name: Basic Metabolic Panel [facility] 03/19 13:00 Order name: CBC with Diff; Complete Time: 14:31 [facility] 03/19 13:00 Order name: LFT's [facility] 03/19 13:00 Order name: Magnesium; Complete Time: 14:31 [facility] 03/19 13:00 Order name: NT PRO-BNP; Complete Time: 14:31 [facility] 03/19 13:00 Order name: PT-INR; Complete Time: 14:31 [facility] 03/19 13:00 Order name: Troponin (emerg Dept Use Only); Complete Time: 14:31 [facility] 03/19 13:00 Order name: XRAY Chest (1 view); Complete Time: 14:31 [facility] 03/19 13:00 Order name: Lipase; Complete Time: 14:31 [facility] 03/19 13:00 Order name: CT Aorta for Dissection; Complete Time: 14:31 [facility] 03/19 13:01 Order name: Basic Metabolic Panel; Complete Time: 14:31 [facility] 03/19 13:01 Order name: Liver (Hepatic) Function; Complete Time: 14:31 [facility] 03/19 13:57 Order name: Urine Dipstick--Ancillary (enter results); Complete Time: 15:48 03/19 13:00 Order name: EKG; Complete Time: 13:01 [facility] 03/19 13:00 Order name: Cardiac monitoring; Complete Time: 13:05 [facility] 03/19 13:00 Order name: EKG - Nurse/Tech; Complete Time: 13:05 [facility] 03/19 13:00 Order name: IV Saline Lock; Complete Time: : [facility] 03/19 13:00 Order name: Labs collected and sent; Complete Time: [facility] 03/19 13:00 Order name: O2 Per Protocol; Complete Time: : [facility] 03/19 13:00 Order name: O2 Sat Monitoring; Complete Time: : [facility] 03/19 13:00 Order name: Urine Dipstick-Ancillary (obtain specimen); Complete Time: 14: [facility] 03/19 13:00 Order name: Urine Test (obtain specimen); Complete Time: 14: [facility] EC:01 Rate is 89 beats/min. Rhythm is regular. QRS [place] is Normal. NV interval is normal. QRS korin interval is normal. QT interval is normal. No Q waves. T waves are Normal. No ST changes noted. Clinical impression: Normal ECG and No evidence of ischemia. Interpreted by me. Reviewed by me. Administered Medications: 14:06 Drug: Aspirin Chewable Tablet 162 mg Route: PO; ca1 14:52 Follow up: Response: No adverse reaction ca1 14:06 Drug: NS 0.9% 500 ml Route: IV; Rate: bolus; Site: left antecubital; ca1 14:52 Follow up: Response: No adverse reaction; IV Status: Completed infusion; IV Intake: ca1 500ml 14:52 Drug: NS 0.9% 1000 ml Route: IV; Rate: 125 ml/hr; Site: left antecubital; ca1 16:20 Follow up: Response: No adverse reaction; Pt DC; IV Status: Order to discontinue ca1 infusion 14:52 Drug: Ativan 1 mg Route: IVP; Site: left antecubital; ca1 16:00 Follow up: Response: No adverse reaction; Anxiety decreased; RASS: Alert and Calm (0) ca1 Disposition: 03/19/20 15:59 Discharged to Home. Impression: Chest pain, unspecified, Anxiety disorder, unspecified. - Condition is Stable. - Discharge Instructions: Nonspecific Chest Pain, Nonspecific Chest Pain, [id number], Panic Attacks, [id number], Aspirin and Your Heart, Generalized Anxiety Disorder. - Prescriptions for Xanax 0.5 mg Oral Tablet - take 1 tablet by ORAL route every 8 hours As needed; 20 tablet. - Medication Reconciliation Form, Thank You Letter, Antibiotic Education, Prescription Opioid Use form. - Follow up: Private Physician; When: 2 - 3 days; Reason: Recheck today's complaints, Continuance of care, Re-evaluation by your physician. Follow up: Dagoberto Solo MD; When: 2 - 3 days; Reason: Recheck today's complaints, Re-evaluation by your physician. Follow up: Ryan Quiroga MD; When: 2 - 3 days; Reason: Recheck today's complaints, Re-evaluation by your physician. - Problem is new. - Symptoms have improved. Signatures: Dispatcher [employer] EDMS Teresa Carreno RN RN Storm López MD MD cha Acob, Cheryl, RN RN ca1 Corrections: (The following items were deleted from the chart) 15:59 15:59 03/19/2020 15:59 Discharged to Home. Impression: Chest pain, unspecified; Anxiety korin disorder, unspecified. Condition is Stable. Forms are Medication Reconciliation Form, Thank You Letter, Antibiotic Education, Prescription Opioid Use. Follow up: Private Physician; When: 2 - 3 days; Reason: Recheck today's complaints, Continuance of care, Re-evaluation by your physician. Problem is new. Symptoms have improved. korin 16:23 15:59 03/19/2020 15:59 Discharged to Home. Impression: Chest pain, unspecified; Anxiety ca1 disorder, unspecified. Condition is Stable. Forms are Medication Reconciliation Form, Thank You Letter, Antibiotic Education, Prescription Opioid Use. Follow up: Private Physician; When: 2 - 3 days; Reason: Recheck today's complaints, Continuance of care, Re-evaluation by your physician. Follow up: Dagoberto Solo; When: 2 - 3 days; Reason: Recheck today's complaints, Re-evaluation by your physician. Follow up: Ryan Quiroga; When: 2 - 3 days; Reason: Recheck today's complaints, Re-evaluation by your physician. Problem is new. Symptoms have improved. korin
--- NOTE | 2020-03-20 09:01 | EKG ---
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
[2020-03-20 23:31] VITALS: TEMP 99.6
[2020-03-20 23:34] VITALS: O2SAT 98
[2020-03-20 23:35] VITALS: BP 130/96
== END 2020-03-19 16:23 | disposition home or self-care (01) ==
LOC: ER 11:55
DX: F41.9 Anxiety disorder, unspecified (principal); N18.2 Chronic kidney disease, stage 2 (mild); F17.210 Nicotine dependence, cigarettes, uncomplicated
CPT/HCPCS: 96361; 93005; 85025; 80048; 36415; 83735; 85610; 80076; 81003; 84484; 83690; 83880; 71275; 74175; 71045; 96374; 99285; Q9967; J7030

== ENCOUNTER 2020-04-01 07:28 | Emergency (ER) | payer OTHER ==
--- OUTSIDE RECORDS SUMMARY | 2020-04-01 07:49 | XMS REPORT | Clinical Summary ---
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
[2020-04-01] MEDS ORDERED: METOCLOPRAMIDE 10 MG/2mL INJ ONE (08:07)
[2020-04-01] MEDS ORDERED: NA CHLORIDE 0.9% 1,000 ML ONE (08:08)
[2020-04-01] MEDS ORDERED: FAMOTIDINE 20 MG/2 ML VIAL IV ONE (08:08)
[2020-04-01 08:19] LABS: Absolute Lymphocytes (CBC) 1.4 K/uL (0.7-4.9); Basophils % 0.7 % (0-1.3); Hematocrit 38.1 % (36.0-45.0); Lymphocytes % 19.3 % (15.3-44.8); MPV 8.1 fL (7.6-11.3); RBC Red Blood Cell Count 4.38 M/uL (3.86-4.86)
[2020-04-01 08:36] LABS: Albumin 3.7 g/dL (3.4-5.0); Bilirubin Direct 0.2 mg/dL (0-0.2); Bilirubin Total 0.3 mg/dL (0.2-1.0); Potassium 3.3 mmol/L (3.5-5.1); Protein, Total 7.6 g/dL (6.4-8.2)
--- NOTE | 2020-04-01 10:34 | RAD REPORT ---
EXAM DESCRIPTION: CTAbdomen Pelvis W Contrast - 04/01/2020 10:24 am CLINICAL HISTORY: Abdominal pain. Elecated lipase and AST;Abd pain COMPARISON: Abdomen Pelvis W Contrast dated 05/02/2019; Abdomen Pelvis W Contrast dated 9; Abdomen Pelvis W Contrast dated 11/07/2018; Abdomen Pelvis W Contrast dated 09/04/2018; Angio A oxana For Dissection dated 03/19/2020 TECHNIQUE: Biphasic CT imaging of the abdomen and pelvis was performed with 100 ml non-ionic IV cont rast. All CT scans are performed using dose optimization technique as appropriate and may include automated exposure control or mA/KV adjustment according to patient size. FINDINGS: The lung bases are clear. The liver, spleen, pancreas, adrenal glands and kidneys are within normal limits. No bowel obstruction, free air, intra-abdominal free fluid or abscess. Mild sigmoid diverticulosis. T he appendix is normal. Trace pelvic free fluid. No evidence of significant lymphadenopathy. No suspicious bony findings. IMPRESSION: No acute intra-abdominal or pelvic finding.
--- NOTE | 2020-04-01 10:39 | EDPHYS ---
Physician Documentation [facility] Name: Jaymie Cleveland Age: 35 yrs Sex: Female : 1985 Arrival Date: 04/01/2020 Time: 07:30 Bed 8 Private MD: ED Physician Bora Majano HPI: 04/01 10:42 This 35 yrs old Female presents to ER via Ambulatory with complaints of kdr Nausea/Vomiting. 10:42 The patient presents to the emergency department with nausea, that is moderate, kdr vomiting, that is intermittent. Onset: The symptoms/episode began/occurred gradually, last night. Possible causes: unknown. The symptoms are aggravated by food , The symptoms are alleviated by nothing. Associated signs and symptoms: The patient has no apparent associated signs or symptoms. Severity of symptoms: At their worst the symptoms were moderate in the emergency department the symptoms have improved mildly. The patient has experienced similar episodes in the past, multiple times. The patient has been recently seen by a physician: The patient has been recently seen at the [facility] Emergency Department. 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 - Social history:: Smoking status: Patient reports the use of cigarette tobacco products, smokes one-half pack cigarettes per day. ROS: 10:42 Constitutional: Negative for fever, chills, and weight loss, Eyes: Negative for injury, kdr pain, redness, and discharge, Neck: Negative for injury, pain, and swelling, Cardiovascular: Negative for chest pain, palpitations, and edema, Respiratory: Negative for shortness of breath, cough, wheezing, and pleuritic chest pain, Back: Negative for injury and pain, : Negative for injury, bleeding, discharge, and swelling, MS/Extremity: Negative for injury and deformity, Skin: Negative for injury, rash, and discoloration, Neuro: Negative for headache, weakness, numbness, tingling, and seizure activity. Psych: Negative for depression, anxiety, suicide ideation, homicidal ideation, and hallucinations, Allergy/Immunology: Negative for hives, rash, and allergies, Endocrine: Negative for neck swelling, polydipsia, polyuria, polyphagia, and marked weight changes, Hematologic/Lymphatic: Negative for swollen nodes, abnormal bleeding, and unusual bruising. 10:42 Abdomen/GI: Positive for nausea and vomiting, Negative for diarrhea, constipation, abdominal cramps, abdominal distension, anorexia, dysphagia, hematemesis, black/tarry stool, rectal pain, rectal bleeding, bowel incontinence. Exam: 10:42 Constitutional: This is a well developed, well nourished patient who is awake, alert, kdr and in no acute distress. Head/Face: Normocephalic, atraumatic. Eyes: Pupils equal round and reactive to light, extra-ocular motions intact. Lids and lashes normal. Conjunctiva and sclera are non-icteric and not injected. Cornea within normal limits. Periorbital areas with no swelling, redness, or edema. Neck: Trachea midline, no thyromegaly or masses palpated, and no cervical lymphadenopathy. Supple, full range of motion without nuchal rigidity, or vertebral point tenderness. No Meningismus. Chest/axilla: Normal chest wall appearance and motion. Nontender with no deformity. No lesions are appreciated. Cardiovascular: Regular rate and rhythm with a normal S1 and S2. No gallops, murmurs, or rubs. Normal PMI, no JVD. No pulse deficits. Respiratory: Lungs have equal breath sounds bilaterally, clear to auscultation and percussion. No rales, rhonchi or wheezes noted. No increased work of breathing, no retractions or nasal flaring. Abdomen/GI: Soft, non-tender, with normal bowel sounds. No distension or tympany. No guarding or rebound. No evidence of tenderness throughout. Skin: Warm, dry with normal turgor. Normal color with no rashes, no lesions, and no evidence of cellulitis. MS/ Extremity: Pulses equal, no cyanosis. Neurovascular intact. Full, normal range of motion. Neuro: Awake and alert, GCS 15, oriented to person, place, time, and situation. Cranial nerves II-XII grossly intact. Motor strength 5/5 in all extremities. Sensory grossly intact. Cerebellar exam normal. Normal gait. Psych: Awake, alert, with orientation to person, place and time. Behavior, mood, and affect are within normal limits. 10:42 Back: pain, that is very mild, of the right mid back. Vital Signs: 07:41 BP 123 / 79; Pulse 103; Resp 18; Temp 98.7(O); Pulse Ox 94% on R/A; Weight 99.79 kg; em Height 5 ft. 2 in. (157.48 cm); Pain 0/10; 08:40 BP 118 / 56; Pulse 89; Resp 18; Pulse Ox 95% on R/A; em 09:30 BP 99 / 63; Pulse 81; Resp 18; Pulse Ox 100% ; sv 10:52 BP 112 / 68; Pulse 84; Resp 16; Pulse Ox 98% on R/A; Pain 0/10; iw 07:41 Body Mass Index 40.24 (99.79 kg, 157.48 cm) em MDM: 10:38 Patient medically screened. kdr 10:42 Data reviewed: vital signs, nurses notes, lab test result(s), radiologic studies. kdr Counseling: I had a detailed discussion with the patient and/or guardian regarding: the historical points, exam findings, and any diagnostic results supporting the discharge/admit diagnosis, lab results, radiology results, the need for outpatient follow up. Special discussion: Based on the patient's Hx, exam, and Dx evaluation, there is no indication for emergent surgery or inpatient Tx. It is understood by the patient/guardian that if the Sx's persist or worsen they need to return immediately for re-evaluation. I discussed with the patient/guardian in detail that at this point there is no indication for admission to the hospital. It is understood, however, that if the symptoms persist or worsen the patient needs to return immediately for re-evaluation. ED course: The patient was much improved with the interventions given and was happy with the care provided and the plan for discharge and follow-up. 04/01 07:54 Order name: Basic Metabolic Panel kdr 04/01 07:54 Order name: CBC with Diff kdr 04/01 07:54 Order name: Hepatic Function kdr 04/01 07:54 Order name: Lipase kdr 04/01 07:54 Order name: Basic Metabolic Panel; Complete Time: 08:51 EDMS 04/01 07:54 Order name: CBC with Automated Diff; Complete Time: 08:39 EDMS 04/01 07:54 Order name: IV Saline Lock; Complete Time: 08:15 [facility] 04/01 07:54 Order name: Labs collected and sent; Complete Time: 08:15 [facility] 04/01 07:54 Order name: Liver (Hepatic) Function; Complete Time: 08:51 [facility] 04/01 07:54 Order name: Lipase; Complete Time: 08:51 [facility] 04/01 10:04 Order name: CT Abd/Pelvis - IV Contrast Only; Complete Time: 10:36 kdr Administered Medications: 08:07 Drug: NS 0.9% 1000 ml Route: IV; Rate: 1 bolus; Site: right wrist; em 08:07 Drug: Reglan 10 mg Route: IVP; Site: right wrist; em 10:00 Follow up: Response: No adverse reaction iw 08:09 Drug: Pepcid 20 mg Route: IVP; Site: right wrist; em 08:30 Follow up: Response: No adverse reaction iw Disposition: 04/01/20 10:38 Discharged to Home. Impression: Nausea and vomiting, Elevated Liver Enzymes. - Condition is Stable. - Discharge Instructions: Nausea and Vomiting, Adult, [id number]. - Prescriptions for Reglan 10 mg Oral Tablet - take 1 tablet by ORAL route every 6 hours take 30 minutes before meals and at bedtime; 20 tablet. - Medication Reconciliation Form, Thank You Letter form. - Follow up: Private Physician; When: 2 - 3 days; Reason: If symptoms return, Further diagnostic work-up, Recheck today's complaints, Continuance of care, Re-evaluation by your physician. - Problem is new. - Symptoms have improved. - Notes: As we discussed, some of your liver enzymes were slightly elevated. You will need to follow up with your doctor in the next 7 - 10 days to have these enzymes re-evaluated. Signatures: Dispatcher [facility] Bora Majano MD MD [facility] Tyler Davalos, MABEL RN em Ariana Anderson RN RN iw Corrections: (The following items were deleted from the chart) 10:53 10:38 04/01/2020 10:38 Discharged to Home. Impression: Nausea and vomiting; Elevated iw Liver Enzymes. Condition is Stable. Forms are Medication Reconciliation Form, Thank You Letter, Antibiotic Education, Prescription Opioid Use. Follow up: Private Physician; When: 2 - 3 days; Reason: If symptoms return, Further diagnostic work-up, Recheck today's complaints, Continuance of care, Re-evaluation by your physician. Problem is new. Symptoms have improved. kdr
--- NOTE | 2020-04-01 10:39 | ER ---
Nurse's Notes [facility] Name: Jaymie Cleveland Age: 35 yrs Sex: Female : 1985 Arrival Date: 04/01/2020 Time: 07:30 Bed 8 Private MD: Diagnosis: Nausea and vomiting;Elevated Liver Enzymes Presentation: 04/01 07:41 Chief complaint: Patient states: nausea that started yesterday evening, was seen at [facility] and diagnosed with a kidney/UTI infection, prescribed Zofran and Bactrim, has been taking medications but is not helping, denies belly pain, has right sided flank pain, denies fever. Coronavirus screen: Client denies travel out of the [place] in the last 14 days. Ebola Screen: Patient negative for fever greater than or equal to 101.5 degrees Fahrenheit, and additional compatible Ebola Virus Disease symptoms Patient denies exposure to infectious person. Patient denies travel to an Ebola-affected area in the 21 days before illness onset. No symptoms or risks identified at this time. Initial Sepsis Screen: Does the patient meet any 2 criteria? HR > 90 bpm. No. Patient's initial sepsis screen is negative. Does the patient have a suspected source of infection? Yes: Dysuria/Frequency/Urgency/UTI. Risk Assessment: Do you want to hurt yourself or someone else? Patient reports no desire to harm self or others. Onset of symptoms was March 31, 2020. 07:41 Method Of Arrival: Ambulatory em 07:41 Acuity: HOSEA 3 em IN HOME NANNY: 10:53 LMP N/A - iw Historical: - Allergies: 07:46 NKDA; em - PMHx: 07:46 ADD/ADHD; Anxiety; Borderline Bipolar disorder; C DIFF; Colitis; Depression; Irritable em bowel syndrome; ocd; Ovarian cyst; Seizures; Stage 2 CKD; - PSHx: 07:46 None; em - Immunization history:: Adult Immunizations up to date. - Social history:: Smoking status: Patient reports the use of cigarette tobacco products, smokes one-half pack cigarettes per day. Screenin:47 Abuse screen: Denies threats or abuse. Nutritional screening: No deficits noted. em Tuberculosis screening: No symptoms or risk factors identified. Fall Risk None identified. Assessment: 07:48 General: Appears in no apparent distress. comfortable, Behavior is calm, cooperative, em appropriate for age, Denies fever. Pain: Denies pain. Neuro: Level of Consciousness is awake, alert, obeys commands, Oriented to person, place, time, situation, Appropriate for age. Cardiovascular: Capillary refill < 3 seconds Patient's skin is warm and dry. Respiratory: Airway is patent Respiratory effort is even, unlabored, Respiratory pattern is regular, symmetrical. GI: Abdomen is round non-distended, Reports nausea, vomiting, Patient currently denies diarrhea. : Denies burning with urination, discharge, vaginal bleeding. Derm: Skin is intact, is healthy with good turgor, Skin is pink, warm \T\ dry. Musculoskeletal: Range of motion: intact in all extremities. 08:42 Reassessment: Patient appears in no apparent distress at this time. Patient and/or em family updated on plan of care and expected duration. Pain level reassessed. Patient is alert, oriented x 3, equal unlabored respirations, skin warm/dry/pink. Patient states feeling better. Patient states symptoms have improved. 10:00 Reassessment: Patient appears in no apparent distress at this time. Patient and/or ca1 family updated on plan of care and expected duration. Pain level reassessed. Patient is alert, oriented x 3, equal unlabored respirations, skin warm/dry/pink. Vital Signs: 07:41 BP 123 / 79; Pulse 103; Resp 18; Temp 98.7(O); Pulse Ox 94% on R/A; Weight 99.79 kg; em Height 5 ft. 2 in. (157.48 cm); Pain 0/10; 08:40 BP 118 / 56; Pulse 89; Resp 18; Pulse Ox 95% on R/A; em 09:30 BP 99 / 63; Pulse 81; Resp 18; Pulse Ox 100% ; sv 10:52 BP 112 / 68; Pulse 84; Resp 16; Pulse Ox 98% on R/A; Pain 0/10; iw 07:41 Body Mass Index 40.24 (99.79 kg, 157.48 cm) em ED Course: 07:30 Patient arrived in ED. ds1 07:34 Tyler Davalos RN is Primary Nurse. em 07:44 Bora Majano MD is Attending Physician. kdr 07:45 Triage completed. em 07:46 Arm band placed on. em 07:47 Patient has correct armband on for positive identification. Bed in low position. Call em light in reach. Pulse ox on. NIBP on. 10:24 CT Abd/Pelvis - IV Contrast Only In Process Unspecified. EDMS 10:52 No provider procedures requiring assistance completed. IV discontinued, intact, iw bleeding controlled, No redness/swelling at site. Pressure dressing applied. Administered Medications: 08:07 Drug: NS 0.9% 1000 ml Route: IV; Rate: 1 bolus; Site: right wrist; em 08:07 Drug: Reglan 10 mg Route: IVP; Site: right wrist; em 10:00 Follow up: Response: No adverse reaction iw 08:09 Drug: Pepcid 20 mg Route: IVP; Site: right wrist; em 08:30 Follow up: Response: No adverse reaction iw Outcome: 10:38 Discharge ordered by . kdr 10:53 Discharged to home ambulatory. iw 10:53 Condition: good 10:53 Discharge instructions given to patient, Instructed on discharge instructions, follow up and referral plans. medication usage, Demonstrated understanding of instructions, follow-up care, medications, Prescriptions given X 1. 10:53 Patient left the ED. iw Signatures: Dispatcher [employer] EDMS Teresa Carreno RN RN sv Bora Majano MD MD kdr Munoz, Edgar, RN RN Amanda Rahman ds1 Ariana Anderson RN RN iw Nelly Campo RN MABEL ca1 Corrections: (The following items were deleted from the chart) 07:47 07:41 Chief complaint: Patient states: nausea that started yesterday evening, was seen em at [facility] and diagnosed with a kidney infection, prescribed Zofran and Bactrim, has been taking medications but is not helping, denies belly pain, has right sided flank pain, denies fever em
[2020-04-01 12:09] VITALS: TEMP 98.7
[2020-04-01 12:13] VITALS: BP 112/68; O2SAT 98
== END 2020-04-01 10:53 | disposition home or self-care (01) ==
LOC: ER 07:28
DX: R94.5 Abnormal results of liver function studies (principal); N18.2 Chronic kidney disease, stage 2 (mild); F17.210 Nicotine dependence, cigarettes, uncomplicated
CPT/HCPCS: 85025; 80048; 36415; 80076; 83690; 74177; 96375; 96374; 99284; Q9967; J2765; J7030

== ENCOUNTER 2020-04-13 10:54 | Emergency (ER) | payer OTHER ==
--- OUTSIDE RECORDS SUMMARY | 2020-04-13 10:57 | XMS REPORT | Clinical Summary ---
:1985 Author Organization [employer] [employer] Address [address] [place] [id number] Care Team Providers Name Role Phone Asked, No Pcp Primary Care Provider Unavailable Allergies No Known Active Allergies Medications Not on file Active Problems [...] Assigned at Date Recorded Not on file Last Filed Vital Signs Not on file Plan of Treatment Health Maintenance Due Date Last Done Comments CERVICAL CANCER SCREENING 01/29/2004 INFLUENZA VACCINE 02/14/2020 Results Not on fileafter 04/13/2019 Insurance Payer Benefit Plan / Subscriber ID Effective Dates Phone Addre ss Type Group [employer] [facility] [id number] 2018-Prese Exchange CHOICE EXCHANGE EXCHANGE nt [employer] Advance Directives For more information, please contact: [phone] Type Date Recorded 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
[2020-04-13 11:47] LABS: Protime INR 0.99
[2020-04-13 11:49] LABS: Absolute Lymphocytes (CBC) 1.1 K/uL (0.7-4.9); Basophils % 0.6 % (0-1.3); Lymphocytes % 16.4 % (15.3-44.8); MPV 8.7 fL (7.6-11.3); RBC Red Blood Cell Count 4.68 M/uL (3.86-4.86)
[2020-04-13] MEDS ORDERED: LORazepam 2 MG/ML VIAL ONE (11:52)
[2020-04-13 12:07] LABS: ALT/SGPT 47 U/L (12-78); AST/SGOT 20 U/L (15-37); Albumin 4.1 g/dL (3.4-5.0); Alkaline Phosphatase 72 U/L (45-117); BUN Blood Urea Nitrogen 11 mg/dL (7-18); Bicarbonate 23 mmol/L (21-32); Bilirubin Direct 0.1 mg/dL (0-0.2); Bilirubin Total 0.4 mg/dL (0.2-1.0); Glucose Level 93 mg/dL (74-106); Lipase 197 U/L (73-393); Magnesium 2.2 mg/dL (1.8-2.4); NT PRO-BNP 18 pg/mL (<125); Protein, Total 8.1 g/dL (6.4-8.2); Sodium Level 139 mmol/L (136-145); Troponin (Emerg Dept Use Only) < 0.02 ng/mL (0.0-0.045)
[2020-04-13] MEDS ORDERED: NA CHLORIDE 0.9% 1,000 ML ONE (12:18)
--- NOTE | 2020-04-13 12:20 | RAD REPORT ---
EXAM DESCRIPTION: Maximino Single View04/13/2020 11:42 am CLINICAL HISTORY: Chest pain COMPARISON: March 19, 2020 FINDINGS: The lungs appear clear of acute infiltrate. The heart is normal size IMPRESSION: No acute abnormalities displayed
[2020-04-13] MEDS ORDERED: PROMETHAZINE INJ 25 MG/ML AMP ONE (12:28)
[2020-04-13] MEDS ORDERED: FENTANYL CITR 100 MCG/2 ML ONE (12:29)
[2020-04-13] MEDS ORDERED: DIAZEPAM 10 MG/2 ML INJ SYRINGE ONE (13:08)
--- NOTE | 2020-04-13 13:42 | RAD REPORT ---
EXAM DESCRIPTION: CT - Chest For Pe Angio - 04/13/2020 1:24 pm CLINICAL HISTORY: Chest pain. CHEST PAIN COMPARISON: Chest For Pe Angio dated 03/09/2020 TECHNIQUE: CT angiogram of the pulmonary arteries was performed with MIP. All CT scans are performed using dose optimization technique as appropriate and may include automated exposure control or mA/KV adjustment according to patient size. FINDINGS: No evidence of pulmonary thromboembolism. No acute aortic finding demonstrated. The lungs are clear. No significant pericardial or pleural fluid. No concerning bony finding. IMPRESSION: No evidence of pulmonary thromboembolism. No acute lung findings.
--- NOTE | 2020-04-13 14:51 | ER ---
Nurse's Notes [facility] Name: Jaymie Cleveland Age: 35 yrs Sex: Female : 1985 Arrival Date: 04/13/2020 Time: 10:55 Bed 13 Private MD: Leighton Villalpando Diagnosis: Chest pain, unspecified Presentation: 04/13 10:58 Chief complaint: Patient states: "I think I am just having a really bad anxiety attack. ca1 my chest hurts and I feel really scared". Chest pain started last night, intermittent, mid-sternal, non-radiating, SOB and lightheadedness reported with CP. Reports N/V. Denies cough, injury to chest. Appears anxious on triage. States, "I feel like I am going to pass out". Coronavirus screen: Client denies travel out of the [place] in the last 14 days. At this time, the client does not indicate any symptoms associated with coronavirus-19. Ebola Screen: Patient negative for fever greater than or equal to 101.5 degrees Fahrenheit, and additional compatible Ebola Virus Disease symptoms Patient denies exposure to infectious person. Patient denies travel to an Ebola-affected area in the 21 days before illness onset. No symptoms or risks identified at this time. Initial Sepsis Screen: Does the patient meet any 2 criteria? No. Patient's initial sepsis screen is negative. Does the patient have a suspected source of infection? No. Patient's initial sepsis screen is negative. Risk Assessment: Do you want to hurt yourself or someone else? Patient reports no desire to harm self or others. Onset of symptoms was April 13, 2020. 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 - Social history:: Smoking status: Patient reports the use of cigarette tobacco products, smokes one-half pack cigarettes per day. Screenin:10 Abuse screen: Denies threats or abuse. Denies injuries from another. Nutritional ca1 screening: No deficits noted. Tuberculosis screening: No symptoms or risk factors identified. Fall Risk IV access (20 points). Assessment: 11:10 General: Appears in no apparent distress. uncomfortable, Behavior is cooperative, ca1 anxious, crying. Pain: Complains of pain in mid-sternal area Pain does not radiate. Pain currently is 8 out of 10 on a pain scale. Quality of pain is described as pressure, Pain began 1 day ago. Is intermittent. Pain: Also complains of nausea, shortness of breath. Neuro: Level of Consciousness is awake, alert, obeys commands, Oriented to person, place, time, situation, Reports dizziness. Cardiovascular: Reports lightheadedness, nausea, shortness of breath, Heart tones S1 S2 present Capillary refill < 3 seconds Patient's skin is warm and dry. Rhythm is sinus rhythm. Respiratory: Airway is patent Respiratory effort is even, unlabored, Respiratory pattern is regular, symmetrical, Breath sounds are clear bilaterally. GI: Abdomen is round non-distended, Bowel sounds present X 4 quads. Abd is soft and non tender X 4 quads. : No signs and/or symptoms were reported regarding the genitourinary system. EENT: No signs and/or symptoms were reported regarding the EENT system. Derm: Skin is intact, is healthy with good turgor, Skin is pink, warm \\T\\ dry. Musculoskeletal: Circulation, motion, and sensation intact. Capillary refill < 3 seconds. 12:20 Reassessment: Patient and/or family updated on plan of care and expected duration. Pain jd3 level reassessed. Patient is alert, oriented x 3, equal unlabored respirations, skin warm/dry/pink. pt reporting pain sensation returning, provider notified, new orders received, see MAR. 12:50 Reassessment: Patient and/or family updated on plan of care and expected duration. Pain jd3 level reassessed. Patient is alert, oriented x 3, equal unlabored respirations, skin warm/dry/pink. pt reporting continued anxiety, provider notified. 14:05 Reassessment: Patient appears in no apparent distress at this time. Patient and/or jd3 family updated on plan of care and expected duration. Pain level reassessed. Patient is alert, oriented x 3, equal unlabored respirations, skin warm/dry/pink. Patient states feeling better. Patient states symptoms have improved. 15:05 Reassessment: Patient appears in no apparent distress at this time. Patient and/or jd3 family updated on plan of care and expected duration. Pain level reassessed. Patient is alert, oriented x 3, equal unlabored respirations, skin warm/dry/pink. Patient states feeling better. Vital Signs: 10:58 BP 126 / 96; Pulse 108; Resp 20 S; Temp 97.3(TE); Pulse Ox 100% on R/A; Weight 97.52 kg ca1 (R); Height 5 ft. 3 in. (160.02 cm) (R); 12:25 BP 115 / 85; Pulse 105; Resp 14 S; Pulse Ox 97% on R/A; jd3 13:38 BP 112 / 82; Pulse 88; Resp 20 S; Pulse Ox 99% on R/A; jd3 14:05 BP 125 / 82; Pulse 97; Resp 18 S; Pulse Ox 97% on R/A; jd3 10:58 Body Mass Index 38.09 (97.52 kg, 160.02 cm) ca1 ED Course: 10:55 Patient arrived in ED. ag5 10:55 Leighton Villalpando MD is Private Physician. ag5 11:01 Triage completed. ca1 11:02 Nelly Campo RN is Primary Nurse. ca1 11:02 Arm band placed on right wrist. ca1 11:03 Jose Alfredo Smyth PA is PHCP. [facility] 11:03 Storm Martin MD is Attending Physician. [facility] 11:05 Inserted saline lock: 20 gauge in right antecubital area, using aseptic technique. ca1 Blood collected. Patient maintains SpO2 saturation greater than 95% on room air. 11:05 No provider procedures requiring assistance completed. Initial lab(s) drawn, by ak, ca1 sent to lab. 11:10 Patient has correct armband on for positive identification. Placed in gown. Bed in low ca1 position. Call light in reach. Side rails up X2. corporate executive chef on. Pulse ox on. NIBP on. Warm blanket given. 11:43 XRAY Chest (1 view) In Process Unspecified. EDMS 12:01 Report given to MABEL Joy. ca1 12:23 Naun White, RN is Primary Nurse. jd3 13:17 CT completed. Patient tolerated procedure well. Patient moved to CT via stretcher. Patient moved back from CT. 13:24 CT Chest For PE Angio In Process Unspecified. EDMS 15:05 IV discontinued, intact, bleeding controlled, No redness/swelling at site. Pressure jd3 dressing applied. Administered Medications: 11:42 Drug: Ativan 1 mg Route: IVP; Site: right antecubital; ca1 12:40 Follow up: Response: No adverse reaction jd3 12:23 Drug: NS 0.9% 1000 ml Route: IV; Rate: 1 bolus; Site: right antecubital; jd3 15:05 Follow up: Response: No adverse reaction; IV Status: Completed infusion jd3 12:24 Drug: fentaNYL (PF) 50 mcg Route: IVP; Site: right antecubital; jd3 13:20 Follow up: Response: No adverse reaction; RASS: Alert and Calm (0) jd3 12:24 Drug: Promethazine 12.5 mg Route: IVP; Site: right antecubital; jd3 13:20 Follow up: Response: No adverse reaction jd3 12:59 Drug: Valium 5 mg Route: IVP; Site: right antecubital; jd3 13:55 Follow up: Response: No adverse reaction jd3 Outcome: 14:49 Discharge ordered by . aubree 15:05 Discharged to home ambulatory, with family. jd3 15:05 Condition: stable 15:05 Discharge instructions given to patient, Instructed on discharge instructions, follow up and referral plans. Demonstrated understanding of instructions, follow-up care. 15:06 Patient left the ED. jd3 Signatures: Dispatcher [employer] EDRI Jose Alfredo Smyth PA PA jmm Warren, Shannon Naun White RN RN jd3 Acob, Cheryl, RN RN ca1 Alicia Barrett 5
--- NOTE | 2020-04-13 14:51 | EDPHYS ---
Physician Documentation [facility] Name: Jaymie Cleveland Age: 35 yrs Sex: Female : 1985 Arrival Date: 04/13/2020 Time: 10:55 Bed 13 Private MD: Leighton Villalpando ED Physician Storm Martin HPI: 04/13 11:08 This 35 yrs old Female presents to ER via Ambulatory with complaints of Chest jmm Pain. 11:08 The patient or guardian reports chest pain that is located primarily in the anterior jmm chest wall. The pain does not radiate. Associated signs and symptoms: Pertinent positives: vomiting. The chest pain is described as aching, sharp. Duration: The patient or guardian reports multiple episodes. This is a 35 year old female with a history of bipolar, anxiety, colitis, that presents to the ED with complaints of vomiting, with chest pain. Initially began as vomiting last night follow up with chest pain. Pain has been constant since 4 am. Patient has had similar episodes with anxiety. . 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 - Social history:: Smoking status: Patient reports the use of cigarette tobacco products, smokes one-half pack cigarettes per day. ROS: 11:08 Constitutional: Negative for fever, chills, and weight loss, Respiratory: Negative for jmm shortness of breath, cough, wheezing, and pleuritic chest pain. 11:08 Back: Negative for injury and pain. 11:08 Cardiovascular: Positive for chest pain. 11:08 Abdomen/GI: Positive for nausea and vomiting. 11:08 All other systems are negative. Exam: 11:08 Head/Face: atraumatic. Eyes: EOMI, no conjunctival erythema appreciated ENT: Moist jmm Mucus Membranes Neck: Trachea midline, Supple Chest/axilla: Normal chest wall appearance and motion. Cardiovascular: Regular rate and rhythm. No edema appreciated Respiratory: Normal respirations, no respiratory distress appreciated Abdomen/GI: Non distended, soft Back: Normal ROM Skin: General appearance color normal MS/ Extremity: Moves all extremities, no obvious deformities appreciated, no edema noted to the lower extremities Neuro: Awake and alert, normal gait 11:08 Constitutional: The patient appears alert, awake, anxious. 11:08 Psych: Behavior/mood is anxious. Vital Signs: 10:58 BP 126 / 96; Pulse 108; Resp 20 S; Temp 97.3(TE); Pulse Ox 100% on R/A; Weight 97.52 kg ca1 (R); Height 5 ft. 3 in. (160.02 cm) (R); 12:25 BP 115 / 85; Pulse 105; Resp 14 S; Pulse Ox 97% on R/A; jd3 13:38 BP 112 / 82; Pulse 88; Resp 20 S; Pulse Ox 99% on R/A; jd3 14:05 BP 125 / 82; Pulse 97; Resp 18 S; Pulse Ox 97% on R/A; jd3 10:58 Body Mass Index 38.09 (97.52 kg, 160.02 cm) ca1 MDM: 11:08 Patient medically screened. korin 14:46 Data reviewed: vital signs, nurses notes. Counseling: I had a detailed discussion with aubree the patient and/or guardian regarding: the historical points, exam findings, and any diagnostic results supporting the discharge/admit diagnosis, lab results, radiology results, the need for outpatient follow up, to return to the emergency department if symptoms worsen or persist or if there are any questions or concerns that arise at home. ED course: Patient is alert and non toxic in appearance in the ED. Cardiac enzymes negative. Repeat EKG NSR with no ST changes or T wave abnormalities. patient advised to follow up with pcp and otherwise given strict return precautions. . 04/13 11:29 Order name: Basic Metabolic Panel; Complete Time: 12:51 [facility] 04/13 11:29 Order name: CBC with Diff; Complete Time: 12:01 [facility] 04/13 11:29 Order name: LFT's; Complete Time: 12:51 [facility] 04/13 11:29 Order name: Magnesium; Complete Time: 12:51 [facility] 04/13 11:29 Order name: NT PRO-BNP; Complete Time: 12:51 jm04/13 11:29 Order name: PT-INR; Complete Time: 11:49 04/13 11:29 Order name: Troponin (emerg Dept Use Only); Complete Time: 12:51 04/13 11:29 Order name: XRAY Chest (1 view); Complete Time: 12:22 04/13 11:29 Order name: Lipase; Complete Time: 12:51 [facility] 04/13 12:52 Order name: CT Chest For PE Angio; Complete Time: 13:48 04/13 13:51 Order name: Troponin (emerg Dept Use Only); Complete Time: 14:46 04/13 11:29 Order name: EKG; Complete Time: 11:30 04/13 11:29 Order name: Cardiac monitoring; Complete Time: 11:35 04/13 11:29 Order name: IV Saline Lock; Complete Time: 11:35 04/13 11:29 Order name: Labs collected and sent; Complete Time: 11:35 [facility] 04/13 11:29 Order name: O2 Per Protocol; Complete Time: 11:35 04/13 11:29 Order name: O2 Sat Monitoring; Complete Time: 11:35 04/13 13:49 Order name: EKG - Nurse/Tech; Complete Time: 14:04 [facility] Administered Medications: 11:42 Drug: Ativan 1 mg Route: IVP; Site: right antecubital; ca1 12:40 Follow up: Response: No adverse reaction jd3 12:23 Drug: NS 0.9% 1000 ml Route: IV; Rate: 1 bolus; Site: right antecubital; jd3 15:05 Follow up: Response: No adverse reaction; IV Status: Completed infusion jd3 12:24 Drug: fentaNYL (PF) 50 mcg Route: IVP; Site: right antecubital; jd3 13:20 Follow up: Response: No adverse reaction; RASS: Alert and Calm (0) jd3 12:24 Drug: Promethazine 12.5 mg Route: IVP; Site: right antecubital; jd3 13:20 Follow up: Response: No adverse reaction jd3 12:59 Drug: Valium 5 mg Route: IVP; Site: right antecubital; jd3 13:55 Follow up: Response: No adverse reaction jd3 Disposition: 16:06 Co-signature as Attending Physician, Storm Martin MD I agree with the assessment and korin plan of care. Disposition: 04/13/20 14:49 Discharged to Home. Impression: Chest pain, unspecified. - Condition is Stable. - Discharge Instructions: Nonspecific Chest Pain. - Medication Reconciliation Form, Thank You Letter, Antibiotic Education, Prescription Opioid Use form. - Follow up: Private Physician; When: 2 - 3 days; Reason: Recheck today's complaints, Continuance of care, Re-evaluation by your physician. Signatures: Dispatcher [employer] EDStorm Bell MD MD cha Mickail, Joel, PA PA jmm Davies, Jonathon, RN RN jNelly Mora RN RN ca1 Corrections: (The following items were deleted from the chart) 15:06 14:49 04/13/2020 14:49 Discharged to Home. Impression: Chest pain, unspecified. jd3 Condition is Stable. Forms are Medication Reconciliation Form, Thank You Letter, Antibiotic Education, Prescription Opioid Use. Follow up: Private Physician; When: 2 - 3 days; Reason: Recheck today's complaints, Continuance of care, Re-evaluation by your physician. aubree
[2020-04-13 15:42] VITALS: TEMP 97.3
[2020-04-13 15:46] VITALS: BP 125/82; O2SAT 97
--- NOTE | 2020-04-14 05:40 | EKG ---
Test Date: 2020-04-13 Test Time: 11:25:24 Joint Cutter Machine: ODALYS MEASUREMENT RESULTS: Intervals: Rate: 92 [place]: 124 QRSD: 76 QT: 394 QTc: 487 [place]: P: 68 [place]: 124 QRS: 67 T: 38 INTERPRETIVE STATEMENTS: Normal sinus rhythm Nonspecific ST abnormality Prolonged QT Abnormal ECG Compared to ECG 03/19/2020 12:08:31 ST (T wave) deviation now present Prolonged QT interval now present Electronically Signed On 04-14-20 05:38:15 CDT by Ryan Quiroga
== END 2020-04-13 15:06 | disposition home or self-care (01) ==
LOC: ER 10:54
DX: R07.9 Chest pain, unspecified (principal); N18.2 Chronic kidney disease, stage 2 (mild); G40.909 Epilepsy, unspecified, not intractable, without status epilepticus; F17.210 Nicotine dependence, cigarettes, uncomplicated
CPT/HCPCS: 96361; 93005; 85025; 80048; 36415; 83735; 85610; 80076; 84484 ×2; 83690; 83880; 71275; 71045; 96375; 96374; 99285; Q9967; J2550; J3360; J3010; J7030

== ENCOUNTER 2020-07-21 11:22 | Emergency (ER) | payer OTHER ==
--- OUTSIDE RECORDS SUMMARY | 2020-07-21 11:47 | XMS REPORT | Clinical Summary ---
:1985 Author Organization [facility] Address [address] [place] [id number] Care Team Providers Name Role Phone Asked, No Pcp Primary Care Provider Unavailable Allergies No Known Active Allergies Medications Not on file Active Problems Not on file Medical History Medical History Date Comments IBS (irritable bowel syndrome) Stomach ulcer Social History Tobacco Use Types Packs/Day Years [...] Health Maintenance Due Date Last Done Comments COVID-19 VACCINE (#1) 1999 CERVICAL CANCER SCREENING 01/29/2004 INFLUENZA VACCINE 02/14/2020 Results Not on fileafter 07/21/2019 Insurance Payer Benefit Plan / Subscriber ID Effective Dates Phone Addre ss Type Group [facility] [id number] 2018-Prese Exchange CHOICE EXCHANGE EXCHANGE nt [employer] Advance Directives For more information, please contact: [phone] Type Date Recorded 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
[2020-07-21 12:39] LABS: Absolute Lymphocytes (CBC) 1.4 K/uL (0.7-4.9); Basophils % 0.6 % (0-1.3); Hematocrit 40.9 % (36.0-45.0); MPV 9.1 fL (7.6-11.3); RBC Red Blood Cell Count 4.42 M/uL (3.86-4.86)
[2020-07-21 12:51] LABS: BUN Blood Urea Nitrogen 10 mg/dL (7-18); Bicarbonate 28 mmol/L (21-32); Glucose Level 98 mg/dL (74-106); Potassium 3.9 mmol/L (3.5-5.1); Sodium Level 141 mmol/L (136-145)
[2020-07-21 12:53] LABS: HCG, Quantitative < 1 mIU/mL (1-3)
[2020-07-21 14:10] LABS: Urine Bacteria <20 /HPF (<20); Urine RBC >50 /HPF (NONE SEEN)
--- NOTE | 2020-07-21 15:08 | ER ---
Nurse's Notes [facility] Name: Jaymie Cleveland Age: 35 yrs Sex: Female : 1985 Arrival Date: 07/21/2020 Time: 11:24 Bed 16 Private MD: Diagnosis: Other abnormal uterine and vaginal bleeding Presentation: 07/21 11:34 Chief complaint: Patient states: vaginal bleeding for about an hour. pt states that she dm5 feels faint and like she wants to go to sleep. Pt noted to have lower than expected O2 saturation 90% RA. Pain rated at 10/10 in suprapubic area an across left ribs intermittently. Coronavirus screen: Client denies travel out of the [place] in the last 14 days. At this time, the client does not indicate any symptoms associated with coronavirus-19. Ebola Screen: Patient negative for fever greater than or equal to 101.5 degrees Fahrenheit, and additional compatible Ebola Virus Disease symptoms Patient denies exposure to infectious person. Patient denies travel to an Ebola-affected area in the 21 days before illness onset. No symptoms or risks identified at this time. Initial Sepsis Screen: Does the patient meet any 2 criteria? RR > 20 per min. HR > 90 bpm. Yes Does the patient have a suspected source of infection? No. Patient's initial sepsis screen is negative. Risk Assessment: Do you want to hurt yourself or someone else? Patient reports no desire to harm self or others. Onset of symptoms was July 21, 2020. 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 - Social history:: Smoking status: unknown. Screenin:03 Abuse screen: Denies threats or abuse. Denies injuries from another. Nutritional iw screening: No deficits noted. Tuberculosis screening: No symptoms or risk factors identified. Fall Risk None identified. Assessment: 12:02 Obstetrical Assessment: General assessment: awake and alert. General: Appears in no iw apparent distress. Behavior is cooperative, drowsy. Pain: Complains of pain in right lower quadrant and left lower quadrant. Neuro: Level of Consciousness is awake, alert, obeys commands, Oriented to person, place, time, situation. Cardiovascular: Patient's skin is warm and dry. Respiratory: Respiratory effort is even, unlabored, Respiratory pattern is regular. : Reports cramping, vaginal bleeding that is. Derm: Skin is intact, is healthy with good turgor. Musculoskeletal: Range of motion: intact in all extremities. 14:30 Reassessment: Patient appears in no apparent distress at this time. Patient and/or iw family updated on plan of care and expected duration. Pain level reassessed. Patient is alert, oriented x 3, equal unlabored respirations, skin warm/dry/pink. Patient states feeling better. Vital Signs: 11:34 BP 124 / 99; Pulse 106; Resp 22; Temp 97.3; Pulse Ox 91% on R/A; Weight 77.11 kg; dm5 Height 5 ft. 2 in. (157.48 cm); Pain 10/10; 11:41 BP 108 / 71; dm5 12:01 BP 114 / 87; Pulse 84; Resp 16 S; Pulse Ox 97% on R/A; iw 11:34 Body Mass Index 31.09 (77.11 kg, 157.48 cm) dm5 Vitals: 15:32 Heart Tones N/A. ED Course: 07/20 12:00 Patient has correct armband on for positive identification. iw 07/21 11:24 Patient arrived in ED. ds1 11:36 Triage completed. dm5 11:52 Ariana Anderson, RN is Primary Nurse. iw 11:53 Arm band placed on. iw 12:13 Bora Majano MD is Attending Physician. kdr 12:23 Initial lab(s) drawn, by me, sent to lab. Inserted saline lock: 22 gauge in left iw antecubital area, using aseptic technique. Blood collected. 15:30 No provider procedures requiring assistance completed. IV discontinued, intact, iw bleeding controlled, No redness/swelling at site. Pressure dressing applied. Administered Medications: No medications were administered Outcome: 15:07 Discharge ordered by . julia 15:30 Discharged to home ambulatory. iw 15:30 Condition: good 15:30 Discharge instructions given to patient, Instructed on discharge instructions, follow up and referral plans. Demonstrated understanding of instructions, follow-up care, medications, Prescriptions given X 2. 15:39 Patient left the ED. iw Signatures: Selene Rendon, RN RN dm5 Bora Majano MD MD kdr Sanford, Demi ds1 Ariana Anderson RN RN iw
--- NOTE | 2020-07-21 15:08 | EDPHYS ---
Physician Documentation [facility] Name: Jaymie Cleveland Age: 35 yrs Sex: Female : 1985 Arrival Date: 07/21/2020 Time: 11:24 Bed 16 Private MD: ED Physician Bora Majano HPI: 07/22 06:52 This 35 yrs old Female presents to ER via Wheelchair with complaints of kdr Vaginal Bleeding, + Preg <12wks. 06:52 The patient presents to the emergency department with abdominal pain, of the suprapubic kdr area, right lower quadrant and left lower quadrant, that started today, described as achy, crampy, dull, vaginal bleeding, that is moderate. The estimated gestational age is 7 weeks. course: care: none, Risk/complications: previous complications- Spont abortions in first trimester. Previous pregnancies: in previous pregnancies patient has had Spont . Associated signs and symptoms: Pertinent positives: abdominal pain, nausea, vaginal bleeding, Pertinent negatives: diarrhea, dysuria, frequency, ruptured membranes, seizure, shortness of breath, vaginal discharge. The patient has experienced similar episodes in the past, multiple times, With all prior pregnancies. The patient has not recently seen a physician. 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 - Social history:: Smoking status: unknown. ROS: 07/22 06:52 Constitutional: Negative for fever, chills, and weight loss, Eyes: Negative for injury, kdr pain, redness, and discharge, ENT: Negative for injury, pain, and discharge, Neck: Negative for injury, pain, and swelling, Cardiovascular: Negative for chest pain, palpitations, and edema, Respiratory: Negative for shortness of breath, cough, wheezing, and pleuritic chest pain, Abdomen/GI: Negative for abdominal pain, nausea, vomiting, diarrhea, and constipation, Back: Negative for injury and pain, MS/Extremity: Negative for injury and deformity, Skin: Negative for injury, rash, and discoloration, Neuro: Negative for headache, weakness, numbness, tingling, and seizure activity. Psych: Negative for depression, anxiety, suicide ideation, homicidal ideation, and hallucinations, Allergy/Immunology: Negative for hives, rash, and allergies, Endocrine: Negative for neck swelling, polydipsia, polyuria, polyphagia, and marked weight changes, Hematologic/Lymphatic: Negative for swollen nodes, abnormal bleeding, and unusual bruising. : Positive for vaginal bleeding, Negative for injury or acute deformity, hematuria, pelvic pain, flank pain, burning with urination, difficulty urinating, bladder incontinence, foul smelling urine, vaginal discharge, vaginal itching, menstrual abnormality. Exam: 06:52 Constitutional: This is a well developed, well nourished patient who is awake, alert, kdr and in no acute distress. Head/Face: Normocephalic, atraumatic. Eyes: Pupils equal round and reactive to light, extra-ocular motions intact. Lids and lashes normal. Conjunctiva and sclera are non-icteric and not injected. Cornea within normal limits. Periorbital areas with no swelling, redness, or edema. Neck: Trachea midline, no thyromegaly or masses palpated, and no cervical lymphadenopathy. Supple, full range of motion without nuchal rigidity, or vertebral point tenderness. No Meningismus. Chest/axilla: Normal chest wall appearance and motion. Nontender with no deformity. No lesions are appreciated. Cardiovascular: Regular rate and rhythm with a normal S1 and S2. No gallops, murmurs, or rubs. Normal PMI, no JVD. No pulse deficits. Respiratory: Lungs have equal breath sounds bilaterally, clear to auscultation and percussion. No rales, rhonchi or wheezes noted. No increased work of breathing, no retractions or nasal flaring. Back: No spinal tenderness. No costovertebral tenderness. Full range of motion. Skin: Warm, dry with normal turgor. Normal color with no rashes, no lesions, and no evidence of cellulitis. MS/ Extremity: Pulses equal, no cyanosis. Neurovascular intact. Full, normal range of motion. Neuro: Awake and alert, GCS 15, oriented to person, place, time, and situation. Cranial nerves II-XII grossly intact. Motor strength 5/5 in all extremities. Sensory grossly intact. Cerebellar exam normal. Normal gait. Psych: Awake, alert, with orientation to person, place and time. Behavior, mood, and affect are within normal limits. 06:52 Abdomen/GI: Inspection: abdomen appears normal, Bowel sounds: active, Palpation: soft, mild abdominal tenderness, in the right lower quadrant and left lower quadrant, mass, is not appreciated, rebound tenderness, is not appreciated. Vital Signs: 07/21 11:34 BP 124 / 99; Pulse 106; Resp 22; Temp 97.3; Pulse Ox 91% on R/A; Weight 77.11 kg; dm5 Height 5 ft. 2 in. (157.48 cm); Pain 10/10; 11:41 BP 108 / 71; dm5 12:01 BP 114 / 87; Pulse 84; Resp 16 S; Pulse Ox 97% on R/A; iw 11:34 Body Mass Index 31.09 (77.11 kg, 157.48 cm) dm5 MDM: 15:07 Patient medically screened. kdr 07/22 06:52 Data reviewed: vital signs, nurses notes, lab test result(s). Counseling: I had a kdr detailed discussion with the patient and/or guardian regarding: the historical points, exam findings, and any diagnostic results supporting the discharge/admit diagnosis, lab results, the need for outpatient follow up. Special discussion: Based on the patient's Hx, exam, and Dx evaluation, there is no indication for emergent surgery or inpatient Tx. It is understood by the patient/guardian that if the Sx's persist or worsen they need to return immediately for re-evaluation. I discussed with the patient/guardian in detail that at this point there is no indication for admission to the hospital. It is understood, however, that if the symptoms persist or worsen the patient needs to return immediately for re-evaluation. 07/21 12:14 Order name: Quantitative Hcg; Complete Time: 13:30 kdr 07/21 12:14 Order name: Abo/rh Typing; Complete Time: 13:30 kdr 07/21 12:14 Order name: Basic Metabolic Panel; Complete Time: 13:30 kdr 07/21 12:14 Order name: CBC with Diff; Complete Time: 13:30 kdr 07/21 13:56 Order name: Urine Microscopic Only; Complete Time: 14:39 bd 07/21 12:14 Order name: IV Saline Lock; Complete Time: 12:20 kdr 07/21 12:14 Order name: Labs collected and sent; Complete Time: 12:20 kdr 07/21 12:14 Order name: NPO; Complete Time: 12:20 kdr 07/21 12:14 Order name: Urine Dipstick-Ancillary (obtain specimen); Complete Time: 13:47 kdr 07/21 14:53 Order name: Test, Urine EDMS Administered Medications: No medications were administered Disposition: 07/21/20 15:07 Discharged to Home. Impression: Other abnormal uterine and vaginal bleeding. - Condition is Stable. - Discharge Instructions: Miscarriage, [id number]. - Prescriptions for Ibuprofen 800 mg Oral Tablet - take 1 tablet by ORAL route every 8 hours As needed take with food; 30 tablet. Zofran 4 mg Oral Tablet - take 1 tablet by ORAL route every 4-6 hours As needed; 12 tablet. - Medication Reconciliation Form, Thank You Letter form. - Follow up: Private Physician; When: 2 - 3 days; Reason: If symptoms return, Further diagnostic work-up, Recheck today's complaints, Continuance of care, Re-evaluation by your physician. - Problem is new. - Symptoms have improved. Signatures: Dispatcher [employer] [facility] Selene Rendon RN RN dm5 Bora Majano MD MD kdr Ariana Anderson RN RN iw Corrections: (The following items were deleted from the chart) 07/21 14:10 13:33 URINALYSIS+U.LAB.BRZ ordered. [facility] EDMS 15:39 15:07 07/21/2020 15:07 Discharged to Home. Impression: Other abnormal uterine and iw vaginal bleeding. Condition is Stable. Forms are Medication Reconciliation Form, Thank You Letter, Antibiotic Education, Prescription Opioid Use. Follow up: Private Physician; When: 2 - 3 days; Reason: If symptoms return, Further diagnostic work-up, Recheck today's complaints, Continuance of care, Re-evaluation by your physician. Problem is new. Symptoms have improved. kdr
[2020-07-21 16:06] VITALS: TEMP 97.3
[2020-07-21 16:08] VITALS: BP 114/87; O2SAT 97
== END 2020-07-21 15:39 | disposition home or self-care (01) ==
LOC: ER 11:22
DX: N93.8 Other specified abnormal uterine and vaginal bleeding (principal); N18.2 Chronic kidney disease, stage 2 (mild); F31.9 Bipolar disorder, unspecified
CPT/HCPCS: 36415; 80048; 81015; 81025; 84702; 85025; 86900; 86901; 99284

== ENCOUNTER 2020-11-07 19:43 | Emergency (ER) | payer OTHER ==
[2020-11-07 22:00] LABS: Absolute Lymphocytes (CBC) 1.1 K/uL (0.7-4.9); Basophils % 0.4 % (0-1.3); Hematocrit 47.6 % (36.0-45.0); Lymphocytes % 8.1 % (15.3-44.8); MPV 9.1 fL (7.6-11.3); RBC Red Blood Cell Count 4.95 M/uL (3.86-4.86)
[2020-11-07 22:08] LABS: Albumin 3.9 g/dL (3.4-5.0); Bilirubin Direct 0.2 mg/dL (0-0.2); Bilirubin Total 0.5 mg/dL (0.2-1.0); Potassium 3.8 mmol/L (3.5-5.1); Protein, Total 7.8 g/dL (6.4-8.2)
[2020-11-07 22:08] LABS: Urine Blood Negative (Negative); Urine Glucose Negative (Negative); Urine Protein 1+ (Negative); Urine Specific Gravity >=1.030 (1.005-1.030)
[2020-11-07] MEDS ORDERED: METOCLOPRAMIDE 10 MG/2mL INJ ONE (22:08)
[2020-11-07] MEDS ORDERED: DIPHENHYDRAMINE 50 MG/ML VIAL ONE (22:09)
[2020-11-07] MEDS ORDERED: NA CHLORIDE 0.9% 1,000 ML ONE (22:09)
[2020-11-07] MEDS ORDERED: LORazepam 2 MG/ML VIAL ONE (23:16)
[2020-11-07] MEDS ORDERED: MORPHINE 4 MG/ML SYR ONE (23:17)
[2020-11-07 23:25] LABS: Blood Morphology Comment NOT SEEN (NOT SEEN); Platelet Estimate ADEQ
[2020-11-07 23:39] LABS: Urine Specific Gravity/Preg >1.030 (1.005-1.030)
[2020-11-07 23:41] LABS: Calcium Oxalate Crystals- Ur MANY (NONE SEEN); Urine Bacteria >50 /HPF (<20); Urine RBC NONE SEEN /HPF (NONE SEEN)
--- NOTE | 2020-11-08 00:57 | EDPHYS ---
Physician Documentation [facility] Name: Jaymie Cleveland Age: 35 yrs Sex: Female : 1985 Arrival Date: 11/07/2020 Time: 19:49 Bed 18 Private MD: ED Physician Yasmani Finley HPI: 11/07 21:20 This 35 yrs old Female presents to ER via Ambulatory with complaints of jmm Vomiting. 21:20 The patient presents to the emergency department with nausea, vomiting, diarrhea, jmm abdominal pain. Onset: The symptoms/episode began/occurred gradually, 2 day(s) ago. Possible causes: flare up of bowel problem. The symptoms are aggravated by nothing. The symptoms are alleviated by nothing. This is a 35 year old female with a history of colitis that presents to the ED with complaints of ongoing vomiting, diarrhea, abdominal pain beginning approx 2 days ago. Diarrhea began today. Patient states abdominal pain is different in character to previous episodes. . 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 - Social history:: Smoking status: Patient reports the use of cigarette tobacco products, smokes one-half pack cigarettes per day. ROS: 21:20 Constitutional: Negative for fever, chills, and weight loss, Cardiovascular: Negative jmm for chest pain, palpitations, and edema, Respiratory: Negative for shortness of breath, cough, wheezing, and pleuritic chest pain. 21:20 Abdomen/GI: Positive for abdominal pain, nausea and vomiting, diarrhea. 21:20 All other systems are negative. Exam: 21:20 Constitutional: This is a well developed, well nourished patient who is awake, alert, jmm and in no acute distress. Head/Face: atraumatic. Eyes: EOMI, no conjunctival erythema appreciated ENT: Moist Mucus Membranes Neck: Trachea midline, Supple Chest/axilla: Normal chest wall appearance and motion. Cardiovascular: Regular rate and rhythm. No edema appreciated Respiratory: Normal respirations, no respiratory distress appreciated Abdomen/GI: Non distended, soft Back: Normal ROM Skin: General appearance color normal MS/ Extremity: Moves all extremities, no obvious deformities appreciated, no edema noted to the lower extremities Neuro: Awake and alert, normal gait Psych: Behavior is normal, Mood is normal, Patient is cooperative and pleasant 21:20 Abdomen/GI: Palpation: soft, moderate abdominal tenderness, in the right upper quadrant, left upper quadrant, right lower quadrant and left lower quadrant. 21:20 Back: pain, that is mild. Vital Signs: 21:08 BP 144 / 114; Pulse 66; Resp 18 S; Temp 96.8(TE); Pulse Ox 97% on R/A; Weight 71.67 kg bb (R); Height 5 ft. 2 in. (157.48 cm) (R); Pain 10/10; 21:36 BP 127 / 97; Pulse 73; Resp 16; Pulse Ox 100% ; sf 22:00 BP 133 / 111; Pulse 68; Resp 16; Pulse Ox 100% ; sf 23:00 BP 125 / 95; Pulse 93; Resp 16; Pulse Ox 100% ; sf 11/08 00:00 BP 140 / 100; Pulse 62; Resp 16; Pulse Ox 100% ; sf 01:00 BP 131 / 99; Pulse 68; Resp 16; Pulse Ox 100% ; sf 02:00 BP 138 / 97; Pulse 65; Resp 16; Pulse Ox 100% ; sf 02:30 BP 135 / 93; Pulse 92; Pulse Ox 100% ; sf 03:00 BP 127 / 85; Pulse 88; Resp 16; Pulse Ox 100% ; sf 11/07 21:08 Body Mass Index 28.90 (71.67 kg, 157.48 cm) MDM: 11/07 21:38 Patient medically screened. [facility] 11/08 00:55 Data reviewed: vital signs, nurses notes. Counseling: I had a detailed discussion with [facility] the patient and/or guardian regarding: the historical points, exam findings, and any diagnostic results supporting the discharge/admit diagnosis, lab results, radiology results, the need for outpatient follow up, to return to the emergency department if symptoms worsen or persist or if there are any questions or concerns that arise at home. ED course: Patient is alert and non toxic in appearance in the ED. No signs of sepsis. Advised to follow up with her GI for further evaluation. Patient understood and agrees with the plan of care. . 11/07 21:20 Order name: Basic Metabolic Panel [facility] 11/07 21:20 Order name: CBC with Diff [facility] 11/07 21:20 Order name: Hepatic Function; Complete Time: 22:10 [facility] 11/07 21:20 Order name: Lipase; Complete Time: 22:10 [facility] 11/07 21:20 Order name: Basic Metabolic Panel; Complete Time: 22:10 [facility] 11/07 21:20 Order name: CBC with Automated Diff; Complete Time: 23:33 [facility] 11/07 21:42 Order name: CT Abd/Pelvis - IV Contrast Only [facility] 11/07 22:08 Order name: Urine Microscopic Only; Complete Time: 23:44 [facility] 11/07 22:08 Order name: Urine Culture [facility] 11/07 22:09 Order name: Manual Differential; Complete Time: 23:33 [facility] 11/07 22:09 Order name: Urine Dipstick-Ancillary; Complete Time: 22:10 [facility] 11/07 22:12 Order name: Urine --Ancillary (enter results); Complete Time: 23:40 [facility] 11/07 21:20 Order name: IV Saline Lock; Complete Time: 21:42 [facility] 11/07 21:20 Order name: Labs collected and sent; Complete Time: 21:42 [facility] Administered Medications: 11/07 21:58 Drug: diphenhydrAMINE 12.5 mg Route: IVP; Site: left antecubital; sf 23:40 Follow up: Response: No adverse reaction; Pain is decreased; Nausea is decreased sf 21:59 Drug: NS 0.9% 1000 ml Route: IV; Rate: 1 bolus; Site: left antecubital; sf 23:55 Follow up: IV Status: Completed infusion; IV Intake: 1000ml sf 23:55 Follow up: Response: No adverse reaction sf 21:59 Drug: Reglan (metoCLOPramide) 20 mg Route: IVP; Site: left antecubital; sf 23:40 Follow up: Response: No adverse reaction; Nausea is decreased sf 23:02 Drug: Ativan (LORazepam) 1 mg Route: IVP; Site: left antecubital; sf 23:39 Follow up: Response: No adverse reaction; Pain is decreased; Nausea is decreased sf 23:03 Drug: morphine 4 mg Route: IVP; Site: left antecubital; sf 23:39 Follow up: Response: No adverse reaction; Pain is decreased; Nausea is decreased 11/08 01:00 Drug: Flagyl (metroNIDAZOLE) 500 mg Volume: 100 ml; Route: IVPB; Rate: 200 ml/hr; sf Infused Over: 60 mins; Site: left antecubital; 01:57 Follow up: Response: No adverse reaction; IV Status: Completed infusion; IV Intake: sf 100ml 01:59 Drug: LevaQUIN (levofloxacin) 750 mg Volume: 150 ml; Route: IVPB; Infused Over: 90 sf mins; Site: left antecubital; 03:27 Follow up: Response: No adverse reaction; IV Status: Completed infusion; IV Intake: sf 150ml Disposition: 04: Co-signature as Attending Physician, Yasmani Finley MD. 7 Disposition: 11/08/20 00:57 Discharged to Home. Impression: Colitis, UTI. - Condition is Stable. - Discharge Instructions: Urinary Tract Infection, Adult, Colitis. - Prescriptions for Flagyl 500 mg Oral Tablet - take 1 tablet by ORAL route every 6 hours for 10 days; 40 tablet. Levaquin 750 mg Oral Tablet - take 1 tablet by ORAL route once daily for 10 days; 10 tablet. Tylenol- Codeine #3 300-30 mg Oral Tablet - take 1 tablet by ORAL route every 4-6 hours As needed; 20 tablet. promethazine 25 mg Oral Tablet - take 1 tablet by ORAL route every 6 hours As needed; 30 tablet. - Medication Reconciliation Form, Thank You Letter, Antibiotic Education, Prescription Opioid Use, Work release form form. - Follow up: Darryl Berumen MD; When: 2 - 3 days; Reason: Recheck today's complaints, Continuance of care, Re-evaluation by your physician. Signatures: Dispatcher [employer] EDMS Jose Alfredo Smyth PA PA jmm Ballard, Brenda, RN RN Yasmani Jarrett MD MD 7 Eulalio Gustafson RN RN sf Corrections: (The following items were deleted from the chart) 03:38 00:57 11/08/2020 00:57 Discharged to Home. Impression: Colitis; UTI. Condition is sf Stable. Forms are Medication Reconciliation Form, Thank You Letter, Antibiotic Education, Prescription Opioid Use. Follow up: Darryl Berumen; When: 2 - 3 days; Reason: Recheck today's complaints, Continuance of care, Re-evaluation by your physician. aubree
--- NOTE | 2020-11-08 00:57 | ER ---
Nurse's Notes [facility] Name: Jaymie Cleveland Age: 35 yrs Sex: Female : 1985 Arrival Date: 11/07/2020 Time: 19:49 Bed 18 Private MD: Diagnosis: Colitis;UTI Presentation: 11/07 21:08 Chief complaint: Patient states: she is having abdominal pain with vomiting and bb diarrhea x 2 days. Coronavirus screen: At this time, the client does not indicate any symptoms associated with coronavirus-19. Ebola Screen: No symptoms or risks identified at this time. Initial Sepsis Screen: Does the patient meet any 2 criteria? No. Patient's initial sepsis screen is negative. Does the patient have a suspected source of infection? No. Patient's initial sepsis screen is negative. Risk Assessment: Do you want to hurt yourself or someone else? Patient reports no desire to harm self or others. Onset of symptoms was November 05, 2020. 21:08 Method Of Arrival: Ambulatory bb 21:08 Acuity: HOSEA 3 bb Triage Assessment: 21:11 General: Appears uncomfortable, ill, Behavior is cooperative. Pain: Complains of pain bb in abdomen Pain currently is 10 out of 10 on a pain scale. Neuro: Level of Consciousness is awake, alert, obeys commands, Oriented to person, place, time, situation. Cardiovascular: Capillary refill < 3 seconds Patient's skin is warm and dry. Respiratory: Respiratory effort is even, unlabored, Respiratory pattern is regular. GI: Reports lower abdominal pain, upper abdominal pain, diarrhea, vomiting. Derm: Skin is pink, warm \T\ dry. Musculoskeletal: Circulation, motion, and sensation intact. 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 - Social history:: Smoking status: Patient reports the use of cigarette tobacco products, smokes one-half pack cigarettes per day. Screenin:30 Abuse screen: Denies threats or abuse. Denies injuries from another. Nutritional sf screening: No deficits noted. Tuberculosis screening: No symptoms or risk factors identified. Fall Risk IV access (20 points). Total Hollins Fall Scale indicates No Risk (0-24 pts). Assessment: 21:30 General: Appears uncomfortable, Behavior is calm, cooperative, Reports feeling ill for sf 12-24 hours. Pain: Complains of pain in abdomen Pain currently is 6 out of 10 on a pain scale. Neuro: Level of Consciousness is awake, alert, Oriented to person, place, time, situation. Cardiovascular: No deficits noted. Patient's skin is warm and dry. Respiratory: No deficits noted. Airway is patent Respiratory effort is even, unlabored, Respiratory pattern is regular, symmetrical. GI: Abdomen is non-distended, Abd is soft and non tender X 4 quads. Reports lower abdominal pain, upper abdominal pain, diarrhea, nausea, vomiting. : No deficits noted. No signs and/or symptoms were reported regarding the genitourinary system. EENT: No deficits noted. No signs and/or symptoms were reported regarding the EENT system. Derm: No deficits noted. No signs and/or symptoms reported regarding the dermatologic system. Musculoskeletal: No deficits noted. No signs and/or symptoms reported regarding the musculoskeletal system. 22:51 Reassessment: Patient appears in no apparent distress at this time. No changes from sf previously documented assessment. Patient and/or family updated on plan of care and expected duration. Pain level reassessed. Patient is alert, oriented x 3, equal unlabored respirations, skin warm/dry/pink. 23:40 Reassessment: Patient appears in no apparent distress at this time. Patient and/or sf family updated on plan of care and expected duration. Pain level reassessed. Patient is alert, oriented x 3, equal unlabored respirations, skin warm/dry/pink. Patient states feeling better. Patient states symptoms have improved. 11/08 01:59 Reassessment: Patient appears in no apparent distress at this time. No changes from sf previously documented assessment. Patient and/or family updated on plan of care and expected duration. Pain level reassessed. Patient is alert, oriented x 3, equal unlabored respirations, skin warm/dry/pink. Vital Signs: 11/07 21:08 BP 144 / 114; Pulse 66; Resp 18 S; Temp 96.8(TE); Pulse Ox 97% on R/A; Weight 71.67 kg bb (R); Height 5 ft. 2 in. (157.48 cm) (R); Pain 10/; 21:36 BP 127 / 97; Pulse 73; Resp 16; Pulse Ox 100% ; sf 22:00 BP 133 / 111; Pulse 68; Resp 16; Pulse Ox 100% ; sf 23:00 BP 125 / 95; Pulse 93; Resp 16; Pulse Ox 100% ; sf 11/08 00:00 BP 140 / 100; Pulse 62; Resp 16; Pulse Ox 100% ; sf 01:00 BP 131 / 99; Pulse 68; Resp 16; Pulse Ox 100% ; sf 02:00 BP 138 / 97; Pulse 65; Resp 16; Pulse Ox 100% ; sf 02:30 BP 135 / 93; Pulse 92; Pulse Ox 100% ; sf 03:00 BP 127 / 85; Pulse 88; Resp 16; Pulse Ox 100% ; sf 11/07 21:08 Body Mass Index 28.90 (71.67 kg, 157.48 cm) ED Course: 11/07 19:49 Patient arrived in ED. ag3 21:10 Triage completed. bb 21:11 Arm band placed on. bb 21:20 Jose Alfredo Smyth PA is PHCP. [facility] 21:20 Yasmani Finley MD is Attending Physician. [facility] 21:28 Eulalio Gustafson, MABEL is Primary Nurse. sf 21:30 Patient has correct armband on for positive identification. Placed in gown. Bed in low sf position. Call light in reach. Side rails up X 1. Pulse ox on. NIBP on. Door closed. Noise minimized. Visitors limited. Lights dimmed. Warm blanket given. Verbal reassurance given. 21:35 Basic Metabolic Panel Sent, CBC with Diff Sent. sf 21:35 No provider procedures requiring assistance completed. Initial lab(s) drawn, by nj, sf sent to lab. Inserted saline lock: 20 gauge in left antecubital area, using aseptic technique. Blood collected. 21:55 Urine collected: clean catch specimen, no colored. sf 22:37 CT Abd/Pelvis - IV Contrast Only Sent. sf 22:37 Manual Differential Sent. sf 22:52 CT Abd/Pelvis - IV Contrast Only In Process Unspecified. EDMS 11/08 00:56 Darryl Berumen MD is Referral Physician. [facility] 03:30 IV discontinued, intact, bleeding controlled, No redness/swelling at site. Pressure sf dressing applied. Administered Medications: 11/07 21:58 Drug: diphenhydrAMINE 12.5 mg Route: IVP; Site: left antecubital; sf 23:40 Follow up: Response: No adverse reaction; Pain is decreased; Nausea is decreased sf 21:59 Drug: NS 0.9% 1000 ml Route: IV; Rate: 1 bolus; Site: left antecubital; sf 23:55 Follow up: IV Status: Completed infusion; IV Intake: 1000ml sf 23:55 Follow up: Response: No adverse reaction sf 21:59 Drug: Reglan (metoCLOPramide) 20 mg Route: IVP; Site: left antecubital; sf 23:40 Follow up: Response: No adverse reaction; Nausea is decreased sf 23:02 Drug: Ativan (LORazepam) 1 mg Route: IVP; Site: left antecubital; sf 23:39 Follow up: Response: No adverse reaction; Pain is decreased; Nausea is decreased sf 23:03 Drug: morphine 4 mg Route: IVP; Site: left antecubital; sf 23:39 Follow up: Response: No adverse reaction; Pain is decreased; Nausea is decreased sf 11/08 01:00 Drug: Flagyl (metroNIDAZOLE) 500 mg Volume: 100 ml; Route: IVPB; Rate: 200 ml/hr; sf Infused Over: 60 mins; Site: left antecubital; 01:57 Follow up: Response: No adverse reaction; IV Status: Completed infusion; IV Intake: sf 100ml 01:59 Drug: LevaQUIN (levofloxacin) 750 mg Volume: 150 ml; Route: IVPB; Infused Over: 90 sf mins; Site: left antecubital; 03:27 Follow up: Response: No adverse reaction; IV Status: Completed infusion; IV Intake: sf 150ml Intake: 11/07 23:55 IV: 1000ml; Total: 1000ml. sf 11/08 01:57 IV: 100ml; Total: 1100ml. sf 03:27 IV: 150ml; Total: 1250ml. sf Outcome: 00:57 Discharge ordered by . [facility] 03:35 Discharged to home ambulatory. sf 03:35 Condition: stable 03:35 Discharge instructions given to patient, Instructed on discharge instructions, follow up and referral plans. medication usage, Demonstrated understanding of instructions, follow-up care, medications, Prescriptions given X 4. 03:38 Patient left the ED. sf Signatures: Dispatcher [employer] EDMS Jose Alfredo Smyth PA PA jmm Ballard, Brenda, RN RN Cindy Bill ag3 Eulalio Gustafson RN RN sf Corrections: (The following items were deleted from the chart) 11/07 21:43 21:42 BASIC METABOLIC PANEL+C.LAB.BRZ drawn and sent. sf sf 21:43 21:42 CBC+H.LAB.BRZ drawn and sent. sf sf
[2020-11-08] MEDS ORDERED: Levofloxacin 750mg IV 750 MG/150 ML BAG IV ONE (01:19)
[2020-11-08] MEDS ORDERED: METRONIDAZOLE 500mg IVPB 500 MG/100 ML BAG IV ONE (01:19)
[2020-11-08 03:55] VITALS: TEMP 96.8
[2020-11-08 03:56] VITALS: O2SAT 100
[2020-11-08 04:05] VITALS: BP 127/85
--- NOTE | 2020-11-08 12:02 | RAD REPORT ---
EXAM DESCRIPTION: CT ABDOMEN PELVIS WITH IV CONTRAST CLINICAL HISTORY: ABD PAIN. COMPARISON: CT of the abdomen and pelvis from April 01, 2020. TECHNIQUE: CT of the abdomen and pelvis was performed following intravenous administration of iodina tristan contrast. Arterial phase images through the abdomen, and portal venous phase images through the a bdomen and pelvis were obtained. Oral contrast was not administered. Axial, coronal, and sagittal sof t tissue window reconstructions were created and sent to PACS. This exam was performed according to our departmental dose-optimization program, which includes autom ated exposure control, adjustment of the mA and/or kV according to patient size and/or use of iterati ve reconstruction technique. FINDINGS: Thoracic: No significant abnormality. Hepatobiliary: No concerning hepatic lesion identified. The hepatic and portal veins are patent. The gallbladder is unremarkable. Trace central intrahepatic biliary ductal prominence. Minimally prominen t common bile duct, measuring up to 0.6 cm at the ellen hepatis, with smooth tapering towards the amp jasson. These findings are unchanged from prior, and are likely within normal limits for this patient. Pancreas: Unremarkable. Spleen: Unremarkable. Gastrointestinal: Mild wall thickening and fat stranding involving the descending colon and sigmoid c olon. Suspected mild mucosal hyperemia throughout the colon. No diverticula are identified. No walled off fluid collections or free air. Decompressed transverse colon. Moderate amount of fecal material throughout the remainder of the colon. No evidence of bowel obstruction. The appendix is normal. Adrenals: No abnormality identified in either adrenal gland. Renal: No concerning parenchymal abnormality in either kidney. No hydronephrosis or urolithiasis. Bladder/Reproductive: Unremarkable appearance of the urinary bladder by CT technique. Unremarkable CT appearance of the uterus and ovaries. Vascular/Lymphatics: No lymphadenopathy identified by CT size criteria. Abdominal aorta is normal in caliber. The major visceral vessels are patent. Musculoskeletal: No concerning osseous lesion identified. Mild facet arthrosis in the lower lumbar sp ine. Fluid / peritoneum: No significant free fluid. No free intraperitoneal air identified. IMPRESSION 1. Findings suggestive of mild left colonic colitis. 2. Moderate amount of fecal material in the colon. 3. Normal appendix. Electronically signed by: Francie Smith MD 11/07/2020 11:24 PM CDT Due to temporary technical issues with the PACS/Fluency reporting system, reports are being signed by the in house radiologist without review as a courtesy to ensure prompt reporting. The interpreting r adiologist is fully responsible for the content of the report.
== END 2020-11-08 03:38 | disposition home or self-care (01) ==
LOC: ER 19:43
DX: K52.9 Noninfective gastroenteritis and colitis, unspecified (principal); N39.0 Urinary tract infection, site not specified; F17.210 Nicotine dependence, cigarettes, uncomplicated
CPT/HCPCS: 87088; 85025; 87086; 80048; 36415; 81025; 80076; 83690; 74177; Q9967; J2765; J1200; J7030; 81003; 81015; 96361; 96365; 96367; 96375; 99284

== ENCOUNTER 2021-08-13 17:25 | Emergency (ER) | payer OTHER ==
[2021-08-13 19:10] LABS: Urine Blood Negative (Negative); Urine Glucose Negative (Negative); Urine Protein Negative (Negative); Urine Specific Gravity >=1.030 (1.005-1.030); Urine pH 5.5 (5.0-7.0)
[2021-08-13 20:05] LABS: Urine Amorphous Sediment 1+ /HPF (NONE SEEN); Urine Bacteria 20-50 /HPF (<20); Urine Mucus 3+ /HPF (NONE SEEN); Urine RBC <5 /HPF (NONE SEEN)
--- NOTE | 2021-08-13 20:12 | ER ---
Nurse's Notes [facility] Name: Jaymie Cleveland Age: 36 yrs Sex: Female : 1985 Arrival Date: 08/13/2021 Time: 17:27 Bed 11 Private MD: Diagnosis: Presentation: 08/13 17:55 Chief complaint: Patient states: burning upon urination, vaginal discharge that is vg1 'greenish/yellow' x 1 week. Also stated LLQ and RLQ pain and right side of back pain. Coronavirus screen: Vaccine status: Patient reports receiving the 2nd dose of the covid vaccine. Client denies travel out of the [place] in the last 14 days. Ebola Screen: Patient negative for fever greater than or equal to 101.5 degrees Fahrenheit, and additional compatible Ebola Virus Disease symptoms. Initial Sepsis Screen: Does the patient meet any 2 criteria? No. Patient's initial sepsis screen is negative. Does the patient have a suspected source of infection? No. Patient's initial sepsis screen is negative. Risk Assessment: Do you want to hurt yourself or someone else? Patient reports no desire to harm self or others. Onset of symptoms was August 06, 2021. 17:55 Method Of Arrival: Ambulatory vg1 17:55 Acuity: HOSEA 3 vg1 Triage Assessment: 17:59 General: Appears uncomfortable, Behavior is calm, cooperative. Pain: Complains of pain vg1 in posterior aspect of right lateral abdomen, right lower quadrant and left lower quadrant Pain currently is 8 out of 10 on a pain scale. Respiratory: Airway is patent Respiratory effort is even, unlabored. : Reports burning with urination, discharge, green. 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 - Social history:: Smoking status: Reported history of juuling and/or vaping. Vital Signs: 17:55 BP 113 / 85; Pulse 108; Resp 16; Temp 98.4; Pulse Ox 100% ; Weight 72.57 kg; Height 5 vg1 ft. 2 in. (157.48 cm); Pain 8/10; 17:55 Body Mass Index 29.26 (72.57 kg, 157.48 cm) vg1 ED Course: 17:27 Patient arrived in ED. rg4 17:59 Triage completed. vg1 17:59 Arm band placed on. vg1 20:10 Yasmani Finley MD is Attending Physician. 7 20:11 Patient's name was called from ER lobby. No response. Unable to locate patient. Will bb disposition as left without being seen by a provider. Administered Medications: No medications were administered Outcome: 20:12 Patient left the ED. bb Signatures: Elisabet Guzman RN Veronique Miranda rg4 Delores Velázquez RN RN vg1 Yasmani Finley MD MD 7
[2021-08-13 20:33] VITALS: BP 113/85; TEMP 98.4; O2SAT 100
== END 2021-08-13 20:12 | disposition left against medical advice (07) ==
LOC: ER 17:25
DX: Z53.21 Procedure and treatment not carried out due to patient leaving prior to being seen by health care provider (principal)
CPT/HCPCS: 81003; 81015; 87086; 87088; 99281